=== PATIENT | female | born 1950 | race Caucasian/White ===

== ENCOUNTER → 2018-01-21 15:51 | Outpatient (CLI) | payer MEDICARE, BC, SELFPAY | PROVIDERS: Family Provider Family Medicine; PCP Family Medicine; Visit Provider Family Medicine | DX: R31.9 Hematuria, unspecified (principal) | CPT/HCPCS: 87086 ==

== ENCOUNTER 2018-02-13 12:37 | Day surgery (SDC) | payer MEDICARE, BC, SELFPAY ==
[2018-02-13] VITALS (9 sets, daily range): BP systolic 106–156; BP diastolic 64–126; PULSE 53–83; RESP 12–18; TEMP 36.6–37; O2SAT 94–100; BMI 26.8
--- NOTE | 2018-02-13 | IMM_PTH ---
PATIENT: SERENA PENDLETON LOC: [facility] – [place] U#:[id number] AGE/SX: 67/F ROOM: RE02/13/[address]: Dr. Jose العراقي MD : 1950 BED: DIS: 02/14/2018 SPEC #: [id number] RECD: 02/15/18 12:55 STATUS: PAULO REQ #: [id number] AMANDA: 02/13/18 00:[address]: Jose العراقي DEPT: IMMUNOHISTOCHEMISTRY RECD BY: Jackie Solitario ENTERED: 02/15/18 12:56 SP TYPE: IMMUNO OTHR DR: Dr. Lizett Flores MD Tissues: Urinary bladder, NOS Procedures: CK5-6 (initial) CD31 (add) CK20 (add) CK7 (add) P53 (add) FACTOR VIII (add) P40 (add) PHYSICIAN & INSTITUTION [place] [address] SPECIMEN INFORMATION: Tissue Source: Bladder tumor Clinical Info: Bladder tumor, gross hematuria Specimen Number: [id number] #4 CPT code: 78608, 53074 x6 METHODOLOGY: Deparaffinized sections of prefer/formalin-fixed tissue or PAP/DQ stained slides are incubated with monoclonal/polyclonal antibodies/oligonucleotide probes. Localization is made via biotin free immunoperoxidase method. Appropriate controls are performed and reacted as expected. Results on target cell population are indicated in the following table: RESULTS: ANTIBODY / CLONE RESULT Block 4 CK5-6 (D5 & 1684) positive P40 (BC28) positive CK7 (OV-TL12/30) positive, focal CK20 (KS20.8) negative P53 (DO-7) positive CD31 (BUTCH/70A) positive Factor VIII (R Ag) positive These tests were developed and their performance characteristics determined by [facility]. They may not have been cleared or approved by the U.S. Food and Drug Administration. The FDA has determined that such clearance or approval is not necessary. INTERPRETATION: Bladder tumor: Invasive squamous cell carcinoma. Lymphvascular invasion is present. SJ:eliezer 02/18/18 Case has been reviewed in consultation with Dr. Montano who concurs with the above diagnosis. IDC:AM
[2018-02-13 13:30] LABS: Anion Gap 8 (5-15); BUN 35 mg/dL (7-18); BUN/Creat Ratio 16.5 RATIO (10-20); Calcium,Total 8.9 mg/dL (8.5-10.1); Chloride 107 mmol/L (98-107); Creatinine, Serum 2.12 mg/dL (0.55-1.02); EST Glomerular Filtration Rate 25 mL/min (>60); Est Glom Filt Rate - Afr Amer 30 mL/min (>60); Glucose 87 mg/dL (74-106); Potassium 4.3 mmol/L (3.5-5.1); Sodium Level 141 mmol/L (136-145)
[2018-02-13 13:34] LABS: Hematocrit 34.5 % (37-47); Hemoglobin 11.3 g/dl (12.0-15.0); Mean Corp Hgb Conc 32.8 g/gl (32-36); Mean Corpuscular Hgb 32.3 pg (27.0-32.0); Mean Corpuscular Volume 98.6 fL (81-99); Mean Platelet Vol. 9.6 fl (6.2-12.0); Platelet Count 202 K/mm3 (150-450); RBC Distribution Width CV 12.8 % (11.6-14.6); RBC Distribution Width SD 46.3 fl (35.1-43.9); White Blood Count 7.3 K/mm3 (4.4-11.0)
[2018-02-13 13:39] LABS: Scan Indicated on CBC? Y/N NO
--- NOTE | 2018-02-13 14:50 | BLB_PTH ---
PATIENT: SERENA PENDLETON LOC: [facility] – [place] U#:[id number] AGE/SX: 67/F ROOM: RE02/13/[address]: Dr. Jose العراقي MD : 1950 BED: DIS: 02/14/2018 SPEC #: [id number] RECD: 02/14/18 09:19 STATUS: PAULO CHARLES #: [id number] AMANDA: 02/13/18 14:[address]: Jose العراقي DEPT: SURGICAL PATHOLOGY RECD BY: Kamaljit Church ENTERED: 02/14/18 10:18 SP TYPE: TURB OTHR DR: Dr. Lizett Flores MD Tissues: Urinary bladder, NOS Procedures: Surgery Specimen Level V HEADER OPERATION: Cysto, transurethral resection bladder, Olymp[employer] PRE-OP DIAGNOSIS: Bladder tumor, gross hematuria TISSUE SUBMITTED: Bladder tumor MICROSCOPIC DIAGNOSIS Bladder tumor, TUR: Invasive moderately differentiated squamous carcinoma. See comment. See cancer summary below. BLADDER CANCER (TUR) SUMMARY: Procedure - TURBT Histologic type ? squamous cell carcinoma. Associated epithelial lesions ? none identified Histologic grade ? moderately differentiated. Tumor configuration ? papillary, invasive and endophytic. Adequacy of material for determining muscularis propria invasion - muscularis propria (detrusor muscle) is not identified. Lymph-Vascular invasion ? present. See comment. Microscopic extent of tumor ? tumor invades subepithelial connective tissue (lamina propria). Additional pathologic findings ? acute and chronic inflammation. The above summary is in compliance with [employer] [place] [employer] (CAP) Cancer Protocols Checklist and [place] Joint Committee on Cancer (AJCC), Staging Manual, 8th Ed. SJ:rg 02/15/18 COMMENT Immunohistochemistry ([id number]) supports the diagnosis of squamous cell differentiation and lymph-vascular invasion. The tumor also shows focal area of necrosis. Case has been reviewed in consultation with Dr. Montano who concurs with the above diagnosis. IDC:AM MICROSCOPIC DESCRIPTION Slides are reviewed. GROSS DESCRIPTION Received in fixative is one container labeled with the patient's name and designated bladder tumor. The specimen consists of multiple irregular fragments of lewis-light brown soft tissue mixed with fragments of blood clot that in aggregate measure 5 x 3 x 0.8 cm. The entire specimen is submitted in four cassettes. / TIA:eliezer 02/14/18 TC:0 CPT: 17833
[2018-02-13] MEDS: Cefazolin 2 GM in 0.9% Normal Saline 100 ML IV (16:11)
--- NOTE | 2018-02-13 16:37 | PCM.OPRPT ---
Report of Operation Date of Procedure: 02/13/18 Pre-Operative Diagnosis: Large bladder mass with hydronephrosis and obstruction Post-Operative Diagnosis: Large bladder mass large fixed pelvic mass Surgery/Procedure Performed:: Transurethral resection of of the large bladder mass Description of Surgical Findings:: 87-year-old female who presented to my office with a large bladder mass and hydronephrosis we suspect she has invasive cancer no tissue diagnosis as of yet so today can take the surgery to attempt to do a resection if the tumor is resectable. I told the patient if she has a resectable tumor I was from the time the resected but it is not resectable then I does like to get a diagnosis of the tissue so we can plan for her treatment in the future. 67-year-old female taken back to the operating room after smooth induction of anesthesia she is placed in the dorsolithotomy position the urethra and vaginal area were prepped and draped in usual sterile fashion with Betadine. She was given IV antibiotics. Timeout was performed, she had SCDs on for DVT prophylaxis, after intubation by Dr. Ng she was then placed in dorsal lithotomy position, her vaginal area and urethra prepped and draped in usual fashion I first did a bimanual exam and she had a hard fixed pelvic mass within the anterior vaginal wall. I then dilated the urethra I went in the bladder with a cystoscope and looked inside the bladder and she had an extensive amount of tumor involving the trigone of both the left and right side and extending throughout the bladder to the patient's left side of the bladder. I then used the resectoscope and resected a handful of tissue from the trigone area but was not a complete resection was obviously invasive cancer complete resection would not of benefit the patient could not identify the left and right ureteral orifice are completely covered with tumor so did not even attempt to do stent placement. Left a catheter in place will have the nurses flush of the keep the urine clear and will offer her bilateral nephrostomy tubes tomorrow given the obstruction that I see within the bladder and she may have to consider chemotherapy first and perhaps cystectomy if she has a good response. Type of Anesthesia:: General Drains: martinez 20 fr - Admit VTE Documentation VTE Present on Admission: No VTE Mechan Device Prophylaxis: SCD's
[2018-02-13] MEDS: 0.9% Normal Saline 1,000 ML 150 ML IV (19:27)
[2018-02-13] MEDS: oxyCODONE 5 MG Tablet PO (22:21)
[2018-02-13] MEDS: Docusate Sodium 100 MG Capsule PO (22:21)
--- NOTE | 2018-02-14 01:10 | NURSING ---
Pt's daughter, Hollie, called for update on patient and had several questions for this RN. This RN attempted to answer the daughter's questions but did make aware that Dr. العراقي would be able to discuss and answer the questions in more detail. Emotional support provided.
[2018-02-14] MEDS: 0.9% Normal Saline 1,000 ML 150 ML IV (02:02)
[2018-02-14 02:07] VITALS: BP 125/69; PULSE 62; RESP 18; TEMP 36.9; O2SAT 94
[2018-02-14] MEDS: Acetaminophen 325 MG Tablet PO (05:53)
--- NOTE | 2018-02-14 07:44 | DCINST_ITS ---
Discharge Diet: Light diet - advance as tolerated Discharge Activity: Return to Normal Activity Call your doctor if your incision/area has: Sudden Increased Bleeding Call your doctor if you observe: Fever of 101 or Higher Allergies/Adverse Reactions: Allergies apple Allergy (Verified 02/12/18 08:20) Anaphylaxis Iodinated Contrast- Oral and IV Dye [CONTRASTS] Allergy (Verified 02/12/18 08:19 ) Other HEADACHE Iodine and Iodide Containing Produc Allergy (Verified 02/12/18 08:19) Other HEADACHE Milk Containing Products Allergy (Verified 02/12/18 08:20) Other Medications to take at Discharge Ascorbic Acid [Vitamin C] 1,000 mg PO DAILY 02/12/18 Biotin 10 mg PO DAILY 02/12/18 Folic Acid 2 mg PO DAILY@0800 02/12/18 Melatonin 10 mg PO DAILY 02/12/18 Methotrexate 15 mg PO Q7D 02/12/18 Multivitamin [Daily Multiple Vitamin] 1 each PO DAILY 02/12/18 Naproxen Sodium [Aleve] 220 mg PO PRN PRN 02/12/18 Potassium 99 mg PO DAILY 02/12/18 Prednisone 20 mg PO PRN PRN 02/12/18 Ciprofloxacin [Cipro] 250 mg PO DAILY #10 tab 02/14/18 The following prescriptions were given: Ciprofloxacin [Cipro] 250 mg PO DAILY #10 tab Primary Care Physician: Lizett Flores MD [Primary Care Provider] - Test Results: Test results from this visit will be discussed in further detail at your follow- up appointment, if applicable. Please Follow Up With: Jose العراقي MD When: call my office to get appt with in [place].
[2018-02-14 07:49] VITALS: BP 135/72; PULSE 57; RESP 18; TEMP 36.7; O2SAT 98
[2018-02-14 07:53] VITALS: PULSE 57
[2018-02-14] MEDS: Docusate Sodium 100 MG Capsule PO (08:53)
== END 2018-02-14 10:03 | disposition home or self-care (01) ==
LOC: SDC 12:38 → AC 12:41 → MS2 17:58
PROVIDERS: Family Provider Family Medicine; PCP Family Medicine; Visit Provider Urology
PROC: 0TBB8ZZ Excision of Bladder, Via Natural or Artificial Opening Endoscopic (ICD-10-PCS; CPT 52240; principal; 2018-02-13 14:40)
DX: C67.9 Malignant neoplasm of bladder, unspecified (principal); N13.30 Unspecified hydronephrosis; R31.0 Gross hematuria; K21.9 Gastro-esophageal reflux disease without esophagitis; Z87.440 Personal history of urinary (tract) infections
CPT/HCPCS: 52240; 80048; 85027; 88307; 88341; 88342; 93005; J7030; J7120; J2405

== ENCOUNTER → 2018-05-06 15:50 | Outpatient (CLI) | payer MEDICARE, BC, SELFPAY ==
[2018-05-06 17:55] LABS: BUN 29 mg/dL (7-18); BUN/Creat Ratio 24.6 RATIO (10-20); Calcium,Total 8.9 mg/dL (8.5-10.1); Chloride 110 mmol/L (98-107); Creatinine, Serum 1.18 mg/dL (0.55-1.02); EST Glomerular Filtration Rate 49 mL/min (>60); Est Glom Filt Rate - Afr Amer 59 mL/min (>60); Glucose 78 mg/dL (74-106); Sodium Level 138 mmol/L (136-145)
[2018-05-06 17:56] LABS: Anion Gap 8 (5-15); Thyroid Stim Hormone (TSH) 0.42 uIU/mL (0.358-3.74)
[2018-05-06 17:57] LABS: Vitamin D,25 Hydroxy 26.4 ng/mL (29.95-100.01)
== END ==
PROVIDERS: Family Provider Family Medicine; PCP Family Medicine; Visit Provider Family Medicine
DX: M19.90 Unspecified osteoarthritis, unspecified site (principal); R63.5 Abnormal weight gain
CPT/HCPCS: 36415; 80048; 82306; 84443

== ENCOUNTER → 2018-06-05 07:40 | Outpatient (CLI) | payer MEDICARE, BC, SELFPAY ==
--- NOTE | 2018-06-05 07:44 | BI_ITS ---
MAMMOGRAPHY - BILATERAL SCREENING REASON FOR EXAM: Female, 67 years old. Routine annual screening examination. PERTINENT HISTORY: Non-contributory. The patient has a history of bladder cancer. TECHNIQUE: Digital bilateral breast marck (3D mammographic acquisition) in the CC and MLO projections. 2-D mediolateral oblique (MLO) and craniocaudad (CC) views of both breasts were obtained. CAD: Full Field Digital Mammography with Computer Added Detection was performed. COMPARISON: Comparison is made with prior study dated May 10, 2017 and March 03, 2016. FINDINGS: Breast Composition: The breasts are heterogeneously dense, which may obscure small masses. There are no dominant masses or suspicious calcifications. No other significant abnormalities are identified. There has been no significant change since the prior study. BI/SCREENING MAMM (CAD), BILAT IMPRESSION: Stable bilateral screening mammogram. Yearly follow-up mammogram recommended. (A) ASSESSMENT CATEGORY: BIRADS Category 1: Negative. A letter regarding these results will be sent to the patient by the facility within 30 days. Approximately 10% of breast cancers are not detected by mammography. A normal mammogram should not delay biopsy of a clinically suspicious abnormality. [id number] Electronically Signed: Aiden Kenny MD at 9:22 EST Tel [phone], Service support ,
--- OUTSIDE RECORDS SUMMARY | 2018-07-31 12:01 | XMS RPT_ITS ---
:1950 Author Organization OHIP Support Name Relationship Address Phone [facility] Unavailable [address] + [place] [address] JACQUE MUSA Unavailable [address] + [place] [address] [facility] Unavailable [address] + [place] [address] JACQUE MUSA Unavailable [address] + [place] [address] [facility] Unavailable [address] + [place] [address] JACQUE MUSA Unavailable [address] + [place] [address] [facility] Unavailable [address] + [place] [address] JACQUE MUSA Unavailable [address] + [place] [address] JACQUE MUSA Unavailable Unavailable + JACQUE MUSA Unavailable Unavailable Unavailable NOT GIVEN Unavailable Unavailable Unavailable JACQUE MUSA Unavailable Unavailable + JACQUE MUSA Unavailable Unavailable Unavailable NOT GIVEN Unavailable Unavailable Unavailable [facility] Unavailable [address] + [place] [address] JACQUE MUSA Unavailable [address] + [place] [address] JACQUE MUSA Unavailable Unavailable + JACQUE MUSA Unavailable Unavailable Unavailable NOT GIVEN Unavailable Unavailable Unavailable JACQUE MUSA Unavailable Unavailable + JACQUE MUSA Unavailable Unavailable Unavailable NOT GIVEN Unavailable Unavailable Unavailable [facility] Unavailable [address] + [place] [address] JACQUE MUSA Unavailable [address] + [place] [address] [facility] Unavailable [address] + [place] [address] JACQUE MUSA Unavailable [address] + [place] [address] Care Team Providers Name Role Phone SARAH JULES Referring Unavailable CHUY GARCIA (FEL) Attending Unavailable LANASTEINOLLIE (FEL) Attending Unavailable ORNSTEINVICTORINOHE (FEL) Referring Unavailable BELINDA, YOSHI JUAN JOSE Referring Unavailable ORNSTEINOLLIE (FEL) Attending Unavailable VICTORINO NOLENHE (FEL) Referring Unavailable BELINDA, YOSHI JUAN JOSE Attending Unavailable HARRY MANCILLA (FEL) Attending Unavailable SARAH JULES Referring Unavailable ISRAEL WILSON Referring Unavailable BELINDA, YOSHI JUAN JOSE Referring Unavailable BELINDA, YOSHI JUAN JOSE Referring Unavailable BELINDA, YOSHI JUAN JOSE Referring Unavailable BELINDA, YOSHI JUAN JOSE Admitting Unavailable BELINDA, YOSHI JUAN JOSE Attending Unavailable BELINDA, YOSHI JUAN JOSE Referring Unavailable BELINDA, YOSHI JUAN JOSE Attending Unavailable BELINDA, YOSHI JUAN JOSE Referring Unavailable RADHA, CHUY (FEL) Referring Unavailable BELINDA, YOSHI JUAN JOSE Referring Unavailable BELINDA, YOSHI JUAN JOSE Referring Unavailable RADHA, CHUY (FEL) Referring Unavailable RADHA CHUY (FEL) Attending Unavailable SARAH JULES Referring Unavailable LANASTEINOLLIE (FEL) Referring Unavailable MADYSON PEREZ MD Admitting Unavailable MADYSON PEREZ MD Attending Unavailable MADYSON PEREZ MD Primary Care Unavailable TETELLIFF, LIZETT S Consulting Unavailable PROVIDER, UNKNOWN Consulting Unavailable MADYSON PEREZ MD Admitting Unavailable MADYSON PEREZ MD Attending Unavailable MADYSON PEREZ MD Primary Care Unavailable JOLLIFF, LIZETT S Consulting Unavailable PROVIDER, UNKNOWN Consulting Unavailable FERNANDO RIGGS Admitting Unavailable FERNANDO RIGGS Attending Unavailable FERNANDO RIGGS Primary Care Unavailable JOLLIFF, LIZETT S Consulting Unavailable PROVIDER, UNKNOWN Consulting Unavailable FERNANDO RIGGS Admitting Unavailable FERNANDO RIGGS Attending Unavailable FERNANDO RIGGS Primary Care Unavailable JOLLIFF, LIZETT S Consulting Unavailable PROVIDER, UNKNOWN Consulting Unavailable Jolliff, Lizett Attending Unavailable Sandra, Lizett Primary Care Unavailable Vellanfidelia, Madyson Attending Unavailable Vellanki, Madyson Referring Unavailable Jolliff, Lizett Primary Care Unavailable Jolliff, Lizett Attending Unavailable Jolliff, Lizett Primary Care Unavailable Jolliff, Lizett Referring Unavailable Dulce MariaJose sy Attending Unavailable Dulce Maria, Juan Referring Unavailable Jolliff, Lizett Primary Care Unavailable JoyceMorales cesarril Attending Unavailable Dulce Maria, Juan Referring Unavailable Jolliff, Lizett Attending Unavailable Jolliff, Lizett Primary Care Unavailable Jolliff, Lizett Attending Unavailable Jolliff, Lizett Primary Care Unavailable PROBLEMS PROBLEMS DATE TYPE CONDITION / CODE ATTENDING STATUS SOURCE 06/05/2018 Unknown Z12.31 - Encounter Lizett Flores Active [place] for screening Community mammogram for Hospital malignant neoplasm of Repository breast / Z12.31(ICD-10) 05/21/2018 Active Unknown / OLLIE NOLEN Active [place] UNK(Unknown) (FEL) Clinic Main [place] Repository 03/15/2018 Active Hyperkalemia / NA Active [place] E87.5(ICD-10) Clinic Main [place] Repository 03/15/2018 Active Malignant neoplasm of NA Active [place] overlapping sites of [facility] Main bladder / [place] C67.8(ICD-10) Repository 02/19/2018 Active Encounter for CHUY GARCIA Active [place] screening for other (FEL) Clinic Main disorder / [place] Z13.89(ICD-10) Repository 02/27/2018 Active Other acute YOSHI LARA Active [place] postprocedural pain / [facility] Main G89.18(ICD-10) [place] Repository 02/27/2018 Active Other polyuria / YOSHI LARA Active [place] R35.8(ICD-10) [facility] Main [place] Repository 02/27/2018 Active Acute kidney failure, YOSHI LARA Active [place] unspecified / [facility] Main N17.9(ICD-10) [place] Repository 02/27/2018 Active Acidosis / YOSHI LARA Active [place] E87.2(ICD-10) [facility] Main [place] Repository 02/27/2018 Active 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, [facility] Main unspecified / [place] N13.9(ICD-10) Repository 02/25/2018 Active Urinary tract HARRY MANCILLA Active [place] infection, site not (FEL) Clinic Main specified / [place] N39.0(ICD-10) Repository 02/19/2018 Active Malignant neoplasm of NA Active [place] bladder, unspecified Clinic Main / C67.9(ICD-10) [place] Repository 02/19/2018 Active Abnormal results of NA Active [place] kidney function Clinic Main studies / [place] R94.4(ICD-10) Repository 02/19/2018 Active Encounter for other NA Active [place] preprocedural [facility] Main examination / [place] Z01.818(ICD-10) Repository 02/19/2018 Active Acute posthemorrhagic NA Active [place] anemia / D62(ICD-10) Clinic Main [place] Repository 02/19/2018 Active Other symptoms and NA Active [place] signs involving the Clinic Main genitourinary system [place] / R39.89(ICD-10) Repository 02/19/2018 Active Malignant neoplasm of YOSHI LARA Active [place] lateral wall of [facility] Main bladder / [place] C67.2(ICD-10) Repository 02/19/2018 Active 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 [facility] Main specified sites / [place] C79.89(ICD-10) Repository 03/18/2018 Unknown R00.1 - Bradycardia, Joyce, [place] Active [place] unspecified / Community R00.1(ICD-10) Hospital Repository 01/23/2018 Unknown R31.9 - Hematuria, Jolliff, Lizett Active [place] unspecified / Community R31.9(ICD-10) Hospital Repository 01/23/2018 Unknown 599.70 - Hematuria, Jolliff, Lizett Active [place] unspecified / Community 599.70(ICD-9) Hospital Repository 07/17/2017 Unknown M06.4 - Inflammatory Vellanki, 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 [phone] June 20, 2018 Serena Musa CCF# [id number] [address] [facility] [address] Dear Ms. Musa: We regret to inform you that, due to unforeseen circumstances, Yoshi James will be unable to see you on 08/27/18, your scheduled appointment day. We apologize for any inconvenience that this adjustment may cause you. Please call the phone number above to schedule a new appointment. If you have any laboratory studies, x-rays, or other associated appointments originally scheduled for that day, please let us know so that we can try to reschedule them as well. Thank you. Sincerely, Appointment Office Pending Sale To [facility] [place] CNCO Observed: 06/20/2018 Status: COMPLETED Source: [place] 12:00 AM [facility] REPOSITORY Letter Text [address] [id number] Toll-Free: [phone] ext. [phone] June 20, 2018 Serena Musa [facility]# [id number] [address] [facility] [address] Dear Ms. Musa: We regret to inform you that, due to unforeseen circumstances, Yoshi James will be unable to see you on 08/27/18, your scheduled appointment day. We apologize for any inconvenience that this adjustment may cause you. Please call the phone number above to schedule a new appointment. If you have any laboratory studies, x-rays, or other associated appointments originally scheduled for that day, please let us know so that we can try to reschedule them as well. Thank you. Sincerely, Appointment Office Pending Sale To [facility] [place] SCREENING MAMM (CAD), Observed: 06/05/2018 Status: F Source: [place] 7:44 AM [facility] REPOSITORY [facility] Imaging Services [address] [place] [address] SCREENING MAMM (CAD), BILAT MR#: [id number] Acct: [id number] Name: SERENA MUSA Rep #: [id number] : 1950 F 67 From: Aiden Kenny MD PCP: Lizett Flores MD Status: REG CLI Study: SCREENING MAMM (CAD), BILAT Date of Exam: 06/05/18 Exam# [id number] Ordering Dr: Lizett Flores MD MAMMOGRAPHY - BILATERAL SCREENING REASON FOR EXAM: Female, 67 years old. Routine annual screening examination. PERTINENT HISTORY: Non-contributory. The patient has a history of bladder cancer. TECHNIQUE: Digital bilateral breast marck (3D mammographic acquisition) in the CC and MLO projections. 2-D mediolateral oblique (MLO) and craniocaudad (CC) views of both breasts were obtained. CAD: Full Field Digital Mammography with Computer Added Detection was performed. COMPARISON: Comparison is made with prior study dated May 10, 2017 and March 03, 2016. FINDINGS: Breast Composition: The breasts are heterogeneously dense, which may obscure small masses. There are no dominant masses or suspicious calcifications. No other significant abnormalities are identified. There has been no significant change since the prior study. BI/SCREENING MAMM (CAD), BIL IMPRESSION: Stable bilateral screening mammogram. Yearly follow-up mammogram recommended. (A) ASSESSMENT CATEGORY: BIRADS Category 1: Negative. A letter regarding these results will be sent to the patient by the facility within 30 days. Approximately 10% of breast cancers are not detected by mammography. A normal mammogram should not delay biopsy of a clinically suspicious abnormality. [id number] Electronically Signed: Aiden Kenny MD at 9:22 EST Tel [phone], Service support , CC: Lizett Flores MD Boat Hand: Signed PROGRESS Observed: 05/21/2018 Status: COMPLETED Source: [place] 11:01 AM [facility] REPOSITORY HNO ID: [id number] Author: Kaity Nunez Service: (none) Author Type: (none) Type: Progress Notes Filed: 06/11/2018 4:27 PM Note Text: Established Patient Follow-Up Template Patient Name: Serena Musa PMHx: 67 year old female with a h/o Hx of Bladder Cancer. s/p Robotic radical cystectomy, hysterstomy, salpingo-oopherectomy with PLND and IC on (02/27/2018) ? SURGICAL PATHOLOGY FINAL DIAGNOSIS 1. Ureter, right distal #1 and #2, excision (A) - Segment of ureter, negative for neoplasm. 2. Ureter, left distal, excision (B) - Segment of ureter with reactive urothelial atypia, negative for neoplasm. 3. Urethra, margin, excision (C) - Extensively involved by invasive urothelial carcinoma, high-grade. Surgeon performed a urethrectomy intra op. 4. Urinary bladder, uterus, vagina, and bilateral fallopian tubes and ovaries, cystectomy with hysterectomy, vaginectomy and bilateral salpingo-oophorectomy - Invasive urothelial carcinoma of the urinary bladder with extensive secondary involvement of vagina and uterus. - Extensive angiolymphatic invasion is present. - Urothelial carcinoma extends to the paravaginal soft tissue margin. - Bilateral fallopian tubes and ovaries, negative for neoplasm. -?One of eleven lymph nodes involved by metastatic urothelial carcinoma (07/19). - See synoptic report. INTERVAL HX: Patient states no c/o's today and is feeling good. Pt has seen Dr. Owen today, he recommended chemotherapy if renal function declines. Pt reports sharp lower R abdominal pains, lasting for 10 minutes during night. She reports this pain resolved after 10 min and she fell back asleep. No fevers/chills. She takes stool softeners, reports regular BMs. Pt endorses mild core exercises. Pt reports vaginal discharge, heavy at first since surgery. This clear discharge is still present; however she admits less output. She also endorses one episode of bloody discharge, this has since resolved and is clear. Disease Specificity: Acuity: Chronic Anatomic Site: Bladder, Laterality: N/A Underlying Condition/Causal Agent: Primary Associated Conditions/Manifestations: N/A Patient denies urinary symptoms such as fever/chills. Patient admits urinary symptoms such as nocturia. INCONTINENCE: N/A IMPOTENCE: N/A Patient presents today for f/u evaluation of bladder cancer. LABS: Creatinine Date Value Ref Range Status 05/21/2018 1.36 (H) 0.58 - 0.96 mg/dL Final 03/15/2018 1.34 (H) 0.58 - 0.96 mg/dL Final 03/10/2018 1.82 (H) 0.58 - 0.96 mg/dL Final 03/09/2018 2.00 (H) 0.58 - 0.96 mg/dL Final IMAGING: CT A/P (04/17/2018) IMPRESSION: Interval cystectomy with a right lower quadrant ileal conduit, lymph node dissection and hysterectomy. No metastatic disease in the abdomen and pelvis. CXR (04/17/2018) IMPRESSION: No acute radiographic abnormality is evident. PAST MEDICAL HISTORY: PAST MEDICAL HISTORY Diagnosis Date - Bladder cancer (HCC) PAST SURGICAL HISTORY: No past surgical history on file. FAMILY HISTORY: No family history on file. SOCIAL HISTORY: Social History Marital status: Spouse name: Years of education: Number of children: Social History Main Topics Smoking status: Never Smoker Smokeless tobacco: Never Used REVIEW OF SYSTEMS: CONSTITUTIONAL: No fevers, chills, nightsweats, unintended weight loss HEENT: Denies frequent or severe heaches, nasal congestion/sinus symptoms, problematic allergy problems. EYES: No diplopia or blurry vision. CARDIOVASCULAR: No chest pain, dyspnea, palpitations, orthopnea, PND, ankle edema. PULM: No dyspnea, unexplained cough. GI: No dysphagia/odynophagia, problematic reflux, constipation, diarrhea, changes in stool habits, hematochezia, melena. : No new urinary complaints, including dysuria, gross hematuria or pyuria. NEURO: No new balance problems, peripheral weakness/paresthesias or numbness of concern. MUSC-SKEL: No new joint pain, swelling, or erythema. PSY: No concerns regarding depression, anxiety or panic. INTEGUMENTARY: No new skin changes (rash, new or changing mole, new growth) PHYSICAL EXAM: GENERAL: NAD, pleasant and cooperative with exam, healthy appearing habitus HEENT: Normocephalic, atraumatic, oral mucosa moist without lesions LUNGS: clear to auscultation bilaterally, good respiratory effort CV: Regular rate, rhythm and without appreciable murmur, + b/l chest rise ABD: normal bowel sounds, soft, nontender, non-distended, no flank pain, surgical incisions are well healed, no hernias EXTREMITIES: no appreciable edema, cyanosis, clubbing and no clear joint deformities. PULSES: 2+ radial, 2+ carotid STOMA: pink and viable, good keily bud with pink/yellow urine ASSESSMENT/PLAN: 67 y/o female with hx of bladder cancer s/p RARC/IC on 02/27/2018 for invasive urothelial carcinoma of the urinary bladder with extensive secondary involvement of vagina and uterus. Further discussed pathology report with pt and implications of diagnosis. Discussed imaging results with pt, no recurrence of disease. Surgical incisions and stoma are clean and clear from infection. Pt will f/u with Dr. Nolen to further discuss chemotherapy treatment options given borderline renal function. Advised her to stay well hydrated and to resume daily activity with no limitations. RTC in 3 months with labs and imaging prior. - CT A/P, CMP, CBC - Will consult to nephrology By signing my name below, I, Kaity Nunez, attest that this documentation has been prepared under the direction and in the presence of Aimee Lara MD. Electronically signed: Derik Alcantar, May 21, 2018 11:29 AM Aimee Wright MD. , personally performed the services described in this documentation. All medical record entries made by the scribe were at my direction and in my presence. I have reviewed the chart and discharge instructions (if applicable) and agree that the record reflects my personal performance and is accurate and complete. Aimee Lara MD. May 21, 2018 11:29 AM CNOV Observed: 05/21/2018 Status: COMPLETED Source: [place] 10:50 AM [facility] REPOSITORY Office Visit (UROLMN) SERENA MUSA ([id number]) 1950 F Date Time Provider Department 05/21/18 10:50 AM YOSHI LARA During your visit today, we recorded the following information about you: Kaity Nunez 06/11/2018 4:27 PM Signed Established Patient Follow-Up Template Patient Name: Serena Musa PMHx: 67 year old female with a h/o Hx of Bladder Cancer. s/p Robotic radical cystectomy, hysterstomy, salpingo-oopherectomy with PLND and IC on (02/27/2018) ? SURGICAL PATHOLOGY FINAL DIAGNOSIS 1. Ureter, right distal #1 and #2, excision (A) - Segment of ureter, negative for neoplasm. 2. Ureter, left distal, excision (B) - Segment of ureter with reactive urothelial atypia, negative for neoplasm. 3. Urethra, margin, excision (C) - Extensively involved by invasive urothelial carcinoma, high-grade. Surgeon performed a urethrectomy intra op. 4. Urinary bladder, uterus, vagina, and bilateral fallopian tubes and ovaries, cystectomy with hysterectomy, vaginectomy and bilateral salpingo-oophorectomy - Invasive urothelial carcinoma of the urinary bladder with extensive secondary involvement of vagina and uterus. - Extensive angiolymphatic invasion is present. - Urothelial carcinoma extends to the paravaginal soft tissue margin. - Bilateral fallopian tubes and ovaries, negative for neoplasm. -?One of eleven lymph nodes involved by metastatic urothelial carcinoma (07/19). - See synoptic report. INTERVAL HX: Patient states no c/o's today and is feeling good. Pt has seen Dr. Owen today, he recommended chemotherapy if renal function declines. Pt reports sharp lower R abdominal pains, lasting for 10 minutes during night. She reports this pain resolved after 10 min and she fell back asleep. No fevers/chills. She takes stool softeners, reports regular BMs. Pt endorses mild core exercises. Pt reports vaginal discharge, heavy at first since surgery. This clear discharge is still present; however she admits less output. She also endorses one episode of bloody discharge, this has since resolved and is clear. Disease Specificity: Acuity: Chronic Anatomic Site: Bladder, Laterality: N/A Underlying Condition/Causal Agent: Primary Associated Conditions/Manifestations: N/A Patient denies urinary symptoms such as fever/chills. Patient admits urinary symptoms such as nocturia. INCONTINENCE: N/A IMPOTENCE: N/A Patient presents today for f/u evaluation of bladder cancer. LABS: Creatinine Date Value Ref Range Status 05/21/2018 1.36 (H) 0.58 - 0.96 mg/dL Final 03/15/2018 1.34 (H) 0.58 - 0.96 mg/dL Final 03/10/2018 1.82 (H) 0.58 - 0.96 mg/dL Final 03/09/2018 2.00 (H) 0.58 - 0.96 mg/dL Final IMAGING: CT A/P (04/17/2018) IMPRESSION: Interval cystectomy with a right lower quadrant ileal conduit, lymph node dissection and hysterectomy. No metastatic disease in the abdomen and pelvis. CXR (04/17/2018) IMPRESSION: No acute radiographic abnormality is evident. PAST MEDICAL HISTORY: PAST MEDICAL HISTORY Diagnosis Date - Bladder cancer (HCC) PAST SURGICAL HISTORY: No past surgical history on file. FAMILY HISTORY: No family history on file. SOCIAL HISTORY: Social History Marital status: Spouse name: Years of education: Number of children: Social History Main Topics Smoking status: Never Smoker Smokeless tobacco: Never Used REVIEW OF SYSTEMS: CONSTITUTIONAL: No fevers, chills, nightsweats, unintended weight loss HEENT: Denies frequent or severe heaches, nasal congestion/sinus symptoms, problematic allergy problems. EYES: No diplopia or blurry vision. CARDIOVASCULAR: No chest pain, dyspnea, palpitations, orthopnea, PND, ankle edema. PULM: No dyspnea, unexplained cough. GI: No dysphagia/odynophagia, problematic reflux, constipation, diarrhea, changes in stool habits, hematochezia, melena. : No new urinary complaints, including dysuria, gross hematuria or pyuria. NEURO: No new balance problems, peripheral weakness/paresthesias or numbness of concern. MUSC-SKEL: No new joint pain, swelling, or erythema. PSY: No concerns regarding depression, anxiety or panic. INTEGUMENTARY: No new skin changes (rash, new or changing mole, new growth) PHYSICAL EXAM: GENERAL: NAD, pleasant and cooperative with exam, healthy appearing habitus HEENT: Normocephalic, atraumatic, oral mucosa moist without lesions LUNGS: clear to auscultation bilaterally, good respiratory effort CV: Regular rate, rhythm and without appreciable murmur, + b/l chest rise ABD: normal bowel sounds, soft, nontender, non-distended, no flank pain, surgical incisions are well healed, no hernias EXTREMITIES: no appreciable edema, cyanosis, clubbing and no clear joint deformities. PULSES: 2+ radial, 2+ carotid STOMA: pink and viable, good keily bud with pink/yellow urine ASSESSMENT/PLAN: 67 y/o female with hx of bladder cancer s/p RARC/IC on 02/27/2018 for invasive urothelial carcinoma of the urinary bladder with extensive secondary involvement of vagina and uterus. Further discussed pathology report with pt and implications of diagnosis. Discussed imaging results with pt, no recurrence of disease. Surgical incisions and stoma are clean and clear from infection. Pt will f/u with Dr. Nolen to further discuss chemotherapy treatment options given borderline renal function. Advised her to stay well hydrated and to resume daily activity with no limitations. RTC in 3 months with labs and imaging prior. - CT A/P, CMP, CBC - Will consult to nephrology By signing my name below, Kaity Wright, attest that this documentation has been prepared under the direction and in the presence of Yina Lara MD. Electronically signed: Derik Alcantar, May 21, 2018 11:29 AM Aimee Wright MD. , personally performed the services described in this documentation. All medical record entries made by the sushmaibolegario were at my direction and in my presence. I have reviewed the chart and discharge instructions (if applicable) and agree that the record reflects my personal performance and is accurate and complete. Aimee Lara MD. May 21, 2018 11:29 AM Referring Provider: YOSHI LARA [[id number]] Allergies As of Date: 05/21/2018 Noted Allergy Reaction IODINATED CONTRAST- ORAL AND IV D*02/19/2018 4 - Hives SEASONAL ALLERGIES 05/21/2018 14 - Other: See Comments Comments: Sneezing Date Reviewed: 05/21/2018 Reviewed by: Claudio Esquivel Ma - Fully Assessed Primary Visit Diagnosis:Malignant neoplasm of urinary bladder, unspecified site (HCC) [C67.9] Other Visit Diagnoses:Malignant neoplasm of lateral wall of urinary bladder (HCC) [C67.2] Malignant neoplasm of overlapping sites of bladder (HCC) [C67.8] Screening for genitourinary condition [Z13.89] Nonspecific abnormal results of kidney function study [R94.4] Order(s):UA CHEMSTRIP ONLY [SQUA] Order #: [id number] FUTURE UA CHEMSTRIP ONLY [SQUA] Order #: [id number] CT ABD/PEL W IVCON [[id number]] Order #: [id number] FUTURE [] iv contrast (will be provided with radiology test)CT ABD/PEL -Inject, intravenously, once for 1 dose.No IV access, insert saline lock prior to the beginning of sedation, infusion, injection of imaging exam. Discontinue saline lock post exam. If Pt. has a central line or IVAD, may access for administration according to line specific nursing protocol. Once exam is complete flush line and de-access according to line specific nursing protocol in the CT contrast administration guidelines link.Disp: 1 EachRfl: 0 CONSULT TO NEPHROLOGY [9018] Order #: [id number]: 1 COMP METABOLIC PANEL [SQCMP] Order #: [id number] FUTURE CBC [SQCBC] Order #: [id number] FUTURE [] predniSONE (DELTASONE) 50 mg tabTake 1 tablet by mouth every 6 hours for 3 doses. For prevention of contrast allergy given 13 hrs, 7 hrs and 1 hr prior to exam.Disp: 3 tabletRfl: 0 [] 0.9 % sodium chloride (NACL 0.9%) solutionInject 500 mL intravenously one time only for 1 dose. Over 2 hours.Disp: 500 mLRfl: 0 diphenhydrAMINE (BENADRYL) 25 mg capsuleTake [address] scan for allergic reactionDisp: 1 capsuleRfl: 0 CT CHEST W IVCON [[id number]] Order #: [id number] FUTURE [] iv contrast (will be provided with radiology test)CT Chest W -Inject, intravenously, once for 1 dose.No IV access, insert saline lock prior to the beginning of sedation, infusion, injection of imaging exam. Discontinue saline lock post exam. If Pt. has a central line or IVAD, may access for administration according to line specific nursing protocol. Once exam is complete flush line and de-access according to line specific nursing protocol in the CT contrast administration guidelines link.Disp: 1 EachRfl: 0 Prescriptions as of 05/21/2018 Sig: BANOPHEN 25 MG CAPSULE Take 2 capsules (50mg total) * CHOLECALCIFEROL (VITAMIN D3) * Take 1,000 Units by mouth onc* CYANOCOBALAMIN (VIT B-12) 500* Take 1 tablet by mouth once d* DIPHENHYDRAMINE 50 MG CAPSULE Take 1 capsule by mouth as di* DOCUSATE SODIUM 100 MG CAPSULE Take 1 capsule by mouth twice* TYLENOL ARTHRITIS ORAL Take by mouth every 8 hours a* MELATONIN 10 MG CAPSULE Take by mouth daily at bedtim* MULTIVITAMIN 50 PLUS ORAL Take by mouth once daily. BIOTIN 1,000 MCG CHEWABLE TAB* Take by mouth. ASCORBIC ACID (VITAMIN C) 100* Take 100 mg by mouth once erica* FEXOFENADINE 60 MG-PSEUDOEPHE* as necessary IV CONTRAST (RADIOLOGY PROCED* CT ABD/PEL -Inject, intraveno* PREDNISONE 50 MG TABLET Take 1 tablet by mouth every * SODIUM CHLORIDE 0.9 % INTRAVE* Inject 500 mL intravenously o* DIPHENHYDRAMINE 25 MG CAPSULE Take [address] sc* IV CONTRAST (RADIOLOGY PROCED* CT Chest W -Inject, intraveno* CIPROFLOXACIN 500 MG TABLET Take 1 tablet by mouth once d* Patient not taking: Reported on 05/21/2018 SODIUM BICARBONATE 650 MG TAB* Take 1 tablet by mouth three * Patient not taking: Reported on 05/21/2018 OPTIVAR 0.05 % EYE DROPS one(1) drop to each eye twice* Patient not taking: No sig reported Medication notes this encounter BIOTIN 1,000 MCG CHEWABLE TABLET >> Claudio Esquivel Ma 05/21/2018 11:15 AM >> CLAUDIO ESQUIVEL MA May 21, 2018 11:15 AM Currently taking ASCORBIC ACID (VITAMIN C) 100 MG TABLET >> Claudio Esquivel Ma 05/21/2018 11:15 AM >> CLAUDIO ESQUIVEL MA May 21, 2018 11:15 AM Currently taking Problem List As Of Date 05/21/2018 Noted Resolved Malignant neoplasm of urinary bladder (HCC) [C6*INVALID FOR* More... Bladder cancer (HCC) [C67.9] INVALID FOR* More... Hydronephrosis [N13.30] INVALID FOR* Prescriptions ordered this encounter Disp Refills Start End IV CONTRAST (RADIOLOGY PROCEDURE) 1 Ea* 0 05/21/2018 05/22/2018 Class: In Office Sig: CT ABD/PEL -Inject, intravenously, once for 1 dose.No IV access, insert saline lock prior to the beginning of sedation, infusion, injection of imaging exam. Discontinue saline lock post exam. If Pt. has a central line or IVAD, may access for administration according to line specific nursing protocol. Once exam is complete flush line and de-access according to line specific nursing protocol in the CT contrast administration guidelines link. PREDNISONE 50 MG TABLET 3 ta* 0 05/21/2018 05/22/2018 Route: ORAL Sig: Take 1 tablet by mouth every 6 hours for 3 doses. For prevention of contrast allergy given 13 hrs, 7 hrs and 1 hr prior to exam. SODIUM CHLORIDE 0.9 % INTRAVENOUS SO* 500 * 0 05/21/2018 05/21/2018 Class: In Office Route: INTRAVENOUS Sig: Inject 500 mL intravenously one time only for 1 dose. Over 2 hours. DIPHENHYDRAMINE 25 MG CAPSULE 1 ca* 0 05/21/2018 Sig: Take [address] scan for allergic reaction IV CONTRAST (RADIOLOGY PROCEDURE) 1 Ea* 0 05/21/2018 05/22/2018 Class: In Office Sig: CT Chest W -Inject, intravenously, once for 1 dose.No IV access, insert saline lock prior to the beginning of sedation, infusion, injection of imaging exam. Discontinue saline lock post exam. If Pt. has a central line or IVAD, may access for administration according to line specific nursing protocol. Once exam is complete flush line and de-access according to line specific nursing protocol in the CT contrast administration guidelines link. Disposition: Return in about 3 months (around 08/21/2018). Follow-up and Disposition History Recorded Encounter Status:Closed by YOSHI LARA MD on 06/11/18 CBC Collected: 05/21/2018 Status: F Source: [place] 10:43 AM [facility] REPOSITORY TYPE CODE TESTS RESULT OUT OF REFERENCE UNITS RANGE LAB WBC 3.70-11.00 k/uL WBC 5.87 LAB RBC 3.90-5.20 m/uL Low RBC 3.43 LAB HGB 11.5-15.5 g/dL Low Hemoglobin 10.8 LAB HCT 36.0-46.0 % Low Hematocrit 33.5 LAB MCV 80.0-100.0 fL MCV 97.7 LAB MCH 26.0-34.0 pG MCH 31.5 LAB MCHC 30.5-36.0 g/dL MCHC 32.2 LAB RDWCV 11.5-15.0 % RDW-CV 13.3 LAB PLTCT 150-400 k/uL Platelet Count 265 LAB MPV 9.0-12.7 fL Low MPV 8.6 LAB ABSNUC <0.01 k/uL Absolute nRBC <0.01 Performed By: #### CBC, CMP #### [facility] [address] [place], [place] [address] COMP METABOLIC PANEL Collected: 05/21/2018 Status: F Source: [place] 10:43 AM [facility] REPOSITORY TYPE CODE TESTS RESULT OUT OF REFERENCE UNITS RANGE LAB TP 6.3-8.0 g/dL Protein, Total 7.3 LAB ALB 3.9-4.9 g/dL Albumin 4.3 LAB CA 8.5-10.2 mg/dL Calcium, Total 9.0 LAB TBIL 0.2-1.3 mg/dL Bilirubin, Total 0.2 LAB ALKP 34-123 U/L Alkaline Phosphatase 65 LAB AST 13-35 U/L AST 15 LAB GLU 74-99 mg/dL Glucose 87 Result Comment: The [place] [employer] (ADA) provides guidance for cutoff values for fasting glucose and random glucose. The ADA defines fasting as no caloric intake for at least 8 hours. Fas ting plasma glucose results between 100 to 125 mg/dL indicate increased risk for diabetes (prediabetes). Fasting plasma glucose results greater than or equal to 126 mg/dL meet the criteria for diagnosis of diabetes. In the absence of unequivocal hyperglycemia, results should be confirmed by repeat testing. In a patient with classic symptoms of hyperglycemia or hyperglycemic crisis, random plasma glucose results greater than or equal to 200 mg/dL meet the criteria for diagnosis of diabetes. Reference: Standards of Medical Care in Diabetes 2016, [place] [employer]. Diabetes Care. 2016.39(Suppl 1). LAB BUN 7-21 mg/dL BUN High 29 LAB CRET 0.58-0.96 mg/dL Creatinine High 1.36 LAB NA 136-144 mmol/L Sodium 140 LAB K 3.7-5.1 mmol/L Potassium 4.8 LAB CL 97-105 mmol/L Chloride High 109 LAB CO2 22-30 mmol/L Low CO2 21 LAB AGAP 9-18 mmol/L Anion Gap 10 LAB ALT 7-38 U/L ALT 11 LAB GFRAA eGFR- Amer. 47 LAB GFRNAA . eGFR-All Other Races 39 Result Comment: eGFR (Estimated GFR) Units of measure: mL/min/1.73 meters squared eGFR is derived from the reexpressed MDRD Study equation using the following parameters: serum creatinine, age, gender and race. The creatinine assay has been calibrated to be traceable to IDMS. An eGFR <60 mL/min/1.73m2 for >3 months is consistent with chronic kidney disease. Refer to KDOQI guidelines for clinical interpretation. In patients with unstable renal function, e.g. those with acute kidney injury, the eGFR may not accurately reflect actual GFR. 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 02/01/18: Ct scan showed Marked thickening of the superior and left lateral bladder wall measuring up to 2.5 cm with severe left-sided hydronephrosis. Ovoid hypodense right pelvic wall focus consistent with adenopathy. 02/13/18: TURBT showed focal area of necrosis and supports diagnosis of squamous cell differentiation and lymph-vascular invasion. 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 07/19 LNs were positive (pT4aN1). CURRENT TREATMENT: Surveillance INTERVAL HISTORY: Had her surgery as detailed above. Looks/feels good. Denies fevers, chills, night sweats, weight loss, headache, chest pain, shortness of breath, abdominal pain, constipation, diarrhea, dysuria. ROS: 10-pt ROS reviewed and negative except as mentioned above. PMHx / PSHx / FHx / SHx: Reviewed. Any major changes are noted above. PHYSICAL EXAMINATION: BP 120/67 Pulse 61 Temp 36.8 ?C (98.2 ?F) Resp 20 Wt 68 kg (149 lb 14.4 oz) BMI 27.42 kg/m? GEN: no acute distress, well-appearing HEENT: atraumatic, normocephalic, clear oropharynx, extraocular movements are intact. NECK: Supple, no JVD. LYMPH: No cervical or axillary adenopathy SKIN: skin color, texture, turgor normal, no suspicious rashes or lesions. LUNGS: Clear CINTHIA. No wheezes. CV: Normal rate. Regular rhythm. Normal s1/s2. ABD: Soft, non-tender, non-distended. EXT: No deformities or edema. Peripheral pulses normal. NEURO: Grossly intact. No focal deficits. HEME: No signs of easy bruising PSYCH: Normal mood and affect ECOG/Karnofsky: 0/90% DATA: Labs Labs, pathology, imaging reviewed. Sainz elements highlighted above. ASSESSMENT/PLAN: 67 year old F s/p radical cystectomy on 02/28/18 with path showing nvasive urothelial carcinoma of the urinary bladder with extensive secondary involvement of vagina and uterus. 07/19 LNs were positive (pT4aN1). Long discussion with patient and about the role of cisplatin-based adjuvant chemotherapy. Will check CMP today. If renal function appropriate, will arrange for chemo with Dr. Cordon at [place]. If her GFR remains poor, will proceed with surveillance. More than 50% of this encounter, 40 minutes total, was spent on [id number] counseling and/or coordination of care. Ollie Nolen MD MA Associate Staff [facility] May 21, 2018 CNOVSP Observed: 05/21/2018 Status: COMPLETED Source: [place] 9:40 AM [facility] REPOSITORY Visit (SP) Office (HEMCA4) SERENA MUSA ([id number]) 1950 F Date Time Provider Department 05/21/18 9:40 AM OLLIE NOLENCA4 During your visit today, we recorded the following information about you: Temperature Pulse Respiration Blood pressure 98.2 degrees 61/minute 20/minute 120/67 Weight 68 kg Rosario Tolentino LPN, KEO 05/21/2018 9:56 AM Signed Additional intake questions: Has the patient had nausea, vomiting, diarrhea, constipation, fatigue for > 1 week? None of the above Does the patient have a decreased appetite? No Does patient want to see a Auto Inspection Specialist? No (yes to any of above refer patient to schedulers for dietitian appointment) ) Does patient have any new or increased numbness or tingling of extremities? No Is patient interested in fertility information? NA Does patient need any prescription refills? 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 02/01/18: Ct scan showed Marked thickening of the superior and left lateral bladder wall measuring up to 2.5 cm with severe left-sided hydronephrosis. Ovoid hypodense right pelvic wall focus consistent with adenopathy. 02/13/18: TURBT showed focal area of necrosis and supports diagnosis of squamous cell differentiation and lymph-vascular invasion. 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 1/11 LNs were positive (pT4aN1). CURRENT TREATMENT: Surveillance INTERVAL HISTORY: Had her surgery as detailed above. Looks/feels good. Denies fevers, chills, night sweats, weight loss, headache, chest pain, shortness of breath, abdominal pain, constipation, diarrhea, dysuria. ROS: 10-pt ROS reviewed and negative except as mentioned above. PMHx / PSHx / FHx / SHx: Reviewed. Any major changes are noted above. PHYSICAL EXAMINATION: BP 120/67 Pulse 61 Temp 36.8 ?C (98.2 ?F) Resp 20 Wt 68 kg (149 lb 14.4 oz) BMI 27.42 kg/m? GEN: no acute distress, well-appearing HEENT: atraumatic, normocephalic, clear oropharynx, extraocular movements are intact. NECK: Supple, no JVD. LYMPH: No cervical or axillary adenopathy SKIN: skin color, texture, turgor normal, no suspicious rashes or lesions. LUNGS: Clear CINTHIA. No wheezes. CV: Normal rate. Regular rhythm. Normal s1/s2. ABD: Soft, non-tender, non-distended. EXT: No deformities or edema. Peripheral pulses normal. NEURO: Grossly intact. No focal deficits. HEME: No signs of easy bruising PSYCH: Normal mood and affect ECOG/Karnofsky: 0/90% DATA: Labs Labs, pathology, imaging reviewed. Sainz elements highlighted above. ASSESSMENT/PLAN: 67 year old F s/p radical cystectomy on 02/28/18 with path showing nvasive urothelial carcinoma of the urinary bladder with extensive secondary involvement of vagina and uterus. 07/19 LNs were positive (pT4aN1). Long discussion with patient and about the role of cisplatin- based adjuvant chemotherapy. Will check CMP today. If renal function appropriate, will arrange for chemo with Dr. Cordon at [place]. If her GFR remains poor, will proceed with surveillance. More than 50% of this encounter, 40 minutes total, was spent on [id number] counseling and/or coordination of care. Ollie Nolen MD MA Associate Staff [facility] May 21, 2018 Referring Provider: OLLIE NOLEN [[id number]] Allergies As of Date: 05/21/2018 Noted Allergy Reaction IODINATED CONTRAST- ORAL AND IV D*02/19/2018 4 - Hives Date Reviewed: 05/21/2018 Reviewed by: Ollie Nolen - Fully Assessed Reason for Visit: Established Patient [175] Primary Visit Diagnosis:Malignant neoplasm of urinary bladder, unspecified site (HCC) [C67.9] Order(s):CBC [SQCBC] Order #: [id number] FUTURE COMP METABOLIC PANEL [SQCMP] Order #: [id number] FUTURE Follow-up and Disposition History Recorded Prescriptions as of 05/21/2018 Sig: DIPHENHYDRAMINE 50 MG CAPSULE Take 1 capsule by mouth as di* DOCUSATE SODIUM 100 MG CAPSULE Take 1 capsule by mouth twice* TYLENOL ARTHRITIS ORAL Take by mouth every 8 hours a* MELATONIN 10 MG CAPSULE Take by mouth daily at bedtim* MULTIVITAMIN 50 PLUS ORAL Take by mouth once daily. BIOTIN 1,000 MCG CHEWABLE TAB* Take by mouth. ASCORBIC ACID (VITAMIN C) 100* Take 100 mg by mouth once erica* FEXOFENADINE 60 MG-PSEUDOEPHE* as necessary CIPROFLOXACIN 500 MG TABLET Take 1 tablet by mouth once d* Patient not taking: Reported on 05/21/2018 SODIUM BICARBONATE 650 MG TAB* Take 1 tablet by mouth three * Patient not taking: Reported on 05/21/2018 OPTIVAR 0.05 % EYE DROPS one(1) drop to each eye twice* Patient not taking: No sig reported Problem List As Of Date 05/21/2018 Noted Resolved Malignant neoplasm of urinary bladder (HCC) [C6*INVALID FOR* More... Bladder cancer (HCC) [C67.9] INVALID FOR* More... Hydronephrosis [N13.30] INVALID FOR* Visit Notes: >> KEO Collazo Lpn May 21, 2018 9:52 AM Status: Signed Additional intake questions: Has the patient had nausea, vomiting, diarrhea, constipation, fatigue for > 1 week? None of the above Does the patient have a decreased appetite? No Does patient want to see a Auto Inspection Specialist? No (yes to any of above refer patient to schedulers for dietitian appointment) ) Does patient have any new or increased numbness or tingling of extremities? No Is patient interested in fertility information? NA Does patient need any prescription refills? No Electronically Signed By: Rosario Tolentino LPN Encounter Status:Closed by OLLIE NOLEN MD on 05/21/18 BASIC METABOLIC Collected: 05/06/2018 Status: F Source: [place] PROFILE (BMP) 3:51 PM [facility] REPOSITORY TYPE CODE TESTS RESULT OUT OF RANGE REFERENCE UNITS LAB L501.0100 74-106 mg/dL Normal GLU 78 Result Comment: Please note revised GLUCOSE reference range effective 2017. LAB L501.1000 7-18 mg/dL High BUN 29 LAB L501.1100 0.55-1.02 mg/dL High CREAT,SERUM 1.18 Result Comment: The validity of the calculated GFR AND GFRAA in patients over 70 years has not been determined. Clinical correlation is essential. LAB L501.1110 >60 mL/min Low EST GFR 49 Result Comment: Non- GFR Calc LAB L501.1115 >60 mL/min Low EST GFR - AA 59 Result Comment: GFR Calc LAB L501.1300 10-20 RATIO High BUN/CRE 24.6 LAB L501.2200 8.5-10.1 mg/dL CA Normal 8.9 LAB L501.5300 136-145 mmol/L NA Normal 138 LAB L501.5600 3.5-5.1 mmol/L K Normal 4.0 LAB L501.5900 98-107 mmol/L High CL 110 LAB L501.6100 21.0-32.0 mmol/L Low CO2 20.0 LAB L501.6200 5-15 Normal GAP 8 Performed By: #### L500.2500, L501.9520 #### [facility] [address] [place], [place], [id number] THYROID STIM HORMONE Collected: 05/06/2018 Status: F Source: [place] (TSH) 3:51 PM [facility] REPOSITORY TYPE CODE TESTS RESULT OUT OF RANGE REFERENCE UNITS LAB L501.9520 0.358-3.74 uIU/mL Normal TSH 0.42 Performed By: #### L500.2500, L501.9520 #### [facility] [address] [place], [address] VITAMIN D,25 HYDROXY Collected: 05/06/2018 Status: F Source: [place] 3:51 PM [facility] REPOSITORY TYPE CODE TESTS RESULT OUT OF REFERENCE UNITS RANGE LAB L506.1000 29.95-100.01 ng/mL Low Vitamin D 26.4 25-OH Result Comment: Vitamin D 25(OH) Status Range Deficiency <20 ng/mL (50nmol/L) Insuffciency 20 - 30 ng/mL (50 - 75 nmol/L) Sufficiency 30 - 100 ng/mL (75 - 250 nmol/L) Toxicity >100 ng/mL (>250 nmol/L) Performed By: #### L506.1000 #### [facility] [place], [address] PROGRESS Observed: 04/17/2018 Status: COMPLETED Source: [place] 12:30 PM [facility] REPOSITORY O ID: [id number] Author: Becca Forte Service: (none) Author Type: (none) Type: Progress Notes Filed: 04/17/2018 12:30 PM Note Text: Radiology Service Progress Note PATIENT NAME: Serena Musa DATE OF SERVICE: April 17, 2018 TIME: 12:30 PM PATIENT IDENTITY VERIFICATION COMPLETED USING TWO (2) METHODS: Patient confirmed name verbally and Date of . PATIENT GENDER DATA: Female. status: : No status: NO. PATIENT RELEVANT IMPLANT DATA REVIEWED: Not Applicable CONTRAST INDUCED NEPHROPATHY RISK FACTORS: Patient age > 60 years CREATININE: Creatinine Date Value Ref Range Status 03/15/2018 1.34 (H) 0.58 - 0.96 mg/dL Final 03/10/2018 1.82 (H) 0.58 - 0.96 mg/dL Final 03/09/2018 2.00 (H) 0.58 - 0.96 mg/dL Final eGFR-All Other Races Date Value Ref Range Status 03/15/2018 40 . Final Comment: eGFR (Estimated GFR) Units of measure: mL/min/1.73 meters squared eGFR is derived from the reexpressed MDRD Study equation using the following parameters: serum creatinine, age, gender and race. The creatinine assay has been calibrated to be traceable to IDMS. An eGFR <60 mL/min/1.73m2 for >3 months is consistent with chronic kidney disease. Refer to KDOQI guidelines for clinical interpretation. In patients with unstable renal function, e.g. those with acute kidney injury, the eGFR may not accurately reflect actual GFR. eGFR- Date Value Ref Range Status 03/15/2018 48 Final P.O.C.T. RESULTS: POC done: Yes, See Lab Tab April 17, 2018 RADIOLOGIST NOTIFIED?: No ALLERGIES: Reviewed and unchanged CONTRAST ALLERGY: NO. PERIPHERAL IV ACCESS: Ambulatory: IV type: Existing peripheral IV utilized, Site assessment: Clean,Dry and Intact, Site disposition Discontinued RADIOLOGY DEPARTMENT: CT; Exam(s) Completed: Abdomen/Pelvis SIGNED BY: Becca Zamora Ct April 17, 2018 12:[address] ABD/PEL W IVCON Observed: 04/17/2018 Status: F Source: [place] 12:29 PM [facility] REPOSITORY * * *Final Report* * * DATE OF EXAM: Apr 17 2018 12:29PM [facility] 0530 - CT ABD/PEL W IVCON / PROCEDURE REASON: Malignant neoplasm of overlapping sites of bladder (HCC) * * * * Physician Interpretation * * * * EXAMINATION: CT ABDOMEN AND PELVIS WITH IV CONTRAST CLINICAL HISTORY: Bladder cancer TECHNIQUE: CT of the abdomen and pelvis was performed using standard technique, scanning from just above the dome of the diaphragm to the symphysis pubis. MQ: CTAP_3 Contrast: IV: 123 ml of Omnipaque 300 Oral: 50 ml of 50ML Omnipaque [address] Radiation dose: Integrated Dose-length product (DLP) for this visit = 356 mGy*cm. CT Dose Reduction Employed: Automated exposure control(AEC) and iterative recon COMPARISON: 02/28/2018 RESULT: Liver: No mass. Biliary: No bile duct dilation. Gallbladder is unremarkable. Spleen: No mass. No splenomegaly. Pancreas: No mass or duct dilation. Adrenals: No mass. Kidneys: Interval cystectomy with a right lower quadrant ileal conduit. 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 Mild pelviectasis/ureterectasis bilaterally, expected in a freely refluxing system. No mass, calculus or hydronephrosis. GI tract: No dilation or wall thickening. Normal appendix. Lymph nodes: Interval lymph node dissection. Previously shown enlarged pelvic lymph nodes are no longer present. No enlarged abdominal or pelvic nodes. Mesentery/Peritoneum: No ascites or mass. Retroperitoneum: No mass. Vasculature: The celiac axis and SMA are patent. The portal vein and branches, splenic vein, SMV, and hepatic veins are patent. Arterial atherosclerotic disease without aneurysm. Pelvis: Interval cystectomy with right lower quadrant ileal conduit. Interval hysterectomy. Bones/Soft Tissues: Mild endplate degenerative changes. Lower thorax: 3 mm nodule along the anterior aspect of the right lower lobe (3:5) is unchanged from 02/25/2018 CT. IMPRESSION: Interval cystectomy with a right lower quadrant ileal conduit, lymph node dissection and hysterectomy. No metastatic disease in the abdomen and pelvis. Boat Hand: PSCB Transcribe Date/Time: Apr 17 2018 12:54P Dictated by : HALEY HINES MD This examination was interpreted and the report reviewed and electronically signed by: HALEY HINES MD on Apr 17 2018 1:07PM EST [id number] Observed: 04/17/2018 Status: COMPLETED Source: [place] 10:31 AM [facility] REPOSITORY HNO ID: [id number] Author: Betzy (Rt) Tatiana Storey Service: (none) Author Type: Chocolatier Type: Progress Notes Filed: 04/17/2018 10:31 AM Note Text: Radiology Service Progress Note PATIENT NAME: Serena Musa DATE OF SERVICE: April 17, 2018 TIME: 10:31 AM PATIENT IDENTITY VERIFICATION COMPLETED USING TWO (2) METHODS: Patient confirmed name verbally and Date of . PATIENT GENDER DATA: Female. status: : No status: NO. PATIENT RELEVANT IMPLANT DATA REVIEWED: Not Applicable RADIOLOGY DEPARTMENT: General X-ray: Exam(s) Completed: Chest X-Ray PERIPHERAL IV DATA: Not applicable SIGNED BY: RT Raeann April 17, 2018 10:31 AM XR CHEST 2V FRONTAL/LAT Observed: 04/17/2018 Status: F Source: [place] 10:26 AM [facility] REPOSITORY * * *Final Report* * * DATE OF EXAM: Apr 17 2018 10:26AM WRX [id number] - XR CHEST 2V FRONTAL/LAT / PROCEDURE REASON: Malignant neoplasm of overlapping sites of bladder (HCC) * * * * Physician Interpretation * * * * EXAMINATION: CHEST RADIOGRAPH (2 VIEW FRONTAL and LATERAL) CLINICAL HISTORY: Malignant neoplasm of overlapping sites of bladder (HCC) MQ: XC2_5 Comparison: Correlation was made with chest CT of 02/25/2018 RESULT: Lines, tubes, and devices: None. Lungs and pleura: No consolidation, pleural effusion or pneumothorax is identified. Cardiomediastinal silhouette: Within normal limits. Other: No acute osseous abnormality. Degenerative changes are evident in the thoracic spine. IMPRESSION: No acute radiographic abnormality is evident. Boat Hand: PSCB Transcribe Date/Time: Apr 17 2018 10:49A Dictated by : JOSÉ LUIS DOW MD This examination was interpreted and the report reviewed and electronically signed by: JOSÉ LUIS DOW MD on Apr 17 2018 10:50AM EST [id number] PROGRESS Observed: 04/12/2018 Status: COMPLETED Source: [place] 8:38 AM [facility] REPOSITORY HNO ID: [id number] Author: Licha Wilder (Sw) Service: (none) Author Type: Senior Licensing Manager Type: Progress Notes Filed: 04/12/2018 8:39 AM Note Text: SOCIAL WORK FOLLOW UP NOTE: [facility] Date of service: April 12, 2018 Serena Musa is being seen for a follow up social work visit. Today's visit includes: patient not present TOPICS ADDRESSED: Patient showed up on First Time Treatment Report list. MARK reviewed patient's chart and found that patient is being seen for benign hematology/non-oncology services (hydration). No actions needed at this time. PLAN: Continue follow up as needed F/U APPOINTMENT: SEBAS Pan Observed: 04/12/2018 Status: COMPLETED Source: [place] 12:00 AM [facility] REPOSITORY Social Work (FUNMILAYO) SERENA MUSA ([id number]) 1950 F Date Time Provider Department 04/12/18 LICHA WILDER (SW) During your visit today, we recorded the following information about you: SEBAS Garcia 04/12/2018 8:39 AM Signed SOCIAL WORK FOLLOW UP NOTE: [facility] Date of service: April 12, 2018 Serena Musa is being seen for a follow up social work visit. Today's visit includes: patient not present TOPICS ADDRESSED: Patient showed up on First Time Treatment Report list. SW reviewed patient's chart and found that patient is being seen for benign hematology/non-oncology services (hydration). No actions needed at this time. PLAN: Continue follow up as needed F/U APPOINTMENT: PRN SEBAS Garcia Allergies As of Date: 04/12/2018 Noted Allergy Reaction IODINATED CONTRAST- ORAL AND IV D*02/19/2018 4 - Hives Date Reviewed: 04/09/2018 Reviewed by: Becca Zamora Ct - Fully Assessed Reason for Visit: Social Work Services [507] Cmt: first time treatment report Prescriptions as of 04/12/2018 Sig: SODIUM CHLORIDE 0.9 % INTRAVE* Inject 500 mL intravenously o* PREDNISONE 50 MG TABLET Take 1 tablet by mouth every * DIPHENHYDRAMINE 50 MG CAPSULE Take 1 capsule by mouth as di* CIPROFLOXACIN 500 MG TABLET Take 1 tablet by mouth once d* SODIUM BICARBONATE 650 MG TAB* Take 1 tablet by mouth three * DOCUSATE SODIUM 100 MG CAPSULE Take 1 capsule by mouth twice* TYLENOL ARTHRITIS ORAL Take by mouth every 8 hours a* MELATONIN 10 MG CAPSULE Take by mouth daily at bedtim* MULTIVITAMIN 50 PLUS ORAL Take by mouth once daily. BIOTIN 1,000 MCG CHEWABLE TAB* Take by mouth. ASCORBIC ACID (VITAMIN C) 100* Take 100 mg by mouth once erica* FEXOFENADINE 60 MG-PSEUDOEPHE* as necessary OPTIVAR 0.05 % EYE DROPS one(1) drop to each eye twice* Patient not taking: No sig reported Problem List As Of Date 04/12/2018 Noted Resolved Malignant neoplasm of urinary bladder (HCC) [C6*INVALID FOR* More... Bladder cancer (HCC) [C67.9] INVALID FOR* More... Hydronephrosis [N13.30] INVALID FOR* Encounter Status:Closed by LICHA WILDER on 04/12/18 CNCO Observed: 04/08/2018 Status: COMPLETED Source: [place] 12:00 AM [facility] RE[facility] Letter Text April 08, 2018 Attn: Karla [facility] [employer] Joesph Perez RE: Serena Musa [facility] NO: [id number] To Whom It May Concern: Serena Musa underwent an operative procedure on 02/28/2018 at the [facility]. She will be able to return to work as of 04/25/18 without any restrictions. If you should have any questions with regards to Ms. Musa, please do not hesitate to contact my office at [phone]. Sincerely, Aimee Lara M.D., Ph.D. Letter Text Dear Serena Musa: How to activate your [facility] [employer] Account 1. Visit the [employer] Signup page at [email or web address] 2. Identify yourself using your one-time use activation code: [email or web address] 3. Follow the on-screen prompts to choose your own secure username and password The following information will be necessary to access your account for the first time: Information needed for sign-up: Your custom activation code used one-time only for the initial account set-up. Your date of The last 4 digits of your social security number What to do next: Fill in the requested information on the Identify Yourself Form at [email or web address] , click Next. Create your login and password, choose a [employer] ID and password that will be easy for you to use, but impossible for anyone else to guess. Pick a security question that will assist you in the event you forget your password the next time you log-on. If you have difficulty activating your account, please call our [employer] helpline at [phone] or toll free at . We hope you enjoy using [employer]! Kindest Regards, [facility] [employer] Team PROGRESS Observed: 03/22/2018 Status: COMPLETED Source: [place] 12:30 PM [facility] REPOSITORY HNO ID: [id number] Author: Chuy Garcia (Fel) Service: (none) Author Type: Fellow Type: Progress Notes Filed: 03/22/2018 12:35 PM Note Text: [facility] FOLLOW UP CHIEF COMPLAINT: for stent removal HPI: 67yo f s/p RARC/ IC here for stent removal. No issues since the last visit. She still has some pain on defecation but it is improving. PAST MEDICAL HISTORY: PAST MEDICAL HISTORY Diagnosis Date - Bladder cancer (HCC) PAST SURGICAL HISTORY: No past surgical history on file. MEDICATIONS: Current Outpatient Prescriptions: diphenhydrAMINE (BENADRYL) 50 mg capsule Take 1 capsule by mouth as directed for 1 dose. one (1) hour prior to exam. Disp: 1 capsule Rfl: 0 ciprofloxacin HCl (CIPRO) 500 mg tablet Take 1 tablet by mouth once daily. Take until stents removed and instructed to stop the medication by Dr. Lara Disp: 30 tablet Rfl: 0 sodium bicarbonate 650 mg tablet Take 1 tablet by mouth three times daily. Disp: 90 tablet Rfl: 3 docusate sodium (COLACE) 100 mg capsule Take 1 capsule by mouth twice daily. Disp: 28 capsule Rfl: 0 enoxaparin (LOVENOX) 30 mg/0.3 mL injection Inject 0.3 mL subcutaneously once daily for 27 days. Disp: 8.1 mL Rfl: 0 acetaminophen (TYLENOL ARTHRITIS ORAL) Take by mouth every 8 hours as needed. Disp: Rfl: melatonin 10 mg cap Take by mouth daily at bedtime. Disp: Rfl: multivit with minerals/lutein (MULTIVITAMIN 50 PLUS ORAL) Take by mouth once daily. Disp: Rfl: biotin 1,000 mcg chew Take by mouth. Disp: Rfl: Ascorbic Acid (VITAMIN C) 100 mg tablet Take 100 mg by mouth once daily. Disp: Rfl: FEXOFENADINE-PSEUDOEPHEDRINE SR 60 MG-120 MG 12 HR TAB as necessary Disp: Rfl: 0 OPTIVAR 0.05 % EYE DROPS one(1) drop to each eye twice a day (Patient not taking: No sig reported) Disp: 6cc Rfl: 0 No current facility-administered medications for this visit. MEDICATION ALLERGIES: ALLERGIES Allergen Reactions - Iodinated Contrast-* Hives FAMILY HISTORY: No family history of malignancies No family history on file. SOCIAL HISTORY: Social History Marital status: Spouse name: Years of education: Number of children: Social History Main Topics Smoking status: Never Smoker Smokeless tobacco: Never Used REVIEW OF SYSTEMS: GENERAL:No weight loss, night sweats, fevers. GENITOURINARY: As per HPI, No hematuria PHYSICAL EXAMINATION CONSTITUTIONAL: There were no vitals taken for this visit. NAD, healthy appearing RESP: Non labored breathing. CV: RRR, no LE edema GI: Soft, nontender, nondistended, no masses, no hernias. Incisions closed NEURO: Alert and oriented x 3 MSK: Extremities normal. No deformities. GENITOURINARY: IC pink viable and making urine. LABS Creatinine Date Value Ref Range Status 03/15/2018 1.34 (H) 0.58 - 0.96 mg/dL Final 03/10/2018 1.82 (H) 0.58 - 0.96 mg/dL Final 03/09/2018 2.00 (H) 0.58 - 0.96 mg/dL Final 03/08/2018 1.73 (H) 0.58 - 0.96 mg/dL Final WBC (k/uL) Date Value 03/15/2018 9.74 Hemoglobin (g/dL) Date Value 03/15/2018 9.6 (L) Hematocrit (%) Date Value 03/15/2018 29.6 (L) MCV (fL) Date Value 03/15/2018 98.3 Platelet Count (k/uL) Date Value 03/15/2018 520 (H) URINALYSIS: pH, Arterial Date Value Ref Range Status 02/28/2018 7.26 (L) 7.35 - 7.45 Final Specific [place], Ur Date Value Ref Range Status 03/15/2018 1.013 1.005 - 1.030 Final Glucose, Urine Date Value Ref Range Status 03/15/2018 Negative Negative mg/dL Final Bilirubin, Urine Date Value Ref Range Status 03/15/2018 Negative Negative Final Ketones, Urine Date Value Ref Range Status 03/15/2018 Negative Negative Final Hemoglobin/Blood,Ur Date Value Ref Range Status 03/15/2018 2+ (A) Negative Final Protein, Urine Date Value Ref Range Status 03/15/2018 100 (A) Negative mg/dL Final Nitrites Date Value Ref Range Status 03/15/2018 Negative Negative Final WBC, Urine Date Value Ref Range Status 03/15/2018 >25 (A) 0 - 5 /HPF Final ASSESSMENT AND PLAN: 67 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 - 3 stents removed today without issue - patient changed her stoma without issue - RTC with dr lara in [address] scan - can finish course of abx - continue sodium bicarb Chuy Garcia MD CNOV Observed: 03/22/2018 Status: COMPLETED Source: [place] 11:00 AM [facility] REPOSITORY Office Visit (UROSMN) SERENA MUSA ([id number]) 1950 F Date Time Provider Department 03/22/18 11:00 AM CHUY GARCIA (ROE) UROSMN During your visit today, we recorded the following information about you: Cheyenne Goncalves Ma 03/22/2018 11:[address] Garcia scheduling error. Sent to Q8 Chuy Garcia MD 03/22/2018 12:35 PM Signed [facility] FOLLOW UP CHIEF COMPLAINT: for stent removal HPI: 67yo f s/p RARC/ IC here for stent removal. No issues since the last visit. She still has some pain on defecation but it is improving. PAST MEDICAL HISTORY: PAST MEDICAL HISTORY Diagnosis Date - Bladder cancer (HCC) PAST SURGICAL HISTORY: No past surgical history on file. MEDICATIONS: Current Outpatient Prescriptions: diphenhydrAMINE (BENADRYL) 50 mg capsule Take 1 capsule by mouth as directed for 1 dose. one (1) hour prior to exam. Disp: 1 capsule Rfl: 0 ciprofloxacin HCl (CIPRO) 500 mg tablet Take 1 tablet by mouth once daily. Take until stents removed and instructed to stop the medication by Dr. Lara Disp: 30 tablet Rfl: 0 sodium bicarbonate 650 mg tablet Take 1 tablet by mouth three times daily. Disp: 90 tablet Rfl: 3 docusate sodium (COLACE) 100 mg capsule Take 1 capsule by mouth twice daily. Disp: 28 capsule Rfl: 0 enoxaparin (LOVENOX) 30 mg/0.3 mL injection Inject 0.3 mL subcutaneously once daily for 27 days. Disp: 8.1 mL Rfl: 0 acetaminophen (TYLENOL ARTHRITIS ORAL) Take by mouth every 8 hours as needed. Disp: Rfl: melatonin 10 mg cap Take by mouth daily at bedtime. Disp: Rfl: multivit with minerals/lutein (MULTIVITAMIN 50 PLUS ORAL) Take by mouth once daily. Disp: Rfl: biotin 1,000 mcg chew Take by mouth. Disp: Rfl: Ascorbic Acid (VITAMIN C) 100 mg tablet Take 100 mg by mouth once daily. Disp: Rfl: FEXOFENADINE-PSEUDOEPHEDRINE SR 60 MG-120 MG 12 HR TAB as necessary Disp: Rfl: 0 OPTIVAR 0.05 % EYE DROPS one(1) drop to each eye twice a day (Patient not taking: No sig reported) Disp: 6cc Rfl: 0 No current facility-administered medications for this visit. MEDICATION ALLERGIES: ALLERGIES Allergen Reactions - Iodinated Contrast-* Hives FAMILY HISTORY: No family history of malignancies No family history on file. SOCIAL HISTORY: Social History Marital status: Spouse name: Years of education: Number of children: Social History Main Topics Smoking status: Never Smoker Smokeless tobacco: Never Used REVIEW OF SYSTEMS: GENERAL:No weight loss, night sweats, fevers. GENITOURINARY: As per HPI, No hematuria PHYSICAL EXAMINATION CONSTITUTIONAL: There were no vitals taken for this visit. NAD, healthy appearing RESP: Non labored breathing. CV: RRR, no LE edema GI: Soft, nontender, nondistended, no masses, no hernias. Incisions closed NEURO: Alert and oriented x 3 MSK: Extremities normal. No deformities. GENITOURINARY: IC pink viable and making urine. LABS Creatinine Date Value Ref Range Status 03/15/2018 1.34 (H) 0.58 - 0.96 mg/dL Final 03/10/2018 1.82 (H) 0.58 - 0.96 mg/dL Final 03/09/2018 2.00 (H) 0.58 - 0.96 mg/dL Final 03/08/2018 1.73 (H) 0.58 - 0.96 mg/dL Final WBC (k/uL) Date Value 03/15/2018 9.74 Hemoglobin (g/dL) Date Value 03/15/2018 9.6 (L) Hematocrit (%) Date Value 03/15/2018 29.6 (L) MCV (fL) Date Value 03/15/2018 98.3 Platelet Count (k/uL) Date Value 03/15/2018 520 (H) URINALYSIS: pH, Arterial Date Value Ref Range Status 02/28/2018 7.26 (L) 7.35 - 7.45 Final Specific [place], Ur Date Value Ref Range Status 03/15/2018 1.013 1.005 - 1.030 Final Glucose, Urine Date Value Ref Range Status 03/15/2018 Negative Negative mg/dL Final Bilirubin, Urine Date Value Ref Range Status 03/15/2018 Negative Negative Final Ketones, Urine Date Value Ref Range Status 03/15/2018 Negative Negative Final Hemoglobin/Blood,Ur Date Value Ref Range Status 03/15/2018 2+ (A) Negative Final Protein, Urine Date Value Ref Range Status 03/15/2018 100 (A) Negative mg/dL Final Nitrites Date Value Ref Range Status 03/15/2018 Negative Negative Final WBC, Urine Date Value Ref Range Status 03/15/2018 >25 (A) 0 - 5 /HPF Final ASSESSMENT AND PLAN: 67 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 - 3 stents removed today without issue - patient changed her stoma without issue - RTC with dr lara in [address] scan - can finish course of abx - continue sodium bicarb Chuy Garcia MD Referring Provider: SELF [[id number]] Allergies As of Date: 03/22/2018 Noted Allergy Reaction IODINATED CONTRAST- ORAL AND IV D*02/19/2018 4 - Hives Date Reviewed: 03/15/2018 Reviewed by: Claudio Esquivel Ma - Fully Assessed Reason for Visit: Stent Extraction [372] Primary Visit Diagnosis:Malignant neoplasm of urinary bladder, unspecified site (HCC) [C67.9] Prescriptions as of 03/22/2018 Sig: DIPHENHYDRAMINE 50 MG CAPSULE Take 1 capsule by mouth as di* CIPROFLOXACIN 500 MG TABLET Take 1 tablet by mouth once d* SODIUM BICARBONATE 650 MG TAB* Take 1 tablet by mouth three * DOCUSATE SODIUM 100 MG CAPSULE Take 1 capsule by mouth twice* ENOXAPARIN 30 MG/0.3 ML SUBCU* Inject 0.3 mL subcutaneously * TYLENOL ARTHRITIS ORAL Take by mouth every 8 hours a* MELATONIN 10 MG CAPSULE Take by mouth daily at bedtim* MULTIVITAMIN 50 PLUS ORAL Take by mouth once daily. BIOTIN 1,000 MCG CHEWABLE TAB* Take by mouth. ASCORBIC ACID (VITAMIN C) 100* Take 100 mg by mouth once erica* FEXOFENADINE 60 MG-PSEUDOEPHE* as necessary OPTIVAR 0.05 % EYE DROPS one(1) drop to each eye twice* Patient not taking: No sig reported Problem List As Of Date 03/22/2018 Noted Resolved Malignant neoplasm of urinary bladder (HCC) [C6*INVALID FOR* More... Bladder cancer (HCC) [C67.9] INVALID FOR* More... Hydronephrosis [N13.30] INVALID FOR* Visit Notes: >> Cheyenne Goncalves Ma Fri Mar 22, 2018 11:37 AM Status: Signed Per Dr. Garcia scheduling error. Sent to Q8 Level of Service: POST-OP VISIT (NO CHARGE) NON-OB [89974] Follow-up and Disposition History Recorded Encounter Status:Closed by CHUY GARCIA on 03/22/18 PROGRESS Observed: 03/15/2018 Status: COMPLETED Source: [place] 12:00 PM [facility] REPOSITORY O ID: [id number] Author: Hollie OwenRn) ELISSA Aguilar Service: (none) Author Type: Registered Nurse Type: Progress Notes Filed: 03/15/2018 12:02 PM Note Text: PATIENT NAME: Serena Musa Room Number: 20 Reason for therapy: Hydration Ordering Physician: Dr. Lara Supervising/Billing Physician: Dr. Lara IV MAINTENANCE: Maintenance Solution: Normal Saline 0.9% 500 cc over 1 hour Needle Type and Size: 24 g angiocath Peripheral IV Site: Right Antecubital Central Venous Access: No Type: PIV Flushed with: normal saline 10 cc Vital Signs Pre and Q30 min. during infusion: Time 1044 BP 116/74 Pulse 66 O2Sat 100 Time 1050 BP 112/76 Pulse 65 O2Sat 99 Infusion Rate 500 cc/hr Started Time 1120 BP 126/68 Pulse 69 O2Sat 99 Infusion Rate 500 cc/hr Time Post 1150 Pulse 73 Resp 16 BP 121/70 Complete IV PATENCY: Patient denies discomfort at site: Yes Site without swelling: Yes IV Discontinued (time): 1150 Electronically Signed By: Hollie Aguilar RN March 15, 2018 12:00 PM URINALYSIS Collected: 03/15/2018 Status: F Source: [place] 11:24 AM [facility] REPOSITORY TYPE CODE TESTS RESULT OUT OF RANGE REFERENCE UNITS LAB UCOL Yellow Color Yellow LAB [facility] Clear Clarity Abnormal Turbid Alert LAB UGLUC Negative mg/dL Glucose, Urine Negative LAB UBIL Negative Bilirubin, Urine Negative LAB UKET Negative Ketones, Urine Negative LAB USPG 1.005-1.030 Specific [place], Ur 1.013 LAB UHGB Negative Abnormal Hemoglobin/Blood, 2+ Alert Ur LAB UPH 4.5-8.0 pH 7.0 LAB UPROT Negative mg/dL Protein, Abnormal Urine 100 Alert LAB UUROB Normal Urobilinogen Normal LAB UNITR Negative Nitrites Negative LAB ULKEST Negative Leukest Abnormal 3+ Alert LAB UCOM Comments SEE COMMENT Result Comment: Microscopic Examination Performed LAB UWBC 0-5 /HPF Abnormal WBC Alert >25 LAB URBC 0-3 /HPF Abnormal RBC Alert >25 LAB UEPI /HPF Epithelial Cells SEE COMMENT Result Comment: Few Squamous Epithelial Cells LAB UMCOM Urine SEE Abdi Comment COMMENT Result Comment: N/A Performed By: #### UA #### [facility] [employer] [address] [place] [id number] CNNURSE Observed: 03/15/2018 Status: COMPLETED Source: [place] 10:30 AM [facility] REPOSITORY Nurse Visit (GAPRA3) SERENA MUSA ([id number]) 1950 F Date Time Provider Department 03/15/18 10:30 AM NURSE GI PROCEDURE GAPRA3 During your visit today, we recorded the following information about you: Hollie Aguilar RN, RN 03/15/2018 12:02 PM Signed PATIENT NAME: Serena Musa Room Number: 20 Reason for therapy: Hydration Ordering Physician: Dr. Lara Supervising/Billing Physician: Dr. Lara IV MAINTENANCE: Maintenance Solution: Normal Saline 0.9% 500 cc over 1 hour Needle Type and Size: 24 g angiocath Peripheral IV Site: Right Antecubital Central Venous Access: No Type: PIV Flushed with: normal saline 10 cc Vital Signs Pre and Q30 min. during infusion: Time 1044 BP 116/74 Pulse 66 O2Sat 100 Time 1050 BP 112/76 Pulse 65 O2Sat 99 Infusion Rate 500 cc/hr Started Time 1120 BP 126/68 Pulse 69 O2Sat 99 Infusion Rate 500 cc/hr Time Post 1150 Pulse 73 Resp 16 BP 121/70 Complete IV PATENCY: Patient denies discomfort at site: Yes Site without swelling: Yes IV Discontinued (time): 1150 Electronically Signed By: Hollie Aguilar RN March 15, 2018 12:00 PM Referring Provider: YOSHI LARA [[id number]] Allergies As of Date: 03/15/2018 Noted Allergy Reaction IODINATED CONTRAST- ORAL AND IV D*02/19/2018 4 - Hives Date Reviewed: 03/15/2018 Reviewed by: Claudio Esquivel Ma - Fully Assessed Reason for Visit: Nurse Visit-Transfusion/Infusion [849] Primary Visit Diagnosis:Dehydration [E86.0] Prescriptions as of 03/15/2018 Sig: SODIUM CHLORIDE 0.9 % INTRAVE* Inject 500 mL intravenously o* PREDNISONE 50 MG TABLET Take 1 tablet by mouth every * DIPHENHYDRAMINE 50 MG CAPSULE Take 1 capsule by mouth as di* IV CONTRAST (RADIOLOGY PROCED* CT ABD/PEL -Inject, intraveno* ENTERIC CONTRAST (RADIOLOGY P* For CT ABD/PEL W IVCON Routin* CIPROFLOXACIN 500 MG TABLET Take 1 tablet by mouth once d* SODIUM BICARBONATE 650 MG TAB* Take 1 tablet by mouth three * DOCUSATE SODIUM 100 MG CAPSULE Take 1 capsule by mouth twice* ENOXAPARIN 30 MG/0.3 ML SUBCU* Inject 0.3 mL subcutaneously * TYLENOL ARTHRITIS ORAL Take by mouth every 8 hours a* MELATONIN 10 MG CAPSULE Take by mouth daily at bedtim* MULTIVITAMIN 50 PLUS ORAL Take by mouth once daily. BIOTIN 1,000 MCG CHEWABLE TAB* Take by mouth. ASCORBIC ACID (VITAMIN C) 100* Take 100 mg by mouth once erica* FEXOFENADINE 60 MG-PSEUDOEPHE* as necessary OPTIVAR 0.05 % EYE DROPS one(1) drop to each eye twice* Patient not taking: No sig reported Problem List As Of Date 03/15/2018 Noted Resolved Malignant neoplasm of urinary bladder (HCC) [C6*INVALID FOR* More... Bladder cancer (HCC) [C67.9] INVALID FOR* More... Hydronephrosis [N13.30] INVALID FOR* Encounter Status:Closed by HOLLIE HAMEED on 03/15/18 CBC AND DIFFERENTIAL Collected: 03/15/2018 Status: F Source: [place] 10:17 AM [facility] REPOSITORY TYPE CODE TESTS RESULT OUT OF REFERENCE UNITS RANGE LAB WBC 3.70-11.00 k/uL WBC 9.74 LAB RBC 3.90-5.20 m/uL Low RBC 3.01 LAB HGB 11.5-15.5 g/dL Low Hemoglobin 9.6 LAB HCT 36.0-46.0 % Low Hematocrit 29.6 LAB MCV 80.0-100.0 fL MCV 98.3 LAB MCH 26.0-34.0 pG MCH 31.9 LAB MCHC 30.5-36.0 g/dL MCHC 32.4 LAB RDWCV 11.5-15.0 % RDW-CV 13.8 LAB PLTCT 150-400 k/uL Platelet High Count 520 LAB MPV 9.0-12.7 fL Low MPV 8.6 LAB ANEUT % Neut% 71.1 LAB AANEUT 1.45-7.50 k/uL Abs Neut 6.93 LAB ALYMP % Lymph% 15.0 LAB AALYMP 1.00-4.00 k/uL Abs Lymph 1.46 LAB AMONO % Davison% 7.6 LAB AAMONO <0.87 k/uL Abs Davison 0.74 LAB AEOS % Eosin% 5.9 LAB AAEOS <0.46 k/uL Abs High Eosin 0.57 LAB ABASO % Baso% 0.4 LAB AABASO <0.11 k/uL Abs Baso 0.04 LAB AUNRBC 0 /100 WBC NRBCs 0.0 LAB ABNRBC <0.01 k/uL Absolute nRBC <0.01 LAB DTYP DTYPE Auto Diff Performed By: #### CBCDIF, CMP #### [facility] [address] [place], [place] [address] COMP METABOLIC PANEL Collected: 03/15/2018 Status: F Source: [place] 10:17 AM [facility] REPOSITORY TYPE CODE TESTS RESULT OUT OF REFERENCE UNITS RANGE LAB TP 6.3-8.0 g/dL Protein, Total 7.3 LAB ALB 3.9-4.9 g/dL Low Albumin 3.6 LAB CA 8.5-10.2 mg/dL Calcium, Total 9.8 LAB TBIL 0.2-1.3 mg/dL Bilirubin, Total 0.2 LAB ALKP 32-117 U/L Alkaline Phosphatase 69 LAB AST 13-35 U/L AST 34 LAB GLU 74-99 mg/dL Glucose High 100 Result Comment: The [place] [employer] (ADA) provides guidance for cutoff values for fasting glucose and random glucose. The ADA defines fasting as no caloric intake for at least 8 hours. Fas ting plasma glucose results between 100 to 125 mg/dL indicate increased risk for diabetes (prediabetes). Fasting plasma glucose results greater than or equal to 126 mg/dL meet the criteria for diagnosis of diabetes. In the absence of unequivocal hyperglycemia, results should be confirmed by repeat testing. In a patient with classic symptoms of hyperglycemia or hyperglycemic crisis, random plasma glucose results greater than or equal to 200 mg/dL meet the criteria for diagnosis of diabetes. Reference: Standards of Medical Care in Diabetes 2016, [place] [employer]. Diabetes Care. 2016.39(Suppl 1). LAB BUN 7-21 mg/dL BUN High 40 LAB CRET 0.58-0.96 mg/dL Creatinine High 1.34 LAB NA 136-144 mmol/L Low Sodium 135 LAB K 3.7-5.1 mmol/L Potassium 3.9 LAB CL 97-105 mmol/L Chloride 100 LAB CO2 22-30 mmol/L Low CO2 16 LAB AGAP 9-18 mmol/L Anion Gap High 19 LAB ALT 7-38 U/L ALT High 39 LAB GFRAA eGFR- Amer. 48 LAB GFRNAA . eGFR-All Other Races 40 Result Comment: eGFR (Estimated GFR) Units of measure: mL/min/1.73 meters squared eGFR is derived from the reexpressed MDRD Study equation using the following parameters: serum creatinine, age, gender and race. The creatinine assay has been calibrated to be traceable to IDMS. An eGFR <60 mL/min/1.73m2 for >3 months is consistent with chronic kidney disease. Refer to KDOQI guidelines for clinical interpretation. In patients with unstable renal function, e.g. those with acute kidney injury, the eGFR may not accurately reflect actual GFR. Performed By: #### CBCDIF, CMP #### [facility] [address] [place] [address] PROGRESS Observed: 03/15/2018 Status: COMPLETED Source: [place] 8:49 AM [facility] REPOSITORY O ID: [id number] Author: Chuy Garcia (Fel) Service: (none) Author Type: Fellow Type: Progress Notes Filed: 03/15/2018 2:38 PM Note Text: HPI: 67 year old female presents for post op visit after RARC/IC. Had an post op course requiring transfusion and hypokalemia needing repletion She was discharged was discharged in stable condition 6 days ago. Currently pain is controlled. Ambulating well. No n/v. Having bowel function with pain. No f/c. No cp/sob. Conduit is pink and viable producing urine with debris. 3 stents seen sticking out of the stoma. Path: FINAL DIAGNOSIS 1. Ureter, right distal #1 and #2, excision (A) - Segment of ureter, negative for neoplasm. 2. Ureter, left distal, excision (B) - Segment of ureter with reactive urothelial atypia, negative for neoplasm. 3. Urethra, margin, excision (C) - Extensively involved by invasive urothelial carcinoma, high-grade. Surgeon performed a urethrectomy intra op. 4. Urinary bladder, uterus, vagina, and bilateral fallopian tubes and ovaries, cystectomy with hysterectomy, vaginectomy and bilateral salpingo-oophorectomy - Invasive urothelial carcinoma of the urinary bladder with extensive secondary involvement of vagina and uterus. - Extensive angiolymphatic invasion is present. - Urothelial carcinoma extends to the paravaginal soft tissue margin. - Bilateral fallopian tubes and ovaries, negative for neoplasm. -?One of eleven lymph nodes involved by metastatic urothelial carcinoma (07/19). - See synoptic report. 03/15/18 0757 BP: 102/72 Pulse: 83 Temp: 36.9 ?C (98.5 ?F) TempSrc: Left Tympanic Weight: 62.6 kg (138 lb) Height: 157.5 cm (5' 2) General appearance: Well appearing, alert, in no acute distress Skin: Skin color, texture, turgor normal, no suspicious rashes or lesions Lungs: Breathing comfortably Heart: Regular rate Abdomen:Soft, non-distended, non-tender, incisions c/d/i 5cc MARK serous cloudy, conduit: pink with yellow urine Extremities: No LE edema URINALYSIS: Glucose (mg/dL) Date Value 03/10/2018 105 Potassium (mmol/L) Date Value 03/10/2018 4.8 Sodium (mmol/L) Date Value 03/10/2018 137 Chloride (mmol/L) Date Value 03/10/2018 101 CO2 (mmol/L) Date Value 03/10/2018 20 Creatinine (mg/dL) Date Value 03/10/2018 1.82 BUN (mg/dL) Date Value 03/10/2018 40 Anion Gap (mmol/L) Date Value 03/10/2018 16 Calcium (mg/dL) Date Value 03/10/2018 9.7 WBC (k/uL) Date Value 03/10/2018 8.68 Hemoglobin (g/dL) Date Value 03/10/2018 9.8 (L) Hematocrit (%) Date Value 03/10/2018 29.2 (L) MCV (fL) Date Value 03/10/2018 95.7 Platelet Count (k/uL) Date Value 03/10/2018 505 (H) pH, Arterial Date Value Ref Range Status 02/28/2018 7.26 (L) 7.35 - 7.45 Final Specific [place], Ur Date Value Ref Range Status 02/27/2018 1.009 1.005 - 1.030 Final Glucose, Urine Date Value Ref Range Status 02/27/2018 Negative Negative mg/dL Final Bilirubin, Urine Date Value Ref Range Status 02/27/2018 Negative Negative Final Ketones, Urine Date Value Ref Range Status 02/27/2018 Negative Negative Final Hemoglobin/Blood,Ur Date Value Ref Range Status 02/27/2018 1+ (A) Negative Final Protein, Urine Date Value Ref Range Status 02/27/2018 Negative Negative mg/dL Final Nitrites Date Value Ref Range Status 02/27/2018 Negative Negative Final WBC, Urine Date Value Ref Range Status 02/27/2018 6-10 (A) 0 - 5 /HPF Final A/P: 67 year old female s/p RARC/IC POD 16 doing well. - CBC BMP today - IVF infusion today - MARK drain removed without issue today - continue sodium bicarb, and lovenox - RTC in [address] scan and CXR Chuy Garcia MD CNOV Observed: 03/15/2018 Status: COMPLETED Source: [place] 7:30 AM [facility] REPOSITORY Office Visit (UROLMN) SERENA MUSA ([id number]) 1950 F Date Time Provider Department 03/15/18 7:30 AM CHUY GARCIA (FEL) During your visit today, we recorded the following information about you: Temperature Pulse Blood pressure Weight 98.5 degrees 83/minute 102/72 62.6 kg Height 1.575 m Chuy Garcia MD 03/15/2018 2:38 PM Signed HPI: 67 year old female presents for post op visit after RARC/IC. Had an post op course requiring transfusion and hypokalemia needing repletion She was discharged was discharged in stable condition 6 days ago. Currently pain is controlled. Ambulating well. No n/v. Having bowel function with pain. No f/c. No cp/sob. Conduit is pink and viable producing urine with debris. 3 stents seen sticking out of the stoma. Path: FINAL DIAGNOSIS 1. Ureter, right distal #1 and #2, excision (A) - Segment of ureter, negative for neoplasm. 2. Ureter, left distal, excision (B) - Segment of ureter with reactive urothelial atypia, negative for neoplasm. 3. Urethra, margin, excision (C) - Extensively involved by invasive urothelial carcinoma, high-grade. Surgeon performed a urethrectomy intra op. 4. Urinary bladder, uterus, vagina, and bilateral fallopian tubes and ovaries, cystectomy with hysterectomy, vaginectomy and bilateral salpingo-oophorectomy - Invasive urothelial carcinoma of the urinary bladder with extensive secondary involvement of vagina and uterus. - Extensive angiolymphatic invasion is present. - Urothelial carcinoma extends to the paravaginal soft tissue margin. - Bilateral fallopian tubes and ovaries, negative for neoplasm. -?One of eleven lymph nodes involved by metastatic urothelial carcinoma (07/19). - See synoptic report. 03/15/18 0757 BP: 102/72 Pulse: 83 Temp: 36.9 ?C (98.5 ?F) TempSrc: Left Tympanic Weight: 62.6 kg (138 lb) Height: 157.5 cm (5' 2) General appearance: Well appearing, alert, in no acute distress Skin: Skin color, texture, turgor normal, no suspicious rashes or lesions Lungs: Breathing comfortably Heart: Regular rate Abdomen:Soft, non-distended, non-tender, incisions c/d/i 5cc MARK serous cloudy, conduit: pink with yellow urine Extremities: No LE edema URINALYSIS: Glucose (mg/dL) Date Value 03/10/2018 105 Potassium (mmol/L) Date Value 03/10/2018 4.8 Sodium (mmol/L) Date Value 03/10/2018 137 Chloride (mmol/L) Date Value 03/10/2018 101 CO2 (mmol/L) Date Value 03/10/2018 20 Creatinine (mg/dL) Date Value 03/10/2018 1.82 BUN (mg/dL) Date Value 03/10/2018 40 Anion Gap (mmol/L) Date Value 03/10/2018 16 Calcium (mg/dL) Date Value 03/10/2018 9.7 WBC (k/uL) Date Value 03/10/2018 8.68 Hemoglobin (g/dL) Date Value 03/10/2018 9.8 (L) Hematocrit (%) Date Value 03/10/2018 29.2 (L) MCV (fL) Date Value 03/10/2018 95.7 Platelet Count (k/uL) Date Value 03/10/2018 505 (H) pH, Arterial Date Value Ref Range Status 02/28/2018 7.26 (L) 7.35 - 7.45 Final Specific [place], Ur Date Value Ref Range Status 02/27/2018 1.009 1.005 - 1.030 Final Glucose, Urine Date Value Ref Range Status 02/27/2018 Negative Negative mg/dL Final Bilirubin, Urine Date Value Ref Range Status 02/27/2018 Negative Negative Final Ketones, Urine Date Value Ref Range Status 02/27/2018 Negative Negative Final Hemoglobin/Blood,Ur Date Value Ref Range Status 02/27/2018 1+ (A) Negative Final Protein, Urine Date Value Ref Range Status 02/27/2018 Negative Negative mg/dL Final Nitrites Date Value Ref Range Status 02/27/2018 Negative Negative Final WBC, Urine Date Value Ref Range Status 02/27/2018 6-10 (A) 0 - 5 /HPF Final A/P: 67 year old female s/p RARC/IC POD 16 doing well. - CBC BMP today - IVF infusion today - MARK drain removed without issue today - continue sodium bicarb, and lovenox - RTC in [address] scan and CXR Chuy Garcia MD Referring Provider: SARAH JULES [[id number]] Allergies As of Date: 03/15/2018 Noted Allergy Reaction IODINATED CONTRAST- ORAL AND IV D*02/19/2018 4 - Hives Date Reviewed: 03/15/2018 Reviewed by: Claudio Esquivel Ma - Fully Assessed Reason for Visit: Post Op [174] Primary Visit Diagnosis:Malignant neoplasm of overlapping sites of bladder (HCC) [C67.8] Other Visit Diagnoses:Screening for genitourinary condition [Z13.89] Nonspecific abnormal results of kidney function study [R94.4] Order(s):UA CHEMSTRIP ONLY [SQUA] Order #: [id number] FUTURE UA CHEMSTRIP ONLY [SQUA] Order #: [id number]. #:[id number] 0.9 % sodium chloride (NACL 0.9%) solutionInject 500 mL intravenously one time only for 1 dose. Over 2 hours.Disp: 500 mLRfl: 0 predniSONE (DELTASONE) 50 mg tabTake 1 tablet by mouth every 6 hours for 3 doses. For prevention of contrast allergy given 13 hrs, 7 hrs and 1 hr prior to exam.Disp: 3 tabletRfl: 0 diphenhydrAMINE (BENADRYL) 50 mg capsuleTake 1 capsule by mouth as directed for 1 dose. one (1) hour prior to exam.Disp: 1 capsuleRfl: 0 CT ABD/PEL W IVCON [[id number]] Order #: [id number] FUTURE iv contrast (will be provided with radiology test)CT ABD/PEL -Inject, intravenously, once for 1 dose.No IV access, insert saline lock prior to the beginning of sedation, infusion, injection of imaging exam. Discontinue saline lock post exam. If Pt. has a central line or IVAD, may access for administration according to line specific nursing protocol. Once exam is complete flush line and de- access according to line specific nursing protocol in the CT contrast administration guidelines link.Disp: 1 EachRfl: 0 enteric contrast (will be provided with radiology test)For CT ABD/PEL W IVCON Routine order Administer, As Directed One Time Only, via Oral, Rectal, both Oral and Rectal, Enteric Tube, Stoma or Indwelling Catheter, Enteric Contrast as designated per enteric contrast guidelinesDisp: 1 EachRfl: 0 XR CHEST 2V FRONTAL/LAT [[id number]] Order #: [id number] FUTURE CBC + DIFF [SQCBCDIF] Order #: [id number] FUTURE BASIC METABOLIC PNL [SQBMP] Order #: [id number] FUTURE Prescriptions as of 03/15/2018 Sig: CIPROFLOXACIN 500 MG TABLET Take 1 tablet by mouth once d* SODIUM BICARBONATE 650 MG TAB* Take 1 tablet by mouth three * DOCUSATE SODIUM 100 MG CAPSULE Take 1 capsule by mouth twice* ENOXAPARIN 30 MG/0.3 ML SUBCU* Inject 0.3 mL subcutaneously * TYLENOL ARTHRITIS ORAL Take by mouth every 8 hours a* MELATONIN 10 MG CAPSULE Take by mouth daily at bedtim* MULTIVITAMIN 50 PLUS ORAL Take by mouth once daily. BIOTIN 1,000 MCG CHEWABLE TAB* Take by mouth. ASCORBIC ACID (VITAMIN C) 100* Take 100 mg by mouth once erica* SODIUM CHLORIDE 0.9 % INTRAVE* Inject 500 mL intravenously o* PREDNISONE 50 MG TABLET Take 1 tablet by mouth every * DIPHENHYDRAMINE 50 MG CAPSULE Take 1 capsule by mouth as di* IV CONTRAST (RADIOLOGY PROCED* CT ABD/PEL -Inject, intraveno* ENTERIC CONTRAST (RADIOLOGY P* For CT ABD/PEL W IVCON Routin* FEXOFENADINE 60 MG-PSEUDOEPHE* as necessary OPTIVAR 0.05 % EYE DROPS one(1) drop to each eye twice* Patient not taking: No sig reported Medication notes this encounter BIOTIN 1,000 MCG CHEWABLE TABLET >> Claudio Esquivel Ma 03/15/2018 7:53 AM >> CLAUDIO ESQUIVEL MA Mar 15, 2018 7:53 AM ON HOLD ASCORBIC ACID (VITAMIN C) 100 MG TABLET >> Jewel Green Ma 03/15/2018 7:53 AM >> GREEN MA, JEWEL SunMar 15, 2018 7:53 AM ON HOLD Problem List As Of Date 03/15/2018 Noted Resolved Malignant neoplasm of urinary bladder (HCC) [C6*INVALID FOR* More... Bladder cancer (HCC) [C67.9] INVALID FOR* More... Hydronephrosis [N13.30] INVALID FOR* Prescriptions ordered this encounter Disp Refills Start End SODIUM CHLORIDE 0.9 % INTRAVENOUS SO* 500 * 0 03/15/2018 03/15/2018 Class: In Office Route: INTRAVENOUS Sig: Inject 500 mL intravenously one time only for 1 dose. Over 2 hours. PREDNISONE 50 MG TABLET 3 ta* 0 03/15/2018 03/16/2018 Route: ORAL Sig: Take 1 tablet by mouth every 6 hours for 3 doses. For prevention of contrast allergy given 13 hrs, 7 hrs and 1 hr prior to exam. DIPHENHYDRAMINE 50 MG CAPSULE 1 ca* 0 03/15/2018 Route: ORAL Sig: Take 1 capsule by mouth as directed for 1 dose. one (1) hour prior to exam. IV CONTRAST (RADIOLOGY PROCEDURE) 1 Ea* 0 03/15/2018 03/16/2018 Class: In Office Sig: CT ABD/PEL -Inject, intravenously, once for 1 dose.No IV access, insert saline lock prior to the beginning of sedation, infusion, injection of imaging exam. Discontinue saline lock post exam. If Pt. has a central line or IVAD, may access for administration according to line specific nursing protocol. Once exam is complete flush line and de-access according to line specific nursing protocol in the CT contrast administration guidelines link. ENTERIC CONTRAST (RADIOLOGY PROCEDUR* 1 Ea* 0 03/15/2018 03/16/2018 Class: In Office Sig: For CT ABD/PEL W IVCON Routine order Administer, As Directed One Time Only, via Oral, Rectal, both Oral and Rectal, Enteric Tube, Stoma or Indwelling Catheter, Enteric Contrast as designated per enteric contrast guidelines SODIUM CHLORIDE 0.9 % IV BOLUS 1000 * 03/15/2018 03/15/2018 Route: INTRAVENOUS Medications Discontinued During This Encounter NaCl 0.9% 1,000 mL iv bolus 03/15/2018 03/15/2018 Route: INTRAVENOUS Sig: Disc: Reason for discontinue is not on file. Disposition: Return in about 1 week (around 03/22/2018). Follow-up and Disposition History Recorded Encounter Status:Closed by CHUY GARCIA on 03/15/18 CNCO Observed: 03/15/2018 Status: COMPLETED Source: [place] 12:00 AM [facility] REPOSITORY Letter Text Dear Serena Musa: How to activate your [facility] [employer] Account 1. Visit the [employer] Signup page at [email or web address] 2. Identify yourself using your one-time use activation code: [email or web address] 3. Follow the on-screen prompts to choose your own secure username and password The following information will be necessary to access your account for the first time: Information needed for sign-up: Your custom activation code used one-time only for the initial account set-up. Your date of The last 4 digits of your social security number What to do next: Fill in the requested information on the Identify Yourself Form at [email or web address] , click Next. Create your login and password, choose a [employer] ID and password that will be easy for you to use, but impossible for anyone else to guess. Pick a security question that will assist you in the event you forget your password the next time you log-on. If you have difficulty activating your account, please call our [employer] helpline at [phone] or toll free at . We hope you enjoy using [employer]! Kindest Regards, [facility] [employer] Team OPERATIVE NO Observed: 03/10/2018 Status: COMPLETED Source: [place] 4:36 PM [facility] REPOSITORY HNO ID: [id number] Author: Yoshi Lara Service: Colorectal Author Type: Physician Type: Operative Report Filed: 03/17/2018 5:09 PM Note Text: OPERATIVE/PROCEDURE REPORT LOG ID: [id number] SURGERY/PROCEDURE DATE: 02/27/2018 - 02/28/2018 INCISION/PROCEDURE START TIME: 9:29 AM INCISION CLOSE/PROCEDURE END TIME: 5:33 PM SURGEON(S)/PROCEDURALIST(S) AND SAWMILL TALLY CLERK(S): Surgeon(s) and Role: Panel 1: * Yoshi Lara - Primary * Joesph (Res) Harry - Resident - Assisting * Tonya (Res) MD Pako - Resident - Assisting * Sarah Jules - Assisting SURGERY/PROCEDURE(S): Robotic radical cystectomy, hysterstomy, salpingo-oopherectomy Pelvic lymph node dissection including presacral lymph nodes on the right Intracorporeal ileal conduit Exam under anesthesia ANESTHESIA: General Operative Indication: Serena Musa is a 67 year old female with a history of newly diagnosed bladder cancer . After discussion of management options, including risks, benefits, and alternatives, Serena Musa opted and consented to proceed with the above procedure. ? Operative Findings: Palpable but mobile bladder mass with vaginal involvement concerning for T4 disease. Duplicated right ureters, suspicious bilateral obturator lymph nodes concerning for malignancy, watertight ureteroileal anastomoses. Mcgrath end ileal conduit ?? Procedure Details: Serena Musa was brought to OR 5 at [facility]. It was determined that the case should not proceed without a new CT A/P. The patient was then transferred from the OR to Radiology where a CT scan was obtained, and then returned to the operative room. After reviewing the images a surgical huddle was performed with all operating room personnel. The patient was then placed on the operating room table, perioperative antibiotics administered, and general anesthesia induced. Patient was placed in lithotomy position with all pressure points padded and was prepped and draped in the usual sterile manner. RADICAL CYSTECTOMY AND ANTERIOR EXENTERATION. An exam under anesthesia (EUA) was performed and she was found to have a mobile large bladder mass extending into the vagina and with a firm mass palpated proximal to the urethra. A Menendez catheter was placed in the standard sterile fashion with urine seen returning through the tube. A supra-umbilical, paramedian incision was made and a Veress needle was inserted into the peritoneal cavity through the incision. Pneumoperitoneum was established. Through this incision, a 12-mm trocar was then inserted and the laparoscope was introduced. The abdominal cavity was inspected after trocar placement and revealed no evidence of any injury or bleeding. Three 8-mm ports and one 12-mm port were then placed in the abdomen in a W configuration for robotic cystectomy under direct vision. The patient was then placed in Trendelenburg position and the robot was docked. Small and large bowel adhesions to the lateral pelvic wall were divided sharply and with minimal electrocautery. The ureters were identified as they traveled over the common iliac vessels. The ureters were dissected distally into the pelvis and all visible vessels were controlled with the cautery before division. 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 The gonadal veins were clipped on either side and the ovaries were brought medially and were clipped to the anterior surface of the bladder.?At the ureterovesical junction, Hem-o-lock clips were placed proximally and distally and the ureters were divided. The left and right ureters were distended and demonstrated profuse urine output when divided. Distal margins of bilateral ureters were sent for frozen section. Both of which were reported to be negative. A malleable was then placed in the vagina an ad?incision was made in the peritoneum posterior to the cervix and uterus. The plane of dissection was continued inferiorly to includ the vaginal wall. The bladder and uterus were large with mass effect, making dissection and mobilization difficult. The harmonic scalpel was used to assist with this dissection. The incision in the peritoneum was created bilaterally, lateral to the umbilical ligaments and continued down to the external iliac artery. The space of Retzius was then entered and the endopelvic fascia visualized. The bladder was mobilized from the pelvic wall until the endopelvic fascia was clearly identified and incised bilaterally. Harmonic scalpel and weck clips were used to divide bilateral uterine arteries and the superficial and deep bladder pedicles. The urethra was thick and the tissues were tough. It was closely adhered to the anterior abdominal wall. The urethra was carefully dissected with electrocautery and a urethral margin was obtained for pathology. The specimen was found to be too large to extract via the opening in the vagina, so it was placed in the abdomen, out of the way. The urethra was closed with Monocryl. The vagina was then closed with a running 2-0 V-lock in a clamshell fashion. This vaginal closure was required due to the involvement of the bladder mass and required vaginal resection. Hemostasis was further controlled with cautery and confirmed on visual inspection of the pelvis. Bilateral pelvic lymph node dissection was performed to the level of the common iliac arteries bilaterally, inferiorly to the node of cloquet, laterally to the genitofemoral nerve, posteriorly to the obturator fossa, and medially to the bladder pedicle. On the right side, the lymph node dissection included the presacral nodes. Weck clips were placed distally to prevent lymphatic leaks. Bilaterally, the lymph nodes overlying the external iliac artery and vein were dense, fibrous and extremely adherent. Dissection was carefully performed to avoid vascular injury. Hemostasis was achieved, using electrocautery where needed, and confirmed on visual inspection. ? INTRACORPOREAL ILEAL CONDUIT: A mesenteric window was developed under the sigmoid colon, and the left ureter was passed through the window to the right side. ?A 15-cm piece of distal ileum, approximately 15 cm proximal to ileal-cecal junction, was chosen as the bowel site for the conduit. ?The distal and proximal ends were marked with 3-0 silk and 3-0 dyed Polysorb stay sutures, respectively. The bowel was divided sequentially on either side by using the EndoGIA stapling device with 60-mm bowel loads. The mesentery was subsequently divided using the harmonic scalpel to gain additional conduit mobility. ?The small bowel segments were aligned and secured together using 3-0 Polysorb stay sutures. After two small enterotomies proximal to the staple lines were intentionally created, the EndoGIA stapler was inserted into the bowel segments, and a [id number] bowel anastomosis was performed. ?A final 60-mm bowel load was used to close the top of the bowel anastomosis proximal to the original staple lines, which were excised and discarded. ?The mesenteric window was closed with 3-0 Polysorb suture in an interrupted fashion. ?Upon completion, there was noted to be good vascularity and patency of the anastomosis. In the proximal end of the conduit, the bowel was incised sharply?for the ureteral anastomoses. Attention was then turned to the ureters and the ureteral-ileal anastomosis.?The ureters were tailored and spatulated. ?The uretero-ileal anastomoses were performed using two, 4-0 Polysorb sutures in a running fashion. ?A Bartolo anastomosis was performed on the left and a Ramirez anastomosis performed on the right due to the duplicated right ureters. Prior to completing the anastomoses, three JJ ureteral stents (7-Fr?x 30 cm JJ) were placed bilaterally in all three ureters, and the distal ends of the stents were internalized within the conduit. The specimen and the dissected lymph nodes were then placed in a single large Endocatch bag and the string to the bag clamped extracorporally with a hemostat. ?? A?MARK drain was inserted into the pelvis through the avls-gedmrrt-iflo robotic port. The left-lateral port was removed and the drain secured to the skin with a 3-0 Ethilon, nylon suture. Using a stay stitch placed in the distal end of the conduit, the conduit was grasped with a locking [place]?laparoscopic grasper through the right robotic port and locked into position. ?The robot was then undocked. ?The midline incision was extended to accommodate extraction of the specimen and the bagged specimen was removed with the Endocatch bag intact. A stoma incision was made at the pre-marked site, and dissection was carried down to the fascia. ?The fascia was incised in a cruciate fashion: the rectus muscle was split, and the abdomen was entered.?The distal end of the conduit was relocated to the stoma site. The stoma was matured?in the usual flandreau fashion with 3-0 polysorb suture. ?A stoma Menendez catheter was inserted into the conduit and secured to the skin with a #0 silk suture. ? CLOSURE. The fascia of the midline incision was closed with two #0 Maxon stitches in a running fashion from the superior and inferior aspects and tied together in the middle of the incision. The skin of the midline incision and all port sites was closed with 4-0 Polysorb suture and Exofin skin ahesive. ? Given the nature of this case, the expertise of two staff surgeons (Dr. Jules and Dr. Lara) was required. There was a large pelvic mass with very limited mobility, and an intracorporeal urinary diversion was performed, increasing the complexity of this operation. Dr. Jules performed the robotic anterior exenteration and Dr. Lara performed the pelvic lymphadenectomy and intracorporeal urinary diversion. They were assisted by Drs. Mcdonald and Pako. The placement of the robotic ports was performed by Drs. Min and Harry under Dr. Jules's direct supervision. Wound closure and maturation of the stoma were?performed by Drs. Min and Harry?with Dr. Jules?immediately available. ? The patient was then emerged from anesthesia and extubated without issue. She was then and transferred to PACU in stable condition. All surgical counts were correct at case completion. PRE-OP/PRE-PROCEDURE DIAGNOSIS: bladder cancer POST-OP/POST-PROCEDURE DIAGNOSIS: same ESTIMATED BLOOD LOSS: 400 mls Specimens: Specimen ID Type Site Comments Sent To path #1 Tissue ? right distal ureter #1 AND #2 Pathology Frozen path #2 Tissue ? left distal ureter Pathology Frozen path #3 Tissue ? urethral margin Pathology Routine path #4 Tissue bladder, uterus, ovaries, vagina Pathology Routine ? IMPLANTABLE DEVICES: None DRAINS: MARK and Stoma menendez COMPLICATIONS: None IV Fluids: 4700ml crystalloid, 750ml albumin Operative report dictated by Joesph Mcdonald MD on behalf of Dr. Lara. ? Procedure(s) (LRB): ROBOTIC LAPAROSCOPIC CYSTECTOMY BLADDER, CONDUIT ILEAL AND LYMPHADENECTOMY (N/A) ? Anatomic Site: Ureter, Laterality: Bilateral Bladder, Laterality: N/A Urethra, Laterality: Not applicable Vagina, Laterality: N/A Approach: Robotic Device: Stent Qualifier: None SIGNATURE: Joesph Mcdonald MD PATIENT NAME: Serena Musa DATE: March 16, 2018 TIME: 11:48 PM PAGER/CONTACT #: [phone] PLAN OF CARE Observed: 03/10/2018 Status: COMPLETED Source: [place] 4:29 PM [facility] REPOSITORY O ID: [id number] Author: Ute Chong (Nut Grader) Service: (none) Author Type: Chocolatier Type: Plan of Care Filed: 03/10/2018 4:31 PM Note Text: PHARMACY BEDSIDE DELIVERY SERVICE Patient Name: Serena Musa The marked outpatient medications were Filled at: [facility] and delivered to the patient's bedside to patient Medication List START taking these medications docusate sodium 100 mg capsule X Delivered Commonly known as: COLACE Take 1 capsule by mouth twice daily. enoxaparin 30 mg/0.3 mL injection X Delivered Commonly known as: LOVENOX Inject 0.3 mL subcutaneously once daily for 27 days. sodium bicarbonate 650 mg tablet X Delivered Take 1 tablet by mouth three times daily. CHANGE how you take these medications ciprofloxacin HCl 500 mg tablet X Delivered Commonly known as: CIPRO Take 1 tablet by mouth once daily. Take until stents removed and instructed to stop the medication by Dr. Lara What changed: ? medication strength ? See the new instructions. fexofenadine-pseudoephedrine 60-120 mg per tablet Commonly known as: MINO D What changed: Another medication with the same name was removed. Continue taking this medication, and follow the directions you see here. CONTINUE taking these medications biotin 1,000 mcg Chew melatonin 10 mg Cap MULTIVITAMIN 50 PLUS ORAL OPTIVAR 0.05 % ophthalmic solution Generic drug: Azelastine HCl one(1) drop to each eye twice a day TYLENOL ARTHRITIS ORAL VITAMIN C 100 mg tablet Generic drug: Ascorbic Acid You might also be taking other medications not listed above. If you have questions about any of your other medications, talk to the person who prescribed them or your Primary Care Provider. STOP taking these medications NaCl 0.9% solution Potassium 99 mg Tab predniSONE 20 mg tablet Commonly known as: DELTASONE ASK your doctor about these medications oxyCODONE IR 5 mg immediate release tablet X Delivered Commonly known as: ROXICODONE Take 1 tablet by mouth every 8 hours as needed for Pain for up to 3 days. Ask about: Should I take this medication? Ute Chong (Echodio) PAGER: [phone] March 10, 2018 4:29 PM PLAN OF CARE Observed: 03/10/2018 Status: COMPLETED Source: [place] 4:28 PM [facility] REPOSITORY HNO ID: [id number] Author: Ute Chong (Echodio) Service: (none) Author Type: Chocolatier Type: Plan of Care Filed: 03/10/2018 4:29 PM Note Text: Pharmacy Discharge Medication Service: This patient has elected to receive their discharge prescriptions through the [facility] Bedside Prescription Delivery program. The prescriptions are currently being processed. A follow-up note will be entered once the prescriptions have been filled and delivered to the patient. Please contact me with any questions or updates to the patient's discharge medications. Ute Chong (Echodio) DCT Contact Info: [id number] CNDS Observed: 03/10/2018 Status: COMPLETED Source: [place] 1:29 PM [facility] REPOSITORY HNO ID: [id number] Author: Jose Olvera MD Service: Urology Author Type: Resident Type: Discharge Summaries Filed: 03/10/2018 1:49 PM Note Text: DISCHARGE SUMMARY PATIENT NAME: Serena Musa ADMISSION DATE: 02/27/2018 DISCHARGE DATE: 03/10/2018 ATTENDING PHYSICIAN: Yoshi Lara Code Status: Not on file Highest Readmission Risk Score: 18 The 30 day readmissions risk score is derived from an internally validated risk model which evaluates patient level characteristics, utilization history, medication orders and lab results up until the day of discharge. Patients with a score of 40 or above are considered highest risk for readmission. Specific patient level drivers will be listed at the bottom of the summary. REASON FOR HOSPITALIZATION: Bladder Cancer DIAGNOSIS: Bladder Cancer Ruled Out OPERATIONS DURING HOSPITALIZATION: Robotic cystectomy, bilateral pelvic lymph node dissection, ileal conduit creation PROCEDURES DURING HOSPITALIZATION: No procedures performed HOSPITAL COURSE: 67F with a history of locally advanced bladder cancer causing bilateral hydronephrosis admitted for the above surgery. Surgery was performed without complication and she was taken to PACU and transferred to the [facility]. POD1: diet advanced to clear liquids POD2: advanced to GI soft diet. High urine output consistent with post-obstructive diuresis - IVF hydration continued. POD3: IVF decreased - remained with high volume urine output POD4: episode of emesis - KUB without evidence of ileus. POD5: continued diuresis - nephrology consulted for assistance with fluid management. Continued IVF at replacement rate of 1/2 total urine output POD6: continued IVF hydration POD7 - given 1 unit PRBC for anemia with hemoglobin of 7.1 POD8: fluids discontinued per nephrology recommendations. Hyperkalemic - treated medically with insulin, low-potassium diet. POD9: hyperkalemic to 5.7 - given 30mg kayexelate. Urine output acceptable (<3L). POD10: Hyperkalemia resolved. Urine output remained less than 3L. Stable for discharge. Discharged home with course of lovenox for VTE prophylaxis (30mg daily due to decreased renal function), ciprofloxacin for stent prophylaxis. Counseled extensively on need to remain on strict low potassium diet until cleared by nephrology as an outpatient. Follow up being arranged for Sunday03/15/2018 for urology visit, stoma visit, IVF hydration with labs prior to clinic appointment to monitor renal function and previous hyperkalemia. Final pathology: Urothelial carcinoma with squamous differentiation, [id number] Transitions of Care Critical Issues: LAB MONITORING NEEDED: as above - labs to be drawn Sunday03/15/18 LABS AND PROCEDURES PENDING AT DISCHARGE: No pending results. CONSULTING TEAMS DURING HOSPITALIZATION: Nephrology: for post-obstructive diuresis and hyperkalemia PATIENT CONDITION AT DISCHARGE: Stable DISCHARGE DISPOSITION: Home with Home Health Care INFORMATION PROVIDED TO PATIENT: (To pull info documented from the DC Instruct Orderset Complete O/S First): Printed discharge instructions DIET: GI soft, low potassium diet ACTIVITY: Lifting is restricted to: no lifting heavier than 15lbs for the next 6 weeks WOUND/SURGICAL SITE CARE: Leave open to air ALLERGIES Allergen Reactions - Iodinated Contrast-* Hives DISCHARGE MEDICATION: Current Discharge Medication List START taking these medications sodium bicarbonate 650 mg Take 650 mg by mouth three times daily. Qty: 90 tablet Refills: 3 docusate sodium (COLACE) 100 mg Take 100 mg by mouth twice daily. Qty: 28 capsule Refills: 0 enoxaparin (LOVENOX) 30 mg Inject 30 mg subcutaneously once daily. Qty: 8.1 mL Refills: 0 oxyCODONE IR (ROXICODONE) 5 mg Take 5 mg by mouth every 8 hours as needed for Pain. Earliest Fill Date: 03/05/18 Qty: 10 tablet Refills: 0 Associated Diagnoses:Postoperative pain CONTINUE these medications which have CHANGED ciprofloxacin HCl (CIPRO) 500 mg Take 500 mg by mouth once daily. Take until stents removed and instructed to stop the medication by Dr. Lara Qty: 30 tablet Refills: 0 CONTINUE these medications which have NOT CHANGED acetaminophen (TYLENOL ARTHRITIS ORAL) Take by mouth every 8 hours as needed. melatonin 10 mg cap Take by mouth daily at bedtime. multivit with minerals/lutein (MULTIVITAMIN 50 PLUS ORAL) Take by mouth once daily. biotin 1,000 mcg chew Take by mouth. Ascorbic Acid 100 mg Take 100 mg by mouth once daily. FEXOFENADINE-PSEUDOEPHEDRINE SR 60 MG-120 MG 12 HR TAB as necessary Refills: 0 OPTIVAR 0.05 % EYE DROPS one(1) drop to each eye twice a day Qty: 6cc Refills: 0 STOP taking these medications Potassium 99 mg tab Comments: Reason for Stoppin.9 % sodium chloride (NACL 0.9%) solution Comments: Reason for Stopping: PREDNISONE 20 MG TAB Comments: Reason for Stopping: FUTURE APPOINTMENTS: Future Appointments Date Time Provider Department Center 03/12/2018 7:30 AM [facility] ([facility]) Radha [facility]OLMN UROL Q BLDG 03/15/2018 10:30 AM Nurse Gi Procedure GAPRA3 JESSICA AANDM Bl The patient's risk for 30-day readmission is determined using the following contributing factors: Pt variables contributing to increased readmission risk: 40 Most Recent BUN Result 19 Active Medication Orders 9.5 First Resulted Calcium During Admission 1 Insurance - Medicare 1 Discharge Disposition - Home 1 Active Anticoagulant SIGNATURE: Jose Olvera MD PAGER/CONTACT #: [phone] DATE: March 10, 2018 TIME: 1:29 PM PLAN OF CARE Observed: 03/10/2018 Status: COMPLETED Source: [place] 11:37 AM [facility] REPOSITORY HNO ID: [id number] Author: Romi Frederick (Nut Grader) Service: (none) Author Type: (none) Type: Plan of Care Filed: 03/10/2018 11:43 AM Note Text: PAINT PREPARER BEDSIDE DELIVERY SURVEY 1. Patient to use [facility] Bedside Delivery - YES 2. If fax, patient would like us to fax prescriptions to Pharmacy of choice a. Pharmacy: b. Location: c. Phone: 3. Insurance card on file - YES 4. Credit card for payment - NO CASE MANAGEM Observed: 03/10/2018 Status: COMPLETED Source: [place] 10:25 AM [facility] REPOSITORY HNO ID: [id number] Author: Claudette Flynn Service: Care Management Author Type: (none) Type: Care Mgt Progress Note Filed: 03/10/2018 10:26 AM Note Text: CARE MANAGEMENT PROGRESS NOTE SERVICE DATE: 03/10/2018 SERVICE TIME: 10:25 AM LOS: 11 days IM letter given to patient on 03/10/18. SIGNATURE: Johny Beaulieurical Assistant PATIENT NAME: Serena Musa DATE: March 10, 2018 TIME: 10:26 AM PAGER/CONTACT #: [phone] CASE MANAGEM Observed: 03/10/2018 Status: COMPLETED Source: [place] 9:12 AM [facility] REPOSITORY HNO ID: [id number] Author: Noelle Treviño Service: Case Management Author Type: Senior Licensing Manager Type: Care Mgt Progress Note Filed: 03/10/2018 10:13 AM Note Text: CARE MANAGEMENT DISCHARGE NOTE SERVICE DATE: 03/10/2018 SERVICE TIME: 9:12 AM LOS: 11 days Admission Date: 02/27/2018 DISCHARGE ARRANGEMENT (list agency and phone number) [facility] PT Provider: Marlen KRAUSE CAREGIVER ASSESSMENT: Caregiver is ready, willing and able to meet the patient's needs as recommended by the inter-professional team? Yes Patient's transition needs and plan for meeting these needs: N/A Does the patient have an acute stroke diagnosis, or has the patient had a stroke during this admission? No HANDOFF COMMUNICATION: CM sent d/c instructions TRANSPORTATION ARRANGEMENTS: Car with family ADDITIONAL CONTACT RESOURCES: N/A Per team, pt medically ready for d/c. Pt to d/c home and will receive home care. CM sent d/c instructions via [facility]. Per [facility], SOC will be within 24-48 hrs From CM standpoint pt is ready for d/c. CM will continue to be available for d/c planning as needed. SIGNATURE: Noelle Treviño LPC PATIENT NAME: Serena Musa DATE: March 10, 2018 TIME: 9:12 AM PAGER/CONTACT #: [phone] PROGRESS Observed: 03/10/2018 Status: COMPLETED Source: [place] 8:02 AM [facility] REPOSITORY HNO ID: [id number] Author: Jose Olvera MD Service: Urology Author Type: Resident Type: Progress Notes Filed: 03/10/2018 8:04 AM Note Text: [facility] UROLOGY PROGRESS NOTE Name: Serena Musa Bed: G090 001/G090-01 Date: March 10, 2018 ASSESSMENT AND PLAN Serena Musa is a 67 year old female with bladder cancer now POD# 4 s/p Robotic radical cystectomy, pelvic lymph node dissection including presacral lymph nodes on the right, and intracorporeal ileal conduit (02/28/18) Overall doing well POD10 cystectomy/ileal conduit. On GI soft - toleraitng well. Post obstructive diuresis improving. UOP < 3L. Hyperkalemia resolved - K 4.8 this morning. Stressed importance of adhering to low potassium diet until cleared for regular diet by nephrology as an outpatient. Likely stable for discharge today. Neuro -Pain controlled with PO analgesia - minimize narcotics CV/Resp -stable hemodynamics and pulmonary status GI -Diet - GI soft - low K diet -keep MARK drain FEN/Endo GI soft HLIV ID Perioperative antibiotics - unasyn completed - cipro stent prophylaxis Activity - OOB to chair and Ambulate with assistance DVT prophylaxis - SCDs, Heparin SQ TID Discharge teaching - will need home going pouch management teaching, MARK teaching Disposition - pending clinical course Subjective -having BMs -Pain: well controlled -CP/SOB: Denies -N/V: occasional nausea -Bowel function: + flatus, BM -Ambulating multiple times per day Denies any dizziness or lightheadedness with ambulation Objective Vital Signs BP 97/70 Pulse 72 Temp 36.4 ?C (97.5 ?F) (Oral) Resp 18 Ht 157.5 cm (5' 2) Wt 62.7 kg (138 lb 3.2 oz) SpO2 97% BMI 25.28 kg/m? Input and Output Intake/Output Summary (Last 24 hours) at 03/10/18 0803 Last data filed at 03/10/18 0500 Gross per 24 hour Intake 240 ml Output 2720 ml Net -2480 ml Physical Exam General: comfortable in NAD HEENT: Normocephalic, atraumatic CV:: warm, well-perfused, RR Resp: breathing unlabored GI: Soft, nontender, nondistended. No rebound or guarding. Incisions c/d/i : stoma pink, healthy, stoma menendez removed, urine clear yellow, MARK ss Extremities: no edema Neuro: Alert and oriented Psych: Normal affect Recent Labs 03/10/18 0345 03/09/18 2151 03/09/18 0026 03/08/18 0025 03/08/18 0024 WBC 8.68 -- 10.73 -- 10.08 -- HB 9.8* -- 9.1* -- 9.3* -- HCT 29.2* -- 28.7* -- 28.7* -- PLT 505* -- 453* -- 417* -- NA 137 -- 134* -- -- 136 K 4.8 4.3 5.7* < > -- 5.8* CHLOR 101 -- 101 -- -- 103 CO2 20* -- 20* -- -- 18* BUN 40* -- 37* -- -- 26* CREAT 1.82* -- 2.00* -- -- 1.73* GLUC 105* -- 116* -- -- 105* < > = values in this interval not displayed. Jose Olvera MD Urology PGY2 [id number] urology grounds restoration specialist CBC Collected: 03/10/2018 Status: F Source: [place] 3:45 AM [facility] REPOSITORY TYPE CODE TESTS RESULT OUT OF REFERENCE UNITS RANGE LAB WBC 3.70-11.00 k/uL WBC 8.68 LAB RBC 3.90-5.20 m/uL Low RBC 3.05 LAB HGB 11.5-15.5 g/dL Low Hemoglobin 9.8 LAB HCT 36.0-46.0 % Low Hematocrit 29.2 LAB MCV 80.0-100.0 fL MCV 95.7 LAB MCH 26.0-34.0 pG MCH 32.1 LAB MCHC 30.5-36.0 g/dL MCHC 33.6 LAB RDWCV 11.5-15.0 % RDW-CV 13.5 LAB PLTCT 150-400 k/uL Platelet High Count 505 LAB MPV 9.0-12.7 fL Low MPV 8.7 LAB ABSNUC <0.01 k/uL Absolute nRBC <0.01 Performed By: #### CBC, PHOS #### [facility] [address] [address] PHOSPHORUS Collected: 03/10/2018 Status: F Source: [place] 3:45 [facility] REPOSITORY TYPE CODE TESTS RESULT OUT OF REFERENCE UNITS RANGE LAB PHOS 2.7-4.8 mg/dL High Phosphorus 5.9 Result Comment: Result rechecked. Performed By: #### CBC, PHOS #### [facility] [address] [address] COMP METABOLIC PANEL Collected: 03/10/2018 Status: F Source: [place] 3:45 AM [facility] REPOSITORY TYPE CODE TESTS RESULT OUT OF REFERENCE UNITS RANGE LAB TP 6.3-8.0 g/dL Protein, Total 6.9 LAB ALB 3.9-4.9 g/dL Low Albumin 3.2 LAB CA 8.5-10.2 mg/dL Calcium, Total 9.7 LAB TBIL 0.2-1.3 mg/dL Bilirubin, Total 0.2 LAB ALKP 32-117 U/L Alkaline Phosphatase 67 LAB AST 13-35 U/L AST 23 LAB GLU 74-99 mg/dL Glucose High 105 Result Comment: The [place] [employer] (ADA) provides guidance for cutoff values for fasting glucose and random glucose. The ADA defines fasting as no caloric intake for at least 8 hours. Fas ting plasma glucose results between 100 to 125 mg/dL indicate increased risk for diabetes (prediabetes). Fasting plasma glucose results greater than or equal to 126 mg/dL meet the criteria for diagnosis of diabetes. In the absence of unequivocal hyperglycemia, results should be confirmed by repeat testing. In a patient with classic symptoms of hyperglycemia or hyperglycemic crisis, random plasma glucose results greater than or equal to 200 mg/dL meet the criteria for diagnosis of diabetes. Reference: Standards of Medical Care in Diabetes 2016, [place] [employer]. Diabetes Care. 2016.39(Suppl 1). LAB BUN 7-21 mg/dL BUN High 40 LAB CRET 0.58-0.96 mg/dL Creatinine High 1.82 LAB NA 136-144 mmol/L Sodium 137 LAB K 3.7-5.1 mmol/L Potassium 4.8 LAB CL 97-105 mmol/L Chloride 101 LAB CO2 22-30 mmol/L Low CO2 20 LAB AGAP 9-18 mmol/L Anion Gap 16 LAB ALT 7-38 U/L ALT High 41 LAB GFRAA eGFR- Amer. 34 LAB GFRNAA . eGFR-All Other Races 28 Result Comment: eGFR (Estimated GFR) Units of measure: mL/min/1.73 meters squared eGFR is derived from the reexpressed MDRD Study equation using the following parameters: serum creatinine, age, gender and race. The creatinine assay has been calibrated to be traceable to IDMS. An eGFR <60 mL/min/1.73m2 for >3 months is consistent with chronic kidney disease. Refer to KDOQI guidelines for clinical interpretation. In patients with unstable renal function, e.g. those with acute kidney injury, the eGFR may not accurately reflect actual GFR. Performed By: #### CMP #### [facility] [address] [place], [place] [address] POTASSIUM Collected: 03/09/2018 Status: F Source: [place] 9:51 PM [facility] RE[facility] TYPE CODE TESTS RESULT OUT OF REFERENCE UNITS RANGE LAB K 3.7-5.1 mmol/L Potassium 4.3 Performed By: #### K1 #### [facility] [address] [place], [place] [address] CONSULT PROG Observed: 03/09/2018 Status: COMPLETED Source: [place] 12:41 PM [facility] [place] REPOSITORY HNO ID: [id number] Author: Gaston Kamara Service: Nephrology Author Type: Physician Type: Consult Progress Note Filed: 03/09/2018 12:47 PM Note Text: CONSULT PROGRESS NOTE NEPHROLOGY SERVICE SERVICE DATE: 03/09/2018 SERVICE TIME: 12:41 PM Subjective INTERVAL HISTORY: Patient doing well today. UOP has decreased. Hyperkalemia due to dietary indiscretion and MISTI. Elevation in serum creatinine MEDICATIONS: Current hospital medications: [START ON 03/10/2018] ciprofloxacin HCl 500 mg tab(s) (CIPRO) 500 mg ORAL q 24 HR sodium bicarbonate 650 mg tab(s) 650 mg ORAL TID 0.9% NaCl 2-10 mL 2-10 mL INTRAVENOUS q 12 H polyethylene glycol 3350 17 g packet (MIRALAX, GLYCOLAX) 17 g ORAL DAILY diphenhydrAMINE 25 mg (BENADRYL) 25 mg ORAL HS PRN miconazole 2 % 1 application topical powder (LOTRIMIN AF, DESENEX) 1 application TOPICAL BID bisacodyl 10 mg suppository (DULCOLAX) 10 mg RECTAL DAILY PRN acetaminophen 650 mg tab(s) (TYLENOL) 650 mg ORAL q 4 H PRN oxyCODONE IR 5 mg tab(s) (ROXICODONE) 5 mg ORAL q 4 H PRN diphenhydrAMINE 25-50 mg injection (BENADRYL) 25-50 mg INTRAVENOUS q 6 H PRN fentaNYL 50 mcg/mL 25-50 mcg injection (SUBLIMAZE) 25-50 mcg INTRAVENOUS q 1 H PRN ondansetron (PF) 4 mg injection (ZOFRAN) 4 mg INTRAVENOUS q 6 H PRN pantoprazole 40 mg injection (PROTONIX) 40 mg INTRAVENOUS DAILY (6 AM) phenol 1 [place] (CHLORASEPTIC) 1 [place] MUCOUS MEMBRANE (TOPICAL MOUTH AND THROAT) PRN heparin 5,000 Units injection 5,000 Units SUBCUTANEOUS q 8 H melatonin 9 mg tab(s) 9 mg ORAL AT BEDTIME aluminum-magnesium hydroxide-simethicone 200-200-20 mg/5 mL 30 mL (MAALOX,MYLANTA,MAG-AL PLUS) 30 mL ORAL q 6 H PRN docusate sodium 100 mg cap(s) (COLACE) 100 mg ORAL BID simethicone, chewable 80 mg tab(s) (MYLICON) 80 mg ORAL q 8 H PRN Objective PHYSICAL EXAM: BP 120/78 Pulse 77 Temp 36.8 ?C (98.2 ?F) (Oral) Resp 18 Ht 157.5 cm (5' 2) Wt 62.7 kg (138 lb 3.2 oz) SpO2 98% BMI 25.28 kg/m? Intake/Output Summary (Last 24 hours) at 03/09/18 1241 Last data filed at 03/09/18 1004 Gross per 24 hour Intake 560 ml Output 3260 ml Net -2700 ml Physical Exam Constitutional (VITALS reviewed as documentated by nurse). NAD Eyes: anicteric sclera, no lid lag ENTM:Ears atraumatic, MMM Respiratory: CTA without W/R/R, no increase in inspiratory effort. CV: RRR, no murmers, no edema GI: Soft, non-distended, + ileal conduit Skin: normal temperature, no rash Neuro/Psych: appropriate affect, AAO x 3 Musculoskeletal:no clubbing, normal muscle strength DATA: Recent Labs 03/09/18 0026 03/08/18 1835 03/08/18 1415 03/08/18 0905 03/08/18 0025 03/08/18 0024 03/07/18 0051 03/07/18 0050 03/06/18 0436 03/05/18 0243 03/04/18 0233 03/03/18 0148 NA 134* -- -- -- -- 136 -- 138 140 139 138 141 K 5.7* 5.2* 5.7* 5.1 -- 5.8* -- 5.2* 4.5 4.9 4.5 4.5 CHLOR 101 -- -- -- -- 103 -- 107* 110* 106* 107* 107* CO2 20* -- -- -- -- 18* -- 18* 17* 20* 19* 16* BUN 37* -- -- -- -- 26* -- 31* 31* 29* 30* 32* CREAT 2.00* -- -- -- -- 1.73* -- 1.77* 1.84* 1.90* 1.91* 2.04* GLUC 116* -- -- -- -- 105* -- 115* 102* 107* 119* 135* ANION 13 -- -- -- -- 15 -- 13 13 13 12 18 CA 8.8 -- -- -- -- 9.0 -- 8.8 8.8 8.5 8.1* 8.2* P 3.7 -- -- -- 4.1 -- 3.7 -- 3.7 2.9 2.5* 3.0 MG -- -- -- -- -- -- -- -- -- 1.7 1.7 1.7 Recent Labs 03/09/18 0026 03/08/18 0025 03/07/18 0051 WBC 10.73 10.08 9.30 HB 9.1* 9.3* 7.1* HCT 28.7* 28.7* 22.1* PLT 453* 417* 360 No results for input(s): INR, APTT in the last 168 hours. Assessment/Plan Ms. Musa is a 67 year old female with PMHx of rheumatoid arthritis and bladder cancer w/ bilateral ureteral?outlet obstruction s/p cystectomy w/ ileal conduit now with post-obstructive/post-ATN?diuresis. 1. MISTI from obstruction (Baseline SC 1.05 in 07/2017). Admitted with SC 4.66 2. Post-obstructive diuresis (polyuria): improved. 3. Hyperkalemia: due to diet and MISTI 4.Metabolic acidosis-on sodium bicarb PLAN 1. If SC increase again, recheck for obstruction? 2. Continue low K+ diet 3.I agree to hold her d/c today Gaston Kamara DO PROGRESS Observed: 03/09/2018 Status: COMPLETED Source: [place] 9:46 AM [facility] [place] REPOSITORY HNO ID: [id number] Author: Jose (Res) MD May Service: Urology Author Type: Resident Type: Progress Notes Filed: 03/09/2018 9:55 AM Note Text: [facility] UROLOGY PROGRESS NOTE Name: Serena Musa Bed: G090 001/G090-01 Date: March 09, 2018 ASSESSMENT AND PLAN Serena Musa is a 67 year old female with bladder cancer now POD# 4 s/p Robotic radical cystectomy, pelvic lymph node dissection including presacral lymph nodes on the right, and intracorporeal ileal conduit (02/28/18) Overall doing well POD9 cystectomy/ileal conduit. On GI soft - toleraitng well. Post obstructive diuresis improving. UOP < 3L today but mild hyperkalemia. K 5.7 again this morning. Bactrim discontinued and stent prophylaxis switched to ciprofloxacin 500mg daily. Low potassium diet reiterated - had inadvertently consumed apple sauce and prune juice. Will give 30g kayexelate today for potassium clearance. Will remain as inpatient today. Appreciate nephrology input. Anemia improved and stable. Continue OOB and ambulation. Goal dc once electrolytes stabilized. Discussed with staff Dr. Lara Neuro -Pain controlled with PO analgesia - minimize narcotics CV/Resp -stable hemodynamics and pulmonary status GI -Diet - GI soft - low K diet -keep MARK drain FEN/Endo GI soft 30g kayexelate today HLIV ID Perioperative antibiotics - unasyn completed - cipro stent prophylaxis Activity - OOB to chair and Ambulate with assistance DVT prophylaxis - SCDs, Heparin SQ TID Discharge teaching - will need home going pouch management teaching, MARK teaching Disposition - pending clinical course Subjective -having BMs -Pain: fairly well controlled -CP/SOB: Denies -N/V: occasional nausea -Bowel function: + flatus, BM -Ambulating multiple times per day Denies any dizziness or lightheadedness with ambulation Objective Vital Signs BP 102/63 Pulse 79 Temp 37.2 ?C (99 ?F) (Oral) Resp 19 Ht 157.5 cm (5' 2) Wt 62.7 kg (138 lb 3.2 oz) SpO2 98% BMI 25.28 kg/m? Input and Output Intake/Output Summary (Last 24 hours) at 03/09/18 0947 Last data filed at 03/09/18 0605 Gross per 24 hour Intake 800 ml Output 3110 ml Net -2310 ml Physical Exam General: comfortable in NAD HEENT: Normocephalic, atraumatic CV:: warm, well-perfused, RR Resp: breathing unlabored GI: Soft, nontender, nondistended. No rebound or guarding. Incisions c/d/i : stoma pink, healthy, stoma menendez removed, urine clear yellow, MARK ss Extremities: no edema Neuro: Alert and oriented Psych: Normal affect Recent Labs 03/09/18 0026 03/08/18 1835 03/08/18 1415 03/08/18 0025 03/08/18 0024 03/07/18 0051 03/07/18 0050 WBC 10.73 -- -- -- 10.08 -- 9.30 -- HB 9.1* -- -- -- 9.3* -- 7.1* -- HCT 28.7* -- -- -- 28.7* -- 22.1* -- PLT 453* -- -- -- 417* -- 360 -- NA 134* -- -- -- -- 136 -- 138 K 5.7* 5.2* 5.7* < > -- 5.8* -- 5.2* CHLOR 101 -- -- -- -- 103 -- 107* CO2 20* -- -- -- -- 18* -- 18* BUN 37* -- -- -- -- 26* -- 31* CREAT 2.00* -- -- -- -- 1.73* -- 1.77* GLUC 116* -- -- -- -- 105* -- 115* < > = values in this interval not displayed. Jose Olvera MD Urology PGY2 [id number] urology grounds restoration specialist CBC Collected: 03/09/2018 Status: F Source: [place] 12:26 AM [facility] REPOSITORY TYPE CODE TESTS RESULT OUT OF REFERENCE UNITS RANGE LAB WBC 3.70-11.00 k/uL WBC 10.73 LAB RBC 3.90-5.20 m/uL Low RBC 2.93 LAB HGB 11.5-15.5 g/dL Low Hemoglobin 9.1 LAB HCT 36.0-46.0 % Low Hematocrit 28.7 LAB MCV 80.0-100.0 fL MCV 98.0 LAB MCH 26.0-34.0 pG MCH 31.1 LAB MCHC 30.5-36.0 g/dL MCHC 31.7 LAB RDWCV 11.5-15.0 % RDW-CV 13.5 LAB PLTCT 150-400 k/uL Platelet High Count 453 LAB MPV 9.0-12.7 fL MPV 9.0 LAB ABSNUC <0.01 k/uL Absolute nRBC <0.01 Performed By: #### CBC, PHOS #### [facility] [address] [place], [place] [address] PHOSPHORUS Collected: 03/09/2018 Status: F Source: [place] 12:26 AM [facility] REPOSITORY TYPE CODE TESTS RESULT OUT OF REFERENCE UNITS RANGE LAB PHOS 2.7-4.8 mg/dL Phosphorus 3.7 Performed By: #### CBC, PHOS #### [facility] [address] [place], [place] [address] COMP METABOLIC PANEL Collected: 03/09/2018 Status: F Source: [place] 12:26 AM [facility] REPOSITORY TYPE CODE TESTS RESULT OUT OF REFERENCE UNITS RANGE LAB TP 6.3-8.0 g/dL Protein, Total 6.6 LAB ALB 3.9-4.9 g/dL Low Albumin 3.3 LAB CA 8.5-10.2 mg/dL Calcium, Total 8.8 LAB TBIL 0.2-1.3 mg/dL Low Bilirubin, Total <0.2 LAB ALKP 32-117 U/L Alkaline Phosphatase 64 LAB AST 13-35 U/L AST 32 LAB GLU 74-99 mg/dL Glucose High 116 Result Comment: The [place] [employer] (ADA) provides guidance for cutoff values for fasting glucose and random glucose. The ADA defines fasting as no caloric intake for at least 8 hours. Fas ting plasma glucose results between 100 to 125 mg/dL indicate increased risk for diabetes (prediabetes). Fasting plasma glucose results greater than or equal to 126 mg/dL meet the criteria for diagnosis of diabetes. In the absence of unequivocal hyperglycemia, results should be confirmed by repeat testing. In a patient with classic symptoms of hyperglycemia or hyperglycemic crisis, random plasma glucose results greater than or equal to 200 mg/dL meet the criteria for diagnosis of diabetes. Reference: Standards of Medical Care in Diabetes 2016, [place] [employer]. Diabetes Care. 2016.39(Suppl 1). LAB BUN 7-21 mg/dL BUN High 37 LAB CRET 0.58-0.96 mg/dL Creatinine High 2.00 LAB NA 136-144 mmol/L Low Sodium 134 LAB K 3.7-5.1 mmol/L Potassium High 5.7 LAB CL 97-105 mmol/L Chloride 101 LAB CO2 22-30 mmol/L Low CO2 20 LAB AGAP 9-18 mmol/L Anion Gap 13 LAB ALT 7-38 U/L ALT High 48 LAB GFRAA eGFR- Amer. 30 LAB GFRNAA . eGFR-All Other Races 25 Result Comment: eGFR (Estimated GFR) Units of measure: mL/min/1.73 meters squared eGFR is derived from the reexpressed MDRD Study equation using the following parameters: serum creatinine, age, gender and race. The creatinine assay has been calibrated to be traceable to IDMS. An eGFR <60 mL/min/1.73m2 for >3 months is consistent with chronic kidney disease. Refer to KDOQI guidelines for clinical interpretation. In patients with unstable renal function, e.g. those with acute kidney injury, the eGFR may not accurately reflect actual GFR. Performed By: #### CMP #### [facility] [address] [place], [place] [address] POTASSIUM Collected: 03/08/2018 Status: F Source: [place] 6:35 PM [facility] REPOSITORY TYPE CODE TESTS RESULT OUT OF REFERENCE UNITS RANGE LAB K 3.7-5.1 mmol/L High Potassium 5.2 Performed By: #### K1 #### [facility] [address] [place] [address] PT ED Observed: 03/08/2018 Status: COMPLETED Source: [place] 4:52 PM [facility] REPOSITORY HNO ID: [id number] Author: Rosemary Nicolas Service: Nutrition Therapy Author Type: Registered Dietitian Type: Patient Education Filed: 03/08/2018 4:56 PM Note Text: NUTRITION THERAPY PATIENT EDUCATION SERVICE DATE: 03/08/2018 SERVICE TIME: 4:53 PM TOPIC: Survival Skills: Diet Diagnosis: ADULT: hyperkalemia READINESS TO LEARN Cognitive Ability: Alert and oriented Motivation to Learn: Eager Family Support: Unable to assess - Family not present Instruction Provided to: Patient and Spouse Patient Learns Best by: Individual Instruction Written Instruction - Hand-outs Factors Affecting Learning: None Physical Limitations Affecting Learning: None LEARNING RESPONSE Patient / Family Response: Verbalizes understanding of Electrolyte Controlled 2-4 gm Potassium Diet: Rationale behind diet restriction; foods typically high in potassium; tips for reducing Potassium in cooking Method of Instruction: Individual instruction Written instruction - handouts Instructional Aids Used: NA Supplemental Material Provided to Patient: Nutrition Therapy instruction material: Controlling Your Potassium Level Follow-Up Plan: Complete - No need for follow-up Referral (Recommendation): Primary Care Provider MNT Billing: Initial Assess/15 min 2 units SIGNATURE: Rosemary Nicolas, MS, RD, LD PATIENT NAME: Serena Musa DATE: March 08, 2018 TIME: 4:53 PM PAGER: [phone] NUTRITION Observed: 03/08/2018 Status: COMPLETED Source: [place] 4:45 PM [facility] REPOSIT[facility] HNO ID: [id number] Author: Rosemary Moon) Fidencio Service: Nutrition Therapy Author Type: Registered Dietitian Type: Nutrition Filed: 03/08/2018 4:52 PM Note Text: NUTRITION THERAPY SCREENING NOTE SERVICE DATE: 03/08/2018 SERVICE TIME: 4:46 PM NUTRITION CARE PLAN Patient's weight is stable and nutritional intake is adequate. Patient is not at risk for malnutrition at this time. Intervention: Meals and Snacks - Change diet to GI soft 2 gm K+ diet - Allergies address. Pt reports mild throat swelling w/ some fruits but not all the time. States no issues w/ cooked fruits/veg. Reports mild lactose intolerance but able to have some dairy Medical Food Supplements - D/c Ensure HP (pt reports unable to tolerate supplements) Initial/Brief Nutrition Education - Low K+ diet education. See pt education for details Discharge Nutrition Recommendations: Diet: GI soft 2 gm K+ diet Education: Controlling your potassium levels diet education Per HPI: Serena Musa is a 67 year old female with bladder cancer now POD# 4 s/p Robotic radical cystectomy, pelvic lymph node dissection including presacral lymph nodes on the right, and intracorporeal ileal conduit (02/28/18) Current Diet Order DIET GASTRO INTESTINAL Order Specific Question: Gastro Intestinal Answer: GI SOFT-FIBER CONTROLLED Order Specific Question: Electrolytes Answer: 2 GM POTASSIUM Supplement 1 (19 years and up): ENSURE HIGH PROTEIN VANILLA Supplement 1 Frequency: THREE TIMES/DAY BETWEEN MEALS There are no questions and answers to display. There are no questions and answers to display. Nutritional Intake Prior to Admission: >75% estimated energy needs over the past >1 month(s) Pt reports good appetite prior to admission. Anthropometrics: Height: 157.5 cm (5' 2) Admission Weight: 67.8 kg (149 lb 6.4 oz) Current Weight: 62.7 kg (138 lb 3.2 oz) Body mass index is 25.28 kg/m?. IBW: 110# +/- 10-% UBW: 148# (67 kg) Weight has unable to assess weight change due to fluid shifts Last Wt 03/08/18 : 62.7 kg (138 lb 3.2 oz) 02/25/18 : 67.3 kg (148 lb 6.4 oz) 02/19/18 : 66.4 kg (146 lb 6.4 oz) 02/19/18 : 66.7 kg (147 lb) 10/31/05 : 87.1 kg (192 lb) 08/22/05 : 88 kg (194 lb) Recent Labs 03/08/18 1415 03/08/18 0025 03/08/18 0024 GLUC -- -- -- 105* BUN -- -- -- 26* CREAT -- -- -- 1.73* NA -- -- -- 136 K 5.7* < > -- 5.8* CHLOR -- -- -- 103 CO2 -- -- -- 18* ALB -- -- -- 3.2* P -- -- 4.1 -- HB -- -- 9.3* -- HCT -- -- 28.7* -- WBC -- -- 10.08 -- < > = values in this interval not displayed. MNT Billing Type: Initial Assess/15 min 1 unit SIGNATURE: Rosemary Nicolas MS, RD, LD PATIENT NAME: Serena Musa DATE: March 08, 2018 TIME: 4:46 PM PAGER: [phone] NURSING PROG Observed: 03/08/2018 Status: COMPLETED Source: [place] 4:10 PM [facility] REPOSITORY HNO ID: [id number] Author: Kaelyn Rosenberg (Rn) ELISSA Pop Service: (none) Author Type: Registered Nurse Type: Nursing Progress Note Filed: 03/08/2018 7:03 PM Note Text: Nursing Progress Note Patient Name: Serena Musa Patient Location: [place] [address]/G090-01 Daily Note: D50/25g and insulin given this morning, repeat BS 114, and potassium level 5.1. Dr. Olvera notified by text page with results earlier today. Repeat potassium level drawn, results 5.7 as of 153. Patient asx and w/o complaints. Dr. Olvera and Dr. Summers/nephrology paged and notified. Low potassium diet, paged Donnie Ortiz/nutrition for diet education, plans to see patient at bedside today. Will continue to monitor. 1900- D50/25g and insulin given per orders around 1747. Repeat BS 1829 76, rechecked for 68. Apple juice given. Recheck of BS at 1854 60. Elijah crackers and apple juice given. Dr. Flores grounds restoration specialist notified verbally at 1900. Will recheck BS and repeat in one hour if improved. Will continue to monitor. This note was completed by: Kaelyn Pop RN, BSN POTASSIUM Collected: 03/08/2018 Status: F Source: [place] 2:15 PM [facility] REPOSITORY TYPE CODE TESTS RESULT OUT OF REFERENCE UNITS RANGE LAB K 3.7-5.1 mmol/L High Potassium 5.7 Performed By: #### K1 #### [facility] [address] [place], [place] [address] CONSULT PROG Observed: 03/08/2018 Status: COMPLETED Source: [place] 12:47 PM [facility] REPOSITORY HNO ID: [id number] Author: Hiram Mancilla Service: Nephrology Author Type: Physician Type: Consult Progress Note Filed: 03/08/2018 2:33 PM Note Text: CONSULT PROGRESS NOTE NEPHROLOGY SERVICE SERVICE DATE: 03/08/2018 SERVICE TIME: 12:47 PM Subjective INTERVAL HISTORY: Patient doing well today despite continued UOP >4L in the setting of no mIVF. Patient said that she has been drinking vitamin water and Gatorade, which are definitely contributing to her high potassium as was prune juice for constipation. Patient denies SOB or dizziness when walking this AM. MEDICATIONS: Current hospital medications: 0.9% NaCl 2-10 mL 2-10 mL INTRAVENOUS q 12 H sodium bicarbonate 650 mg tab(s) 650 mg ORAL BID polyethylene glycol 3350 17 g packet (MIRALAX, GLYCOLAX) 17 g ORAL DAILY diphenhydrAMINE 25 mg (BENADRYL) 25 mg ORAL HS PRN miconazole 2 % 1 application topical powder (LOTRIMIN AF, DESENEX) 1 application TOPICAL BID bisacodyl 10 mg suppository (DULCOLAX) 10 mg RECTAL DAILY PRN acetaminophen 650 mg tab(s) (TYLENOL) 650 mg ORAL q 4 H PRN oxyCODONE IR 5 mg tab(s) (ROXICODONE) 5 mg ORAL q 4 H PRN diphenhydrAMINE 25-50 mg injection (BENADRYL) 25-50 mg INTRAVENOUS q 6 H PRN fentaNYL 50 mcg/mL 25-50 mcg injection (SUBLIMAZE) 25-50 mcg INTRAVENOUS q 1 H PRN ondansetron (PF) 4 mg injection (ZOFRAN) 4 mg INTRAVENOUS q 6 H PRN pantoprazole 40 mg injection (PROTONIX) 40 mg INTRAVENOUS DAILY (6 AM) phenol 1 [place] (CHLORASEPTIC) 1 [place] MUCOUS MEMBRANE (TOPICAL MOUTH AND THROAT) PRN heparin 5,000 Units injection 5,000 Units SUBCUTANEOUS q 8 H sulfamethoxazole-trimethoprim 800-160 mg 1 tablet (BACTRIM DS,SEPTRA DS) 1 tablet ORAL DAILY melatonin 9 mg tab(s) 9 mg ORAL AT BEDTIME aluminum-magnesium hydroxide-simethicone 200-200-20 mg/5 mL 30 mL (MAALOX,MYLANTA,MAG-AL PLUS) 30 mL ORAL q 6 H PRN docusate sodium 100 mg cap(s) (COLACE) 100 mg ORAL BID simethicone, chewable 80 mg tab(s) (MYLICON) 80 mg ORAL q 8 H PRN Objective PHYSICAL EXAM: BP 100/57 Pulse 91 Temp 36.7 ?C (98.1 ?F) (Oral) Resp 22 Ht 157.5 cm (5' 2) Wt 62.7 kg (138 lb 3.2 oz) SpO2 97% BMI 25.28 kg/m? Intake/Output Summary (Last 24 hours) at 03/08/18 1247 Last data filed at 03/08/18 1006 Gross per 24 hour Intake 600 ml Output 4840 ml Net -4240 ml Constitutional: No acute distress, Responsive, Normal habitus and Well-nourished Neck: Trachea midline Cardiovascular: No peripheral edema Respiratory: Normal respiratory effort. Abdomen: Appearance: normal Psychiatric: Alert and oriented x self, place, time, and setting Normal mood/affect DATA: Diagnostic tests reviewed for today's visit: Most recent labs and imaging results. Recent Labs 03/08/18 0905 03/08/18 0025 03/08/18 0024 03/07/18 0051 03/07/18 0050 03/06/18 0436 03/05/18 0243 03/04/18 0233 03/03/18 0148 NA -- -- 136 -- 138 140 139 138 141 K 5.1 -- 5.8* -- 5.2* 4.5 4.9 4.5 4.5 CHLOR -- -- 103 -- 107* 110* 106* 107* 107* CO2 -- -- 18* -- 18* 17* 20* 19* 16* BUN -- -- 26* -- 31* 31* 29* 30* 32* CREAT -- -- 1.73* -- 1.77* 1.84* 1.90* 1.91* 2.04* GLUC -- -- 105* -- 115* 102* 107* 119* 135* ANION -- -- 15 -- 13 13 13 12 18 CA -- -- 9.0 -- 8.8 8.8 8.5 8.1* 8.2* P -- 4.1 -- 3.7 -- 3.7 2.9 2.5* 3.0 MG -- -- -- -- -- -- 1.7 1.7 1.7 Recent Labs 03/08/18 0025 03/07/18 0051 03/06/18 0436 WBC 10.08 9.30 8.10 HB 9.3* 7.1* 7.5* HCT 28.7* 22.1* 23.1* PLT 417* 360 370 No results for input(s): INR, APTT in the last 168 hours. Recent Labs 02/27/18 1743 02/25/18 1218 02/19/18 1545 COLOR Yellow Yellow Yellow CLARITY Clear Clear Cloudy* UGLUC Negative Negative Negative UBILI Negative Negative Negative UKET Negative Negative Negative SPGR 1.009 1.008 1.010 UHB 1+* 2+* 2+* UPH 6.0 5.0 5.0 UPROT Negative Trace* 30* NITRITES Negative Negative Negative LEUKEST 1+* 2+* 2+* UWBC 6-10* 11-25* 11-25* URBC 0-3 11-25* 6-10* No results for input(s): PH, PCO2, PO2, LACT in the last 168 hours. Assessment/Plan Ms. Musa is a 67 year old female with PMHx of rheumatoid arthritis and bladder cancer w/ bilateral ureteral?outlet obstruction s/p cystectomy w/ ileal conduit now with post-obstructive/post-ATN?diuresis. 1. Post-obstructive diuresis: patient continues w/ UOP >4L; patient denies symptoms of hypovolemia even when standing and walking; continue only PO fluids until symptomatic as long as creatinine remains stable 2. MISTI: creatinine continues to decrease today; follow up outpatient nephrology 3. Hyperkalemia: likely due to potassium rich diet while on low potassium diet in hospital; increase sodium bicarbonate to TID 650 mg PO; consider switching from Bactrim which prevents potassium excretion; repeat potassium this afternoon; hesitant to recommend kayexalate due to inconsistent bowel function PLAN 1. Only PO fluids; no more Vitamin Water and no more Gatorade 2. Continue low K+ diet 3. Sodium bicarbonate 650 mg TID PO 4. Consider switching Bactrim to alternative antibiotic 5. Repeat potassium this afternoon SIGNATURE: Nick Summers MD PATIENT NAME: Serena Musa DATE: March 08, 2018 TIME: 12:47 PM PAGER: [phone] NEPHROLOGY STAFF PHYSICIAN NOTE OF PERSONAL INVOLVEMENT IN CARE ? I have seen the patient face to face and reviewed the history and physical examination obtained and documented by the resident/ fellow/ physician nail sticker. I personally participated in the sainz components. I have discussed the case and management of the patient's care. Agree with above findings, assessment, and plan of care formulated with my direct input. Amendments, if present, are entered in bold in the note, and/or detailed below. Medical decision Making: Clinically stable - continued polyuria, off IV fluids but asymptomatic, reports that she walked around without lightheadedness, dizziness; sodium stable (not hypernatremic), renal function improving slowly (BUN down, Cr slowly trending down). No need to resume IV fluids, can continue oral intake as long as she is asymptomatic and not hypotensive. Noted hyperkalemia - in discussing with her, high dietary K intake yesterday (she was drinking vitamin water and gatorade, and also taking in prune juice for constipation), she is additionally on bactrim Plan - continue monitoring off IV fluids, encouraged oral intake (not fluids with high K content) - low K diet, will give her a list of high K foods, advised to avoid vitamin water/ coconut water/ prune juice/ V8 juice, etc for now - can bactrim be stopped? Would consider alternative antibiotic since bactrim can contribute to hyperkalemia - can increase sodium bicarbonate to PO TID - avoiding kayexalate for now; repeat later today, if K higher then may need to consider kayexalate if ok with primary team Dr Kamara covers service over weekend Hiram Mancilla MD CASE MANAGEM Observed: 03/08/2018 Status: COMPLETED Source: [place] 11:51 AM [facility] REPOSITORY [facility] ID: [id number] Author: Ingrid Webster (Sw) Service: Care Management Author Type: Senior Licensing Manager Type: Care Mgt Progress Note Filed: 03/08/2018 11:52 AM Note Text: CARE MANAGEMENT PROGRESS NOTE SERVICE DATE: 03/08/2018 SERVICE TIME: 11:51 AM LOS: 9 days Please contact wknd/holiday top case assembler at pager [phone] for wknd/holiday dc needs. Plan is for pt to dc home with [facility] services through [facility] / [facility] - HomeCare, Hospice and Palliative Care. Wknd/holiday case manger to notify [facility] of dc and send dc instructions once available. SIGNATURE: ROGELIO Lopez, M.Ed, ACM PATIENT NAME: Serena Musa DATE: March 08, 2018 TIME: 11:51 AM PAGER/CONTACT #: [phone] CASE MANAGEM Observed: 03/08/2018 Status: COMPLETED Source: [place] 11:26 AM [facility] REPOSITORY HNO ID: [id number] Author: Noreen Macias (Asst) Service: Care Management Author Type: Resource Center C Web Developer Type: Care Mgt Progress Note Filed: 03/08/2018 11:26 AM Note Text: CARE MANAGEMENT PROGRESS NOTE SERVICE DATE: 03/08/2018 SERVICE TIME: 11:00 LOS: 9 days IM letter given to patient on 03/08/18. SIGNATURE: Asst Jackson PATIENT NAME: Serena Musa DATE: March 08, 2018 TIME: 11:26 AM PAGER/CONTACT #: [phone] POTASSIUM Collected: 03/08/2018 Status: F Source: [place] 9:05 AM [facility] REPOSITORY TYPE CODE TESTS RESULT OUT OF REFERENCE UNITS RANGE LAB K 3.7-5.1 mmol/L Potassium 5.1 Performed By: #### K1 #### [facility] [address] [place] [address] PROGRESS Observed: 03/08/2018 Status: COMPLETED Source: [place] 7:02 AM [facility] REPOSITORY HNO ID: [id number] Author: Jose Olvera MD Service: Urology Author Type: Resident Type: Progress Notes Filed: 03/08/2018 7:04 AM Note Text: [facility] UROLOGY PROGRESS NOTE Name: Serena Musa Bed: G090 001/G090-01 Date: March 08, 2018 ASSESSMENT AND PLAN Serena Musa is a 67 year old female with bladder cancer now POD# 4 s/p Robotic radical cystectomy, pelvic lymph node dissection including presacral lymph nodes on the right, and intracorporeal ileal conduit (02/28/18) Overall doing well POD8 cystectomy/ileal conduit. On GI soft - toleraitng well. Still with high volume urinary losses. Fluids hep-locked yesterday but still ~4L UOP. Now hyperkalemic this morning - will treat with insulin and D50 - on low K diet. Anemia improved with 1 unit PRBC. Continue OOB and ambulation. DC pending clinical course. Neuro -Pain controlled with PO analgesia - minimize narcotics CV/Resp -stable hemodynamics and pulmonary status GI -Diet - GI soft -keep MARK drain FEN/Endo GI soft HLIV ID Perioperative antibiotics - unasyn completed - bactrim stent prophylaxis Activity - OOB to chair and Ambulate with assistance DVT prophylaxis - SCDs, Heparin SQ TID Discharge teaching - will need home going pouch management teaching, MARK teaching Disposition - pending clinical course Subjective -having BMs -Pain: fairly well controlled -CP/SOB: Denies -N/V: occasional nausea -Bowel function: + flatus, BM -Ambulating multiple times per day Denies any dizziness or lightheadedness with ambulation Objective Vital Signs BP 111/69 Pulse 84 Temp 36.9 ?C (98.4 ?F) (Oral) Resp 18 Ht 157.5 cm (5' 2) Wt 62.7 kg (138 lb 3.2 oz) SpO2 96% BMI 25.28 kg/m? Input and Output Intake/Output Summary (Last 24 hours) at 03/08/18 0702 Last data filed at 03/08/18 0633 Gross per 24 hour Intake 1311 ml Output 5230 ml Net -3919 ml Physical Exam General: comfortable in NAD HEENT: Normocephalic, atraumatic CV:: warm, well-perfused, RR Resp: breathing unlabored GI: Soft, mildly tender, nondistended. No rebound or guarding. Incisions c/d/i : stoma pink, healthy, stoma menendez removed, urine clear yellow, MARK ss Extremities: no edema Neuro: Alert and oriented Psych: Normal affect Recent Labs 03/08/18 0025 03/08/18 0024 03/07/18 0051 03/07/18 0050 03/06/18 0436 WBC 10.08 -- 9.30 -- 8.10 HB 9.3* -- 7.1* -- 7.5* HCT 28.7* -- 22.1* -- 23.1* PLT 417* -- 360 -- 370 NA -- 136 -- 138 140 K -- 5.8* -- 5.2* 4.5 CHLOR -- 103 -- 107* 110* CO2 -- 18* -- 18* 17* BUN -- 26* -- 31* 31* CREAT -- 1.73* -- 1.77* 1.84* GLUC -- 105* -- 115* 102* Jose Olvera MD Urology PGY2 [id number] urology grounds restoration specialist CBC Collected: 03/08/2018 Status: F Source: [place] 12:25 AM [facility] REPOSITORY TYPE CODE TESTS RESULT OUT OF REFERENCE UNITS RANGE LAB WBC 3.70-11.00 k/uL WBC 10.08 LAB RBC 3.90-5.20 m/uL Low RBC 2.96 LAB HGB 11.5-15.5 g/dL Low Hemoglobin 9.3 LAB HCT 36.0-46.0 % Low Hematocrit 28.7 LAB MCV 80.0-100.0 fL MCV 97.0 LAB MCH 26.0-34.0 pG MCH 31.4 LAB MCHC 30.5-36.0 g/dL MCHC 32.4 LAB RDWCV 11.5-15.0 % RDW-CV 13.5 LAB PLTCT 150-400 k/uL Platelet High Count 417 LAB MPV 9.0-12.7 fL Low MPV 8.8 LAB ABSNUC <0.01 k/uL Absolute nRBC <0.01 Performed By: #### CBC, PHOS #### [facility] [address] [place], [place] [address] PHOSPHORUS Collected: 03/08/2018 Status: F Source: [place] 12:25 AM [facility] REPOSITORY TYPE CODE TESTS RESULT OUT OF REFERENCE UNITS RANGE LAB PHOS 2.7-4.8 mg/dL Phosphorus 4.1 Performed By: #### CBC, PHOS #### [facility] [address] [place], [place] [address] COMP METABOLIC PANEL Collected: 03/08/2018 Status: F Source: [place] 12:24 AM [facility] REPOSITORY TYPE CODE TESTS RESULT OUT OF REFERENCE UNITS RANGE LAB TP 6.3-8.0 g/dL Protein, Total 6.6 LAB ALB 3.9-4.9 g/dL Low Albumin 3.2 LAB CA 8.5-10.2 mg/dL Calcium, Total 9.0 LAB TBIL 0.2-1.3 mg/dL Low Bilirubin, Total <0.2 LAB ALKP 32-117 U/L Alkaline Phosphatase 60 LAB AST 13-35 U/L AST High 52 LAB GLU 74-99 mg/dL Glucose High 105 Result Comment: The [place] [employer] (ADA) provides guidance for cutoff values for fasting glucose and random glucose. The ADA defines fasting as no caloric intake for at least 8 hours. Fas ting plasma glucose results between 100 to 125 mg/dL indicate increased risk for diabetes (prediabetes). Fasting plasma glucose results greater than or equal to 126 mg/dL meet the criteria for diagnosis of diabetes. In the absence of unequivocal hyperglycemia, results should be confirmed by repeat testing. In a patient with classic symptoms of hyperglycemia or hyperglycemic crisis, random plasma glucose results greater than or equal to 200 mg/dL meet the criteria for diagnosis of diabetes. Reference: Standards of Medical Care in Diabetes 2016, [place] [employer]. Diabetes Care. 2016.39(Suppl 1). LAB BUN 7-21 mg/dL BUN High 26 LAB CRET 0.58-0.96 mg/dL Creatinine High 1.73 LAB NA 136-144 mmol/L Sodium 136 LAB K 3.7-5.1 mmol/L Potassium High 5.8 LAB CL 97-105 mmol/L Chloride 103 LAB CO2 22-30 mmol/L Low CO2 18 LAB AGAP 9-18 mmol/L Anion Gap 15 LAB ALT 7-38 U/L ALT High 61 LAB GFRAA eGFR- Amer. 36 LAB GFRNAA . eGFR-All Other Races 30 Result Comment: eGFR (Estimated GFR) Units of measure: mL/min/1.73 meters squared eGFR is derived from the reexpressed MDRD Study equation using the following parameters: serum creatinine, age, gender and race. The creatinine assay has been calibrated to be traceable to IDMS. An eGFR <60 mL/min/1.73m2 for >3 months is consistent with chronic kidney disease. Refer to KDOQI guidelines for clinical interpretation. In patients with unstable renal function, e.g. those with acute kidney injury, the eGFR may not accurately reflect actual GFR. Performed By: #### CMP #### [facility] [address] [place] [address] THERAPY NT Observed: 03/07/2018 Status: COMPLETED Source: [place] 3:31 PM [facility] [place] REPOSITORY HNO ID: [id number] Author: Naz Marshall (Pt-A) Service: Physical Therapy Author Type: Cotton Ginner Type: Therapy (PT/OT/Speech/Resp) Filed: 03/07/2018 3:39 PM Note Text: Attestation signed by Tana Paul at 03/07/2018 3:50 PM I reviewed and agree with the documentation corresponding to this therapy visit. SIGNATURE: Tana Paul, PT DATE: March 07, 2018 TIME: 3:49 PM Physical Therapy Treatment SERVICE DATE: 03/07/2018 SERVICE TIME: 1441 to 1525 ROOM: [place] [address] Recommended Discharge Disposition: Home PT Anticipated Discharge Needs: Physical Assist at Home Physical Assist at Home for: Cleaning;Laundry;Meals;Stairs;Safety;Self Care;Shopping;Transportation Recommended Discharge Equipment: No equipment needs anticipated PT Recommendations to Nursing: Ambulate with device or without AD;To bathroom;In halls;Transfer to/from chair;OOB for Meals;With assist of 1 person Device: Wheeled Walker PT 6 Clicks Score: 24 Precautions/Activity Restrictions: Lines/Tubes/Drains;Fall Risk;Abdominal ASSESSMENT : Pt safe and appropriate for d/c home with assistance from her family. Pt needed less A today. Pt was able to ambulate without AD. Pt reports increased pain with sit-stand transfers and plans to use a walker at home for short distances until adjusted to upright position. Pt was also instructed in how to use a walker correctly Patient Disposition at Start of Session: Supine in Bed Patient Disposition at End of Session: OOB in Chair Tolerated Full Session Physical Therapy Problem List: Pain;Safety Deficits;Decreased Strength;Functional Mobility Impairment;Balance Impaired Patient /Caregiver Goals: Go Home Goals for Plan of Care: Able to perform HEP with: Independent Rolling with: Independent Transfer supine to/from sit with: Independent Transfer sit to/from stand with: Modified Independent Ambulate with: Modified Independent Distance: 150 Device: Other: See Comment (LRAD) Ambulate up and down steps with: Stand By Assistance Number of steps: 1 Progress Toward Goals: Progressing as expected Rehab Potential: Good PLAN: Treatment Frequency (times per week): 1 Current admission Treatment Interventions: Education;Energy Conservation Training;Self Care / Home Management;Strengthening;Functional Mobility Training;Neuromuscular Re-education;Balance Training Plan of Care developed with: Patient TREATMENT INTERVENTIONS: Therapy Diagnosis: Reduced mobility-other Interventions Provided: Therapeutic Exercise (27946);Gait Training (94427);Therapeutic Activity (11346) Therapeutic Exercise (43355) Treatment Minutes: 20 1 unit Skilled Intervention(s): Instruction in therapeutic exercise . Verbal and tactile cuing provided . seated there ex: LAQ, heel-toe raises, marching, 1x10 AROM std there ex: marching, heel-toe raises, hip flexion, knee flexion, hip abd, mini-squats, 1x10 AROM, VC for performance, BUE support needed. Facilitation of muscle control, optimal recruitment and alignment provided. Education on benefits, frequency, importance Handouts provided std dynamic balance: toe-taps to 4 platform, 1x10, pt needed min A due to postural sway, VC for performance. Therapeutic Activity (67033) Treatment Minutes: 8 1 unit Skilled Intervention(s): Instructed patient in log roll technique Instructed patient in supine to sit pushing with upper extremities to sit up Instruction in sit to stand technique with proper hand placement and body positioning at edge of bed/chair Instruction in stand to sit technique with lower extremities touching chair/bed and reaching back for surface. VC for performance of bed mobility, hands and feet placement. Pt needed to use HOB elevated and bed rails to facilitate bed mobility. Performed sit-stand x4 trails from chair and bed. VC for ant weight shifting and hand placement. Gait Training (34693) Treatment Minutes: 16 1 unit Skilled Intervention(s): Instruction in sequencing, gait pattern, Instruction in correction of gait deviations and Instruction in use of equipment, cues for sequence and pattern. Pt was safe and steady to ambulate with the walker. VC for walker placement and maneuverability, body placement inside the walker, sequencing and safety. Instruction for pursed lip breathing, pacing, rest breaks as needed and energy conservation strategies. Verbal cues for upright posture with forward gaze for improved environmental awareness. Education on frequent short bouts of activity (ie. Walking 5x/day) POC and d/c planning; home safety and fall prevention. Rreviewed walker safety techniques as pt plans to use a walker at home. Pt was observed using a walker for 20 feet of the above distance. Pt was able to ambulate with supervision without the use of an AD, no LOB observed Total Timed Code Treatment Minutes: 44 Total Treatment Time (minutes): 44 FUNCTIONAL G CODE: PT 6 Clicks Score: 24 (03/07/18 1441) Mobility: Walking and Moving Around Current Status (G8978): CK (03/01/18 1431) Mobility: Walking and Moving Around Goal Status (G8979): CJ (03/01/18 1431) Based on clinical assessment and the score on the 6 Clicks Functional Assessment Tool, the G code and corresponding severity modifiers are documented above. SUBJECTIVE: Current Hospital Course: Chart reviewed and no significant medical updates relevant to therapy were noted Reason for Physical Therapy Consult : post acute placement Relevant Past Medical History: see eval Patient Report: My incision hurts just like when I had my Home Environment Patient Lives With: Significant Other Assistance Available: 24 Hour Entry To Home: Stairs;Without Rail Number Of Stairs Into Home: 2 Number Of Stairs To Bed/Bath: 0 Tub/Shower Type: walk in shower Laundry: 1st floor Equipment Owned: Cane;Wheeled Walker;Bleacher Pulp;Crutch(es) Prior Functional Level: Within Functional Limits (IND mobility/ADLs. +drive. +work.) OBJECTIVE: CURRENT FUNCTIONAL STATUS: Current Functional Mobility Assist Level Additional Information Rolling Supervision Supine to Sit Supervision Sit to Supine Supervision Scooting Supervision Sit to Stand Supervision Stand to Sit Supervision Bed to Chair Toilet/Commode Gait Supervision Gait Device: None;Wheeled Walker Gait Distance (feet): 300 feet Stairs Stand By Assistance Stairs Device: Rail Number of Stairs: 4 Curb Step Car Transfer General Gait Deviations: Lateral sway increased;Karlie decreased;Step length decreased;Flexed trunk posture Please see discipline specific clinical documentation flowsheet for complete details for this therapy evaluation/treatment. SIGNATURE: Naz Marshall PT-A PATIENT NAME: Serena Musa DATE: March 07, 2018 TIME: 3:32 PM NUTRITION Observed: 03/07/2018 Status: COMPLETED Source: [place] 2:37 PM [facility] REPOSITORY HNO ID: [id number] Author: Amaya Faulkner (Tatiana) Nicole Service: Nutrition Therapy Author Type: Senior Javascript Engineer Type: Nutrition Filed: 03/07/2018 2:40 PM Note Text: NUTRITION THERAPY FOLLOW-UP NOTE SERVICE DATE: 03/07/2018 SERVICE TIME: 1:30 pm Anthropometrics: Height: 157.5 cm (5' 2) Current Weight: Weight: 64 kg (141 lb 3.2 oz) Body mass index is 25.83 kg/m?. Loss of lean body mass/visual muscle wasting: no Admitting Diagnosis: Malignant neoplasm of urinary bladder, unspecified site (HCC) [C67.9] Bladder cancer (HCC) [C67.9] Present Diet Order: Gastrointestinal GISoft Is the patient having any pain that is interfering with oral/enteral intake? No Allergies: ALLERGIES Allergen Reactions - Lactose Other: See Comments constipated - Iodinated Contrast-* Hives - Fruit And Vegetable* Anaphylaxis Pt reports allergy to RAW fruits and Vegetables Reason for Visit: Nutrition screen: LOS > 6 days Food allergies: The patient confirmed allergy to raw fruits and vegetables and lactose bothers her. Foods containing this product were removed from menu selections in [facility]. Concerns: The patient is currently consuming between 50-100% of her meals, according to nursing GLENROY reports in [facility]. The patient reports; she is eating well and denies any issues with; swallowing, nausea, or emesis at this time.we discussed the supplement and changed it to Ensure, she thinks she can tolerate this much better. Nutrition Therapy will continue to monitor. Nursing Admission Assessment Malnutrition Score Tool: 1 Plan of Care: Recommendation Will screen again within 7 days Allergy adjusted in [facility] Supplement: Ensure High Protein Chocolate Discharge Plan: Home on GI soft diet MNT Billing Type: Routine Care/15 min 1 unit SIGNATURE: Amaya K Drop, DTR PATIENT NAME: Serena Musa DATE: March 07, 2018 TIME: 2:38 PM PAGER: [phone] CASE MANAGEM Observed: 03/07/2018 Status: COMPLETED Source: [place] 1:54 PM [facility] REPOSITORY HNO ID: [id number] Author: Ingrid Webster (Sw) Service: Care Management Author Type: Senior Licensing Manager Type: Care Mgt Progress Note Filed: 03/07/2018 1:55 PM Note Text: CARE MANAGEMENT PROGRESS NOTE SERVICE DATE: 03/07/2018 SERVICE TIME: 1:54 PM LOS: 8 days Chart reviewed. Anticipate dc tomorrow. [facility] agency notified. CM will follow and finalize plans once dc instructions are reviewed. SIGNATURE: ROGELIO Lopez M.Ed, AC PATIENT NAME: Serena Musa DATE: March 07, 2018 TIME: 1:54 PM PAGER/CONTACT #: [phone] CONSULT PROG Observed: 03/07/2018 Status: COMPLETED Source: [place] 11:27 AM [facility] REPOSITORY HNO ID: [id number] Author: Hiram Mancilla Service: Nephrology Author Type: Physician Type: Consult Progress Note Filed: 03/07/2018 12:53 PM Note Text: CONSULT PROGRESS NOTE NEPHROLOGY SERVICE SERVICE DATE: 03/07/2018 SERVICE TIME: 11:27 AM Subjective INTERVAL HISTORY: 03/07/18: Patient made approximately 4.2 L of urine yesterday. Doing well w/ reduced mIVF. HepLocked this AM and maintaining fluid balance w/ only PO. 1 unit of blood hanging for Hgb 7.1. Patient states she is doing well walking around unit. Some dizziness w/ initial standing that resolves in 1-2 minutes and does not recur while walking. 03/06/18: Patient chart reviewed this AM. Diuresis continues, however was abated during day time when patient was off IV fluids yesterday and was >2L over night when on 100 ml/hr mIVF. Creatinine continues to downtrend. Objective BP 120/64 Pulse 63 Temp 36.9 ?C (98.4 ?F) (Oral) Resp 22 Ht 157.5 cm (5' 2) Wt 64 kg (141 lb 3.2 oz) SpO2 99% BMI 25.83 kg/m? Intake/Output Summary (Last 24 hours) at 03/07/18 1248 Last data filed at 03/07/18 1033 Gross per 24 hour Intake 1451 ml Output 4380 ml Net -2929 ml Constitutional: No acute distress, Responsive, Normal habitus and Well-nourished Eyes: Conjunctiva clear and PERRL Ear, Nose, and Throat: Hearing normal, Lips normal and Dentition normal Neck: Trachea midline Cardiovascular: Regular rate and ryhthm, normal S1 and S2, no murmurs, rubs, or gallops Edema present: trace edema in lower extremities bilaterally Respiratory: Normal respiratory effort. Lungs clear bilaterally. Abdomen: Soft, non-tender, non-distended. Normal bowel sounds. No hepatosplenomegaly. Musculoskeletal: No clubbing or cyanosis of digits., Normocephalic. and No muscle weakness, joint tenderness, or joint effusions. Neurologic: Normal sensation and No asterixis Psychiatric: Alert and oriented x self, place, time, and setting Normal mood/affect DATA: Diagnostic tests reviewed for today's visit: Most recent labs and imaging results. Glucose (mg/dL) Date Value 03/07/2018 115 Potassium (mmol/L) Date Value 03/07/2018 5.2 Sodium (mmol/L) Date Value 03/07/2018 138 Chloride (mmol/L) Date Value 03/07/2018 107 CO2 (mmol/L) Date Value 03/07/2018 18 Creatinine (mg/dL) Date Value 03/07/2018 1.77 BUN (mg/dL) Date Value 03/07/2018 31 Anion Gap (mmol/L) Date Value 03/07/2018 13 Calcium (mg/dL) Date Value 03/07/2018 8.8 Protein, Total (g/dL) Date Value 03/07/2018 5.9 Albumin (g/dL) Date Value 03/07/2018 2.9 Bilirubin, Total (mg/dL) Date Value 03/07/2018 <0.2 Alkaline Phosphatase (U/L) Date Value 03/07/2018 54 AST (U/L) Date Value 03/07/2018 53 ALT (U/L) Date Value 03/07/2018 53 Assessment/Plan Ms. Musa is a 67 year old female with PMHx of rheumatoid arthritis and bladder cancer w/ bilateral ureteral outlet obstruction s/p cystectomy w/ ileal conduit now with post-obstructive/post-ATN diuresis. 1. Post-obstructive diuresis: continues to putout >3L/day; patient asymptomatic w/ reduced/stopped mIVF; continue PO and check orthostatic BP/HR this afternoon 2. MISTI: creatinine continues to decrease although modestly at this time; urine studies suggest a solute diuresis rather than free water diuresis; will schedule follow up appointment w/ nephrology outpatient 3. Electrolytes: hyperchloremic and hyperkalemic in setting of metabolic acidosis; likely related to ileal conduit; hyperkalemia mild; will give 650 mg BID PO sodium bicarbonate (will start today and keep at discharge, nephrology will adjust/monitor outpatient); start low potassium diet PLAN 1. Keep mIVF OFF 2. Encourage PO fluid intake 3. Low potassium diet 4. 650 mg BID PO sodium bicarbonate 5. Follow-up appointment w/ nephrology outpatient (we will set this up) 6. Avoid nephrotoxins (NSAID, iodine based contrast, ACEi/ARB) SIGNATURE: Nick Summers MD PATIENT NAME: Serena Musa DATE: March 07, 2018 TIME: 11:27 AM PAGER: [phone] NEPHROLOGY STAFF PHYSICIAN NOTE OF PERSONAL INVOLVEMENT IN CARE ? I have seen the patient face to face and reviewed the history and physical examination obtained and documented by the resident/ fellow/ physician nail sticker. I personally participated in the sainz components. I have discussed the case and management of the patient's care. Agree with above findings, assessment, and plan of care formulated with my direct input. Amendments, if present, are entered in bold in the note, and/or detailed below. Medical decision Making: Following for MISTI/ polyuria in patient with obstructive nephropathy due to bladder mass cause bilateral hydroureteronephrosis, s/p radical cystectomy and ileal conduit (02/28/18) Peak Cr 4.6, steadily improved since surgery - now down to 1.7 (baseline unclear) Polyuria - solute diuresis in post ATN/ post obstructive setting Was on IVF given large net negative balance, agree with holding for now and monitoring, encouraged oral intake of fluids. She states she feels tired, but reports ambulating around hallway today without issues. Monitor orthostatic vitals Anemia - getting PRBC per primary team Acidosis - in setting of ileal conduit, start sodium bicarbonate as above Hyperkalemia - mild, on bactrim for prophylaxis. Change diet to low K diet for now, reassess later today Avoid NSAIDs, FRANKIE blockade Signed: Hiram Mancilla MD [facility] Observed: 03/07/2018 Status: COMPLETED Source: [place] 10:57 AM [facility] REPOSITORY O ID: [id number] Author: Elisa (Rn) ELISSA Gifford Service: Wound/Ostomy Author Type: Registered Nurse Type: Allied Health Filed: 03/07/2018 11:04 AM Note Text: ET/WOCN Nursing Consult Topic: ET/WOCN Consultation Note ET Outcome: patient requesting another lesson today before discharge tomorrow. Patient involved in all aspects of change today. Switched to one piece for simplicity. Given 2 week supply, prescription, step by step guide and ordering options. Ready for discharge from [facility] standpoint ET's Next Scheduled Visit: 03/12 scheduled pouch change Stoma Type: End ileal conduit Diameter:1 1/4 rounded Location: RLQ Protrusion: Protrudes slightly Mucosal condition and color: Red and moist Mucocutaneous junction Separation: full Peristomal Skin: Erythema Location of Skin Impairment: thin rim around stoma Peristomal contour: Combination rounded, creases at 3 and 9 o'clock Supportive Tissue: Soft Character of output: yellow urine with mucous Emptying frequency per day: per nursing Current pouching system: Coloplast [place] Flex convex light, Coloplast 2.0 mm barrier ring, urostomy pouch to gravity Current wearing time: 1 day Recommendations: Skin Care: stomahesive powder to separation and irritated skin. Pouching System: Coloplast [place] Convex light one piece urostomy pouch, Coloplast 2.0 mm barrier ring Wear Time: 3-4 days Midline Abdominal Incision: Other: midline with dermabond Comment: Time Increment: 1 hour 30 minutes Elisa Gifford RN, CWOCN The [facility] nursing pager [phone] (M-F 7a-4p, Sat, Sun, Holiday 7a-3p) [facility] Observed: 03/07/2018 Status: COMPLETED Source: [place] 10:32 AM [facility] [place] REPOSITORY HNO ID: [id number] Author: Elisa OwenRn) ELISSA Gifford Service: Wound/Ostomy Author Type: Registered Nurse Type: Allied Health Filed: 03/07/2018 10:42 AM Note Text: [place] [address] OSTOMY SUPPLY ORDER FORM Patient: Serena Musa Patient Address: [address] [place] [address] Gender: female Date of : 1950 Type of Stoma: End Ileal Conduit Diagnosis: Bladder Cancer C76.9 Item and Description Qty 30 Day Use Adhesive Removers: ConvaTec Sensi-Care No Sting #233054 Coloplast [place] One-Piece Urostomy Pouches: #45313 Convex Light Drainage Bags/Systems : Bedside Drainage Bag Bard # [id number] Moldable Ring: Coloplast Brava 2.0mm Moldable # [id number] Powder: Convatec Stomahesive # [id number] 30/Box 10/Box 1 Bag 10/Box 1 Bottle 1 Box 1 Box 2 bags 1 Box 1 Bottle Refills: 12 Attending Physician: Dr. Lara For immediate authorization, please contact the physician?s office. [facility] Nurse: JIMENEZ Francisco Note: SIGNATURE: Elisa Gifford RN PATIENT NAME: Serena Musa DATE: March 07, 2018 TIME: 10:32 AM CONTACT #: [phone] [facility] Observed: 03/07/2018 Status: COMPLETED Source: [place] 10:31 AM [facility] [place] REPOSITORY HNO ID: [id number] Author: Elisa Enciso) ELISSA Gifford Service: Wound/Ostomy Author Type: Registered Nurse Type: Allied Health Filed: 03/07/2018 10:32 AM Note Text: [place] [address] How to Change Your Disposable, One-Piece, Cut-to-Fit Pouch With Attached Skin Barrier 1. Gather the following supplies: ? Washcloths or paper towels, e.g. [place], Bounty, Gordon, or Brawny ? Non-oily soap, e.g. Ivory and Dial ? Scissors with at least one blunt tip ? Plastic bag or newspaper for waste ? New pouch: Coloplast [place] Convex Light Urostomy Pouch ? Accessory products: Adhesive Remover, Stoma Powder and Barrier Ring 2. Prepare the new pouch: ? Close the end of the pouch. ? Trace the pattern (sized to fit within 1/8 of stoma) onto the cover paper of the skin barrier. ? Cut out the skin barrier. Be careful not to cut through the front of the pouch. ? Remove the cover papers from the skin barrier and the adhesive surface of the pouch. ? Apply the barrier ring to the back of the pouch. ? Set the pouch aside, sticky side up. 3. Remove the worn pouch: ? Holding the pouch upright, open the end of the pouch. ? Empty the waste from the pouch into the toilet. ? Remove the worn pouch by: ? Applying light pressure on the skin with one hand ? Gently pulling the pouch from the skin with the other hand ? Use adhesive remover as needed ? Wrap the worn pouch in newspaper or place in a plastic bag and discard. 4. Cleanse the skin around the stoma: ? Wash the area around the stoma with non-oily soap and warm water. ? Shave area as needed. ? Rinse the area thoroughly with warm water. ? Pat the skin dry with a washcloth or paper towel. ? Use skin barrier powder to sore skin as needed. [place] off excess powder. 5. Apply the new pouch: ? Center the pouch opening over the stoma and press into place. ? Smooth the sticky surface of the pouch onto the skin. ? Hold the pouch firmly in place for a few moments. 6. Change pouch every 3-4 days. If your pouch leaks or the skin around your stoma gets sore, call your ET/WOC Nurse at or , ext. [phone]. PROGRESS Observed: 03/07/2018 Status: COMPLETED Source: [place] 7:45 AM [facility] REPOSITORY HNO ID: [id number] Author: Jose (Flo) MD May Service: Urology Author Type: Resident Type: Progress Notes Filed: 03/07/2018 7:52 AM Note Text: [facility] UROLOGY PROGRESS NOTE Name: Serena Musa Bed: G090 001/G090-01 Date: March 07, 2018 ASSESSMENT AND PLAN Serena Musa is a 67 year old female with bladder cancer now POD# 4 s/p Robotic radical cystectomy, pelvic lymph node dissection including presacral lymph nodes on the right, and intracorporeal ileal conduit (02/28/18) Overall doing well POD7 cystectomy/ileal conduit. On GI soft - toleraitng well. Still with high volume urinary losses. Appreciate nephrology consult. Will HLIVF per their recommendations this morning and monitor UOP. Give 1 unit PRBC this AM for hemoglobin 7.1. Continue OOB and ambulation. Goal dc tomorrow. Neuro -Pain controlled with PO analgesia - minimize narcotics CV/Resp -stable hemodynamics and pulmonary status GI -Diet - GI soft -keep MARK drain FEN/Endo GI soft HLIV ID Perioperative antibiotics - unasyn completed - bactrim stent prophylaxis Activity - OOB to chair and Ambulate with assistance DVT prophylaxis - SCDs, Heparin SQ TID Discharge teaching - will need home going pouch management teaching, MARK teaching Disposition - pending clinical course Subjective -having BMs -Pain: fairly well controlled -CP/SOB: Denies -N/V: occasional nausea -Bowel function: + flatus, BM -Ambulating multiple times per day Denies any dizziness or lightheadedness with ambulation Objective Vital Signs BP 96/76 Pulse 85 Temp 37.4 ?C (99.3 ?F) (Oral) Resp 16 Ht 157.5 cm (5' 2) Wt 64 kg (141 lb 3.2 oz) SpO2 99% BMI 25.83 kg/m? Input and Output Intake/Output Summary (Last 24 hours) at 03/07/18 0750 Last data filed at 03/07/18 0628 Gross per 24 hour Intake 900 ml Output 4440 ml Net -3540 ml Physical Exam General: comfortable in NAD HEENT: Normocephalic, atraumatic CV:: warm, well-perfused, RR Resp: breathing unlabored GI: Soft, mildly tender, nondistended. No rebound or guarding. Incisions c/d/i : stoma pink, healthy, stoma menendez removed, urine clear yellow, MARK ss Extremities: no edema Neuro: Alert and oriented Psych: Normal affect Recent Labs 03/07/18 0051 03/07/18 0050 03/06/18 0436 03/05/18 0244 03/05/18 0243 WBC 9.30 -- 8.10 8.23 -- HB 7.1* -- 7.5* 7.4* -- HCT 22.1* -- 23.1* 23.1* -- PLT 360 -- 370 323 -- NA -- 138 140 -- 139 K -- 5.2* 4.5 -- 4.9 CHLOR -- 107* 110* -- 106* CO2 -- 18* 17* -- 20* BUN -- 31* 31* -- 29* CREAT -- 1.77* 1.84* -- 1.90* GLUC -- 115* 102* -- 107* Jose Olvera MD Urology PGY2 [id number] urology grounds restoration specialist CBC Collected: 03/07/2018 Status: F Source: [place] 12:51 AM [facility] REPOSITORY TYPE CODE TESTS RESULT OUT OF REFERENCE UNITS RANGE LAB WBC 3.70-11.00 k/uL WBC 9.30 LAB RBC 3.90-5.20 m/uL Low RBC 2.25 LAB HGB 11.5-15.5 g/dL Low Hemoglobin 7.1 LAB HCT 36.0-46.0 % Low Hematocrit 22.1 LAB MCV 80.0-100.0 fL MCV 98.2 LAB MCH 26.0-34.0 pG MCH 31.6 LAB MCHC 30.5-36.0 g/dL MCHC 32.1 LAB RDWCV 11.5-15.0 % RDW-CV 12.9 LAB PLTCT 150-400 k/uL Platelet Count 360 LAB MPV 9.0-12.7 fL MPV 9.1 LAB ABSNUC <0.01 k/uL Absolute nRBC <0.01 Performed By: #### CBC, PHOS #### [facility] [address] [place], [place] [address] PHOSPHORUS Collected: 03/07/2018 Status: F Source: [place] 12:51 AM [facility] REPOSITORY TYPE CODE TESTS RESULT OUT OF REFERENCE UNITS RANGE LAB PHOS 2.7-4.8 mg/dL Phosphorus 3.7 Performed By: #### CBC, PHOS #### [facility] [address] [place], [place] [address] COMP METABOLIC PANEL Collected: 03/07/2018 Status: F Source: [place] 12:50 AM [facility] REPOSITORY TYPE CODE TESTS RESULT OUT OF REFERENCE UNITS RANGE LAB TP 6.3-8.0 g/dL Low Protein, Total 5.9 LAB ALB 3.9-4.9 g/dL Low Albumin 2.9 LAB CA 8.5-10.2 mg/dL Calcium, Total 8.8 LAB TBIL 0.2-1.3 mg/dL Low Bilirubin, Total <0.2 LAB ALKP 32-117 U/L Alkaline Phosphatase 54 LAB AST 13-35 U/L AST High 53 LAB GLU 74-99 mg/dL Glucose High 115 Result Comment: The [place] [employer] (ADA) provides guidance for cutoff values for fasting glucose and random glucose. The ADA defines fasting as no caloric intake for at least 8 hours. Fas ting plasma glucose results between 100 to 125 mg/dL indicate increased risk for diabetes (prediabetes). Fasting plasma glucose results greater than or equal to 126 mg/dL meet the criteria for diagnosis of diabetes. In the absence of unequivocal hyperglycemia, results should be confirmed by repeat testing. In a patient with classic symptoms of hyperglycemia or hyperglycemic crisis, random plasma glucose results greater than or equal to 200 mg/dL meet the criteria for diagnosis of diabetes. Reference: Standards of Medical Care in Diabetes 2016, [place] [employer]. Diabetes Care. 2016.39(Suppl 1). LAB BUN 7-21 mg/dL BUN High 31 LAB CRET 0.58-0.96 mg/dL Creatinine High 1.77 LAB NA 136-144 mmol/L Sodium 138 LAB K 3.7-5.1 mmol/L Potassium High 5.2 LAB CL 97-105 mmol/L Chloride High 107 LAB CO2 22-30 mmol/L Low CO2 18 LAB AGAP 9-18 mmol/L Anion Gap 13 LAB ALT 7-38 U/L ALT High 53 LAB GFRAA eGFR- Amer. 35 LAB GFRNAA . eGFR-All Other Races 29 Result Comment: eGFR (Estimated GFR) Units of measure: mL/min/1.73 meters squared eGFR is derived from the reexpressed MDRD Study equation using the following parameters: serum creatinine, age, gender and race. The creatinine assay has been calibrated to be traceable to IDMS. An eGFR <60 mL/min/1.73m2 for >3 months is consistent with chronic kidney disease. Refer to KDOQI guidelines for clinical interpretation. In patients with unstable renal function, e.g. those with acute kidney injury, the eGFR may not accurately reflect actual GFR. Performed By: #### CMP #### [facility] [address] [place] [id number] ALLIED HEALTH Observed: 03/06/2018 Status: COMPLETED Source: [place] 6:27 PM [facility] REPOSITORY HNO ID: [id number] Author: Nery (Rn) Abraham, RN Service: Wound/Ostomy Author Type: Registered Nurse Type: Allied Health Filed: 03/06/2018 6:31 PM Note Text: ET/WOCN Nursing Consult Topic: ET/WOCN Consultation Note ET Outcome: Visit at end of day, pt up in chair eating dinner. She was scheduled for change tomorrow with lesson # 2 review. Per previous note - very anxious. States she is doing better, no crying today. She has discharge supplies and paperwork. at bedside, all questions answered, suggested she write down any other questions for tomorrow. ET's Next Scheduled Visit: 03/07/18 for lesson # 2 repeat prior to anticipated discharge Time Increment: 30 minutes JOSE GUADALUPE Almazan, RN, CWOCN, RVT, WOC nursing WOC Nursing - Please place consult via [employer]. Thank you. (M-F: [phone]; Weekends AND Holidays: [phone]). THERAPY NT Observed: 03/06/2018 Status: COMPLETED Source: [place] 8:44 AM [facility] REPOSITORY HNO ID: [id number] Author: Tana Delgado (Pt) Beverly Service: Physical Therapy Author Type: Physical Therapist Type: Therapy (PT/OT/Speech/Resp) Filed: 03/06/2018 11:36 AM Note Text: Physical Therapy Treatment SERVICE DATE: 03/06/2018 SERVICE TIME: 808 to 833 ROOM: [place] [address] Recommended Discharge Disposition: Home PT Anticipated Discharge Needs: Physical Assist at Home Physical Assist at Home for: Cleaning;Laundry;Meals;Stairs;Safety;Self Care;Shopping;Transportation Recommended Discharge Equipment: No equipment needs anticipated PT Recommendations to Nursing: Ambulate with device;To bathroom;In halls;Transfer to/from chair;OOB for Meals;With assist of 1 person Device: Wheeled Walker PT 6 Clicks Score: 24 Precautions/Activity Restrictions: Lines/Tubes/Drains;Fall Risk;Abdominal ASSESSMENT : Gas pain and weakness reported during PT. Pt reported a little lightheadedness and dizziness at end of PT session sitting in chair and feeling hot. Vital signs monitored. RN and PCNA notified. Pt able to perform functional mobility with SBA x 1 this date. Pt can benefit from post acute skilled PT to increase independence and safety during functional mobility and increase strength. Patient Disposition at Start of Session: OOB in Chair;Call Whitmore in Reach Patient Disposition at End of Session: OOB in Chair;Call [facility]more in Reach Tolerated Full Session Physical Therapy Problem List: Pain;Safety Deficits;Decreased Strength;Functional Mobility Impairment;Balance Impaired Patient /Caregiver Goals: Go Home Goals for Plan of Care: Able to perform HEP with: Independent Rolling with: Independent Transfer supine to/from sit with: Independent Transfer sit to/from stand with: Modified Independent Ambulate with: Modified Independent Distance: 150 Device: Other: See Comment (LRAD) Ambulate up and down steps with: Stand By Assistance Number of steps: 1 Progress Toward Goals: Progressing as expected Rehab Potential: Good PLAN: Treatment Frequency (times per week): 3 Current admission Treatment Interventions: Education;Energy Conservation Training;Self Care / Home Management;Strengthening;Functional Mobility Training;Neuromuscular Re-education;Balance Training Plan of Care developed with: Patient TREATMENT INTERVENTIONS: Therapy Diagnosis: Reduced mobility-other Interventions Provided: Gait Training (41813) Gait Training (05684) Treatment Minutes: 25 2 units Skilled Intervention(s): sit<>stand from chair: Increased time required for sit->stand per pt request 2/2 pain. Instruction in sit to stand technique with proper hand placement and body positioning at edge of bed/chair, Instruction in stand to sit technique with LE's touching chair/bed and reaching back for surface and Instruction in correction of gait deviations. Pt used 1-2 UE support on IV pole and at times rail in arriaga with 1 UE support on IV Pole. Verbal cues for activity pacing. Encouraged pt to use 1 UE support on IV pole. Pt reported being unable to not use AD this date 2/2 weakness. Pt able to negotiate 4 stairs using 1 HR and SBA x 1 demonstrating reciprocal pattern. Directional cueing provided for safe line management. Pt education provided on benefits of seated B LE AROM exercises including LAQ, AP and marches. PT demonstrated exercises to pt. Instructed pt to perform AROM exercises within a painfree ROM. Patient education provided on PT POC, progress made in acute PT, use of call light to increase safety in room and post acute PT d/c recommendation. Pt also educated on use of rail car repair carman to maintain abdominal precautions. Total Timed Code Treatment Minutes: 25 Total Treatment Time (minutes): 25 FUNCTIONAL G CODE: PT 6 Clicks Score: 24 (03/06/18 0809) Mobility: Walking and Moving Around Current Status (G8978): CK (03/01/18 1431) Mobility: Walking and Moving Around Goal Status (G8979): CJ (03/01/18 1431) Based on clinical assessment and the score on the 6 Clicks Functional Assessment Tool, the G code and corresponding severity modifiers are documented above. SUBJECTIVE: Current Hospital Course: Chart reviewed and no significant medical updates relevant to therapy were noted Reason for Physical Therapy Consult : post acute placement Relevant Past Medical History: see eval Patient Report: I've been awake since 4 baby doll. Pt sitting in chair at start of PT, agreeable to PT. Home Environment Patient Lives With: Significant Other Assistance Available: 24 Hour Entry To Home: Stairs;Without Rail Number Of Stairs Into Home: 2 Number Of Stairs To Bed/Bath: 0 Tub/Shower Type: walk in shower Laundry: 1st floor Equipment Owned: Cane;Wheeled Walker;Bleacher Pulp;Crutch(es) Prior Functional Level: Within Functional Limits (IND mobility/ADLs. +drive. +work.) OBJECTIVE: CURRENT FUNCTIONAL STATUS: Current Functional Mobility Assist Level Additional Information Rolling Supervision Supine to Sit Supervision Sit to Supine Scooting Contact Guard Assistance Sit to Stand Stand By Assistance Stand to Sit Stand By Assistance Bed to Chair Toilet/Commode Gait Stand By Assistance Gait Device: IV Pole Gait Distance (feet): 400' Stairs Stand By Assistance Stairs Device: Rail Number of Stairs: 4 Curb Step Car Transfer General Gait Deviations: Lateral sway increased;Karlie decreased;Step length decreased;Flexed trunk posture Balance: Static Sitting;Dynamic Sitting;Static Standing;Dynamic Standing Static Sitting Balance: Supervision Dynamic Sitting Balance: Supervision Static Standing Balance: Stand By Assistance Dynamic Standing Balance: Stand By Assistance Patient sitting in chair at end of PT session, needs within reach, no signs of acute distress noted, RN notified, present. Please see discipline specific clinical documentation flowsheet for complete details for this therapy evaluation/treatment. SIGNATURE: Tana Paul PT PATIENT NAME: Serena Musa DATE: March 06, 2018 TIME: 8:44 AM PROGRESS Observed: 03/06/2018 Status: COMPLETED Source: [place] 6:27 AM [facility] REPOSITORY HNO ID: [id number] Author: Jose Olvera MD Service: Urology Author Type: Resident Type: Progress Notes Filed: 03/06/2018 6:30 AM Note Text: [facility] UROLOGY PROGRESS NOTE Name: Serena Musa Bed: G090 001/G090-01 Date: March 06, 2018 ASSESSMENT AND PLAN Sernea Musa is a 67 year old female with bladder cancer now POD# 4 s/p Robotic radical cystectomy, pelvic lymph node dissection including presacral lymph nodes on the right, and intracorporeal ileal conduit (02/28/18) Overall doing well POD6 cystectomy/ileal conduit. On GI soft - toleraitng well. Remained with high urine losses yesterday (>4L UOP). Still significant post-obstructive diuresis. Nephrology consulted and appreciate recommendations. Replace losses with approximately 1/2 output with normal saline. Plan to remain as inpatient until UOP < 3L to prevent immediate dehydration. Continue OOB and ambulation. Neuro -Pain controlled with PO analgesia - minimize narcotics CV/Resp -stable hemodynamics and pulmonary status GI -Diet - GI soft -keep MARK drain FEN/Endo GI soft IVF at 100cc/hr ID Perioperative antibiotics - unasyn completed - bactrim stent prophylaxis Activity - OOB to chair and Ambulate with assistance DVT prophylaxis - SCDs, Heparin SQ TID Discharge teaching - will need home going pouch management teaching, MARK teaching Disposition - pending clinical course Subjective -having BMs -Pain: fairly well controlled -CP/SOB: Denies -N/V: occasional nausea -Bowel function: + flatus, BM -Ambulating multiple times per day Denies any dizziness or lightheadedness with ambulation Objective Vital Signs BP 114/53 Pulse 78 Temp 36.9 ?C (98.4 ?F) (Oral) Resp 18 Ht 157.5 cm (5' 2) Wt 64.6 kg (142 lb 6.4 oz) SpO2 97% BMI 26.05 kg/m? Input and Output Intake/Output Summary (Last 24 hours) at 03/06/18 06 Last data filed at 03/06/18 0557 Gross per 24 hour Intake 2290 ml Output 5255 ml Net -2965 ml Physical Exam General: comfortable in NAD HEENT: Normocephalic, atraumatic CV:: warm, well-perfused, RR Resp: breathing unlabored GI: Soft, mildly tender, nondistended. No rebound or guarding. Incisions c/d/i : stoma pink, healthy, stoma menendez removed, urine clear yellow, MARK ss Extremities: no edema Neuro: Alert and oriented Psych: Normal affect Recent Labs 03/05/18 0244 03/05/18 0243 03/04/18 0233 WBC 8.23 -- 7.85 HB 7.4* -- 7.3* HCT 23.1* -- 22.5* PLT 323 -- 281 NA -- 139 138 K -- 4.9 4.5 CHLOR -- 106* 107* CO2 -- 20* 19* BUN -- 29* 30* CREAT -- 1.90* 1.91* GLUC -- 107* 119* Jose Olvera MD Urology PGY2 [id number] urology grounds restoration specialist PHOSPHORUS Collected: 03/06/2018 Status: F Source: [place] 4:36 AM [facility] REPOSITORY TYPE CODE TESTS RESULT OUT OF REFERENCE UNITS RANGE LAB PHOS 2.7-4.8 mg/dL Phosphorus 3.7 Performed By: #### PHOS, CBC #### [facility] [address], [place] [id number] CBC Collected: 03/06/2018 Status: F Source: [place] 4:36 AM [facility] REPOSITORY TYPE CODE TESTS RESULT OUT OF REFERENCE UNITS RANGE LAB WBC 3.70-11.00 k/uL WBC 8.10 LAB RBC 3.90-5.20 m/uL Low RBC 2.31 LAB HGB 11.5-15.5 g/dL Low Hemoglobin 7.5 LAB HCT 36.0-46.0 % Low Hematocrit 23.1 LAB MCV 80.0-100.0 fL MCV 100.0 LAB MCH 26.0-34.0 pG MCH 32.5 LAB MCHC 30.5-36.0 g/dL MCHC 32.5 LAB RDWCV 11.5-15.0 % RDW-CV 12.8 LAB PLTCT 150-400 k/uL Platelet Count 370 LAB MPV 9.0-12.7 fL MPV 9.4 LAB ABSNUC <0.01 k/uL Absolute nRBC <0.01 Performed By: #### PHOS, CBC #### [facility] [address] [place], [place] [address] COMP METABOLIC PANEL Collected: 03/06/2018 Status: F Source: [place] 4:36 AM [facility] REPOSITORY TYPE CODE TESTS RESULT OUT OF REFERENCE UNITS RANGE LAB TP 6.3-8.0 g/dL Low Protein, Total 6.0 LAB ALB 3.9-4.9 g/dL Low Albumin 2.9 LAB CA 8.5-10.2 mg/dL Calcium, Total 8.8 LAB TBIL 0.2-1.3 mg/dL Low Bilirubin, Total <0.2 LAB ALKP 32-117 U/L Alkaline Phosphatase 50 LAB AST 13-35 U/L AST High 49 LAB GLU 74-99 mg/dL Glucose High 102 Result Comment: The [place] [employer] (ADA) provides guidance for cutoff values for fasting glucose and random glucose. The ADA defines fasting as no caloric intake for at least 8 hours. Fas ting plasma glucose results between 100 to 125 mg/dL indicate increased risk for diabetes (prediabetes). Fasting plasma glucose results greater than or equal to 126 mg/dL meet the criteria for diagnosis of diabetes. In the absence of unequivocal hyperglycemia, results should be confirmed by repeat testing. In a patient with classic symptoms of hyperglycemia or hyperglycemic crisis, random plasma glucose results greater than or equal to 200 mg/dL meet the criteria for diagnosis of diabetes. Reference: Standards of Medical Care in Diabetes 2016, [place] [employer]. Diabetes Care. 2016.39(Suppl 1). LAB BUN 7-21 mg/dL BUN High 31 LAB CRET 0.58-0.96 mg/dL Creatinine High 1.84 LAB NA 136-144 mmol/L Sodium 140 LAB K 3.7-5.1 mmol/L Potassium 4.5 LAB CL 97-105 mmol/L Chloride High 110 LAB CO2 22-30 mmol/L Low CO2 17 LAB AGAP 9-18 mmol/L Anion Gap 13 LAB ALT 7-38 U/L ALT High 47 LAB GFRAA eGFR- Amer. 33 LAB GFRNAA . eGFR-All Other Races 28 Result Comment: eGFR (Estimated GFR) Units of measure: mL/min/1.73 meters squared eGFR is derived from the reexpressed MDRD Study equation using the following parameters: serum creatinine, age, gender and race. The creatinine assay has been calibrated to be traceable to IDMS. An eGFR <60 mL/min/1.73m2 for >3 months is consistent with chronic kidney disease. Refer to KDOQI guidelines for clinical interpretation. In patients with unstable renal function, e.g. those with acute kidney injury, the eGFR may not accurately reflect actual GFR. Performed By: #### CMP #### [facility] [address] [place] [id number] OSMOLALITY, URINE Collected: 03/05/2018 Status: F Source: [place] 6:13 PM [facility] REPOSITORY TYPE CODE TESTS RESULT OUT OF RANGE REFERENCE UNITS LAB UOSM 50-1200 mOsm/kg 262 Osmolality, Urine Performed By: #### UOSM, UKR, UNAR #### [facility] [address] [place], [place] [address] POTASSIUM,URINE,RAND Collected: Status: F Source: [place] 03/05/2018 6:13 PM [facility] REPOSITORY TYPE CODE TESTS RESULT OUT OF RANGE REFERENCE UNITS LAB UKR 10-160 mmol/L Low 8.2 Potassium,Ur ine,[place] Performed By: #### UOSM, UKR, UNAR #### [facility] [address] [place], [place] [address] SODIUM,URINE,RANDOM Collected: Status: F Source: [place] 03/05/2018 6:13 PM [facility] REPOSITORY TYPE CODE TESTS RESULT OUT OF RANGE REFERENCE UNITS LAB UNAR 14-216 mmol/L 92 Sodium,Urine ,Random Performed By: #### UOSM, UKR, UNAR #### [facility] [address] [place] [address] THERAPY NT Observed: 03/05/2018 Status: COMPLETED Source: [place] 11:48 AM [facility] REPOSITORY HNO ID: [id number] Author: Tana Delgado (Pt) [place] Service: Physical Therapy Author Type: Physical Therapist Type: Therapy (PT/OT/Speech/Resp) Filed: 03/05/2018 11:57 AM Note Text: Physical Therapy Treatment SERVICE DATE: 03/05/2018 SERVICE TIME: 1113 to 1141 ROOM: [place] [address] Recommended Discharge Disposition: Home PT Anticipated Discharge Needs: Physical Assist at Home Physical Assist at Home for: Cleaning;Laundry;Meals;Stairs;Safety;Self Care;Shopping;Transportation Recommended Discharge Equipment: No equipment needs anticipated PT Recommendations to Nursing: Ambulate with device;To bathroom;In halls;Transfer to/from chair;OOB for Meals;With assist of 1 person Device: Wheeled Walker PT 6 Clicks Score: 23 Precautions/Activity Restrictions: Lines/Tubes/Drains;Fall Risk;Abdominal ASSESSMENT : Weakness reported with stair negotiation and while ambulating. Pt required less assistance for functional mobility this date and was able to negotiate 3 stairs and ambulate without AD towards end of ambulation trial. Pt can benefit from post acute skilled PT to increase independence and safety during functional mobility, increase strength and increase balance. Patient Disposition at Start of Session: Supine in Bed;Call [place] in Reach Patient Disposition at End of Session: OOB in Chair;Call Whitmore in Reach Tolerated Full Session Physical Therapy Problem List: Pain;Safety Deficits;Decreased Strength;Functional Mobility Impairment;Balance Impaired Patient /Caregiver Goals: Go Home Goals for Plan of Care: Able to perform HEP with: Independent Rolling with: Independent Transfer supine to/from sit with: Independent Transfer sit to/from stand with: Modified Independent Ambulate with: Modified Independent Distance: 150 Device: Other: See Comment (LRAD) Ambulate up and down steps with: Stand By Assistance Number of steps: 1 Progress Toward Goals: Progressing as expected Rehab Potential: Good PLAN: Treatment Frequency (times per week): 3 Current admission Treatment Interventions: Education;Energy Conservation Training;Self Care / Home Management;Strengthening;Functional Mobility Training;Neuromuscular Re-education;Balance Training Plan of Care developed with: Patient TREATMENT INTERVENTIONS: Therapy Diagnosis: Reduced mobility-other Interventions Provided: Gait Training (64243);Therapeutic Activity (76792) Therapeutic Activity (03089) Treatment Minutes: 12 1 unit Skilled Intervention(s): Instructed patient in log roll technique Instructed patient in supine to sit pushing with upper extremities to sit up Sit->stand from EOB and stand->sit in recliner: Instruction in stand to sit technique with lower extremities touching chair/bed and reaching back for surface Instruction in sit to and from stand technique with proper hand placement and body positioning at edge of bed/chair Pt and daughter re-educated on abdominal precautions. Patient/daughter educated on PT POC, benefits of sitting in chair, benefits of ambulating with RN/PCNA while in house, use of call light to increase safety in room and post acute PT D/C recommendation. Gait Training (49377) Treatment Minutes: 16 1 unit Skilled Intervention(s): Instruction in correction of gait deviations. Verbal cues for activity pacing, upright posture, maintaining straight path (path deviations to L and R noted) and focusing on task at hand. Pt initially used B UE support on IV pole for 20', then progressed to 1 UE support on IV pole. Towards end of ambulation trial, TRAVELING BUYER provided by daughter to attempt to improve posture for ~20'. Last ~55', no AD used and SBA x 1 provided for safety. No LOB noted. Pt and daughter educated on safe stair sequencing prior to attempt. Pt able to negotiate 3 stairs using 1 HR and CGA x 1, demonstrating step to pattern. Directional cueing provided for safe line management. Pt education provided on importance of safe foot placement (increasing GILDA) to increase safety. Total Timed Code Treatment Minutes: 28 Total Treatment Time (minutes): 28 FUNCTIONAL G CODE: PT 6 Clicks Score: 23 (03/05/18 1113) Mobility: Walking and Moving Around Current Status (G8978): CK (03/01/18 1431) Mobility: Walking and Moving Around Goal Status (G8979): CJ (03/01/18 1431) Based on clinical assessment and the score on the 6 Clicks Functional Assessment Tool, the G code and corresponding severity modifiers are documented above. SUBJECTIVE: Current Hospital Course: Chart reviewed and no significant medical updates relevant to therapy were noted Reason for Physical Therapy Consult : post acute placement Relevant Past Medical History: see eval Patient Report: Hi girlfriend! Well I'm better than yesterday. Pt supine at start of PT, agreeable to PT. Home Environment Patient Lives With: Significant Other Assistance Available: 24 Hour Entry To Home: Stairs;Without Rail Number Of Stairs Into Home: 2 Number Of Stairs To Bed/Bath: 0 Tub/Shower Type: walk in shower Laundry: 1st floor Equipment Owned: Cane;Crutch(es);Wheeled Walker Prior Functional Level: Within Functional Limits (IND mobility/ADLs. +drive. +work.) OBJECTIVE: CURRENT FUNCTIONAL STATUS: Current Functional Mobility Assist Level Additional Information Rolling Supervision Supine to Sit Supervision Sit to Supine Scooting Contact Guard Assistance Sit to Stand Stand By Assistance Stand to Sit Stand By Assistance Bed to Chair Toilet/Commode Gait Stand By Assistance Gait Device: None;IV Pole Gait Distance (feet): 500' Stairs Contact Guard Assistance Stairs Device: Rail Number of Stairs: 3 Curb Step Car Transfer General Gait Deviations: Lateral sway increased;Karlie decreased;Flexed trunk posture;Other: See comment (path deviations L and R) Balance: Static Sitting;Dynamic Sitting;Static Standing;Dynamic Standing Static Sitting Balance: Supervision Dynamic Sitting Balance: Supervision Static Standing Balance: Stand By Assistance Dynamic Standing Balance: Contact Guard Assistance Patient sitting in recliner at end of PT session, needs within reach, no signs of acute distress noted, RN notified, rounding, daughter present. Please see discipline specific clinical documentation flowsheet for complete details for this therapy evaluation/treatment. SIGNATURE: Tana Paul PT PATIENT NAME: Serena Musa DATE: March 05, 2018 TIME: 11:48 AM CASE MANAGEM Observed: 03/05/2018 Status: COMPLETED Source: [place] 10:49 AM [facility] REPOSITORY HNO ID: [id number] Author: Cristinaryan CarrasquilloRuss Service: Care Management Author Type: Signal Intelligence/Electronic Warfare Type: Care Mgt Progress Note Filed: 03/05/2018 10:49 AM Note Text: CARE MANAGEMENT PROGRESS NOTE SERVICE DATE: 03/05/2018 SERVICE TIME:1041 LOS: 6 days IM letter given to patient on 03/05/2018. SIGNATURE: Cristina Russ, PATIENT NAME: Serena Musa DATE: March 05, 2018 TIME: 10:49 AM PAGER/CONTACT #: [phone] CONSULT Observed: 03/05/2018 Status: COMPLETED Source: [place] 10:46 AM [facility] REPOSITORY HNO ID: [id number] Author: Hiram Mancilla Service: Nephrology Author Type: Physician Type: Consults Filed: 03/05/2018 3:17 PM Note Text: CONSULT: NEPHROLOGY SERVICE SERVICE DATE: 03/05/2018 SERVICE TIME: 10:47 AM REASON FOR CONSULT: I am asked to see this patient in consultation for my opinion regarding post-obstructive diuresis. My recommendations will be communicated by way of shared medical record. REQUESTING PHYSICIAN: Jose Olvera PRIMARY CARE PHYSICIAN: Silas Rushing DO Subjective CHIEF COMPLAINT: Post-obstructive diuresis HPI: Ms. Musa is a 67 year old female with PMHx of rheumatoid arthritis and bladder cancer w/ bilateral ureteral outlet obstruction s/p cystectomy w/ ileal conduit now with post-obstructive diuresis over 5L today. Patient states that she began having blood in her urine earlier this year and was treated for UTI. The blood continued despite antibiotic treatment, and was scheduled for a TURBT. Patient presented to OSH w/ history of gross hematuria for TURBT 01/23/18. Found to have an extensive mass on the bladder floor resulting in bilateral ureteral outlet obstruction. Patient reports that she had normal urine output despite observed obstruction. Underwent cystectomy w/ ileal conduit 02/28/2018. Has met criteria for post-obstructive diuresis post-operatively. UOP: -POD#1: 6.1L -POD#2: 4.1L -POD#3: 4.1L -POD#4: 5.1L First creatinine in Epic was on 02/19/2018 and came back 2.81. It is unknown what her creatinine was prior to this, however patient states that she has never been told that she has kidney disease and has never been asked to see a lens coating technician. Her creatinine peaked on 02/27/2018 at 4.66 (day before surgery), and has continued to downtrend reaching 1.90 today (03/05/18). Patient describes an episode of acute weakness and dizziness yesterday (03/04/18). After receiving a 1L NS bolus patient felt better immediately and has been stable since. PAST MEDICAL HISTORY Diagnosis Date - Bladder cancer (HCC) No past surgical history on file. No family history on file. Social History Substance Use Topics - Smoking status: Never Smoker - Smokeless tobacco: Never Used - Alcohol use Not on file MEDICATIONS: Prior to Admission Medications Prescriptions Prior to Admission: acetaminophen (TYLENOL ARTHRITIS ORAL) Take by mouth every 8 hours as needed. Disp: Rfl: Taking melatonin 10 mg cap Take by mouth daily at bedtime. Disp: Rfl: multivit with minerals/lutein (MULTIVITAMIN 50 PLUS ORAL) Take by mouth once daily. Disp: Rfl: biotin 1,000 mcg chew Take by mouth. Disp: Rfl: Ascorbic Acid (VITAMIN C) 100 mg tablet Take 100 mg by mouth once daily. Disp: Rfl: FEXOFENADINE-PSEUDOEPHEDRINE SR 60 MG-120 MG 12 HR TAB as necessary Disp: Rfl: 0 Not Taking OPTIVAR 0.05 % EYE DROPS one(1) drop to each eye twice a day (Patient not taking: No sig reported) Disp: 6cc Rfl: 0 Not Taking Current hospital medications: miconazole 2 % 1 application topical powder (LOTRIMIN AF, DESENEX) 1 application TOPICAL BID bisacodyl 10 mg suppository (DULCOLAX) 10 mg RECTAL DAILY PRN acetaminophen 650 mg tab(s) (TYLENOL) 650 mg ORAL q 4 H PRN oxyCODONE IR 5 mg tab(s) (ROXICODONE) 5 mg ORAL q 4 H PRN diphenhydrAMINE 25-50 mg injection (BENADRYL) 25-50 mg INTRAVENOUS q 6 H PRN NaCl 0.9% iv infusion 50 mL/hr INTRAVENOUS CONTINUOUS fentaNYL 50 mcg/mL 25-50 mcg injection (SUBLIMAZE) 25-50 mcg INTRAVENOUS q 1 H PRN ondansetron (PF) 4 mg injection (ZOFRAN) 4 mg INTRAVENOUS q 6 H PRN pantoprazole 40 mg injection (PROTONIX) 40 mg INTRAVENOUS DAILY (6 AM) phenol 1 [place] (CHLORASEPTIC) 1 [place] MUCOUS MEMBRANE (TOPICAL MOUTH AND THROAT) PRN heparin 5,000 Units injection 5,000 Units SUBCUTANEOUS q 8 H sulfamethoxazole-trimethoprim 800-160 mg 1 tablet (BACTRIM DS,SEPTRA DS) 1 tablet ORAL DAILY melatonin 9 mg tab(s) 9 mg ORAL AT BEDTIME aluminum-magnesium hydroxide-simethicone 200-200-20 mg/5 mL 30 mL (MAALOX,MYLANTA,MAG-AL PLUS) 30 mL ORAL q 6 H PRN docusate sodium 100 mg cap(s) (COLACE) 100 mg ORAL BID simethicone, chewable 80 mg tab(s) (MYLICON) 80 mg ORAL q 8 H PRN ALLERGIES Allergen Reactions - Lactose Other: See Comments constipated - Iodinated Contrast-* Hives - Fruit And Vegetable* Anaphylaxis Pt reports allergy to RAW fruits and Vegetables REVIEW OF SYSTEMS: Constitutional: No complaints Eyes: No complaints Ear, Nose, and Throat: No complaints Cardiovascular: No complaints Respiratory: No complaints Gastrointestinal: No complaints Genitourinary: No complaints Musculoskeletal: No complaints Skin: No complaints Neurological: No complaints Psychiatric: No complaints Endocrine: No complaints Hematologic:No complaints Objective PHYSICAL EXAM: BP 153/86 Pulse 71 Temp 36.7 ?C (98.1 ?F) (Oral) Resp 18 Ht 157.5 cm (5' 2) Wt 65.3 kg (144 lb) SpO2 97% BMI 26.34 kg/m? Intake/Output Summary (Last 24 hours) at 03/05/18 1047 Last data filed at 03/05/18 1020 Gross per 24 hour Intake 2360 ml Output 5740 ml Net -3380 ml Constitutional: No acute distress, Responsive, Normal habitus and Well-nourished Eyes: Conjunctiva clear and PERRL Ear, Nose, and Throat: Hearing normal, Lips normal and Dentition normal Neck: Trachea midline Cardiovascular: Regular rate and ryhthm, normal S1 and S2, no murmurs, rubs, or gallops Edema present: trace edema in lower extremities bilaterally Respiratory: Normal respiratory effort. Lungs clear bilaterally. Abdomen: Soft, non-tender, non-distended. Normal bowel sounds. No hepatosplenomegaly. Musculoskeletal: No clubbing or cyanosis of digits., Normocephalic. and No muscle weakness, joint tenderness, or joint effusions. Neurologic: Normal sensation and No asterixis Psychiatric: Alert and oriented x self, place, time, and setting Normal mood/affect DATA: Diagnostic tests reviewed for today's visit: Most recent labs and imaging results. Recent Labs 03/05/18 0243 03/04/18 0233 03/03/18 0148 03/02/18 0326 03/01/18 0058 03/01/18 0057 NA 139 138 141 141 -- 146* K 4.9 4.5 4.5 5.2* -- 5.1 CHLOR 106* 107* 107* 108* -- 112* CO2 20* 19* 16* 21* -- 21* BUN 29* 30* 32* 33* -- 49* CREAT 1.90* 1.91* 2.04* 2.30* -- 3.36* GLUC 107* 119* 135* 112* -- 139* ANION 13 12 18 12 -- 13 CA 8.5 8.1* 8.2* 8.3* -- 8.4* P 2.9 2.5* 3.0 3.5 -- 5.7* MG 1.7 1.7 1.7 -- 1.7 -- Recent Labs 03/05/18 0244 03/04/18 0233 03/03/18 0148 WBC 8.23 7.85 9.22 HB 7.4* 7.3* 7.6* HCT 23.1* 22.5* 23.2* PLT 323 281 250 Recent Labs 02/27/18 1650 INR 1.0 APTT 24.3 Recent Labs 02/27/18 1743 02/25/18 1218 02/19/18 1545 COLOR Yellow Yellow Yellow CLARITY Clear Clear Cloudy* UGLUC Negative Negative Negative UBILI Negative Negative Negative UKET Negative Negative Negative SPGR 1.009 1.008 1.010 UHB 1+* 2+* 2+* UPH 6.0 5.0 5.0 UPROT Negative Trace* 30* NITRITES Negative Negative Negative LEUKEST 1+* 2+* 2+* UWBC 6-10* 11-25* 11-25* URBC 0-3 11-25* 6-10* Recent Labs 02/28/18 1601 02/28/18 1418 02/28/18 1239 PH 7.26* 7.22* 7.23* PCO2 37 44 42 PO2 147* 107* 124* LACT 0.5 0.5 0.5 Recent Labs 03/05/18 0244 HB 7.4* Recent Labs 03/05/18 0243 CA 8.5 P 2.9 ALB 3.0* Assessment/Plan Ms. Musa is a 67 year old female with PMHx of rheumatoid arthritis and bladder cancer w/ bilateral ureteral outlet obstruction s/p cystectomy w/ ileal conduit now with post-obstructive/post-ATN diuresis. 1. Post-obstructive diuresis: continues to have high urine output; unlikely to be able to maintain volume balance w/ PO intake only; will need to give back 1/2 of urine volume with NS 2. Obstructive MISTI: creatinine decreasing since surgery; continue to monitor; will order urine studies to differentiate between solute diuresis and free water diuresis 3. Volume balance: currently euvolemic; continue to monitor in setting of post-obstructive/post-ATN diuresis PLAN: 1. Continue to monitor UOP and replace loses (1/2 urine volume w/ normal saline); 2. Would Keep inpatient until stable and patient can maintain fluid balance w/ PO intake 3. Avoid nephrotoxins (NSAID, iodine based contrast, ACEi/ARB) 4. Urine osmolality, urine Na, urine K SIGNATURE: Nick Summers MD PATIENT NAME: Serena Musa DATE: March 05, 2018 TIME: 10:47 AM PAGER: [phone] NEPHROLOGY STAFF PHYSICIAN NOTE OF PERSONAL INVOLVEMENT IN CARE ? I have seen the patient face to face and reviewed the history and physical examination obtained and documented by the resident/ fellow/ physician nail sticker. I personally participated in the sainz components. I have discussed the case and management of the patient's care. Agree with above findings, assessment, and plan of care formulated with my direct input. Amendments, if present, are entered in bold in the note, and/or detailed below. Medical decision Making: Consulted for MISTI/ polyuria in patient with obstructive nephropathy due to bladder mass cause bilateral hydroureteronephrosis, now s/p radical cystectomy and ileal conduit (02/28/18) Peak Cr 4.6, steadily improved since surgery - now down to 1.9 It is unclear what baseline renal function is At this time, is polyuric with 5-6 L UOP/day She denies past history of polyuria/ use of lithium etc, on specific questioning, does note that she generally tends to drink a lot of fluids and used to urinate every 3 hours or so, getting up 1-2 times/ night. Labs reviewed - no persistent hypernatremia, no hypercalcemia, no hyperglycemia, has non-gap acidosis (likely related to ileal conduit) Clinically, likely related to post-obstructive diuresis/ polyuric phase of ATN. Check urine electrolytes (urine sodium and potassium) and urine osm to assess for solute vs. Water diuresis Encourage oral hydration Since she has up to 5 liter UOP, would be best to keep on maintenance fluids to match half the daily urine output Check orthostatic BP/HR Continue to avoid NSAIDs/ FRANKIE blockade Signed: Hiram Mancilla MD [facility] Observed: 03/05/2018 Status: COMPLETED Source: [place] 9:50 AM [facility] REPOSITORY HNO ID: [id number] Author: Gilma (Rn) ELISSA Drake Service: Healing Service Author Type: Registered Nurse Type: Allied Health Filed: 03/05/2018 1:38 PM Note Text: HEALING SERVICES THERAPY NOTE SERVICE DATE: 03/05/2018 SERVICE TIME: 949 INTERVENTIONAL FOCUS: Other: Massage Visit With: Patient Urgency of Visit: Routine Type of Visit: Initial Visit ASSESSMENT: Diagnosis: Encounter Diagnosis ICD-10-CM 1. Postoperative pain G89.18 oxyCODONE IR (ROXICODONE) 5 mg immediate release tablet 2. Malignant neoplasm of urinary bladder (HCC) C67.9 Added automatically from request for surgery [id number] 3. Bladder cancer (HCC) C67.9 Added automatically from request for surgery [id number] 4. Malignant neoplasm of urinary bladder, unspecified site (HCC) C67.9 Did the patient have surgery? Yes Patient Pattern Awareness: Patient: Things mentioned: Practical: Discharge Plans. Family/Community: Significant Other, Children / Grandchildren and General Community. Emotional: Anxiety, Stress, Worry and Other: pain nausea. Family: Things mentioned: Practical: Not Applicable. Family/Community: Not Applicable. Emotional: Not Applicable. What have you done that has worked to make you feel better? Creative Expression Massage Music Social Activity Talking with someone Sleep and Restfulness Home Sleep Pattern: [facility] Sleep Pattern: Difficult Patient's Subjective Experience: The patient is sitting at the bedside. She just finished walking and is happy to see Healing Services Family Support: Family not present. INTERVENTION Verbal consent for touch interventions: Yes; Patient. [place] Goal(s) of Visit: To establish rapport To introduce Healing Services To create a space for the patient to receive To provide support To increase comfort and relaxation Patient Education: Education about services provided and self care. Written education materials provided. All questions answered. SELF REPORTED PATIENT EXPERIENCE SCALE Rating Before After Mood 08/18 07/18 Comfortable 10/16 07/18 Hope 07/18 07/18 Relaxed 10/16 07/18 Pain 09/15 08/18 Location abdomen same Pain N/A N/A Location N/A N/A PRACTITIONER VISUAL ASSESSMENT Facial Body Movement Vocal 0 = Smiling 0 = No movement/ appropriate movement 0 = Positive 1 = Neutral 1 = Restless 1 = Neutral/no vocal 2 = Frown/grimace 2 = Pulling at clothes, etc 2 = Crying, moaning, complaining 3 = Clenched teeth/tension 3 = Thrashing, flailing 3 = Screaming, yelling Before: 1 After: 0 Before: 0 After: 0 Before: 1 After: 0 Patient Selected Intervention(s): Aromatherapy for Personal Use: Inhaler: Edmond Lavender Other: peppermint Manual Therapy: Reflexive Brushing: Neck, Shoulders and Back Mind/Body Tools Acupressure, Breathing Techniques, Centering, Guided Imagery, Imagery and Music Supportive Care: Emotional Support Therapeutic Presence: Emotional Relaxtion Breathing Exercises Intervention Notes: Healing Services introduced to pt; written Healing Service material given to pt along with explanations of various Healing Service modalities available to pts and families. Provided supportive community for pt who is alone. Created an environment of peace and calm using slow, soothing speech and a quiet, gentle, accepting presence to promote pt's healing. She shared the reasons for her admission and talked about her stay and her surgery. She shared about her family and home. Empathetic, active listening and therapeutic presence provided, allowing the patient to express her feelings. Suggested aromatherapy could help provide some relief. Pt chose edmond, lavender and peppermint [place] aromatherapy inhalers for anxiety, pain, nausea, sleep and relaxation. No allergies to nuts, trees, paz, fruits or spices noted. Provided instruction on use of aromatherapy inhaler along with a 3-minute intentional relaxation breathing exercise, explaining it usually takes just 3 minutes of slow, deep breathing with intention to stop the stress response and instead promote a relaxation response. Pt chose to consciously focus on the word peace while inhaling and gave it the color of white light. Suggested that acupressure might help with pt's anxiety, pain and nausea. Explained what acupressure was and showed pt acupressure points for anxiety, pain and nausea and how to correctly apply pressure; she returned the demonstration correctly and thanked this nurse for the instruction. Pt chose MT. Light rhythmic, stroking to neck, back and shoulders with lavender aromatherapy lotion; no pressure applied accompanied by lavender aromatherapy lotion. MUTUAL PLAN Does the patient feel the mutual goal(s) was met? Yes, the goal(s) was met. Re-visit from Healing Services Team: Yes. If requested. Healing Services Practitioners Referrals: N/A Healing Services Team Trans-Disciplinary Rounds Called: No SIGNATURE: Gilma Drake RN PATIENT NAME: Serena Musa DATE: March 05, 2018 TIME: 10:32 AM PAGER/CONTACT #: [phone] PROGRESS Observed: 03/05/2018 Status: COMPLETED Source: [place] 7:51 AM [facility] [place] REPOSITORY [facility] ID: [id number] Author: Jose Olvera MD Service: Urology Author Type: Resident Type: Progress Notes Filed: 03/05/2018 7:53 AM Note Text: [facility] UROLOGY PROGRESS NOTE Name: Serena Musa Bed: G090 001/G090-01 Date: March 05, 2018 ASSESSMENT AND PLAN Serena Musa is a 67 year old female with bladder cancer now POD# 4 s/p Robotic radical cystectomy, pelvic lymph node dissection including presacral lymph nodes on the right, and intracorporeal ileal conduit (02/28/18) Overall doing well POD5 cystectomy/ileal conduit. On GI soft - toleraitng well. Remained with high urine losses yesterday (5L UOP). Still significant post-obstructive diuresis. Encouraged aggressive PO hydration. Continue OOB and ambulation. Possible dc today vs tomorrow. Neuro -Pain controlled with PO analgesia - minimize narcotics CV/Resp -stable hemodynamics and pulmonary status GI -Diet - GI soft -continue minimal IVF -dc stoma menendez and MARK drain FEN/Endo GI soft IVF at 50cc/hr ID Perioperative antibiotics - unasyn completed - bactrim stent prophylaxis Activity - OOB to chair and Ambulate with assistance DVT prophylaxis - SCDs, Heparin SQ TID Discharge teaching - will need home going pouch management teaching, MARK teaching Disposition - pending clinical course Subjective -having BMs -Pain: fairly well controlled -CP/SOB: Denies -N/V: occasional nausea -Bowel function: + flatus, BM -Ambulating multiple times per day Denies any dizziness or lightheadedness with ambulation Objective Vital Signs BP 153/86 Pulse 71 Temp 36.7 ?C (98.1 ?F) (Oral) Resp 18 Ht 157.5 cm (5' 2) Wt 65.3 kg (144 lb) SpO2 97% BMI 26.34 kg/m? Input and Output Intake/Output Summary (Last 24 hours) at 03/05/18 0751 Last data filed at 03/05/18 0543 Gross per 24 hour Intake 2360 ml Output 5720 ml Net -3360 ml Physical Exam General: comfortable in NAD HEENT: Normocephalic, atraumatic CV:: warm, well-perfused, RRR Resp: lungs CTAB GI: Soft, mildly tender, nondistended. No rebound or guarding. Incisions c/d/i : stoma beefy red, stoma menendez removed, urine clear yellow, MARK ss Extremities: no edema Neuro: Alert and oriented Psych: Normal affect Recent Labs 03/05/18 0244 03/05/18 0243 03/04/18 0233 03/03/18 0148 WBC 8.23 -- 7.85 9.22 HB 7.4* -- 7.3* 7.6* HCT 23.1* -- 22.5* 23.2* PLT 323 -- 281 250 NA -- 139 138 141 K -- 4.9 4.5 4.5 CHLOR -- 106* 107* 107* CO2 -- 20* 19* 16* BUN -- 29* 30* 32* CREAT -- 1.90* 1.91* 2.04* GLUC -- 107* 119* 135* Jose Olvera MD Urology PGY2 [id number] urology grounds restoration specialist CBC Collected: 03/05/2018 Status: F Source: [place] 2:44 AM [facility] REPOSITORY TYPE CODE TESTS RESULT OUT OF REFERENCE UNITS RANGE LAB WBC 3.70-11.00 k/uL WBC 8.23 LAB RBC 3.90-5.20 m/uL Low RBC 2.35 LAB HGB 11.5-15.5 g/dL Low Hemoglobin 7.4 LAB HCT 36.0-46.0 % Low Hematocrit 23.1 LAB MCV 80.0-100.0 fL MCV 98.3 LAB MCH 26.0-34.0 pG MCH 31.5 LAB MCHC 30.5-36.0 g/dL MCHC 32.0 LAB RDWCV 11.5-15.0 % RDW-CV 12.6 LAB PLTCT 150-400 k/uL Platelet Count 323 LAB MPV 9.0-12.7 fL MPV 9.4 LAB ABSNUC <0.01 k/uL Absolute nRBC <0.01 Performed By: #### CBC #### [facility] [address] [place] [address] COMP METABOLIC PANEL Collected: 03/05/2018 Status: F Source: [place] 2:43 AM [facility] REPOSITORY TYPE CODE TESTS RESULT OUT OF REFERENCE UNITS RANGE LAB TP 6.3-8.0 g/dL Low Protein, Total 6.0 LAB ALB 3.9-4.9 g/dL Low Albumin 3.0 LAB CA 8.5-10.2 mg/dL Calcium, Total 8.5 LAB TBIL 0.2-1.3 mg/dL Bilirubin, Total 0.2 LAB ALKP 32-117 U/L Alkaline Phosphatase 46 LAB AST 13-35 U/L AST High 52 LAB GLU 74-99 mg/dL Glucose High 107 Result Comment: The [place] [employer] (ADA) provides guidance for cutoff values for fasting glucose and random glucose. The ADA defines fasting as no caloric intake for at least 8 hours. Fas ting plasma glucose results between 100 to 125 mg/dL indicate increased risk for diabetes (prediabetes). Fasting plasma glucose results greater than or equal to 126 mg/dL meet the criteria for diagnosis of diabetes. In the absence of unequivocal hyperglycemia, results should be confirmed by repeat testing. In a patient with classic symptoms of hyperglycemia or hyperglycemic crisis, random plasma glucose results greater than or equal to 200 mg/dL meet the criteria for diagnosis of diabetes. Reference: Standards of Medical Care in Diabetes 2016, [place] [employer]. Diabetes Care. 2016.39(Suppl 1). LAB BUN 7-21 mg/dL BUN High 29 LAB CRET 0.58-0.96 mg/dL Creatinine High 1.90 LAB NA 136-144 mmol/L Sodium 139 LAB K 3.7-5.1 mmol/L Potassium 4.9 LAB CL 97-105 mmol/L Chloride High 106 LAB CO2 22-30 mmol/L Low CO2 20 LAB AGAP 9-18 mmol/L Anion Gap 13 LAB ALT 7-38 U/L ALT High 47 LAB GFRAA eGFR- Amer. 32 LAB GFRNAA . eGFR-All Other Races 27 Result Comment: eGFR (Estimated GFR) Units of measure: mL/min/1.73 meters squared eGFR is derived from the reexpressed MDRD Study equation using the following parameters: serum creatinine, age, gender and race. The creatinine assay has been calibrated to be traceable to IDMS. An eGFR <60 mL/min/1.73m2 for >3 months is consistent with chronic kidney disease. Refer to KDOQI guidelines for clinical interpretation. In patients with unstable renal function, e.g. those with acute kidney injury, the eGFR may not accurately reflect actual GFR. Performed By: #### CMP, MG1, PHOS #### [facility] [address] [place] [address] MAGNESIUM Collected: 03/05/2018 Status: F Source: [place] 2:43 AM [facility] REPOSITORY TYPE CODE TESTS RESULT OUT OF REFERENCE UNITS RANGE LAB MG 1.7-2.3 mg/dL Magnesium 1.7 Performed By: #### CMP, MG1, PHOS #### [facility] [address] [place], [place] [address] PHOSPHORUS Collected: 03/05/2018 Status: F Source: [place] 2:43 AM [facility] REPOSITORY TYPE CODE TESTS RESULT OUT OF REFERENCE UNITS RANGE LAB PHOS 2.7-4.8 mg/dL Phosphorus 2.9 Performed By: #### CMP, MG1, PHOS #### [facility] [address] [place], [place] [address] TYPE AND SCREEN Collected: 03/05/2018 Status: F Source: [place] 2:42 AM [facility] REPOSITORY TYPE CODE TESTS RESULT OUT OF REFERENCE UNITS RANGE LAB %ABR O ABO/RH(D) POSITIVE LAB % Antibody NEG Screen Performed By: #### TSCR #### [facility] [address] [place], [place] [address] PT ED Observed: 03/04/2018 Status: COMPLETED Source: [place] 4:31 PM [facility] REPOSITORY HNO ID: [id number] Author: Gloria OwenRn) ELISSA Warren Service: Wound/Ostomy Author Type: Registered Nurse Type: Patient Education Filed: 03/04/2018 4:31 PM Note Text: ET/WOC NURSING ET OUTCOME: Hands on Lesson #2 and lesson #1 review TOPIC: OSTOMY INSTRUCTION READINESS TO LEARN COGNITIVE ABILITY: Alert and Oriented MOTIVATION TO LEARN: Eager and Interested FAMILY SUPPORT: High - Very involved in patient care INSTRUCTION PROVIDED TO: Patient and family member PATIENT LEARNS BEST BY: Demonstration FACTORS AFFECTING LEARNING: None PHYSICAL LIMITATIONS AFFECTING LEARNING: None LEARNING RESPONSE DIAGNOSIS: Bladder Cancer PROCEDURE / SURGERY: End ileal conduit EDUCATION TOPIC/ TEACHING POINTS: Ostomy Care Postoperative self ostomy care instruction, Discharge equipment ordering and support options, ADL'S, Work and Clothing Adjustment METHOD OF INSTRUCTION: Demonstration-Hands on Learning PATIENT / FAMILY RESPONSE: Verbalizing understanding of: Correct procedure for emptying ostomy pouch and Correct procedure for changing ostomy pouch FOLLOW-UP PLAN: Recommend - Recommend continued instruction and follow up as directed SUPPLEMENTAL MATERIAL: Pouch change Instruction Sheet REFERRAL (RECOMMENDATION): Home Health Agency TIME INCREMENT: 1 hour and 30 minutes Electronically Signed By JOSE GUADALUPE Mccullough, RN ET/WO Nursing [facility] Observed: 03/04/2018 Status: COMPLETED Source: [place] 4:31 PM [facility] REPOSITORY HNO ID: [id number] Author: Gloria OwenRn) ELISSA Warren Service: Wound/Ostomy Author Type: Registered Nurse Type: Allied Health Filed: 03/04/2018 4:44 PM Note Text: ET/WOCN Nursing Consult Topic: ET/WOCN Consultation Note ET Outcome: @1130: WO Nursing presented for Hands on Lesson #2 and to DC stoma menendez per doctors orders. Upon assessment, patient sitting up in the chair and requesting to go to the bathroom and for WO Nurse to return this afternoon when her returns. Patient did have some pressing questions which were answered and some trouble shooting occurred. Will return this afternoon for continued Hands on lesson. @1500: WO Nurse returned to complete Hands on Lesson #2 with patient and . Patient quite anxious and tearful. Patient needed to be re-directed throughout lesson and often tearful or laughing. Hands on Lesson complete with [facility] Nurse having to re-direct patient to be hands on. Pouch change completed. Per Doctor's order, stoma menendez also removed per [facility] protocol with patient well tolerating procedure. Pouching system placed back to gravity drainage. This [facility] nurse stayed after lesson complete to answer any remaining questions. Patient given [id number] Instructions, Supply Form, 2 weeks worth of pouching change supplies, gravity drainage bags and diet education. ET's Next Scheduled Visit: March 07: Review Hands on Lesson #2 Stoma Type: End ileal conduit Diameter:1 1/4 x1 3/8 Location: RLQ Protrusion: Budded Mucosal condition and color: Red and moist Mucocutaneous junction Intact Peristomal Skin: Clear and intact Location of Skin Impairment: n/a Peristomal contour: Concave with depression at 3 and 9'oclock Supportive Tissue: Semisoft Character of output:clear, yellow drainage with scant mucus Emptying frequency per day: per nursing Current pouching system: REMOVED Coloplast Sensura [place] Flex Red Large Convex flange, 2.0mm Brava moldable ring, and urostomy pouch placed to gravity drainage. Current wearing time: 3 days Recommendations: Skin Care: Apply Stomahesive powder as needed to any irritated,or denuded skin with each pouch change. Gently dust off the excess. Pouching System: APPLIED ABOVE. Wear Time: 3-4 days Midline Abdominal Incision: Other: dermabond Comment: n/a Time Increment: 1 hour 30 minutes Gloria SHI, RN, [facility] Nursing ALLIED HEALTH Observed: 03/04/2018 Status: COMPLETED Source: [place] 4:25 PM [facility] REPOSITORY HNO ID: [id number] Author: Gloria OwenRn) ELISSA Warren Service: Wound/Ostomy Author Type: Registered Nurse Type: Allied Health Filed: 03/04/2018 4:41 PM Note Text: [place] [address] OSTOMY SUPPLY ORDER FORM Patient: Serena Musa Patient Address: [address] [place], [place] [id number] Gender: female Date of : 1950 Type of Stoma: End Ileal Conduit Diagnosis: Bladder Cancer C76.9 Item and Description Qty 30 Day Use Adhesive Removers: ConvaTec Sensi-Care No Sting #[id number] Coloplast SHANEKA Flex Pouches: #[id number] RED, SHANEKA URO Pouch with Multi-Chamber Pouch Coloplast SHANE[place] Flex Wafers: #[id number] RED, SHANEKA Flex Convex Light Wafer, CTF 11/13-1 03/24 (10-40mm) Covidien/[place] Urine Drainage Bag #[id number] Moldable Ring: Coloplast Brava 2.0mm Moldable # [id number] Powder: Convatec Stomahesive # [id number] 30/Box 10/Box 5/Box 1 Bag 10/Box 1 Bottle 1 Box 2 Boxes 4 Boxes 2 Bags 2 Boxes 1 Bottle Refills: 11 Attending Physician: Dr. Lara For immediate authorization, please contact the physician?s office. [facility] Nurse: Gloria SHI, RN, [facility] Nursing Note: n/a SIGNATURE: Gloria Warren RN PATIENT NAME: Serena Musa DATE: March 04, 2018 TIME: 4:26 PM CONTACT #: [phone] THERAPY NT Observed: 03/04/2018 Status: COMPLETED Source: [place] 2:40 PM [facility] REPOSITORY HNO ID: [id number] Author: Tana OwenPt) [place] Service: Physical Therapy Author Type: Physical Therapist Type: Therapy (PT/OT/Speech/Resp) Filed: 03/04/2018 2:41 PM Note Text: PHYSICAL THERAPY MISSED VISIT SERVICE DATE: 03/04/2018 SERVICE TIME: 1435 to 1437 ROOM: [place] [address] Attempted Treatment. Patient not seen due to Other: See Comment. Pt awaiting stoma care 2/2 leaking ostomy per pt and RN. PT deferred at this time. Will follow up as able for PT. SIGNATURE: Tana Paul PT PATIENT NAME: Serena Musa DATE: March 04, 2018 TIME: 2:40 PM THERAPY NT Observed: 03/04/2018 Status: COMPLETED Source: [place] 9:35 AM [facility] REPOSITORY HNO ID: [id number] Author: Tana OwenPt) [place] Service: Physical Therapy Author Type: Physical Therapist Type: Therapy (PT/OT/Speech/Resp) Filed: 03/04/2018 9:36 AM Note Text: PHYSICAL THERAPY MISSED VISIT SERVICE DATE: 03/04/2018 SERVICE TIME: 0932 to 0934 ROOM: [place] [address] Attempted Treatment. Patient not seen due to Another service at bedside. RN bedside passing medications and pt politely declined mobilizing at this time. Requesting PT to return today. Will follow up as able for PT as discussed with pt and . SIGNATURE: Tana Paul PT PATIENT NAME: Serena Musa DATE: March 04, 2018 TIME: 9:35 AM THERAPY NT Observed: 03/04/2018 Status: COMPLETED Source: [place] 8:40 AM [facility] REPOSITORY HNO ID: [id number] Author: Tana OwenPt) [place] Service: Physical Therapy Author Type: Physical Therapist Type: Therapy (PT/OT/Speech/Resp) Filed: 03/04/2018 8:41 AM Note Text: PHYSICAL THERAPY MISSED VISIT SERVICE DATE: 03/04/2018 SERVICE TIME: 0838 to 0839 ROOM: [place] [address] Attempted Treatment. Patient not seen due to Other: See Comment. Pt using bathroom. Will follow up as able for PT. SIGNATURE: Tana Paul PT PATIENT NAME: Serena Musa DATE: March 04, 2018 TIME: 8:40 AM PROGRESS Observed: 03/04/2018 Status: COMPLETED Source: [place] 8:09 AM [facility] REPOSITORY HNO ID: [id number] Author: Jose (Onur Olvera MD Service: Urology Author Type: Resident Type: Progress Notes Filed: 03/04/2018 8:14 AM Note Text: [facility] UROLOGY PROGRESS NOTE Name: Serena Musa Bed: G090 001/G090-01 Date: March 04, 2018 ASSESSMENT AND PLAN Serena Musa is a 67 year old female with bladder cancer now POD# 4 s/p Robotic radical cystectomy, pelvic lymph node dissection including presacral lymph nodes on the right, and intracorporeal ileal conduit (02/28/18) Overall doing well POD4 cystectomy/ileal conduit. On GI soft. One small emesis yesterday - KUB without ileus. Remained with high urine losses yesterday (4.1L UOP). Still significant post-obstructive diuresis. Encouraged aggressive PO hydration. Will replace fluid losses as needed. Continue OOB and ambulation. Plan for dc today vs tomorrow. Neuro -Pain controlled with PO analgesia - minimize narcotics CV/Resp -stable hemodynamics and pulmonary status GI -Diet - GI soft -continue minimal IVF -dc stoma menendez and MARK drain FEN/Endo GI soft IVF at 50cc/hr ID Perioperative antibiotics - unasyn completed - bactrim stent prophylaxis Activity - OOB to chair and Ambulate with assistance DVT prophylaxis - SCDs, Heparin SQ TID Discharge teaching - will need home going pouch management teaching, MARK teaching Disposition - pending clinical course Subjective -had real bowel movement -Pain: fairly well controlled -CP/SOB: Denies -N/V: occasional nausea -Bowel function: + flatus, BM -Ambulating multiple times per day Denies any dizziness or lightheadedness with ambulation Objective Vital Signs BP 130/79 Pulse 73 Temp 36.5 ?C (97.7 ?F) (Oral) Resp 16 Ht 157.5 cm (5' 2) Wt 65.9 kg (145 lb 4.8 oz) SpO2 98% BMI 26.58 kg/m? Input and Output Intake/Output Summary (Last 24 hours) at 03/04/18 0810 Last data filed at 03/04/18 0558 Gross per 24 hour Intake 1763 ml Output 4990 ml Net -3227 ml Physical Exam General: comfortable in NAD HEENT: Normocephalic, atraumatic CV:: warm, well-perfused, RRR Resp: lungs CTAB GI: Soft, mildly tender, nondistended. No rebound or guarding. Incisions c/d/i : stoma beefy red, stoma menendez in place, urine clear yellow, MARK ss Extremities: no edema Neuro: Alert and oriented Psych: Normal affect Recent Labs 03/04/18 0233 03/03/18 0148 03/02/18 0326 WBC 7.85 9.22 9.35 HB 7.3* 7.6* 7.5* HCT 22.5* 23.2* 23.0* PLT 281 250 243 NA 138 141 141 K 4.5 4.5 5.2* CHLOR 107* 107* 108* CO2 19* 16* 21* BUN 30* 32* 33* CREAT 1.91* 2.04* 2.30* GLUC 119* 135* 112* Jose Olvera MD Urology PGY2 [id number] urology grounds restoration specialist CBC Collected: 03/04/2018 Status: F Source: [place] 2:33 AM [facility] REPOSITORY TYPE CODE TESTS RESULT OUT OF REFERENCE UNITS RANGE LAB WBC 3.70-11.00 k/uL WBC 7.85 LAB RBC 3.90-5.20 m/uL Low RBC 2.32 LAB HGB 11.5-15.5 g/dL Low Hemoglobin 7.3 LAB HCT 36.0-46.0 % Low Hematocrit 22.5 LAB MCV 80.0-100.0 fL MCV 97.0 LAB MCH 26.0-34.0 pG MCH 31.5 LAB MCHC 30.5-36.0 g/dL MCHC 32.4 LAB RDWCV 11.5-15.0 % RDW-CV 12.5 LAB PLTCT 150-400 k/uL Platelet Count 281 LAB MPV 9.0-12.7 fL MPV 9.3 LAB ABSNUC <0.01 k/uL Absolute nRBC <0.01 Performed By: #### CBC, PHOS #### [facility] [address] [place], [place] [address] PHOSPHORUS Collected: 03/04/2018 Status: F Source: [place] 2:33 AM [facility] REPOSITORY TYPE CODE TESTS RESULT OUT OF REFERENCE UNITS RANGE LAB PHOS 2.7-4.8 mg/dL Low Phosphorus 2.5 Performed By: #### CBC, PHOS #### [facility] [address] [place], [place] [address] COMP METABOLIC PANEL Collected: 03/04/2018 Status: F Source: [place] 2:33 AM [facility] REPOSITORY TYPE CODE TESTS RESULT OUT OF REFERENCE UNITS RANGE LAB TP 6.3-8.0 g/dL Low Protein, Total 6.1 LAB ALB 3.9-4.9 g/dL Low Albumin 3.0 LAB CA 8.5-10.2 mg/dL Low Calcium, Total 8.1 LAB TBIL 0.2-1.3 mg/dL Bilirubin, Total 0.2 LAB ALKP 32-117 U/L Alkaline Phosphatase 45 LAB AST 13-35 U/L AST High 52 LAB GLU 74-99 mg/dL Glucose High 119 Result Comment: The [place] Diabetes [employer] (ADA) provides guidance for cutoff values for fasting glucose and random glucose. The ADA defines fasting as no caloric intake for at least 8 hours. Fas ting plasma glucose results between 100 to 125 mg/dL indicate increased risk for diabetes (prediabetes). Fasting plasma glucose results greater than or equal to 126 mg/dL meet the criteria for diagnosis of diabetes. In the absence of unequivocal hyperglycemia, results should be confirmed by repeat testing. In a patient with classic symptoms of hyperglycemia or hyperglycemic crisis, random plasma glucose results greater than or equal to 200 mg/dL meet the criteria for diagnosis of diabetes. Reference: Standards of Medical Care in Diabetes 2016, [place] [employer] Association. Diabetes Care. 2016.39(Suppl 1). LAB BUN 7-21 mg/dL BUN High 30 LAB CRET 0.58-0.96 mg/dL Creatinine High 1.91 LAB NA 136-144 mmol/L Sodium 138 LAB K 3.7-5.1 mmol/L Potassium 4.5 LAB CL 97-105 mmol/L Chloride High 107 LAB CO2 22-30 mmol/L Low CO2 19 LAB AGAP 9-18 mmol/L Anion Gap 12 LAB ALT 7-38 U/L ALT 36 LAB GFRAA eGFR- Amer. 32 LAB GFRNAA . eGFR-All Other Races 26 Result Comment: eGFR (Estimated GFR) Units of measure: mL/min/1.73 meters squared eGFR is derived from the reexpressed MDRD Study equation using the following parameters: serum creatinine, age, gender and race. The creatinine assay has been calibrated to be traceable to IDMA. An eGFR <60 mL/min/1.73m2 for >3 months is consistent with chronic kidney disease. Refer to KDOQI guidelines for clinical interpretation. In patients with unstable renal function, e.g. those with acute kidney injury, the eGFR may not accurately reflect actual GFR. Performed By: #### CMP, MG1 #### [facility] [address] [place], [place] [id number] MAGNESIUM Collected: 03/04/2018 Status: F Source: [place] 2:33 AM [facility] REPOSITORY TYPE CODE TESTS RESULT OUT OF REFERENCE UNITS RANGE LAB MG 1.7-2.3 mg/dL Magnesium 1.7 Performed By: #### CMP, MG1 #### [facility] [address] [place], [place] [address] PROGRESS Observed: 03/03/2018 Status: COMPLETED Source: [place] 5:36 PM [facility] REPOSITORY HNO ID: [id number] Author: Zenon (Rt) Tatiana Bhatti Service: Radiology Author Type: Chocolatier Type: Progress Notes Filed: 03/03/2018 5:36 PM Note Text: Radiology Service Progress Note PATIENT NAME: Serena Musa DATE OF SERVICE: March 03, 2018 TIME: 5:36 PM PATIENT IDENTITY VERIFICATION COMPLETED USING TWO (2) METHODS: Patient confirmed name verbally and Date of . PATIENT GENDER DATA: Female. status: : No status: NO. PATIENT RELEVANT IMPLANT DATA REVIEWED: Not Applicable RADIOLOGY DEPARTMENT: General X-ray: Exam(s) Completed: Abdomen X-Ray Abdomen PERIPHERAL IV DATA: Not applicable SIGNED BY: RT Jayy March 03, 2018 5:36 PM XR ABDOMEN 1V SUPINE Observed: 03/03/2018 Status: F Source: [place] 5:34 PM [facility] REPOSITORY * * *Final Report* * * DATE OF EXAM: Mar 03 2018 5:34PM RUFINO 5289 - XR ABDOMEN 1V SUPINE / PROCEDURE REASON: Abd pain, unspecified * * * * Physician Interpretation * * * * ABDOMEN, 1 VIEW labeled 03/03/2018 1719 hours CLINICAL INFORMATION: Abd pain, unspecified . TECHNIQUE: Supine frontal view, 2 image(s) COMPARISON: 02/27/2018 RESULT: See impression. IMPRESSION: Mild gaseous distention of right colon, perhaps from mild ileus. No substantial small bowel dilatation. Postoperative changes from reported cystectomy and urinary conduit creation. There are several pigtail ureteral stents present, including 2 on right and 1 on left, which may be internalized within the conduit. Pelvic MARK drainage catheter present. Right lower quadrant ostomy present. Degenerative changes in skeleton. Subcutaneous gas along right flank, presumably postoperative. Visualized lung bases grossly clear. Boat Hand: PSCB Transcribe Date/Time: Mar 03 2018 8:23P Dictated by : CARYN YOU MD This examination was interpreted and the report reviewed and electronically signed by: CARYN YOU MD on Mar 03 2018 8:26PM EST [id number] NURSING PROG Observed: 03/03/2018 Status: COMPLETED Source: [place] 4:30 PM [facility] REPOSITORY HNO ID: [id number] Author: Donita (Rn) ELISSA Gates Service: (none) Author Type: Registered Nurse Type: Nursing Progress Note Filed: 03/03/2018 6:44 PM Note Text: Nursing Progress Note Topic of Note: Emesis Serena Marsh [id number] Pt had emesis around 1600. Pt relates feeling crampy and constipated. Nausea relieved after emesis. Dr. Olvera notified, ordered a dulcolax suppository and abdominal xray. This note was completed by: Donita Gates RN PROGRESS Observed: 03/03/2018 Status: COMPLETED Source: [place] 7:38 AM [facility] REPOSITORY HNO ID: [id number] Author: Navin (Res) MD Ita Service: Urology Author Type: Resident Type: Progress Notes Filed: 03/03/2018 10:35 AM Note Text: [facility] UROLOGY PROGRESS NOTE Name: Serena Musa Bed: G090 001/G090-01 Date: March 03, 2018 ASSESSMENT AND PLAN Serena Musa is a 67 year old female with bladder cancer now POD# 3 s/p Robotic radical cystectomy, pelvic lymph node dissection including presacral lymph nodes on the right, and intracorporeal ileal conduit (02/28/18) Clinically doing well POD3 cystectomy/ileal conduit. Advanced to GI soft yesterday - tolerating diet. Passing flatus. Still having moderate pain. Will decrease fluids today and monitor volume status in setting of post obstructive diuresis. Continue OOB and ambulation. Plan for goal dc tomorrow. Neuro -Pain controlled with PO analgesia - minimize narcotics CV/Resp -stable hemodynamics and pulmonary status GI -Diet - GI soft -decrease IVF - monitor volume status -continue stoma menendez and MARK drain FEN/Endo -IVF - decrease today ID Perioperative antibiotics - unasyn completed - bactrim stent prophylaxis Activity - OOB to chair and Ambulate with assistance DVT prophylaxis - SCDs, Heparin SQ TID Discharge teaching - will need home going pouch management teaching, MARK teaching Disposition - pending clinical course Subjective -mild gas pain overnight but still passing flatus -Pain: fairly well controlled -CP/SOB: Denies -N/V:Denies -Bowel function: + flatus -Ambulating multiple times per day Objective Vital Signs BP 135/82 Pulse 77 Temp 36.9 ?C (98.4 ?F) (Oral) Resp 18 Ht 157.5 cm (5' 2) Wt 70.4 kg (155 lb 3.3 oz) SpO2 95% BMI 28.39 kg/m? Input and Output Intake/Output Summary (Last 24 hours) at 03/03/18 0738 Last data filed at 03/03/18 0655 Gross per 24 hour Intake 4335 ml Output 4405 ml Net -70 ml Physical Exam General: comfortable in NAD HEENT: Normocephalic, atraumatic CV:: warm, well-perfused, RRR Resp: lungs CTAB GI: Soft, mildly tender, nondistended. No rebound or guarding. Incisions c/d/i : stoma beefy red, stoma menendez in place, urine clear yellow, MARK ss Extremities: no edema Neuro: Alert and oriented Psych: Normal affect Recent Labs 03/03/18 0148 03/02/18 0326 03/01/18 0057 02/28/18 1934 WBC 9.22 9.35 10.44 14.00* HB 7.6* 7.5* 8.1* 8.4* HCT 23.2* 23.0* 24.9* 25.6* PLT 250 243 229 255 NA -- 141 146* 144 K -- 5.2* 5.1 5.3* CHLOR -- 108* 112* 109* CO2 -- 21* 21* 17* BUN -- 33* 49* 52* CREAT -- 2.30* 3.36* 3.59* GLUC -- 112* 139* 167* Jose Olvera MD Urology PGY2 [id number] urology grounds restoration specialist CHIEF RESIDENT ADDENDUM Agree with the note above no acute events overnight, sleeping comfortably, feels better, no nausea/vomiting. Pain well controlled on current pain regimen. Denies fevers, rigors, chest pain, dyspnea. Tolerating GI soft diet without nausea or emesis +flatus, +BM. Depressed about body image and conduit BP 135/82 Pulse 77 Temp 36.9 ?C (98.4 ?F) (Oral) Resp 18 Ht 157.5 cm (5' 2) Wt 70.4 kg (155 lb 3.3 oz) SpO2 95% BMI 28.39 kg/m? Abd soft, mild distension, non tender Incision c/d/I IC pink and viable, stoma menendez in place, urine clear MARK ss SCr pending Hgb 7.6 ? Plan per Dr. Olvera above GI soft SCDs, SQH DC Entereg Hgb 7.6 - hold on transfusion for now Diet supplements Ambulate, reinforce IS Counselling given about conduit and expected postop course Home tomorrow Navin Jean Baptiste M.D. Urology PGY-6 Pager: [phone] March 03, 2018 10:34 AM PLEASE FIRST PAGE THE PRIMARY SERVICE RESIDENT LISTED ABOVE CBC Collected: 03/03/2018 Status: F Source: [place] 1:48 AM [facility] REPOS[facility] TYPE CODE TESTS RESULT OUT OF REFERENCE UNITS RANGE LAB WBC 3.70-11.00 k/uL WBC 9.22 LAB RBC 3.90-5.20 m/uL Low RBC 2.37 LAB HGB 11.5-15.5 g/dL Low Hemoglobin 7.6 LAB HCT 36.0-46.0 % Low Hematocrit 23.2 LAB MCV 80.0-100.0 fL MCV 97.9 LAB MCH 26.0-34.0 pG MCH 32.1 LAB MCHC 30.5-36.0 g/dL MCHC 32.8 LAB RDWCV 11.5-15.0 % RDW-CV 12.5 LAB PLTCT 150-400 k/uL Platelet Count 250 LAB MPV 9.0-12.7 fL MPV 9.6 LAB ABSNUC <0.01 k/uL Absolute nRBC <0.01 Performed By: #### CBC, PHOS #### [facility] [address] [place], [place] [address] PHOSPHORUS Collected: 03/03/2018 Status: F Source: [place] 1:48 AM [facility] REPOSITORY TYPE CODE TESTS RESULT OUT OF REFERENCE UNITS RANGE LAB PHOS 2.7-4.8 mg/dL Phosphorus 3.0 Performed By: #### CBC, PHOS #### [facility] [address] [place], [place] [id number] COMP METABOLIC PANEL Collected: 03/03/2018 Status: F Source: [place] 1:48 AM [facility] REPOSITORY TYPE CODE TESTS RESULT OUT OF REFERENCE UNITS RANGE LAB TP 6.3-8.0 g/dL Low Protein, Total 6.0 LAB ALB 3.9-4.9 g/dL Low Albumin 2.9 LAB CA 8.5-10.2 mg/dL Low Calcium, Total 8.2 LAB TBIL 0.2-1.3 mg/dL Bilirubin, Total 0.2 LAB ALKP 32-117 U/L Alkaline Phosphatase 41 LAB AST 13-35 U/L AST 23 LAB GLU 74-99 mg/dL Glucose High 135 Result Comment: The [place] Diabetes [employer] (ADA) provides guidance for cutoff values for fasting glucose and random glucose. The ADA defines fasting as no caloric intake for at least 8 hours. Fas ting plasma glucose results between 100 to 125 mg/dL indicate increased risk for diabetes (prediabetes). Fasting plasma glucose results greater than or equal to 126 mg/dL meet the criteria for diagnosis of diabetes. In the absence of unequivocal hyperglycemia, results should be confirmed by repeat testing. In a patient with classic symptoms of hyperglycemia or hyperglycemic crisis, random plasma glucose results greater than or equal to 200 mg/dL meet the criteria for diagnosis of diabetes. Reference: Standards of Medical Care in Diabetes 2016, [place] [employer]. Diabetes Care. 2016.39(Suppl 1). LAB BUN 7-21 mg/dL BUN High 32 LAB CRET 0.58-0.96 mg/dL Creatinine High 2.04 LAB NA 136-144 mmol/L Sodium 141 LAB K 3.7-5.1 mmol/L Potassium 4.5 LAB CL 97-105 mmol/L Chloride High 107 LAB CO2 22-30 mmol/L Low CO2 16 LAB AGAP 9-18 mmol/L Anion Gap 18 LAB ALT 7-38 U/L ALT 13 LAB GFRAA eGFR- Amer. 30 LAB GFRNAA . eGFR-All Other Races 24 Result Comment: eGFR (Estimated GFR) Units of measure: mL/min/1.73 meters squared eGFR is derived from the reexpressed MDRD Study equation using the following parameters: serum creatinine, age, gender and race. The creatinine assay has been calibrated to be traceable to IDMS. An eGFR <60 mL/min/1.73m2 for >3 months is consistent with chronic kidney disease. Refer to KDOQI guidelines for clinical interpretation. In patients with unstable renal function, e.g. those with acute kidney injury, the eGFR may not accurately reflect actual GFR. Performed By: #### CMP, MG1 #### [facility] [address] [place] [address] MAGNESIUM Collected: 03/03/2018 Status: F Source: [place] 1:48 AM [facility] REPOSITORY TYPE CODE TESTS RESULT OUT OF REFERENCE UNITS RANGE LAB MG 1.7-2.3 mg/dL Magnesium 1.7 Performed By: #### CMP, MG1 #### [facility] [address] [place] [address] NURSING PROG Observed: 03/03/2018 Status: COMPLETED Source: [place] 1:05 AM [facility] REPOSITORY HNO ID: [id number] Author: Leila (Rn) ELISSA Tierney Service: Nursing Author Type: Registered Nurse Type: Nursing Progress Note Filed: 03/03/2018 1:06 AM Note Text: Nursing Progress Note Patient Name: Serena Musa Patient Location: [place] [id number] Note: Notified by CMU that patient HR was sustaining 130s-140s. Patient was asymptomatic in the bathroom. On returning to bed patient HR returned to 97. notified. ? This note was completed by: Leila Tierney RN OPERATIVE NO Observed: 03/02/2018 Status: COMPLETED Source: [place] 3:21 PM [facility] REPOSITORY HNO ID: [id number] Author: Santa Medrano RN Service: Wound/Ostomy Author Type: Registered Nurse Type: Nursing Progress Note Filed: 03/02/2018 3:25 PM Note Text: [place] [address] How to Change Your Disposable, Two-Piece Pouch With Cut-to-Fit Barrier Flange (Post-Operative Technique) 1. Gather the following supplies: ? Washcloths or paper towels e.g. Bounty, Gordon, or Brawny ? Non-oily soap e.g. Ivory and Dial ? Scissors with at least one blunt tip ? Plastic bag or newspaper for waste ? New pouch: Coloplast Sensura [place] Uro pouch ? Skin barrier flange: Coloplast Sensura [place] convex flange ? Accessory products: Adhesive Remover, Stoma Paste, Stoma Powder and Barrier Ring 2. Prepare the new pouch: ? Trace the pattern (sized to fit within 1/8 of stoma) on the cover paper of the skin barrier flange. ? Cut out the skin barrier flange. ? Center the pouch opening over the skin barrier flange and snap firmly together. ? Close the end of the pouch. ? Remove the skin barrier cover papers from the adhesive surface of the flange. ? Apply small bead of Stomahesive Paste or Brava ring to inner edge ? Set the prepared pouch assembly aside, sticky side up. 3. Remove the worn pouch: ? Holding the pouch upright, open the end of the pouch. ? Empty the waste from the pouch into the toilet. ? Remove the worn pouch by: ? Applying light pressure on the skin with one hand. ? Gently pulling the pouch from the skin with the other hand. ? Use adhesive remover as needed ? Wrap the worn pouch in newspaper or place in a plastic bag and discard. 4. Cleanse the skin around the stoma: ? Wash the area around the stoma with non-oily soap and warm water ? Shave area as needed. ? Rinse the area thoroughly with warm water. ? Pat the skin dry with a washcloth or paper towel. ? Use skin barrier powder to sore skin as needed. [place] off excess powder. 5. Apply the prepared pouch: ? Center the pouch opening over the stoma and press into place. ? Smooth the sticky surface of the skin barrier flange onto the skin. ? Hold the pouch firmly in place for a few moments. 6. Change pouch flange every 3-4 days. If your pouch leaks or the skin around your stoma gets sore, call your /[facility] Nurse at or , ext. [phone]. NURSING PROG Observed: 03/02/2018 Status: COMPLETED Source: [place] 3:21 PM [facility] REPOSITORY O ID: [id number] Author: Santa Medrano RN Service: Wound/Ostomy Author Type: Registered Nurse Type: Nursing Progress Note Filed: 03/02/2018 3:25 PM Note Text: [place] [address] How to Change Your Disposable, Two-Piece Pouch With Cut-to-Fit Barrier Flange (Post-Operative Technique) 1. Gather the following supplies: ? Washcloths or paper towels e.g. Bounty, Gordon, or Brawny ? Non-oily soap e.g. Ivory and Dial ? Scissors with at least one blunt tip ? Plastic bag or newspaper for waste ? New pouch: Coloplast Sensura [place] Uro pouch ? Skin barrier flange: Coloplast Sensura [place] convex flange ? Accessory products: Adhesive Remover, Stoma Paste, Stoma Powder and Barrier Ring 2. Prepare the new pouch: ? Trace the pattern (sized to fit within 1/8 of stoma) on the cover paper of the skin barrier flange. ? Cut out the skin barrier flange. ? Center the pouch opening over the skin barrier flange and snap firmly together. ? Close the end of the pouch. ? Remove the skin barrier cover papers from the adhesive surface of the flange. ? Apply small bead of Stomahesive Paste or Brava ring to inner edge ? Set the prepared pouch assembly aside, sticky side up. 3. Remove the worn pouch: ? Holding the pouch upright, open the end of the pouch. ? Empty the waste from the pouch into the toilet. ? Remove the worn pouch by: ? Applying light pressure on the skin with one hand. ? Gently pulling the pouch from the skin with the other hand. ? Use adhesive remover as needed ? Wrap the worn pouch in newspaper or place in a plastic bag and discard. 4. Cleanse the skin around the stoma: ? Wash the area around the stoma with non-oily soap and warm water ? Shave area as needed. ? Rinse the area thoroughly with warm water. ? Pat the skin dry with a washcloth or paper towel. ? Use skin barrier powder to sore skin as needed. [place] off excess powder. 5. Apply the prepared pouch: ? Center the pouch opening over the stoma and press into place. ? Smooth the sticky surface of the skin barrier flange onto the skin. ? Hold the pouch firmly in place for a few moments. 6. Change pouch flange every 3-4 days. If your pouch leaks or the skin around your stoma gets sore, call your ET/WOC Nurse at or , ext. [phone]. PT ED Observed: 03/02/2018 Status: COMPLETED Source: [place] 3:07 PM [facility] REPOSITORY O ID: [id number] Author: Santa Medrano RN Service: Wound/Ostomy Author Type: Registered Nurse Type: Patient Education Filed: 03/02/2018 3:21 PM Note Text: ET/WOC NURSING ET OUTCOME: Lesson # 1 for stoma care and pouch change with this patient TOPIC: OSTOMY INSTRUCTION READINESS TO LEARN COGNITIVE ABILITY: Alert and Oriented MOTIVATION TO LEARN: Eager FAMILY SUPPORT: None - Unavailable/Interested INSTRUCTION PROVIDED TO: Patient PATIENT LEARNS BEST BY: Multiple Methods FACTORS AFFECTING LEARNING: None PHYSICAL LIMITATIONS AFFECTING LEARNING: None LEARNING RESPONSE 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 PROCEDURE / SURGERY: End ileal conduit EDUCATION TOPIC/ TEACHING POINTS: Ostomy Care Postoperative self ostomy care instruction METHOD OF INSTRUCTION: Individual instruction Verbal instruction PATIENT / FAMILY RESPONSE: Verbalizing understanding of: Correct procedure for emptying ostomy pouch and Correct procedure for changing ostomy pouch FOLLOW-UP PLAN: Reinforce - Repeat previous content SUPPLEMENTAL MATERIAL: Pouch change Instruction Sheet REFERRAL (RECOMMENDATION): None TIME INCREMENT: 1 hour 30 minutes Electronically Signed By Santa Medrano RN ET/WOC Nursing [facility] Observed: 03/02/2018 Status: COMPLETED Source: [place] 2:36 PM [facility] [place] REPOSITORY HNO ID: [id number] Author: Santa Medrano RN Service: Wound/Ostomy Author Type: Registered Nurse Type: Allied Health Filed: 03/02/2018 3:07 PM Note Text: ET/WOC NURSING TOPIC: POST-OPERATIVE ASSESSMENT AND CARE: Urostomy PATIENT NAME: Serena Musa DATE: March 02, 2018 TIME: 2:37 PM ET Care Outcome: Lesson # 1 for stoma care and pouch change with this patient ET's Next Scheduled Visit: 03/04 lesson #2 with pouch change Stoma type: End Ileal Conduit Diameter: 1 3/8 side to side with menendez suture at 9:00 Location: RLQ Protrusion: Budded Mucosal condition and color: Red and moist and edematous Garth: No Ureteral Stents Present: per operative note there are stents internalized but there is a braided suture over stoma ? Connected to stents Stoma Menendez present: Yes: Sutured? Yes Character of urine: Yellow with mucous Mucocutaneous Junction: Intact Peristomal Skin: Clear and intact Location of Skin Impairment: NA Treatment of Skin Impairment: NA Supportive Tissue: Soft slight dip with small folds at 3:00 Pouching System: Coloplast Sensura Shaneka convex flange red large with brava ring and Uro pouch to drainage bag Incision: Degree of approximation: 100% Approximating devices: Surgical Glue Drainage: none Method of Management: PETROS Drain: Type: MARK,Location: LLQ,Drainage color: sero-sang,Drain insertion site: clear and dry Method of Management: Dry sterile dressing Education: Yes: See Patient Education Note Comments: patient interested in support group and ostomy accessories Supplies Given: Yes: post op kit and Coloplast Sensura Shaneka convex flange and Uro pouch x 2 Time Increment: 1 hour 30 minutes Santa Medrano RN CWOCN PROGRESS Observed: 03/02/2018 Status: COMPLETED Source: [place] 8:26 AM [facility] HNO ID: [id number] Author: Navin Jean Baptiste MD Service: Urology Author Type: Resident Type: Progress Notes Filed: 03/02/2018 10:01 AM Note Text: [facility] UROLOGY PROGRESS NOTE Name: Serena Musa Bed: G090 001/G090-01 Date: March 02, 2018 ASSESSMENT AND PLAN Serena Musa is a 67 year old female with bladder cancer now POD# 2 s/p Robotic radical cystectomy, pelvic lymph node dissection including presacral lymph nodes on the right, and intracorporeal ileal conduit (02/28/18) Clinically doing well POD2 cystectomy/ileal conduit. Tolerating liquids and passing flatus. Ambulating well. Will advance to GI soft diet today. Continue IVF hydration - element of post-obstructive diuresis with high urine output. Electrolytes stable - will continue to monitor closely. Neuro -Pain controlled with PO analgesia - minimize narcotics CV/Resp -stable hemodynamics and pulmonary status GI -Diet - advance to GI soft -creatinine downtrending - continue IVF today (post-obstructive diuresis) -continue stoma menendez and MARK drain FEN/Endo -mIVF - continue today ID Perioperative antibiotics - Unasyn 3g q12, bactrim stent prophylaxis beginning today Activity - OOB to chair and Ambulate with assistance DVT prophylaxis - SCDs, Heparin SQ TID Discharge teaching - will need home going pouch management teaching, MARK teaching Disposition - pending clinical course Subjective -Doing well overnight, no issues other than mild pruritic rash on abdomen (resolved) -Pain:well controlled -CP/SOB: Denies -N/V:Denies -Bowel function: + flatus -Ambulating multiple times per day Objective Vital Signs BP 148/76 Pulse 71 Temp 36.8 ?C (98.2 ?F) (Oral) Resp 16 Ht 157.5 cm (5' 2) Wt 72.5 kg (159 lb 13.3 oz) SpO2 94% BMI 29.23 kg/m? Input and Output Intake/Output Summary (Last 24 hours) at 03/02/18 08 Last data filed at 03/02/18 06 Gross per 24 hour Intake 1935 ml Output 6580 ml Net -4645 ml Physical Exam General: comfortable in NAD HEENT: Normocephalic, atraumatic CV:: warm, well-perfused Resp: breathing comfortably on RA GI: Soft, mildly tender, nondistended. No rebound or guarding. Incisions c/d/i : stoma beefy red, stoma menendez in place, urine clear yellow, MARK ss Extremities: no edema Neuro: Alert and oriented Psych: Normal affect Recent Labs 03/02/18 0326 03/01/18 0057 02/28/18 1934 WBC 9.35 10.44 14.00* HB 7.5* 8.1* 8.4* HCT 23.0* 24.9* 25.6* PLT 243 229 255 NA 141 146* 144 K 5.2* 5.1 5.3* CHLOR 108* 112* 109* CO2 21* 21* 17* BUN 33* 49* 52* CREAT 2.30* 3.36* 3.59* GLUC 112* 139* 167* Imaging preop imaging reviewed Jose Olvera MD Urology PGY2 [id number] urology grounds restoration specialist . CHIEF RESIDENT ADDENDUM Agree with the note above no acute events overnight, sleeping comfortably, feels better. Pain well controlled on current pain regimen. Denies fevers, rigors, chest pain, dyspnea. Tolerating clear liquid diet without nausea or emesis +flatus, -BM. BP 148/76 Pulse 71 Temp 36.8 ?C (98.2 ?F) (Oral) Resp 16 Ht 157.5 cm (5' 2) Wt 72.5 kg (159 lb 13.3 oz) SpO2 94% BMI 29.23 kg/m? Abd soft, mild distension, non tender Incision c/d/I IC pink and viable, stoma menendez in place, urine clear MARK ss SCr 2.3 [address]gb [address] Olvera above GI soft today SCDs, SQH Entereg ?hives, not seen on exam - will see if Bactrim? Zofran? Watch K 5.2 - may need K cocktail Hgb 7.5 - hold on transfusion for now Diet supplements Ambulate, reinforce IS Navin Jean Baptiste M.D. Urology PGY-6 Pager: [phone] March 02, 2018 9:58 AM PLEASE FIRST PAGE THE PRIMARY SERVICE RESIDENT LISTED ABOVE NURSING PROG Observed: 03/02/2018 Status: COMPLETED Source: [place] 7:46 AM [facility] REPOSITORY HNO ID: [id number] Author: Velvet (Rn) ELISSA Dean Service: (none) Author Type: Registered Nurse Type: Nursing Progress Note Filed: 03/02/2018 7:48 AM Note Text: Nursing Progress Note Patient Name: Serena Musa Patient Location: [place] [address] Daily Note: 1900 Assumed care of patient, c/o mild pain and itching, states she takes benadryl at home regularly for chronic itching. Res notified. Pt up walking room with assist, steady. This note was completed by: Velvet Dean, ELISSA CBC AND DIFFERENTIAL Collected: 03/02/2018 Status: F Source: [place] 3:26 AM [facility] REPOSITORY TYPE CODE TESTS RESULT OUT OF REFERENCE UNITS RANGE LAB WBC 3.70-11.00 k/uL WBC 9.35 LAB RBC 3.90-5.20 m/uL Low RBC 2.36 LAB HGB 11.5-15.5 g/dL Low Hemoglobin 7.5 LAB HCT 36.0-46.0 % Low Hematocrit 23.0 LAB MCV 80.0-100.0 fL MCV 97.5 LAB MCH 26.0-34.0 pG MCH 31.8 LAB MCHC 30.5-36.0 g/dL MCHC 32.6 LAB RDWCV 11.5-15.0 % RDW-CV 12.6 LAB PLTCT 150-400 k/uL Platelet Count 243 LAB MPV 9.0-12.7 fL MPV 9.6 LAB ANEUT % Neut% 77.8 LAB AANEUT 1.45-7.50 k/uL Abs Neut 7.27 LAB ALYMP % Lymph% 13.2 LAB AALYMP 1.00-4.00 k/uL Abs Lymph 1.23 LAB AMONO % Davison% 8.1 LAB AAMONO <0.87 k/uL Abs Davison 0.76 LAB AEOS % Eosin% 0.6 LAB AAEOS <0.46 k/uL Abs Eosin 0.06 LAB ABASO % Baso% 0.3 LAB AABASO <0.11 k/uL Abs Baso 0.03 LAB AUNRBC 0 /100 WBC NRBCs 0.0 LAB ABNRBC <0.01 k/uL Absolute nRBC <0.01 LAB DTYP DTYPE Auto Diff Performed By: #### CBCDIF, CMP, PHOS #### [facility] [address] [place], [place] [address] COMP METABOLIC PANEL Collected: 03/02/2018 Status: F Source: [place] 3:26 AM [facility] REPOSITORY TYPE CODE TESTS RESULT OUT OF REFERENCE UNITS RANGE LAB TP 6.3-8.0 g/dL Low Protein, Total 6.0 LAB ALB 3.9-4.9 g/dL Low Albumin 3.2 LAB CA 8.5-10.2 mg/dL Low Calcium, Total 8.3 LAB TBIL 0.2-1.3 mg/dL Bilirubin, Total 0.3 LAB ALKP 32-117 U/L Alkaline Phosphatase 38 LAB AST 13-35 U/L AST 22 LAB GLU 74-99 mg/dL Glucose High 112 Result Comment: The [place] [employer] (ADA) provides guidance for cutoff values for fasting glucose and random glucose. The ADA defines fasting as no caloric intake for at least 8 hours. Fas ting plasma glucose results between 100 to 125 mg/dL indicate increased risk for diabetes (prediabetes). Fasting plasma glucose results greater than or equal to 126 mg/dL meet the criteria for diagnosis of diabetes. In the absence of unequivocal hyperglycemia, results should be confirmed by repeat testing. In a patient with classic symptoms of hyperglycemia or hyperglycemic crisis, random plasma glucose results greater than or equal to 200 mg/dL meet the criteria for diagnosis of diabetes. Reference: Standards of Medical Care in Diabetes 2016, [place] [employer]. Diabetes Care. 2016.39(Suppl 1). LAB BUN 7-21 mg/dL BUN High 33 LAB CRET 0.58-0.96 mg/dL Creatinine High 2.30 LAB NA 136-144 mmol/L Sodium 141 LAB K 3.7-5.1 mmol/L Potassium High 5.2 LAB CL 97-105 mmol/L Chloride High 108 LAB CO2 22-30 mmol/L Low CO2 21 LAB AGAP 9-18 mmol/L Anion Gap 12 LAB ALT 7-38 U/L ALT 14 LAB GFRAA eGFR- Amer. 26 LAB GFRNAA . eGFR-All Other Races 21 Result Comment: eGFR (Estimated GFR) Units of measure: mL/min/1.73 meters squared eGFR is derived from the reexpressed MDRD Study equation using the following parameters: serum creatinine, age, gender and race. The creatinine assay has been calibrated to be traceable to IDMS. An eGFR <60 mL/min/1.73m2 for >3 months is consistent with chronic kidney disease. Refer to KDOQI guidelines for clinical interpretation. In patients with unstable renal function, e.g. those with acute kidney injury, the eGFR may not accurately reflect actual GFR. Performed By: #### CBCDIF, CMP, PHOS #### [facility] [address] [place] [address] PHOSPHORUS Collected: 03/02/2018 Status: F Source: [place] 3:26 AM [facility] REPOSITORY TYPE CODE TESTS RESULT OUT OF REFERENCE UNITS RANGE LAB PHOS 2.7-4.8 mg/dL Phosphorus 3.5 Result Comment: Result rechecked. Performed By: #### CBCDIF, CMP, PHOS #### [facility] [address] [place] [id number] TYPE AND SCREEN Collected: 03/02/2018 Status: F Source: [place] 3:26 AM [facility] REPOSITORY TYPE CODE TESTS RESULT OUT OF REFERENCE UNITS RANGE LAB %ABR O ABO/RH(D) POSITIVE LAB % Antibody NEG Screen Performed By: #### TSCR #### [facility] [address] [place] [id number] [facility] Observed: 03/01/2018 Status: COMPLETED Source: [place] 5:16 PM [facility] REPOSITORY HNO ID: [id number] Author: Brandon (Rn) ELISSA Hugo Service: Wound/Ostomy Author Type: Registered Nurse Type: Allied Health Filed: 03/01/2018 5:18 PM Note Text: ET/WOCN Nursing Consult Topic: ET/WOCN Consultation Note ET Outcome: Patient is POD#1 for EIC. Upon assessment the stoma is red, moist, and functioning. The pouch seal is intact. There is a stoma menendez in place. Patient states she would prefer to begin education tomorrow. As she is not for DC until next, will continue with this plan. ET's Next Scheduled Visit: 04/02 Time Increment: 15 minutes JOSE GUADALUPE Bazan, RN, CWOCN THERAPY NT Observed: 03/01/2018 Status: COMPLETED Source: [place] 3:19 PM [facility] [place] REPOSITORY HNO ID: [id number] Author: Tana Delgado (Pt) Beverly Service: Physical Therapy Author Type: Physical Therapist Type: Therapy (PT/OT/Speech/Resp) Filed: 03/01/2018 3:24 PM Note Text: Physical Therapy Evaluation SERVICE DATE: 03/01/2018 SERVICE TIME: 1431 to 1509 ROOM: [place] [address] Recommended Discharge Disposition: Home PT Anticipated Discharge Needs: Physical Assist at Home Physical Assist at Home for: Transfers;Ambulation;Cleaning;Laundry;Meals;Stairs;Self Care;Transportation;Shopping Recommended Discharge Equipment: No equipment needs anticipated PT Recommendations to Nursing: Ambulate with device;To bathroom;In halls;Transfer to/from chair;OOB for Meals;With assist of 1 person Device: Wheeled Walker PT 6 Clicks Score: 17 Precautions/Activity Restrictions: Lines/Tubes/Drains;Fall Risk;Abdominal ASSESSMENT : Pt denied lightheadedness, dizziness, SOB and reported 5-6/10 abdominal pain with mobility this date. Pt pleasant and willing to participate in PT. Pt able to perform functional mobility with SBA-min A x 1 this date. Anticipate that patient will be safe to return home from a PT perspective with home PT and prn assist for iADLs, ADLs and safe mobility. Pt requires skilled therapy to address current functional limitations and impairments and maximize activity tolerance to be within safe limits. Pt can benefit from post acute skilled PT to increase independence and safety during functional mobility. Patient Disposition at Start of Session: Supine in Bed;Call [place] in Reach Patient Disposition at End of Session: OOB in Chair;Call [place] in Reach Tolerated Full Session Physical Therapy Problem List: Pain;Safety Deficits;Decreased Strength;Functional Mobility Impairment;Balance Impaired Patient /Caregiver Goals: Go Home Goals for Plan of Care: Able to perform HEP with: Independent Rolling with: Independent Transfer supine to/from sit with: Independent Transfer sit to/from stand with: Modified Independent Ambulate with: Modified Independent Distance: 150 Device: Other: See Comment (LRAD) Ambulate up and down steps with: Stand By Assistance Number of steps: 1 Rehab Potential: Good PLAN: Treatment Frequency (times per week): 3 Current admission Treatment Interventions: Education;Energy Conservation Training;Self Care / Home Management;Strengthening;Functional Mobility Training;Neuromuscular Re-education;Balance Training Plan of Care developed with: Patient TREATMENT INTERVENTIONS: Therapy Diagnosis: Reduced mobility-other Interventions Provided: Evaluation;Therapeutic Activity (81758);Gait Training (42429) $ Evaluation-Low (28210) Billed Units: 1 unit Therapeutic Activity (02777) Treatment Minutes: 12 1 unit Skilled Intervention(s): Instructed patient in log roll technique Instructed patient in supine to sit pushing with upper extremities to sit up Sit->stand from EOB: min A x 1, stand->sit in chair: SBA x 1 Instruction in stand to sit technique with lower extremities touching chair/bed and reaching back for surface Instruction in sit to and from stand technique with proper hand placement and body positioning at edge of bed/chair Pt and educated on abdominal precautions and benefits of log roll technique (demonstration provided) prior to mobilizing. Abdominal precautions handout administered at end of PT. Patient/ educated on role, benefits, goal of PT, PT POC, benefits of sitting in chair, benefits of ambulating with RN/PCNA while in house, use of call light to increase safety in room, benefits of post acute PT, post acute PT options and post acute PT D/C recommendation. Pt and also educated on PT recommendation of family assist with safe mobility after d/c. Gait Training (68078) Treatment Minutes: 11 1 unit Skilled Intervention(s): Instruction in correction of gait deviations and Instruction in use of equipment, cues for sequence and pattern. Pt required SBA-CGA x 1 to ambulate with B UE support on IV pole and pt holding pillow as brace when ambulating this date. Min A x 1 when pt standing and coughing holding pillow (pt declined sitting down to cough). Total Timed Code Treatment Minutes: 23 Total Treatment Time (minutes): 38 FUNCTIONAL G CODE: PT 6 Clicks Score: 17 (03/01/18 1431) Mobility: Walking and Moving Around Current Status (G8978): CK (03/01/18 1431) Mobility: Walking and Moving Around Goal Status (G8979): CJ (03/01/18 1431) Based on clinical assessment and the score on the 6 Clicks Functional Assessment Tool, the G code and corresponding severity modifiers are documented above. SUBJECTIVE: Current Hospital Course: Chart reviewed; Serena Musa is a 67 year old female with bladder cancer now POD# 1 s/p Robotic radical cystectomy, pelvic lymph node dissection including presacral lymph nodes on the right, and intracorporeal ileal conduit (02/28/18 PAST MEDICAL HISTORY Diagnosis Date - Bladder cancer (HCC) No past surgical history on file. Reason for Physical Therapy Consult : post acute placement Relevant Past Medical History: see eval Patient Report: It's easier this time than it was this morning. Pt supine at start of PT, agreeable to PT. present. Home Environment Patient Lives With: Significant Other Assistance Available: 24 Hour Entry To Home: Stairs;Without Rail Number Of Stairs Into Home: 2 Number Of Stairs To Bed/Bath: 0 Tub/Shower Type: walk in shower Laundry: 1st floor Equipment Owned: Crutch(es);Wheeled Walker Prior Functional Level: Within Functional Limits (IND mobility/ADLs. +drive. +work.) OBJECTIVE: CURRENT FUNCTIONAL STATUS: Current Functional Mobility Assist Level Additional Information Rolling Minimal Assistance Supine to Sit Minimal Assistance Sit to Supine Scooting Contact Guard Assistance Sit to Stand Minimal Assistance Stand to Sit Stand By Assistance Bed to Chair Toilet/Commode Gait Contact Guard Assistance (-SBA x 1) Gait Device: IV Pole Gait Distance (feet): 180' Stairs Curb Step Car Transfer General Gait Deviations: Karlie decreased;Step length decreased;Flexed trunk posture;Non-functional gait speed Balance: Static Sitting;Dynamic Sitting;Static Standing;Dynamic Standing Static Sitting Balance: Supervision Dynamic Sitting Balance: Supervision Static Standing Balance: Contact Guard Assistance Dynamic Standing Balance: Contact Guard Assistance Patient sitting in chair at end of PT session, needs within reach, no signs of acute distress noted, RN notified, present. Please see discipline specific clinical documentation flowsheet for complete details for this therapy evaluation/treatment. SIGNATURE: Tana Paul PT PATIENT NAME: Serena Musa DATE: March 01, 2018 TIME: 3:19 PM THERAPY NT Observed: 03/01/2018 Status: COMPLETED Source: [place] 1:13 PM [facility] REPOSITORY HNO ID: [id number] Author: Tana OwenPtMargarita Paul Service: Physical Therapy Author Type: Physical Therapist Type: Therapy (PT/OT/Speech/Resp) Filed: 03/01/2018 1:13 PM Note Text: PHYSICAL THERAPY MISSED VISIT SERVICE DATE: 03/01/2018 SERVICE TIME: 1310 to 1312 ROOM: [place] [address] Attempted Evaluation. Patient not seen due to Other: See Comment. Pt requesting PT to come back this afternoon to mobilize. Will follow up as able for PT evaluation. SIGNATURE: Tana Paul PT PATIENT NAME: Serena Musa DATE: March 01, 2018 TIME: 1:13 PM CASE MANAGEM Observed: 03/01/2018 Status: COMPLETED Source: [place] 12:59 PM [facility] REPOSITORY HNO ID: [id number] Author: Ingrid Webster (Sw) Service: Care Management Author Type: Senior Licensing Manager Type: Care Mgt Progress Note Filed: 03/01/2018 1:02 PM Note Text: CARE MANAGEMENT PROGRESS NOTE SERVICE DATE: 03/01/2018 SERVICE TIME: 1:00 PM LOS: 2 days FREEDOM OF CHOICE GIVEN: Yes Serena Musa Financial Disclosure Provided The patient and/or family has been given the Provider List: Yes Provider List: Home Care Preference: Pt will look over the list and let CM know her preference Chart reviewed and met with pt at bedside. Discussed need for [place] at [place]. Pt is agreeable. List provided. Pt agreed to provide CM with choices after she discusses it further with spouse (bedside) and friends that work in the health care field. CM following. SIGNATURE: ROGELIO Lopez, MEsdrasEd, AC PATIENT NAME: Serena Musa DATE: March 01, 2018 TIME: 12:59 PM PAGER/CONTACT #: [phone] PROGRESS Observed: 03/01/2018 Status: COMPLETED Source: [place] 6:14 AM [facility] REPOSITORY HNO ID: [id number] Author: Tonya Min MD Service: Urology Author Type: Resident Type: Progress Notes Filed: 03/01/2018 10:34 AM Note Text: [facility] UROLOGY PROGRESS NOTE Name: Serena Musa Bed: G090 001/G090-01 Date: March 01, 2018 ASSESSMENT AND PLAN Serena Musa is a 67 year old female with bladder cancer now POD# 1 s/p Robotic radical cystectomy, pelvic lymph node dissection including presacral lymph nodes on the right, and intracorporeal ileal conduit (02/28/18) Neuro -Pain controlled with IV narcotics CV/Resp -Hgb 8.1 from 8.4 postop - from 10.1 preop. Stable, likely dilutional. VSS. GI -Diet - Clear liquid diet -Scr 3.36 from 4.3 preop. -UOP 1.5 L, monitoring for postobstructive diuresis, electrolytes WNL. -Stoma menendez in place FEN/Endo -mIVF ID Perioperative antibiotics - Unasyn 3g q12, bactrim prophy starts tomorow Activity - OOB to chair and Ambulate with assistance - PT to see todsay DVT prophylaxis - SCDs, Heparin SQ TID Discharge teaching - will need home going pouch management teaching, AMRK teaching Disposition - pending clinical course The patient's progress, lab findings, vitals, and clinical decision making as documented above were discussed with the patient's attending staff surgeon, Yoshi Lara Subjective -Doing well overnight, no issues -Pain:well controlled -CP/SOB: Denies -N/V:Denies -Bowel function: no flatus or BM -Ambulating: not OOB yet Objective Vital Signs BP 125/63 Pulse 63 Temp 37.3 ?C (99.1 ?F) (Oral) Resp 18 Ht 157.5 cm (5' 2) Wt 72.4 kg (159 lb 9.8 oz) SpO2 96% BMI 29.19 kg/m? Input and Output Intake/Output Summary (Last 24 hours) at 03/01/18 0614 Last data filed at 03/01/18 0555 Gross per 24 hour Intake 6674 ml Output 2630 ml Net 4044 ml Drains: 330cc MARK drain serosang Urine: 1900 UOP Physical Exam General: comfortable in NAD HEENT: Normocephalic, atraumatic CV:: warm, well-perfused Resp: breathing comfortably on RA GI: Soft, mildly tender, nondistended. No rebound or guarding. : Urine clear pink, stoma pink and healthy Extremities: no edema Neuro: Alert and oriented Psych: Normal affect Recent Labs 03/01/18 0057 02/28/18 1934 02/28/18 0540 02/27/18 1650 WBC 10.44 14.00* -- -- 9.45 HB 8.1* 8.4* -- -- 10.1* HCT 24.9* 25.6* -- -- 30.8* PLT 229 255 -- -- 270 NA 146* 144 142 -- 140 K 5.1 5.3* 5.1 < > 5.5* CHLOR 112* 109* 108* -- 104 CO2 21* 17* 18* -- 17* BUN 49* 52* 62* -- 61* CREAT 3.36* 3.59* 4.28* -- 4.66* GLUC 139* 167* 102* -- 96 < > = values in this interval not displayed. Imaging preop imaging reviewed Jose Olvera MD Urology PGY2 [id number] urology grounds restoration specialist Chief resident addendum. Please page service resident listed above first with questions or concerns. Progressing well. Has ambulated. Pain controlled. Polyuric. Stable VS and minimal electrolyte derangements. Abd soft appropriately tender. Stoma is beefy red with stoma menendez. MARK SS. Urine clear pink yellow. Agree with plan and discussed with resident lived above. Tonya Min MD . MAGNESIUM Collected: 03/01/2018 Status: F Source: [place] 12:58 AM [facility] REPOSITORY TYPE CODE TESTS RESULT OUT OF REFERENCE UNITS RANGE LAB MG 1.7-2.3 mg/dL Magnesium 1.7 Performed By: #### MG1 #### [facility] [address] [place], [place] [address] CBC AND DIFFERENTIAL Collected: 03/01/2018 Status: F Source: [place] 12:57 AM [facility] REPOSITORY TYPE CODE TESTS RESULT OUT OF REFERENCE UNITS RANGE LAB WBC 3.70-11.00 k/uL WBC 10.44 LAB RBC 3.90-5.20 m/uL Low RBC 2.55 LAB HGB 11.5-15.5 g/dL Low Hemoglobin 8.1 LAB HCT 36.0-46.0 % Low Hematocrit 24.9 LAB MCV 80.0-100.0 fL MCV 97.6 LAB MCH 26.0-34.0 pG MCH 31.8 LAB MCHC 30.5-36.0 g/dL MCHC 32.5 LAB RDWCV 11.5-15.0 % RDW-CV 12.4 LAB PLTCT 150-400 k/uL Platelet Count 229 LAB MPV 9.0-12.7 fL MPV 9.5 LAB ANEUT % Neut% 87.1 LAB AANEUT 1.45-7.50 k/uL Abs Neut High 9.09 LAB ALYMP % Lymph% 6.1 LAB AALYMP 1.00-4.00 k/uL Low Abs Lymph 0.64 LAB AMONO % Davison% 6.8 LAB AAMONO <0.87 k/uL Abs Davison 0.71 LAB AEOS % Eosin% 0.0 LAB AAEOS <0.46 k/uL Abs Eosin <0.03 LAB ABASO % Baso% 0.0 LAB AABASO <0.11 k/uL Abs Baso <0.03 LAB AUNRBC 0 /100 WBC NRBCs 0.0 LAB ABNRBC <0.01 k/uL Absolute nRBC <0.01 LAB DTYP DTYPE Auto Diff Performed By: #### CBCDIF, CMP, PHOS #### [facility] [address] [place] [id number] COMP METABOLIC PANEL Collected: 03/01/2018 Status: F Source: [place] 12:57 AM [facility] REPOSITORY TYPE CODE TESTS RESULT OUT OF REFERENCE UNITS RANGE LAB TP 6.3-8.0 g/dL Low Protein, Total 6.1 LAB ALB 3.9-4.9 g/dL Low Albumin 3.4 LAB CA 8.5-10.2 mg/dL Low Calcium, Total 8.4 LAB TBIL 0.2-1.3 mg/dL Bilirubin, Total 0.2 LAB ALKP 32-117 U/L Alkaline Phosphatase 38 LAB AST 13-35 U/L AST 19 LAB GLU 74-99 mg/dL Glucose High 139 Result Comment: The [place] Diabetes [employer] (ADA) provides guidance for cutoff values for fasting glucose and random glucose. The ADA defines fasting as no caloric intake for at least 8 hours. Fas ting plasma glucose results between 100 to 125 mg/dL indicate increased risk for diabetes (prediabetes). Fasting plasma glucose results greater than or equal to 126 mg/dL meet the criteria for diagnosis of diabetes. In the absence of unequivocal hyperglycemia, results should be confirmed by repeat testing. In a patient with classic symptoms of hyperglycemia or hyperglycemic crisis, random plasma glucose results greater than or equal to 200 mg/dL meet the criteria for diagnosis of diabetes. Reference: Standards of Medical Care in Diabetes 2016, [place] [employer]. Diabetes Care. 2016.39(Suppl 1). LAB BUN 7-21 mg/dL BUN High 49 LAB CRET 0.58-0.96 mg/dL Creatinine High 3.36 LAB NA 136-144 mmol/L Sodium High 146 LAB K 3.7-5.1 mmol/L Potassium 5.1 LAB CL 97-105 mmol/L Chloride High 112 LAB CO2 22-30 mmol/L Low CO2 21 LAB AGAP 9-18 mmol/L Anion Gap 13 LAB ALT 7-38 U/L ALT 13 LAB GFRAA eGFR- Amer. 17 LAB GFRNAA . eGFR-All Other Races 14 Result Comment: eGFR (Estimated GFR) Units of measure: mL/min/1.73 meters squared eGFR is derived from the reexpressed MDRD Study equation using the following parameters: serum creatinine, age, gender and race. The creatinine assay has been calibrated to be traceable to IDMS. An eGFR <60 mL/min/1.73m2 for >3 months is consistent with chronic kidney disease. Refer to KDOQI guidelines for clinical interpretation. In patients with unstable renal function, e.g. those with acute kidney injury, the eGFR may not accurately reflect actual GFR. Performed By: #### CBCDIF, CMP, PHOS #### [facility] [address] [place] [id number] PHOSPHORUS Collected: 03/01/2018 Status: F Source: [place] 12:57 AM [facility] REPOSITORY TYPE CODE TESTS RESULT OUT OF REFERENCE UNITS RANGE LAB PHOS 2.7-4.8 mg/dL High Phosphorus 5.7 Performed By: #### CBCDIF, CMP, PHOS #### [facility] [address] [place], [place] [address] PROGRESS Observed: 02/28/2018 Status: COMPLETED Source: [place] 10:06 PM [facility] REPOSITORY HNO ID: [id number] Author: Mary Lou Melendrez Service: Urology Author Type: Resident Type: Progress Notes Filed: 02/28/2018 10:13 PM Note Text: UROLOGY SERVICE POST OPERATIVE CHECK NOTE Name: Serena Musa Date: February 28, 2018 S: 67 year old female Day of Surgery S/P Procedure(s): ROBOTIC LAPAROSCOPIC CYSTECTOMY BLADDER, CONDUIT ILEAL AND LYMPHADENECTOMY Pain controlled. No nausea, vomiting, CP, SOB. Stoma appliance has been leaking for last several hours while she was on PACU hold and after she intimally got to PACU so UOP unable to be recorded. Stoma appliance placed. O: BP 136/61 Pulse 78 Temp 36.9 ?C (98.4 ?F) (Axillary) Resp 16 Ht 157.5 cm (5' 2) Wt 67.8 kg (149 lb 7.6 oz) SpO2 92% BMI 27.34 kg/m? CBC, Coags, BMP, Mg, Phos Recent Labs 02/28/18 1934 02/28/18 1601 02/28/18 1418 02/28/18 1239 02/28/18 0540 02/27/18 2101 02/27/18 1650 WBC 14.00* -- -- -- -- -- -- 9.45 HB 8.4* -- -- -- -- -- -- 10.1* HCT 25.6* -- -- -- -- -- -- 30.8* PLT 255 -- -- -- -- -- -- 270 INR -- -- -- -- -- -- -- 1.0 APTT -- -- -- -- -- -- -- 24.3 NA 144 -- -- -- -- 142 -- 140 K 5.3* -- -- -- -- 5.1 4.8 5.5* CHLOR 109* -- -- -- -- 108* -- 104 CO2 17* -- -- -- -- 18* -- 17* BUN 52* -- -- -- -- 62* -- 61* CREAT 3.59* -- -- -- -- 4.28* -- 4.66* GLUC 167* -- -- -- -- 102* -- 96 IC -- 1.18 1.21 1.16 < > -- -- -- CA 8.3* -- -- -- -- 8.6 -- 9.5 < > = values in this interval not displayed. Gen: NAD, resting comfortably Pulm: non labored breathing on 2L CV: RR, HDS Abdomen: S, appropriately tender, mildly distended, incisions c/d/i. MARK s/s. : Stoma pink and patent w/ stoma menendez, draining light pink urine. Stoma appliance replaced. Ext: warm and dry, SCDs on A/P: 67 year old female POD0 s/p robotic radical cystectomy, pelvic lymph node dissection including presacral lymph nodes on the right, intracorporeal ileal conduit. Exam under anesthesia - Neuro: Pain control with - CV: HDS, acute blood loss anemia - Hgb 8.4 - Pulm: Incentive Spirometry - Renal: IVF @ 150mL/hr. q2h urine output. Will monitor closely for post-obstructive diuresis. - : Maintain stoma menendez, MARK drain. Has indwelling stents. - GI: Diet - Clear liquid diet. Entereg. Bowel regimen. - Activity - OOB to chair and Ambulate with assistance - DVT prophylaxis - Heparin SQ - Antibiotics - Perioperative antibiotics - unasyn - Secondary Dx and Complications - None - Discharge teaching - will need home going pouch management teaching - Discharge planning - pending clinical course. Mary Lou Melendrez MD PAGER: [phone] February 28, 2018 10:06 PM NURSING PROG Observed: 02/28/2018 Status: COMPLETED Source: [place] 10:00 PM [facility] REPOSITORY O ID: [id number] Author: Erick Rosenberg (Rn) ELISSA Hernandez Service: Nursing Author Type: Registered Nurse Type: Nursing Progress Note Filed: 02/28/2018 10:19 PM Note Text: Admission/Transfer Note PATIENT NAME: Serena Musa Patient admitted from PACU via bed in stable condition. Actions taken: Patient oriented to room, call light function, prescribed activities, Patient rights and Quiet at night. This note was completed by: Erick Hernandez RN NURSING PROG Observed: 02/28/2018 Status: COMPLETED Source: [place] 8:20 PM [facility] REPOSITORY HNO ID: [id number] Author: Mary (Rn) ELISSA Ames Service: (none) Author Type: Registered Nurse Type: Nursing Progress Note Filed: 02/28/2018 8:21 PM Note Text: Nursing Progress Note Patient Name: Serena Musa Patient Location: H020 002/H020 Daily Note:Paged PACU resident about H/H of 8.4/25.6. Pt asymptomatic. Awaiting any orders. Continue to monitor This note was completed by: Mary Ames RN CBC AND DIFFERENTIAL Collected: 02/28/2018 Status: F Source: [place] 7:34 PM [facility] REPOSITORY TYPE CODE TESTS RESULT OUT OF REFERENCE UNITS RANGE LAB WBC 3.70-11.00 k/uL WBC High 14.00 LAB RBC 3.90-5.20 m/uL Low RBC 2.69 LAB HGB 11.5-15.5 g/dL Low Hemoglobin 8.4 LAB HCT 36.0-46.0 % Low Hematocrit 25.6 LAB MCV 80.0-100.0 fL MCV 95.2 LAB MCH 26.0-34.0 pG MCH 31.2 LAB MCHC 30.5-36.0 g/dL MCHC 32.8 LAB RDWCV 11.5-15.0 % RDW-CV 12.6 LAB PLTCT 150-400 k/uL Platelet Count 255 LAB MPV 9.0-12.7 fL MPV 9.1 LAB ANEUT % Neut% 90.0 LAB AANEUT 1.45-7.50 k/uL Abs Neut High 12.60 LAB ALYMP % Lymph% 3.4 LAB AALYMP 1.00-4.00 k/uL Low Abs Lymph 0.47 LAB AMONO % Davison% 6.5 LAB AAMONO <0.87 k/uL Abs Davison High 0.91 LAB AEOS % Eosin% 0.0 LAB AAEOS <0.46 k/uL Abs Eosin <0.03 LAB ABASO % Baso% 0.1 LAB AABASO <0.11 k/uL Abs Baso <0.03 LAB AUNRBC 0 /100 WBC NRBCs 0.0 LAB ABNRBC <0.01 k/uL Absolute nRBC <0.01 LAB DTYP DTYPE Auto Diff Performed By: #### CBCDIF, CMP #### [facility] [address] [place] [id number] COMP METABOLIC PANEL Collected: 02/28/2018 Status: F Source: [place] 7:34 PM [facility] REPOSITORY TYPE CODE TESTS RESULT OUT OF REFERENCE UNITS RANGE LAB TP 6.3-8.0 g/dL Protein, Total 6.5 LAB ALB 3.9-4.9 g/dL Low Albumin 3.7 LAB CA 8.5-10.2 mg/dL Low Calcium, Total 8.3 LAB TBIL 0.2-1.3 mg/dL Bilirubin, Total 0.2 LAB ALKP 32-117 U/L Alkaline Phosphatase 40 LAB AST 13-35 U/L AST 13 LAB GLU 74-99 mg/dL Glucose High 167 Result Comment: The [place] Diabetes [employer] (ADA) provides guidance for cutoff values for fasting glucose and random glucose. The ADA defines fasting as no caloric intake for at least 8 hours. Fas ting plasma glucose results between 100 to 125 mg/dL indicate increased risk for diabetes (prediabetes). Fasting plasma glucose results greater than or equal to 126 mg/dL meet the criteria for diagnosis of diabetes. In the absence of unequivocal hyperglycemia, results should be confirmed by repeat testing. In a patient with classic symptoms of hyperglycemia or hyperglycemic crisis, random plasma glucose results greater than or equal to 200 mg/dL meet the criteria for diagnosis of diabetes. Reference: Standards of Medical Care in Diabetes 2016, [place] [employer]. Diabetes Care. 2016.39(Suppl 1). LAB BUN 7-21 mg/dL BUN High 52 LAB CRET 0.58-0.96 mg/dL Creatinine High 3.59 LAB NA 136-144 mmol/L Sodium 144 LAB K 3.7-5.1 mmol/L Potassium High 5.3 LAB CL 97-105 mmol/L Chloride High 109 LAB CO2 22-30 mmol/L Low CO2 17 LAB AGAP 9-18 mmol/L Anion Gap 18 LAB ALT 7-38 U/L ALT 13 LAB GFRAA eGFR- Amer. 15 LAB GFRNAA . eGFR-All Other Races 13 Result Comment: eGFR (Estimated GFR) Units of measure: mL/min/1.73 meters squared eGFR is derived from the reexpressed MDRD Study equation using the following parameters: serum creatinine, age, gender and race. The creatinine assay has been calibrated to be traceable to IDMS. An eGFR <60 mL/min/1.73m2 for >3 months is consistent with chronic kidney disease. Refer to KDOQI guidelines for clinical interpretation. In patients with unstable renal function, e.g. those with acute kidney injury, the eGFR may not accurately reflect actual GFR. Performed By: #### CBCDIF, CMP #### [facility] [address] [place] [id number] OPERATIVE NO Observed: 02/28/2018 Status: COMPLETED Source: [place] 6:30 PM [facility] REPOSITORY HNO ID: [id number] Author: Sarah Jules Service: Urology Author Type: Physician Type: Operative Report Filed: 03/01/2018 11:13 AM Note Text: OPERATIVE/PROCEDURE REPORT Name: Serena Musa LOG ID: [id number] Surgery/Procedure Date: 02/27/2018 - 02/28/2018 Incision/Procedure Start Time: 9:29 AM Incision Close/Procedure End Time: 5:33 PM Surgeon(s)/Proceduralist(s) and C Web Developer(s): Surgeon(s) and Role: Panel 1: * Sarah Jules - Primary * Joesph Mcdonald - Resident - Assisting * Tonya Min MD - Resident - Assisting Panel 2: * Yoshi Lara - Primary Procedure(s): Robotic radical cystectomy Pelvic lymph node dissection including presacral lymph nodes on the right Intracorporeal ileal conduit Exam under anesthesia Anesthesia: General Operative Indication: Serena Musa is a 67 year old female with a history of newly diagnosed bladder cancer . After discussion of management options, including risks, benefits, and alternatives, Serena Musa opted and consented to proceed with the above procedure. Operative Findings: Palpable but mobile bladder mass with vaginal involvement concerning for T4 disease. Duplicated right ureters, suspicious bilateral obturator lymph nodes concerning for malignancy, watertight ureteroileal anastomoses. Mcgrath end ileal conduit Procedure Details: Serena Musa was brought to OR 5 at [facility]. It was determined that the case should not proceed without a new CT A/P. The patient was then transferred from the OR to Radiology where a CT scan was obtained, and then returned to the operative room. After reviewing the images a surgical huddle was performed with all operating room personnel. The patient was then placed on the operating room table, perioperative antibiotics administered, and general anesthesia induced. Patient was placed in lithotomy position with all pressure points padded and was prepped and draped in the usual sterile manner. A surgical timeout was performed. RADICAL CYSTECTOMY and anterior exenteration. An exam under anesthesia was performed and demonstrated mobile large bladder mass extending into the vagina and with a firm mass proximal to the urethra. A Menendez catheter was placed. Through a supra-umbilical incision paramedian incision, a Veress needle was inserted into the peritoneal cavity and a pneumoperitoneum was established. Through this incision, a 12-mm trocar was placed and the laparoscope was introduced. Inspection of the abdominal cavity after trocar placement revealed no evidence of any injury or bleeding. Three 8-mm ports and a 12-mm port were then placed in the abdomen in the W configuration for robotic cystectomy under direct vision. The patient was then placed in Trendelenburg position and the robot was docked. Small and large bowel adhesions to the lateral pelvic wall were divided sharply and with minimal electrocautery. The ureters were identified as they coursed over the common iliac vessels. They were dissected into the pelvis and any visible vessels were controlled with the cautery before division. The right side demonstrated duplicated ureters. All ureters were hydronephrotic and demonstrated profuse urine output when cut. The gonadal veins were clipped on either side and the ovaries were brought medially and were clipped to the anterior surface of the bladder.?At the ureterovesical junction, Hem-o-lock clips were placed proximally and distally and the ureters were divided. Distal margins were sent for frozen section. Next, a malleable was placed in the vagina and?incision was made in the peritoneum just posterior to the cervix and uterus. The plane was continued inferiorly and included the vaginal wall. The bladder and uterus were large with mass effect making dissection and mobilization difficult. The harmonic scalpel was used to assist with this dissection.?A peritoneal incision was created on bilaterally, lateral to the umbilical ligaments and continued down to the external iliac artery and the space of Retzius was entered and the endopelvic fascia visualized. The bladder was mobilized from the pelvic wall until the endopelvic fascia was clearly identified and incised bilaterally. Harmonic scalpel and weck clips were used to divide bilateral uterine arteries and the superficial and deep bladder pedicles. The urethra was dense and thick and was closely adherent to the anterior abdominal wall. It was carefully dissected with electrocautery and a urethral margin was obtained for pathology. The specimen was too large to extract from her vagina and was placed out of the way in the abdomen. The urethra was closed with Monocryl. The vagina was then closed with a running 2-0 V-lock in a clamshell fashion. This vaginal closure was required due to the involvement of the bladder mass and required vaginal resection. Hemostasis was further controlled with cautery and confirmed. Bilateral pelvic lymph node dissection was performed to the level of the common iliac arteries bilaterally, inferiorly to the node of cloquet, laterally to the genitofemoral nerve, posteriorly to the obturator fossa, and medially to the bladder pedicle. On the right side, the lymph node dissection included the presacral nodes. Weck clips were placed distally. Bilaterally, the lymph nodes overlying the external iliac artery and vein were dense, fibrous and extremely adherent. Dissection was carefully performed to avoid vascular injury. Hemostasis was excellent. INTRACORPOREAL ILEAL CONDUIT: A mesenteric window was developed under the sigmoid colon, and the left ureter was passed through the window to the right side. ?A 15-cm piece of distal ileum, approximately 15 cm proximal to ileal-cecal junction, was selected for the conduit. ?The distal and proximal ends were marked with 3-0 silk and 3-0 dyed Polysorb stay sutures, respectively. ?The bowel was divided sequentially on either side by using the EndoGIA stapling device with 60-mm bowel loads. ?The mesentery was further divided using Harmonic scalpel to gain additional conduit mobility. ?The small bowel segments were aligned and secured together using 3-0 Polysorb stay sutures. After creating two small enterotomies proximal to the staple lines, the EndoGIA stapler was inserted into the bowel segments, and a iwmi-ji-ffre bowel anastomosis was performed using 2, 60-mm bowel loads. ?A final 60-mm bowel load was used to close the top of the bowel anastomosis proximal to the original staple lines, which were excised and discarded. ?The mesenteric window was closed with 3-0 Polysorb suture in an interrupted fashion. ?Upon completion, there was noted to be good vascularity and patency of the anastomosis. In the proximal end of the conduit, the bowel was incised sharply?for the ureteral anastomoses. ?The ureters were tailored and spatulated. ?The ureteroenteric anastomoses were then performed using 2, 4- 0 Polysorb sutures in a running fashion. ?A Bartolo anastomosis was performed on the left and a Ramirez anastomosis performed on the right with the two ureters. Prior to completing the anastomoses, double?J ureteral stents (7-Fr?x 30 cm JJ) were placed bilaterally in all three ureters, and the distal ends of the stents were internalized within the conduit. The specimen and lymph nodes were placed in a large Endocatch bag. ?? A?MARK drain was inserted into the pelvis through the left-most robotic port and secured to the skin with a 3-0 Ethilon stitch. Using a stay stitch placed in the distal end of the conduit, the conduit was grasped with a locking [place]?laparoscopic grasper through the right robotic port and locked into position. ?The robot was then undocked. ?The midline incision was extended to accommodate extraction and the bagged specimen was removed. ?A stoma incision was made at the pre-marked site, and dissection was carried down to the fascia. ?The fascia was incised in a cruciate fashion; the rectus muscle was split; and the abdomen was entered. ?The distal end of the conduit was relocated to the stoma site. The stoma was matured?in the usual flandreau fashion with ?3-0 polysorb suture. ?A stoma Menendez was inserted into the conduit and secured to the skin with a #0 silk. ? CLOSURE. The fascia of the midline incision was closed with two #0 Maxon suture in a running from the superior and inferior aspects and tied in the middle of the incision. The skin of the midline incision and all port sites was closed with 4-0 Polysorb suture and Exofin skin ahesive. ? Given the nature of this case, the expertise of two staff surgeons (Dr. Jules and Dr. Lara) was required. There was a large pelvic mass with very limited mobility, and an intracorporeal urinary diversion was performed, which increased the complexity of this surgery. Dr. Jules performed the robotic anterior exenteration and Dr. Lara performed the pelvic lymphadenectomy and intracorporeal urinary diversion. They were assisted by Drs. Min and Harry. Port placement was performed by Drs. Min and Harry under Dr. Jules's direct supervision. Wound closure and stoma maturation were performed by Drs. Min and Harry with Dr. Jules immediately available. The patient was then emerged from anesthesia and transferred to PACU in stable condition. All surgical counts were correct at case completion. Pre-Op/Pre-Procedure Diagnosis: bladder cancer Post-Op/Post-Procedure Diagnosis: Same Estimated Blood Loss: 400 mls IV Fluids: 4700ml crystalloid, 750ml albumin Specimens: Specimen ID Type Site Comments Sent To path #1 Tissue right distal ureter #1 AND #2 Pathology Frozen path #2 Tissue left distal ureter Pathology Frozen path #3 Tissue urethral margin Pathology Routine path #4 Tissue bladder, uterus, ovaries, vagina Pathology Routine Implantable Devices: None Drains: MARK and stoma menendez Complications: None Incidental Lacerations/Perforations: None Operative report dictated by Tonya Min MD on behalf of Dr. Jules. Procedure(s) (LRB): ROBOTIC LAPAROSCOPIC CYSTECTOMY BLADDER, CONDUIT ILEAL AND LYMPHADENECTOMY (N/A) Anatomic Site: Ureter, Laterality: Bilateral Bladder, Laterality: N/A Urethra, Laterality: Not applicable Vagina, Laterality: N/A Approach: Robotic Device: Stent Qualifier: None SIGNATURE: Tonya Min MD PATIENT NAME: Serena Musa DATE: February 28, 2018 TIME: 6:31 PM PAGER/CONTACT #: [phone] ANES POST Observed: 02/28/2018 Status: COMPLETED Source: [place] 6:18 PM [facility] REPOSITORY HNO ID: [id number] Author: Yoseph Jarquin Service: (none) Author Type: Anesthesiologist Type: Anesthesia PostOp Filed: 02/28/2018 6:18 PM Note Text: POST ANESTHESIA EVALUATION NOTE SERVICE DATE: 02/28/2018 SERVICE TIME: 18:18 : 1950 Vitals: 02/27/18191602/27/18233002/28/1832102/28/18622 Temp: 37.1 ?C (98.8 ?F) 36.6 ?C (97.9 ?F) 37.1 ?C (98.8 ?F) 36.7 ?C (98.1 ?F) 02/27/18191602/27/18233002/28/1832102/28/18622 BP: 156/80 152/83 149/76 146/63 02/27/18191602/27/18233002/28/1832102/28/18622 Pulse: 60 60 100 (!) 55 02/27/18191602/27/18233002/28/1832102/28/18622 Resp: 18 18 16 16 02/27/18191602/27/18233002/28/1832102/28/18622 SpO2: 97% 98% 96% 99% Validated Vital Signs: Yes POST ANES STATUS: No apparent anesthetic complications. The patient is appropriately hydrated with stable respiratory and cardiovascular status. Patient has safe and adequate airway control. The patient has appropriate pain relief and no significant post operative nausea or vomiting. The patient has achieved baseline mental status. Further assessment by Anesthesia Service: None Other Remarks: SIGNATURE: Yoseph Jaruqin MD PATIENT NAME: Serena Musa DATE: February 28, 2018 TIME: 6:18 PM PAGER/CONTACT #: [phone] BRIEF OP NOT Observed: 02/28/2018 Status: COMPLETED Source: [place] 5:36 PM [facility] REPOSITORY O ID: [id number] Author: Tonya Min MD Service: Urology Author Type: Resident Type: Brief Op Note Filed: 02/28/2018 5:41 PM Note Text: UROLOGY SERVICE BRIEF OPERATIVE NOTE LOG ID: [id number] Surgery/Procedure Date: 02/27/2018 - 02/28/2018 Incision/Procedure Start Time: 9:29 AM Incision Close/Procedure End Time: 5:33 PM Patient Age: [age] year old Surgeon(s)/Proceduralist(s) and C Web Developer(s): Surgeon(s) and Role: Panel 1: * Sarah Jules - Primary * Joesph Mcdonald - Resident - Assisting * Tonya Min MD - Resident - Assisting Panel 2: * Yoshi Lara - Primary Anesthesia: General Procedure: Robotic radical cystectomy, pelvic lymph node dissection including presacral lymph nodes on the right, intracorporeal ileal conduit. Exam under anesthesia Estimated Blood Loss: 400 mls Intake: 4700ml crystalloid, 750ml albumin Urine Output: 150ml + unrecorded Accidental Punctures or Lacerations: Not applicable Complications: None Drains: AMRK and Stoma menendez Specimens/Cultures: Specimen ID Type Site Comments Sent To path #1 Tissue right distal ureter #1 AND #2 Pathology Frozen path #2 Tissue left distal ureter Pathology Frozen path #3 Tissue urethral margin Pathology Routine path #4 Tissue bladder, uterus, ovaries, vagina Pathology Routine Findings: Palpable but mobile bladder mass with vaginal involvement concerning for T4 disease. Duplicated right ureters, suspicious bilateral obturator lymph nodes concerning for malignancy, watertight ureteroileal anastomoses. Pre-Op/Pre-Procedure Diagnosis: bladder cancer Post-Op/Post-Procedure Diagnosis: same SIGNATURE: Tonya Min MD PATIENT NAME: Serena Musa DATE: February 28, 2018 TIME: 5:36 PM PAGER/CONTACT #: [phone] [place] [phone] after hours GASA + ALL Collected: 02/28/2018 Status: F Source: [place] FOR 4:01 PM [facility] RADIANCE USE ONLY REPOSITORY TYPE CODE TESTS RESULT OUT OF REFERENCE UNITS RANGE LAB PH 7.35-7.45 pH Low 7.26 LAB PCO2 34-46 mm Hg pCO2 37 LAB PO2 85-95 mm Hg pO2 High 147 LAB BE mmol/L Base Excess NEG 10 LAB HCO3 22-26 mmol/L Bicarbonate Low 16 LAB CO2CT 22.0-28.0 mmol/L CO2 Content Low 17 LAB O2HB 95-98 % Oxyhemoglobin, Art. 97 LAB COHB 0-5.0 % Carboxyhemoglobin,A 1.2 rt LAB MHGB 0.4-1.5 % Methemoglobin 0.8 LAB TEMP C Temperature, Body 37.0 LAB PHTC 7.35-7.45 pH, Temp Low Corrected 7.26 LAB PCO2T 34-46 mm Hg pCO2, Temp Correct 37 LAB PO2T mm Hg pO2, Temp Corrected 147 LAB NAB 132-148 mmol/L Sodium,Whole Bld 142 LAB KWB 3.5-5.0 mmol/L Potassium, Whole High Bld 5.4 LAB HGBB 11.5-15.5 g/dL Low Hemoglobin,Total,AC 7.8 L LAB HCTB 36.0-46.0 % Hematocrit, ACL Low 24 LAB IC 1.08-1.30 mmol/L Calcium, Ion, WB 1.18 LAB GLB 60-105 mg/dL Glucose,Whole Bld High 169 LAB LACT 0.5-2.2 mmol/L Lactate 0.5 Performed By: #### ALLBG #### [facility] [address] [place], [place] [address] GASA + ALL Collected: 02/28/2018 Status: F Source: [place] FOR 2:18 PM [facility] RADIANCE USE ONLY REPOSITORY TYPE CODE TESTS RESULT OUT OF REFERENCE UNITS RANGE LAB PH 7.35-7.45 pH Low 7.22 LAB PCO2 34-46 mm Hg pCO2 44 LAB PO2 85-95 mm Hg pO2 High 107 LAB BE mmol/L Base Excess NEG 9 LAB HCO3 22-26 mmol/L Bicarbonate Low 17 LAB CO2CT 22.0-28.0 mmol/L CO2 Content Low 19 LAB O2HB 95-98 % Oxyhemoglobin, Art. 95 LAB COHB 0-5.0 % Carboxyhemoglobin, 0.9 Art LAB MHGB 0.4-1.5 % Methemoglobin 0.9 LAB TEMP C Temperature, Body 37.0 LAB PHTC 7.35-7.45 pH, Temp Low Corrected 7.22 LAB PCO2T 34-46 mm Hg pCO2, Temp Correct 44 LAB PO2T mm Hg pO2, Temp Corrected 107 LAB NAB 132-148 mmol/L Sodium,Whole Bld 142 LAB KWB 3.5-5.0 mmol/L Potassium, High Whole Bld 5.5 LAB HGBB 11.5-15.5 g/dL Low Hemoglobin,Total,A 8.6 CL LAB HCTB 36.0-46.0 % Hematocrit, Low ACL 27 LAB IC 1.08-1.30 mmol/L Calcium, Ion, WB 1.21 LAB GLB 60-105 mg/dL Glucose,Whole High Bld 163 LAB LACT 0.5-2.2 mmol/L Lactate 0.5 LAB ACBDTE Notify Date, Art [id number] LAB ACBTME Notify Time, Art Performed By: #### ALLBG #### [facility] [address] [place] [address] NUTRITION Observed: 02/28/2018 Status: COMPLETED Source: [place] 2:11 PM [facility] [place] REPOSITORY HNO ID: [id number] Author: Elizabeth Mack) Aniya Service: Nutrition Therapy Author Type: Senior Javascript Engineer Type: Nutrition Filed: 02/28/2018 2:13 PM Note Text: NUTRITION THERAPY FOLLOW-UP NOTE SERVICE DATE: 02/28/2018 SERVICE TIME: 10:00am Anthropometrics: Height: 157.5 cm (5' 2) Current Weight: Weight: 67.8 kg (149 lb 7.6 oz) Body mass index is 27.34 kg/m?. Loss of lean body mass/visual muscle wasting:unable to assess Admitting Diagnosis: Malignant neoplasm of urinary bladder, unspecified site (HCC) [C67.9] Bladder cancer (HCC) [C67.9] Present Diet Order: NPO Is the patient having any pain that is interfering with oral/enteral intake? Unable to assess Allergies: ALLERGIES Allergen Reactions - Lactose Other: See Comments constipated - Iodinated Contrast-* Hives - Fruit And Vegetable* Anaphylaxis Pt reports allergy to RAW fruits and Vegetables Reason for Visit: Nutrition screen: Food allergies Food allergies: Raw fruits and vegetables, lactose Patient concerns/Issues: Was unable to confirm allergies today, patient is in the OR. All items removed in CBORD. Please confirm at length of stay. Nursing Admission Assessment Malnutrition Score Tool: 1 Plan of Care: Recommendation No problems noted at this time. Will screen again within 7 days Discharge Plan: Home on diet ordered. MNT Billing Type: Routine Care/15 min 1 unit SIGNATURE: Nona Trotter PATIENT NAME: Serena Musa DATE: February 28, 2018 TIME: 2:12 PM PAGER: [phone] GASA + ALL Collected: 02/28/2018 Status: F Source: [place] FOR 12:39 PM [facility] RADIANCE USE ONLY REPOSITORY TYPE CODE TESTS RESULT OUT OF REFERENCE UNITS RANGE LAB PH 7.35-7.45 pH Low 7.23 LAB PCO2 34-46 mm Hg pCO2 42 LAB PO2 85-95 mm Hg pO2 High 124 LAB BE mmol/L Base Excess NEG 10 LAB HCO3 22-26 mmol/L Bicarbonate Low 17 LAB CO2CT 22.0-28.0 mmol/L CO2 Content Low 18 LAB O2HB 95-98 % Oxyhemoglobin, Art. 97 LAB COHB 0-5.0 % Carboxyhemoglobin, 1.2 Art LAB MHGB 0.4-1.5 % Methemoglobin 0.6 LAB TEMP C Temperature, Body 37.0 LAB PHTC 7.35-7.45 pH, Temp Low Corrected 7.23 LAB PCO2T 34-46 mm Hg pCO2, Temp Correct 42 LAB PO2T mm Hg pO2, Temp Corrected 124 LAB NAB 132-148 mmol/L Sodium,Whole Bld 142 LAB KWB 3.5-5.0 mmol/L Potassium, High Whole Bld 5.5 LAB HGBB 11.5-15.5 g/dL Low Hemoglobin,Total,A 8.8 CL LAB HCTB 36.0-46.0 % Hematocrit, Low ACL 27 LAB IC 1.08-1.30 mmol/L Calcium, Ion, WB 1.16 LAB GLB 60-105 mg/dL Glucose,Whole High Bld 147 LAB LACT 0.5-2.2 mmol/L Lactate 0.5 LAB ACBDTE Notify Date, Art [id number] LAB ACBTME Notify Time, Art Performed By: #### ALLBG #### [facility] [address] [place], [place] [address] GASA + ALL Collected: 02/28/2018 Status: F Source: [place] FOR 10:45 AM [facility] RADIANCE USE ONLY REPOSITORY TYPE CODE TESTS RESULT OUT OF REFERENCE UNITS RANGE LAB PH 7.35-7.45 pH Low 7.22 LAB PCO2 34-46 mm Hg pCO2 40 LAB PO2 85-95 mm Hg pO2 High 147 LAB BE mmol/L Base Excess NEG 11 LAB HCO3 22-26 mmol/L Bicarbonate Low 16 LAB CO2CT 22.0-28.0 mmol/L CO2 Content Low 17 LAB O2HB 95-98 % Oxyhemoglobin, Art. 97 LAB COHB 0-5.0 % Carboxyhemoglobin, 1.0 Art LAB MHGB 0.4-1.5 % Methemoglobin 0.6 LAB TEMP C Temperature, Body 37.0 LAB PHTC 7.35-7.45 pH, Temp Low Corrected 7.22 LAB PCO2T 34-46 mm Hg pCO2, Temp Correct 40 LAB PO2T mm Hg pO2, Temp Corrected 147 LAB NAB 132-148 mmol/L Sodium,Whole Bld 143 LAB KWB 3.5-5.0 mmol/L Potassium, High Whole Bld 5.3 LAB HGBB 11.5-15.5 g/dL Low Hemoglobin,Total,A 9.2 CL LAB HCTB 36.0-46.0 % Hematocrit, Low ACL 29 LAB IC 1.08-1.30 mmol/L Calcium, Ion, WB 1.23 LAB GLB 60-105 mg/dL Glucose,Whole High Bld 127 LAB LACT 0.5-2.2 mmol/L Lactate 0.5 LAB ACBDTE Notify Date, Art [id number] LAB ACBTME Notify Time, Art Performed By: #### ALLBG #### [facility] [address] [place] [address] CASE MANAGEM Observed: 02/28/2018 Status: COMPLETED Source: [place] 10:01 AM [facility] REPOSITORY HNO ID: [id number] Author: Priscilla Enciso) ELISSA Mcclain Service: Care Management Author Type: Registered Nurse Type: Care Mgt Progress Note Filed: 02/28/2018 10:04 AM Note Text: CARE MANAGEMENT PROGRESS NOTE SERVICE DATE: 02/28/2018 SERVICE TIME: 10:01 AM LOS: 1 day Needs Prior to Discharge: To Be Determined Pt was taken to OR early this am, before assessment for dc planning needs could be done. Pt is planned to have a cystectomy and urinary diversion (ileal conduit?). Referral initiated. Will need to have pt interviewed and freedom of choice offered for providers after surgery. Please contact unit based patient care nursing assistant if concerns arise. SIGNATURE: Priscilla Mcclain RN PATIENT NAME: Serena Musa DATE: February 28, 2018 TIME: 10:01 AM PAGER/CONTACT #: [phone] JANEEN ALL, MG Collected: 02/28/2018 Status: F Source: [facility] 9:22 AM [facility] RADIANCE USE ONLY REPOSITORY TYPE CODE TESTS RESULT OUT OF REFERENCE UNITS RANGE LAB PH 7.35-7.45 pH Low 7.24 LAB PCO2 34-46 mm Hg pCO2 37 LAB PO2 85-95 mm Hg pO2 High 188 LAB BE mmol/L Base Excess NEG 11 LAB HCO3 22-26 mmol/L Bicarbonate Low 15 LAB CO2CT 22.0-28.0 mmol/L CO2 Content Low 17 LAB O2HB 95-98 % Oxyhemoglobin, Art. 98 LAB COHB 0-5.0 % Carboxyhemoglobin, 0.7 Art LAB MHGB 0.4-1.5 % Methemoglobin 0.6 LAB TEMP C Temperature, Body 37.0 LAB PHTC 7.35-7.45 pH, Temp Low Corrected 7.24 LAB PCO2T 34-46 mm Hg pCO2, Temp Correct 37 LAB PO2T mm Hg pO2, Temp Corrected 188 LAB NAB 132-148 mmol/L Sodium,Whole Bld 143 LAB KWB 3.5-5.0 mmol/L Potassium, Whole Bld 4.8 LAB HGBB 11.5-15.5 g/dL Low Hemoglobin,Total,A 8.8 CL LAB HCTB 36.0-46.0 % Hematocrit, Low ACL 27 LAB IC 1.08-1.30 mmol/L Calcium, Ion, WB 1.26 LAB GLB 60-105 mg/dL Glucose,Whole High Bld 111 LAB LACT 0.5-2.2 mmol/L Lactate 0.5 LAB MGI 0.43-0.66 mmol/L Magnesium, Ion, WB 0.56 LAB ACBDTE Notify Date, Art [id number] LAB ACBTME Notify Time, Art Performed By: #### ALLMG #### [facility] [address] [place], [place] [address] CT ABD/PEL WO IVCON Observed: 02/28/2018 Status: F Source: [place] 8:14 AM [facility] REPOSITORY * * *Final Report* * * DATE OF EXAM: Feb 28 2018 8:14AM [facility] 0531 - CT ABD/PEL WO IVCON / PROCEDURE REASON: Bladder cancer, invasive, untreated, staging * * * * Physician Interpretation * * * * EXAMINATION: CT ABDOMEN AND PELVIS WITHOUT IV CONTRAST CLINICAL HISTORY: 67-year-old female with 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 Otherwise healthy. Also MISTI from post-renal obstruction secondary to tumor. Scheduled for surgery today. Additional history: TURB for bladder tumor and gross hematuria on (02/13/2018) shows focal area of necrosis and supports diagnosis of squamous cell differentiation and lymph-vascular invasion. No associated epithelial lesions identified. Histological grade is moderately differentiated. Tumor configuration: papillary, invasive and endophytic. Muscularis propria (detrusor muscle) is not identified. Lymph-vascular invasion- present. Microscopic extent of tumor- tumor invades subepithelial connective tissue (lamina propria). Additional pathological findings: acute and chronic inflammation. TECHNIQUE: Non-IV contrast imaging of the abdomen and pelvis was performed using standard technique, scanning from just above the dome of the diaphragm to the symphysis pubis. Unenhanced imaging is limited for the evaluation of some intra-abdominal and pelvic pathology. MQ: [id number]_3 Contrast: IV: None PO: None CT Radiation dose: Integrated Dose-length product (DLP) for this visit = 365 mGy*cm. CT Dose Reduction Employed: Automated exposure control (AEC) COMPARISON: None. RESULT: Abdomen / Pelvis: Liver: Unremarkable. Biliary: The gallbladder is unremarkable. Spleen: No splenomegaly. Pancreas: Unremarkable. Adrenals: No mass. Kidneys: There is moderate bilateral, right greater than left, hydroureteronephrosis due to the obstructing bladder mass. No calculus. No findings of renal mass. GI Tract: No bowel dilation. Lymph Nodes: 4.2 x 1.7 cm (2:180, 3:47) obturator lymphadenopathy. No other lymphadenopathy. Mesentery/peritoneum: No ascites. Retroperitoneum: No mass. Vasculature: No abdominal aortic or iliac artery aneurysm. Pelvis: There is marked wall thickening involving the posterior and lateral aspects of the urinary bladder, 2.1 cm in maximal thickness along the left lateral wall (2:121), corresponding with the patient's known neoplasm. There is extravesicular tumor extension along the left lateral bladder wall, with a 1.1 cm nodular mass (2:113). The tumor results in bilateral hydroureteronephrosis. Evaluation of the vaginal wall is not possible due to lack of IV contrast. The uterus contains several calcifications, likely representing calcified leiomyomas. The adnexa are normal for age. Bones/Soft Tissues: Small umbilical hernia containing only fat. No destructive osseous lesion. Lower thorax: Unremarkable. IMPRESSION: EXTENSIVE POSTEROLATERAL BLADDER WALL NEOPLASM, WITH EXTRAVESICULAR TUMOR EXTENSION ON THE LEFT AND BILATERAL HYDROURETERONEPHROSIS. EVALUATION FOR VAGINAL WALL INVASION IS NOT POSSIBLE. RIGHT OBTURATOR LYMPHADENOPATHY. NO OTHER LYMPHADENOPATHY OR METASTATIC DISEASE. Boat Hand: PSCB Transcribe Date/Time: Feb 28 2018 8:18A Dictated by : ADRIANNA NG MD This examination was interpreted and the report reviewed and electronically signed by: ZENON DORAN MD on Feb 28 2018 9:56AM EST [id number] PROGRESS Observed: 02/28/2018 Status: COMPLETED Source: [place] 8:10 AM [facility] REPOSITORY HNO ID: [id number] Author: OK Cano (Ct) Service: Radiology Author Type: Clinical Chocolatier Type: Progress Notes Filed: 02/28/2018 8:12 AM Note Text: Radiology Service Progress Note PATIENT NAME: Serena Musa DATE OF SERVICE: February 28, 2018 TIME: 8:10 AM PATIENT IDENTITY VERIFICATION COMPLETED USING TWO (2) METHODS: Patient confirmed name verbally and ID band matches.. PATIENT GENDER DATA: Female. status: : No status: NO. PATIENT RELEVANT IMPLANT DATA REVIEWED: Yes RADIOLOGY DEPARTMENT: CT; Exam(s) Completed: Abdomen/Pelvis PERIPHERAL IV DATA: Not applicable SIGNED BY: OK Alvares February 28, 2018 8:10 AM NURSING PROG Observed: 02/28/2018 Status: COMPLETED Source: [place] 8:03 AM [facility] REPOSITORY HNO ID: [id number] Author: Alpa OwenRn) ELISSA Gatica Service: Nursing Author Type: Registered Nurse Type: Nursing Progress Note Filed: 02/28/2018 8:06 AM Note Text: After patient was brought into operating room it was noted by physicians that she did not have necessary imaging. Patient went to CT scan from operating room by bed accompanied by Dr.'s Min AND Harry. Plan is to return to operating room after scan completed. PROGRESS Observed: 02/28/2018 Status: COMPLETED Source: [place] 6:33 AM [facility] RE[facility] HNO ID: [id number] Author: Jose (ResMargarita Olvera MD Service: Urology Author Type: Resident Type: Progress Notes Filed: 02/28/2018 7:27 AM Note Text: [facility] UROLOGY PROGRESS NOTE Name: Serena Musa Bed: G090 001/G090-01 Date: February 28, 2018 ASSESSMENT AND PLAN Ms. Musa is a 67 year old female with muscle invasive bladder cancer (squamous cell) planned for cystectomy today. ? Neuro - pain control with tylenol preop CV/Resp -Hgb 10.1 - no increased work of breathing GI - Potassium 4.8 from 5.5 - given SPS for K clearance - AM BMP pending -Diet - NPO for procedure - bowel regimen - Entereg - AM Scr pending - UOP adequate - UA w/ 1+ hgb, 1+ LE FEN/Endo -mIVF ID Perioperative antibiotics Activity - OOB to chair and Ambulate as tolerated DVT prophylaxis - SCDs, TID Heparin SQ Discharge teaching - will need home going MARK drain care teaching will need home going pouch management teaching Disposition - OR today Subjective -Some bilateral flank pain -Pain: controlled w/ tylenol -CP/SOB: Denies -N/V:Denies -Bowel function: no constipation or diarrhea -Ambulating: without issue Objective Vital Signs BP 146/63 Pulse (!) 55 Temp 36.7 ?C (98.1 ?F) (Oral) Resp 16 Ht 157.5 cm (5' 2) Wt 67.8 kg (149 lb 7.6 oz) SpO2 99% BMI 27.34 kg/m? Input and Output Intake/Output Summary (Last 24 hours) at 02/28/18 0633 Last data filed at 02/28/18 0600 Gross per 24 hour Intake 325 ml Output 702 ml Net -377 ml Urine: 700cc Physical Exam General: comfortable in NAD HEENT: Normocephalic, atraumatic CV:: warm, well-perfused Resp: breathing comfortably GI: Soft, non-tender, non-distended. No rebound or guarding. : voiding without issue, mild CVA tenderness bilaterally Extremities: no edema Neuro: Alert and oriented Psych: Normal affect Recent Labs 02/27/18 2101 02/27/18 1650 02/25/18 0817 WBC -- 9.45 -- HB -- 10.1* -- HCT -- 30.8* -- PLT -- 270 -- NA -- 140 138 K 4.8 5.5* 4.9 CHLOR -- 104 101 CO2 -- 17* 20* BUN -- 61* 56* CREAT -- 4.66* 3.73* GLUC -- 96 100* Jose Olvera MD Urology [id number] BASIC METABOLIC PANL Collected: 02/28/2018 Status: F Source: [place] 5:40 AM [facility] REPOSITORY TYPE CODE TESTS RESULT OUT OF REFERENCE UNITS RANGE LAB GLU 74-99 mg/dL High Glucose 102 Result Comment: The [place] [employer] (ADA) provides guidance for cutoff values for fasting glucose and random glucose. The ADA defines fasting as no caloric intake for at least 8 hours. Fas ting plasma glucose results between 100 to 125 mg/dL indicate increased risk for diabetes (prediabetes). Fasting plasma glucose results greater than or equal to 126 mg/dL meet the criteria for diagnosis of diabetes. In the absence of unequivocal hyperglycemia, results should be confirmed by repeat testing. In a patient with classic symptoms of hyperglycemia or hyperglycemic crisis, random plasma glucose results greater than or equal to 200 mg/dL meet the criteria for diagnosis of diabetes. Reference: Standards of Medical Care in Diabetes 2016, [place] [employer]. Diabetes Care. 2016.39(Suppl 1). LAB BUN 7-21 mg/dL BUN High 62 LAB CRET 0.58-0.96 mg/dL Creatinine High 4.28 LAB NA 136-144 mmol/L Sodium 142 LAB K 3.7-5.1 mmol/L Potassium 5.1 LAB CL 97-105 mmol/L Chloride High 108 LAB CO2 22-30 mmol/L Low CO2 18 LAB AGAP 9-18 mmol/L Anion Gap 16 LAB CA 8.5-10.2 mg/dL Calcium, Total 8.6 LAB GFRAA eGFR- Amer. 13 LAB GFRNAA . eGFR-All Other Races 10 Result Comment: eGFR (Estimated GFR) Units of measure: mL/min/1.73 meters squared eGFR is derived from the reexpressed MDRD Study equation using the following parameters: serum creatinine, age, gender and race. The creatinine assay has been calibrated to be traceable to IDMS. An eGFR <60 mL/min/1.73m2 for >3 months is consistent with chronic kidney disease. Refer to KDOQI guidelines for clinical interpretation. In patients with unstable renal function, e.g. those with acute kidney injury, the eGFR may not accurately reflect actual GFR. Performed By: #### BMP #### [facility] [address] [place], [place] [address] SURGICAL PATHOLOGY Observed: 02/28/2018 Status: F Source: [place] 12:00 AM [facility] REPOSITORY Specimen originated from [facility] Specimen #: [id number] Submitting Physician: SARAH JULES MD, PH.D FINAL DIAGNOSIS 1. Ureter, right distal #1 and #2, excision (A) - Segment of ureter, negative for neoplasm. 2. Ureter, left distal, excision (B) - Segment of ureter with reactive urothelial atypia, negative for neoplasm. 3. Urethra, margin, excision (C) - Extensively involved by invasive urothelial carcinoma, high-grade. 4. Urinary bladder, uterus, vagina, and bilateral fallopian tubes and ovaries, cystectomy with hysterectomy, vaginectomy and bilateral salpingo-oophorectomy - Invasive urothelial carcinoma of the urinary bladder with extensive secondary involvement of vagina and uterus. - Extensive angiolymphatic invasion is present. - Urothelial carcinoma extends to the paravaginal soft tissue margin. - Bilateral fallopian tubes and ovaries, negative for neoplasm. - One of eleven lymph nodes involved by metastatic urothelial carcinoma (07/19). - See synoptic report. FLAVIA/jimmy 03/08/2018 COMMENT Adjunctive study documentation: Because of the extensive involvement of the gynecologic tract and areas of squamous differentiation, we performed CISH for high-risk HPV and TINY-3. HPV CISH was negative. TINY-3 was also negative. The negative HPV CISH argues strongly against an HPV-related squamous cell carcinoma of the gynecologic tract. Laboratory Developed Test (LDT) Disclaimer: Positive and negative controls stain appropriately. Performance characteristics of immunohistochemical, immunofluorescent and chromogenic in-situ hybridization tests have been determined by [facility] [place] ([facility]) in a manner consistent with CLIA requirements. One or more of these tests have not been cleared or approved by the FDA. [facility] is regulated under CLIA as qualified to perform high-complexity testing. These tests are used for clinical purposes. They should not be regarded as investigational or for research. SYNOPTIC REPORT OF [facility] PATHOLOGIC FINDINGS BLADDER, UTERUS, OVARIES, VAGINA: URINARY BLADDER CYSTECTOMY & ANTERIOR Specimen: Bladder Procedure: Anterior exenteration Tumor Site: Other: Extensive Histologic Type: Urothelial carcinoma with squamous differentiation Specify percentage of squamous differentiation: 15 % Histologic Grade: Urothelial carcinoma High-grade Tumor Size: Greatest dimension: 7.5 cm Microscopic Tumor Extension: Female, Uterus Female, Vagina Margin Involvement: Margin(s) involved by invasive carcinoma Soft tissue margin Lymphovascular Invasion: Present Pathologic Stage Classification (pTNM,AJCC 8th ed) TNM Descriptors: Not applicable Primary Tumor (pT): pT4a: Extravesical tumor invadesdirectly into prostatic stroma, uterus or vagina Regional Lymph Nodes (pN): pN1: Single regional lymph node metastasis in the true pelvis (perivesical, obturator, internal and external iliac or sacral lymph node) Number of Lymph Nodes Involved:1 Number of Lymph Nodes Examined:11 Size of largest metastatic deposit: 20 mm Extranodal Extension: Not identified Distant Metastasis (pM): Not applicable/Not confirmed pathologically in this case Associated Epithelial Lesions: None identified Movement Assembly Final Inspector Tumor Block: Specify: D10 Julian Noriega M.D. (Electronic Signature) SPECIMEN SUBMITTED A: RIGHT DISTAL URETER #1 AND #2 B: LEFT DISTAL URETER C: URETHRAL MARGIN D: BLADDER, UTERUS, OVARIES, VAGINA CLINICAL DATA MALIGNANT NEOPLASM OF URINARY BLADDER INTRAOPERATIVE CONSULT DIAGNOSIS FSA1: Negative for tumor. (Dr. Teran) FSB1: Urothelial atypia suspicious for dysplasia. (Dr. Teran) Intraoperative diagnosis performed at [facility], [address] [place], [place] [id number] GROSS DESCRIPTION A. Received fresh for intraoperative consultation labeled right distal ureter 1 and 2 is 1.6 x 1.1 x 0.4 cm piece of pink-lewis soft tissue. Two lumens are identified. The specimen was totally submitted in FSA1. B. Received fresh for intraoperative consultation labeled left distal ureter is an unoriented piece of pink-lewis soft tissue measuring 1.5 x 0.5 x 0.3 cm. The specimen was totally submitted in FSB1. PB/lbk 02/28/2018 C. Received in formalin is a segment of lewis-pink soft tissue labeled urethral margin measuring 2.7 x 2.0 x 1.7 cm. The urethral opening is surrounded by lewis-pink mucosa. The mucosal margin is inked orange and the remainder of the line of resection is inked black. The specimen is sectioned to reveal a lewis-pink fibrous cut surface. The specimen is totally submitted as follows: C1 shave deep margin with urethral opening, C2-C7 remainder of specimen cut in perpendicular sections with mucosal margin and lateral margins. Gross examination performed at [facility], [address] [place] [address].[place] [address] ALEX/gp 03/01/2018 D. Received in formalin labeled bladder, uterus, ovaries, vagina is a specimen consisting of a urinary bladder, bilateral ureters, uterus with attached cervix together with both fallopian tubes and ovaries and vaginal wall. The bladder measures 6.5 x 6.0 x 4.2 cm. The external surface of the bladder is covered by a smooth serosal lining of the dome and fibroadipose tissue at the remaining portion. After the bladder is opened. A lewis-white solid mass is identified measuring 7.5 x 6.5 x 3.5 cm which involves the right, left, posterior, dome and trigone of the specimen. Sectioning reveals a white-lewis firm cut surface which extends through the bladder wall for a distance of 2.5 cm and involves the surrounding fibroadipose tissue. The mass is at the serosal surface at the dome. It extends down the urethra to within 1.2 cm of the urethral line of resection. It extends to within less than 0.1 cm to the soft tissue lines of resection of the right and left sides of the bladder. It also extends into the anterior uterine wall for a distance of 1.8 cm and extends to the endometrial surface. It also grossly involves the cervix and vaginal wall. The right ureter measures 4.4 cm in length and is involved by tumor. It is patent and the mucosa is granular. Bladder mass extends within 1.8 cm to the line of resection. The left ureter measures 4.6 cm in length and is involved by bladder mass. The lumen is patent and the mucosa is granular. The bladder mass extends within 1.4 cm of the line of resection. The urethra measures 2.3 cm in length and is grossly involved by tumor. The uterus with attached cervix measures 9.5 x 5.8 x 3.8 cm. The vaginal wall measures 5.0 x 4.7 cm. The vaginal wall is granular. The ectocervix mucosal is smooth. The os is [place] in contour. The endocervical canal measures 3.2 cm in length and is slightly granular. The endometrial cavity measures 4.7 cm in length and 2.8 cm in greatest width. The endometrium measures 0.1 cm in thickness and is lewis-white and granular. A lewis-white polyp is identified on the posterior wall measuring 2.0 x 0.5 cm. It appears superficial. The myometrium ranges from 3.0 to 2.0 cm in thickness and is grossly involved by bladder tumor. The serosal surface of the anterior aspect is firmly adhered to the posterior aspect of the bladder. The right fallopian tube measures 5.1 cm in length and demonstrates a normal villous fimbriated end. A tubal ligation site is identified located 1.3 cm from the proximal margin. The right ovary measures 2.0 x 0.8 x 0.8 cm and weighs 1.0 grams. It appears unremarkable. The left fallopian tube measures 5.0 cm in length and demonstrates a normal villous fimbriated end. No tubal ligation site is identified. The left tube is adhered to the ovary located 2.1 cm to the proximal aspect. The left ovary measures 2.5 x 1.0 x 0.6 cm and weighs 1.2 grams. The parenchyma is unremarkable. Also received in the same container are multiple fragments of yellow-lewis fibroadipose tissue aggregating to 10.0 x 6.5 x 2.5 cm. multiple ovoid lewis firm nodules resembling lymph node are identified ranging from 0.2 to 5.5 cm. One lymph node demonstrates a white-lewis soft and friable cut surface consistent with tumor involvement. A photograph was taken of the bladder and uterus. Movement Assembly Final Inspector sections are submitted as follows: D1 urethra shave, D2 dome with mass and serosal surface, D3 right bladder wall with soft tissue line of resection, D4 left bladder wall with soft tissue line of resection, D5 anterior uterine wall uninvolved by tumor, D6-D8 posterior bladder wall with anterior uterine wall, D9-D10 posterior trigone with extension into urethra and vaginal wall, D11-D12 mass with vaginal wall, D13 right ureteral opening, D14 left ureteral opening, D15-D16 right vaginal wall shave margin, D17-D18 left vaginal wall shave, D19 distal vaginal wall shave, D20 posterior vaginal wall shave, D21 anterior cervix, D22 posterior cervix, D23 anterior uterine wall, D24 posterior uterine wall with polyp totally submitted, D25 right tube, D26 right ovary, D27 left tube fimbriated end, D28 left tube with adhesion to left ovary, D29 left ovary, D30 two nodules from additional fat, D31 three nodules from fat, D32 one nodule bisected, D33 one nodule bisected, D34 one nodule bisected, D35 one nodule bisected, D36-D37 one nodule sectioned, D38-D41 one nodule sectioned, D42-D43 medical office representative sections of grossly involved nodule. LM/jimmy 03/01/2018 Gross examination performed at [place] [id number] [address] Date of Report: 03/08/2018 Date of Procedure: 02/28/2018 Date of Receipt: 02/28/2018 Submitted by: SARAH JULES MD, PH.D Location[place] [facility] [place] interpretation performed at [facility] [email or web address] [address]. CONFIRM BLOOD TYPE Collected: 02/27/2018 Status: F Source: [place] 9:02 PM [facility] REPOSITORY TYPE CODE TESTS RESULT OUT OF REFERENCE UNITS RANGE LAB %ABR O ABO/RH(D) POSITIVE Performed By: #### CONABO #### [facility] [place], [place] [address] POTASSIUM Collected: 02/27/2018 Status: F Source: [place] 9:01 PM [facility] REPOSITORY TYPE CODE TESTS RESULT OUT OF REFERENCE UNITS RANGE LAB K 3.7-5.1 mmol/L Potassium 4.8 Performed By: #### K1 #### [facility] [address] [place], [place] [address] ECG COMPLETE W Observed: 02/27/2018 Status: F Source: [place] INTERPRETATION 7:53 PM [facility] REPOSITORY NAME : SERENA MUSA PID : [id number] : 1950 Gender : Female Race : ORD : [id number] Procedure Date : Feb 27 2018 19:53:43 Edit Date : Mar 01 2018 14:34:41 Diagnosis:SINUS BRADYCARDIA OTHERWISE NORMAL ECG Confirmed by JOZEF MAHMOOD M.D. ([id number]) on 03/01/2018 2:32:53 PM Ventricular Rate : 55 BPM Atrial Rate : 55 BPM P-R Interval : 142 ms QRS Duration : 80 ms Q-T Interval : 418 ms QTC Calculation(Bezet) : 399 ms P [place] : 43 degrees R [place] : -17 degrees T [place] : 14 degrees Test Reason : Location : 97 : 0 01 Overread By : JOZEF MAHMOOD M.D. Edited By : JOZEF MAHMOOD M.D. Referred By : YOSHI LARA Acquired by : KIDNEY,STAN URINALYSIS WITH Collected: 02/27/2018 Status: F Source: [place] MICROSCOPIC 5:43 PM [facility] REPOSITORY TYPE CODE TESTS RESULT OUT OF RANGE REFERENCE UNITS LAB UCOL Yellow Color Yellow LAB [facility] Clear Clarity Clear LAB UGLUC Negative mg/dL Glucose, Urine Negative LAB UBIL Negative Bilirubin, Urine Negative LAB UKET Negative Ketones, Urine Negative LAB USPG 1.005-1.030 Specific [place], Ur 1.009 LAB UHGB Negative Abnormal Hemoglobin/Blood, 1+ Alert Ur LAB UPH 4.5-8.0 pH 6.0 LAB UPROT Negative mg/dL Protein, Urine Negative LAB UUROB Normal Urobilinogen Normal LAB UNITR Negative Nitrites Negative LAB ULKEST Negative Leukest Abnormal 1+ Alert LAB UCOM Comments SEE COMMENT Result Comment: N/A LAB UMCOM Urine SEE Abdi Comment COMMENT Result Comment: N/A LAB UWBC 0-5 /HPF Abnormal WBC Alert 6-10 LAB URBC 0-3 /HPF RBC 0-3 LAB UEPI /HPF Epithelial Cells SEE COMMENT Result Comment: Few Squamous Epithelial Cells Performed By: #### UAWMIC #### [facility] [address] [place], [place] [id number] Observed: 02/27/2018 Status: F Source: [place] URINE CULTURE 5:43 PM [facility] REPOSITORY Sp. Request/Comment: - Specimen received in preservative Culture Result - No growth (<1,000 CFU/ml) Performed By: #### URCUL #### [facility] [address] [place] [address] XR ABDOMEN 1V SUPINE Observed: 02/27/2018 Status: F Source: [place] 5:08 PM [facility] REPOSITORY * * *Final Report* * * DATE OF EXAM: Feb 27 2018 5:08PM RUFINO [id number] - XR ABDOMEN 1V SUPINE / PROCEDURE REASON: Nausea, vomiting * * * * Physician Interpretation * * * * ABDOMEN, 1 VIEW. CLINICAL INFORMATION: Nausea, vomiting. TECHNIQUE: Supine abdomen, 1 image(s) COMPARISON: None RESULT: No dilated large or small bowel. There are degenerative changes in the spine. No pathologic calcification. IMPRESSION: NO DILATED BOWEL. Boat Hand: GARRY Transcribe Date/Time: Feb 27 2018 10:49P Dictated by : FITO TALLEY MD This examination was interpreted and the report reviewed and electronically signed by: FITO TALLEY MD on Feb 27 2018 10:50PM EST [id number] TYPE AND SCREEN Collected: 02/27/2018 Status: F Source: [place] 5:07 PM [facility] REPOSITORY TYPE CODE TESTS RESULT OUT OF REFERENCE UNITS RANGE LAB %ABR O ABO/RH(D) POSITIVE LAB % Antibody NEG Screen Performed By: #### TSCR #### [facility] [address] [place], [place] [id number] CBC AND DIFFERENTIAL Collected: 02/27/2018 Status: F Source: [place] 4:50 PM [facility] REPOSITORY TYPE CODE TESTS RESULT OUT OF REFERENCE UNITS RANGE LAB WBC 3.70-11.00 k/uL WBC 9.45 LAB RBC 3.90-5.20 m/uL Low RBC 3.15 LAB HGB 11.5-15.5 g/dL Low Hemoglobin 10.1 LAB HCT 36.0-46.0 % Low Hematocrit 30.8 LAB MCV 80.0-100.0 fL MCV 97.8 LAB MCH 26.0-34.0 pG MCH 32.1 LAB MCHC 30.5-36.0 g/dL MCHC 32.8 LAB RDWCV 11.5-15.0 % RDW-CV 12.4 LAB PLTCT 150-400 k/uL Platelet Count 270 LAB MPV 9.0-12.7 fL MPV 9.2 LAB ANEUT % Neut% 79.9 LAB AANEUT 1.45-7.50 k/uL Abs Neut High 7.55 LAB ALYMP % Lymph% 10.5 LAB AALYMP 1.00-4.00 k/uL Low Abs Lymph 0.99 LAB AMONO % Davison% 7.9 LAB AAMONO <0.87 k/uL Abs [place] 0.75 LAB AEOS % Eosin% 1.3 LAB AAEOS <0.46 k/uL Abs Eosin 0.12 LAB ABASO % Baso% 0.4 LAB AABASO <0.11 k/uL Abs Baso 0.04 LAB AUNRBC 0 /100 WBC NRBCs 0.0 LAB ABNRBC <0.01 k/uL Absolute nRBC <0.01 LAB DTYP DTYPE Auto Diff Performed By: #### CBCDIF, PT, PTT, CMP #### [facility] [address] [place], [place] [address] PROTIME Collected: 02/27/2018 Status: F Source: [place] 4:50 PM [facility] REPOSITORY TYPE CODE TESTS RESULT OUT OF RANGE REFERENCE UNITS LAB PSEC 9.7-13.0 sec PT Sec 10.8 LAB INR 0.9-1.3 PT INR 1.0 Result Comment: Vitamin K Antagonist (VKA) Therapeutic Range: INR 2 to 3 (Target INR of 2.5) Note: For patients treated with VKA drugs, such as warfarin, the [place] [employer] 2012 Guideline recommends a therapeutic INR range of 2 to 3 (target INR of 2.5). This recommendation includes high-risk patients with antiphospholipid syndrome with previous arterial or venous thromboembolism, current-generation mechanical or bioprosthetic aortic heart valve replacement. Note: Patients with mechanical aortic valve replacement and additional risk factors for thromboembolic events (atrial fibrillation, previous thromboembolism, LV dysfunction, hypercoagulable conditions) or an older generation mechanical AVR (i.e., ball in-Cage) or any mechanical MVR should have a INR therapeutic range of 2.5 to 3.5 (target INR of 3). Herman GARCIA, et al. Chest 2012, 141:7S-47S Aden RA, et al. [facility] 2017, 70: 252-289 Performed By: #### CBCDIF, PT, PTT, CMP #### [facility] [address], [place] [id number] APTT Collected: 02/27/2018 Status: F Source: [place] 4:50 PM [facility] REPOSITORY TYPE CODE TESTS RESULT OUT OF RANGE REFERENCE UNITS LAB APTT 23.0-32.4 sec APTT 24.3 Result Comment: Unfractionated Heparin Therapeutic Ranges: Standard Heparin Nomogram: 53 to 78 seconds (anti-Xa level of 0.3 to 0.7 U/ml) Low Dose/ACS Nomogram: 49 to 67 seconds (anti-Xa level of 0.2 to 0.5 U/ml) Stroke Treatment Nomogram: 49 to 67 seconds (anti-Xa level of 0.2 to 0.5 U/ml) Note: The APTT therapeutic range has been determined for the current lot of laboratory APTT reagent in use throughout the [facility]. Performed By: #### CBCDIF, PT, PTT, CMP #### [facility] [address] [place], [place] [address] COMP METABOLIC PANEL Collected: 02/27/2018 Status: F Source: [place] 4:50 PM [facility] REPOSITORY TYPE CODE TESTS RESULT OUT OF REFERENCE UNITS RANGE LAB TP 6.3-8.0 g/dL Protein, Total 7.5 LAB ALB 3.9-4.9 g/dL Albumin 3.9 LAB CA 8.5-10.2 mg/dL Calcium, Total 9.5 LAB TBIL 0.2-1.3 mg/dL Bilirubin, Total 0.2 LAB ALKP 32-117 U/L Alkaline Phosphatase 57 LAB AST 13-35 U/L AST 18 LAB GLU 74-99 mg/dL Glucose 96 Result Comment: The [place] [employer] Association (ADA) provides guidance for cutoff values for fasting glucose and random glucose. The ADA defines fasting as no caloric intake for at least 8 hours. Fas ting plasma glucose results between 100 to 125 mg/dL indicate increased risk for diabetes (prediabetes). Fasting plasma glucose results greater than or equal to 126 mg/dL meet the criteria for diagnosis of diabetes. In the absence of unequivocal hyperglycemia, results should be confirmed by repeat testing. In a patient with classic symptoms of hyperglycemia or hyperglycemic crisis, random plasma glucose results greater than or equal to 200 mg/dL meet the criteria for diagnosis of diabetes. Reference: Standards of Medical Care in Diabetes 2016, [place] [employer]. Diabetes Care. 2016.39(Suppl 1). LAB BUN 7-21 mg/dL BUN High 61 LAB CRET 0.58-0.96 mg/dL Creatinine High 4.66 LAB NA 136-144 mmol/L Sodium 140 LAB K 3.7-5.1 mmol/L Potassium High 5.5 LAB CL 97-105 mmol/L Chloride 104 LAB CO2 22-30 mmol/L Low CO2 17 LAB AGAP 9-18 mmol/L Anion Gap High 19 LAB ALT 7-38 U/L ALT 15 LAB GFRAA eGFR- Amer. 11 LAB GFRNAA . eGFR-All Other Races 9 Result Comment: eGFR (Estimated GFR) Units of measure: mL/min/1.73 meters squared eGFR is derived from the reexpressed MDRD Study equation using the following parameters: serum creatinine, age, gender and race. The creatinine assay has been calibrated to be traceable to IDMS. An eGFR <60 mL/min/1.73m2 for >3 months is consistent with chronic kidney disease. Refer to KDOQI guidelines for clinical interpretation. In patients with unstable renal function, e.g. those with acute kidney injury, the eGFR may not accurately reflect actual GFR. Performed By: #### CBCDIF, PT, PTT, CMP #### [facility] [address] [place], [place] [address] HISTORY PHYSICAL Observed: 02/27/2018 Status: COMPLETED Source: [place] 4:17 PM [facility] REPOSITORY HNO ID: [id number] Author: Kirk (Flo) Chaarnjit Service: Urology Author Type: Resident Type: HANDP Filed: 02/27/2018 4:48 PM Note Text: HANDP: UROLOGY SERVICE NAME: Serena Musa BED: G090 001/G090-01 SERVICE DATE: 02/27/2018 SERVICE TIME: 4:17 PM PRIMARY CARE PHYSICIAN: Silas Rushing, DO ASSESSMENT AND PLAN Ms. Musa is a 67 year old female with h/o bladder cancer pre-admitted for scheduled cystectomy 02/28. - Consent is signed #Neuro - Pain control w/ tylenol. NO narcotics pre-op - Entereg BID #CV/Resp - -Hgb: check on admission -Encourage IS #GI - -Diet: electrolyte controlled, NPO @ midnight -Colace, Zofran # - - Follow up K -Scr: check on admission. Cr 3.7 on 02/25 (up from 2.8 on 02/19) -UOP: Continue to monitor #Activity - OOB to chair and Ambulate with assistance #DVT prophylaxis - SCDs, Heparin SQ #ID/Antibiotics - Will have cris-op Abx Ucx 02/25 neg. Re-check #Secondary Dx/Complications- Anemia: Chronic - bladder cancer Acute Kidney Injury on chronic: Obstructive - from bladder cancer. Anticipate improvement after cystectomy and stent placement tomorrow #Discharge teaching - pending course #Disposition - pending course Plan discussed with Dr. Belinda Donohue M.D. Urology PGY-3 Pager: [phone] February 27, 2018 4:17 PM Overnight and on weekends please page [phone] HISTORY OF PRESENT ILLNESS Ms. Musa is a 67 year old female with PMHx ?RA with bladder cancer who is admitted one day prior to scheduled cystectomy for potassium check due to worsening kidney function. Briefly, the patient has a history of gross hematuria noted 01/23. At OSH Noted to have bladder mass. TURBT at OSH reveleaed extensive mass w/ UO obstruction b/l. Of note, pt has lost 50Lbs over last yr, on [employer]. Over last several weeks, pt reports pain in b/l flanks, suprapubic area and urethra that has worsened over last few days. Pt w/ nausea for a few days; had emesis today. Pt reports night sweats and chills recently. Pt also fatigued. +constipation, but still passing flatus. Reports chronic freq, urgency, incomplete emptying. Denies hematuria, dysuria, straining to void. At bedside, pt reports pain and asks for analgesia. PAST MEDICAL HISTORY: PAST MEDICAL HISTORY Diagnosis Date - Bladder cancer (HCC) PAST SURGICAL HISTORY: No past surgical history on file. FAMILY HISTORY: No family history on file. SOCIAL HISTORY: Social History Substance Use Topics - Smoking status: Never Smoker - Smokeless tobacco: Never Used - Alcohol use Not on file MEDICATIONS: Prior to Admission Medications: Prescriptions Prior to Admission: ciprofloxacin HCl (CIPRO) 250 mg tablet take 1 Tablet two times daily Disp: Rfl: 0 Not Taking acetaminophen (TYLENOL ARTHRITIS ORAL) Take by mouth every 8 hours as needed. Disp: Rfl: Taking melatonin 10 mg cap Take by mouth daily at bedtime. Disp: Rfl: multivit with minerals/lutein (MULTIVITAMIN 50 PLUS ORAL) Take by mouth once daily. Disp: Rfl: biotin 1,000 mcg chew Take by mouth. Disp: Rfl: Potassium 99 mg tab Take by mouth once daily. Disp: Rfl: Ascorbic Acid (VITAMIN C) 100 mg tablet Take 100 mg by mouth once daily. Disp: Rfl: [START ON 03/15/2018] 0.9 % sodium chloride (NACL 0.9%) solution Infuse one liter of NS over one hour s/p cystectomy 02/28 Disp: 1000 mL Rfl: 0 FEXOFENADINE-PSEUDOEPHEDRINE SR 60 MG-120 MG 12 HR TAB as necessary Disp: Rfl: 0 Not Taking OPTIVAR 0.05 % EYE DROPS one(1) drop to each eye twice a day (Patient not taking: No sig reported) Disp: 6cc Rfl: 0 Not Taking PREDNISONE 20 MG TAB two (2) tablets daily for 3 days (Patient not taking: No sig reported) Disp: 6 Rfl: 0 Not Taking FEXOFENADINE-PSEUDOEPHEDRINE SR 60 MG-120 MG 12 HR TAB one(1) tablet every 12 hours prn (Patient not taking: No sig reported) Disp: 60 Rfl: 2 Not Taking Current hospital medications: polyethylene glycol 3350 17 g packet (MIRALAX, GLYCOLAX) 17 g ORAL DAILY acetaminophen 1,000 mg tab(s) (TYLENOL) 1,000 mg ORAL q 6 H PRN melatonin 9 mg tab(s) 9 mg ORAL AT BEDTIME NaCl 0.9% iv infusion 100 mL/hr INTRAVENOUS CONTINUOUS fentaNYL 50 mcg/mL 25-50 mcg injection (SUBLIMAZE) 25-50 mcg INTRAVENOUS q 4 H PRN ondansetron (PF) 4 mg injection (ZOFRAN) 4 mg INTRAVENOUS q 6 H PRN aluminum-magnesium hydroxide-simethicone 200-200-20 mg/5 mL 30 mL (MAALOX,MYLANTA,MAG-AL PLUS) 30 mL ORAL q 6 H PRN docusate sodium 100 mg cap(s) (COLACE) 100 mg ORAL BID phenol 1 [place] (CHLORASEPTIC) 1 [place] MUCOUS MEMBRANE (TOPICAL MOUTH AND THROAT) q 2 H PRN simethicone, chewable 80 mg tab(s) (MYLICON) 80 mg ORAL q 8 H PRN heparin 5,000 Units injection 5,000 Units SUBCUTANEOUS q 8 H CURRENT ALLERGIES: Allergies As of Date: 02/19/2018 Allergen Noted Reaction LACTOSE 02/19/2018 Other: See Comments IODINATED CONTRAST- ORAL AND IV D*02/19/2018 Hives FRUIT AND VEGETABLE DAILY [LYCOPE*02/19/2018 Anaphylaxis Fully Assessed 02/19/2018 COMPLETE REVIEW OF SYSTEMS: REVIEW OF SYSTEMS PAIN ASSESSMENT: +chronic pain GENERAL: +night sweats, chills. Negative for weight loss or fevers HEENT: Negative for changes in hearing or vision NECK: Negative for neck pain or swelling RESPIRATORY: Negative for shortness of breath CARDIOVASCULAR: Negative for chest pain GI: +nausea, vomiting, constipation. Still w/ flatus : See HPI MUSCULOSKELETAL: Negative for joint pain or swelling SKIN: Negative for lesions or rashes HEMATOLOGY: Negative for bleeding or clotting problems NEURO: Negative for strokes or seizures OBJECTIVE PHYSICAL EXAM: Patient Vitals for the past 3 hrs: BP Temp Temp src Pulse Resp SpO2 02/27/18 1541 154/78 37 ?C (98.6 ?F) Oral 66 18 97 % Body mass index is 27.33 kg/m?. General: In mild D istress HEENT: Normocephalic, atraumatic CV:: warm, well-perfused. Normal s1, s2 Resp: breathing comfortably on RA, CTAB GI: Soft, mild suprapubic tender, nondistended. No rebound or guarding. B/l mild CVAT : pelvic exam not indicated Extremities: no LE edema Neuro: Alert and oriented Psych: Normal affect DATA: Labs CBC, Coags, BMP, Mg, Phos Recent Labs 02/25/18 0817 NA 138 K 4.9 CHLOR 101 CO2 20* BUN 56* CREAT 3.73* GLUC 100* CA 8.7 Admission labs pending Specific [place], Ur (no units) Date Value 02/25/2018 1.008 Glucose, Urine (mg/dL) Date Value 02/25/2018 Negative Bilirubin, Urine (no units) Date Value 02/25/2018 Negative Ketones, Urine (no units) Date Value 02/25/2018 Negative Hemoglobin/Blood,Ur ( ) Date Value 02/25/2018 2+ Protein, Urine (mg/dL) Date Value 02/25/2018 Trace Nitrites (no units) Date Value 02/25/2018 Negative WBC, Urine (/HPF) Date Value 02/25/2018 11-25 Ucx- NEG Imaging CT A/P OSH- Per Dr. Lara clinic note- bladder mass and L hydro CT Chest 02/25- IMPRESSION: 1. ?Indeterminate subcentimeter pulmonary nodules measuring up to 4 mm. ? Comparison with prior studies if available, otherwise follow- up CT as per clinical protocol is suggested to ensure stability in this patient with known malignancy. 2. ?No lymphadenopathy in the chest. Upper abdomen: ?The right renal pelvis is mildly dilated. ?Incompletely imaged, known left-sided hydronephrosis. PROGRESS Observed: 02/25/2018 Status: COMPLETED Source: [place] 9:43 PM [facility] REPOSITORY HNO ID: [id number] Author: Harry Mancilla (Fel) Service: (none) Author Type: Fellow Type: Progress Notes Filed: 02/25/2018 9:44 PM Note Text: Addendum to prior note: -HealthQUEST score 2 -Plan should read: Surgery on 02/28/2018 -T/S not completed for unclear reason, will need AM of surgery. PROGRESS Observed: 02/25/2018 Status: COMPLETED Source: [place] 12:47 PM [facility] REPOSITORY HNO ID: [id number] Author: Jolynn (Rn) ELISSA Luther Service: (none) Author Type: Registered Nurse Type: Progress Notes Filed: 02/25/2018 12:53 PM Note Text: ET/WOC NURSING 02/25/2018 ET OUTCOME: Patient here with for preop marking and talk. Patient highly anxious but watched video and had many questions. All questions answered to patient satisfaction. Patient informed that tattoo is permanent if no stoma is placed and agreed to marking TOPIC: preop marking and talk READINESS TO LEARN COGNITIVE ABILITY: Alert and Oriented MOTIVATION TO LEARN: Eager FAMILY SUPPORT: High - Very involved in patient care INSTRUCTION PROVIDED TO: Patient and Spouse PATIENT LEARNS BEST BY: Multiple Methods FACTORS AFFECTING LEARNING: Emotional Factors: Anxious Fearful Overwhelmed PHYSICAL LIMITATIONS AFFECTING LEARNING: None LEARNING RESPONSE DIAGNOSIS: Bladder Cancer PROCEDURE / SURGERY: End ileal conduit EDUCATION TOPIC/ TEACHING POINTS: Ostomy Care Stoma appearance and function, Purpose of the pouching system, Postoperative ostomy care per ET/WOC Nurse, Postoperative self ostomy care instruction, Discharge equipment ordering and support options, Diet, Fluid Intake, ADL'S, Work, Clothing Adjustment, Exercise and Sexual Intimacy METHOD OF INSTRUCTION: Written instruction - handouts Verbal instruction Video PATIENT / FAMILY RESPONSE: Verbalizing understanding of: Preoperative teaching FOLLOW-UP PLAN: Complete - No need for follow-up SUPPLEMENTAL MATERIAL: Pre op Ostomy Booklets, Preop Ostomy Handouts and Urostomy Booklet REFERRAL (RECOMMENDATION): None Topic: STOMA MARKING The stoma marking purpose and procedure was explained: yes. The patient verbalized understanding and agrees to the marking: yes. Rectus Muscle boarders are located: yes. Abdominal contour evaluation was performed in the lying position, sitting position and standing position. The stoma marking was made according to ET/WOC Nursing Procedure #401 in the RLQ. Patient is able to see site in the following positions: lying position, sitting position and standing position DIAGRAM: See Medical Imaging printout TIME INCREMENT: 1 hour Electronically Signed By Jolynn Luther RN ET/[facility] Nursing URINALYSIS Collected: 02/25/2018 Status: F Source: [place] 12:18 PM [facility] REPOSITORY TYPE CODE TESTS RESULT OUT OF RANGE REFERENCE UNITS LAB UCOL Yellow Color Yellow LAB [facility] Clear Clarity Clear LAB UGLUC Negative mg/dL Glucose, Urine Negative LAB UBIL Negative Bilirubin, Urine Negative LAB UKET Negative Ketones, Urine Negative LAB USPG 1.005-1.030 Specific [place], Ur 1.008 LAB UHGB Negative Abnormal Hemoglobin/Blood, 2+ Alert Ur LAB UPH 4.5-8.0 pH 5.0 LAB UPROT Negative mg/dL Protein, Abnormal Urine Trace Alert LAB UUROB Normal Urobilinogen Normal LAB UNITR Negative Nitrites Negative LAB ULKEST Negative Leukest Abnormal 2+ Alert LAB UCOM Comments SEE COMMENT Result Comment: Microscopic Examination Performed LAB UWBC 0-5 /HPF Abnormal WBC Alert 11-25 LAB URBC 0-3 /HPF Abnormal RBC Alert 11-25 LAB UEPI /HPF Epithelial Cells SEE COMMENT Result Comment: Few Squamous Epithelial Cells Few Non-Squamous Epithelial Cells LAB UMCOM Urine SEE Abdi Comment COMMENT Result Comment: N/A Performed By: #### UA #### [facility] [address] [place], [place] [address] CNOV Observed: 02/25/2018 Status: COMPLETED Source: [place] 10:15 AM [facility] REPOSITORY Office Visit (UROLMN) SERENA MUSA ([id number]) 1950 F Date Time Provider Department 02/25/18 10:15 AM HARRY MANCILLA) UROSHERICE During your visit today, we recorded the following information about you: Pulse Blood pressure Weight Height 60/minute 135/87 67.3 kg 1.575 m Harry Mancilla MD 02/25/2018 12:57 PM Signed [facility] PRE-OP NOTE Serena Musa is a 67 year old female. Pre-op Date: February 25, 2018 Date of Procedure: 02/28/2018 Procedure/Surgery: Robotic Radical Cystectomy, bilateral pelvic lymph node dissection, creation of ileal conduit (radical hysterectomy as part of the cystectomy) Diagnosis: Bladder cancer Primary Surgeon: Dr. Sarah Jules, Dr. Aimee Lara Healthquest Score: Pending There were no vitals taken for this visit. Pain Assessment: Are you currently having pain? No 0 on a scale of 0 to 10 Surgical Guide Book Status: Patient given book today. Dialysis Guide Book Status: N/A Allergies Reviewed: Yes Medications Reviewed: Yes Is patient currently on oral steroids?: No Has the patient had a UTI in the past month?: No. Does the patient have any artificial joints (last 2 years), metal parts, pacemakers or cardiac/ureteral stents in place?: No Does the patient have diabetes?: No Is the patient routinely taking anticoagulants?: No. Can the patient have an IV put in either arm?: Yes Urine Dip Complete?: Yes URINE CULTURE COMPLETE?: Pending Ostomy/Stoma Nurse appointment made/completed: Yes IMPACT/Medical Clearance: Cleared per IMPACT - N/A PACE Clinic: Cleared per PACE - No All testing on cureform has been scheduled: No Consent Signed: Yes. DOS Orders Placed and Signed: Yes. Pre-op HANDP Done by Urology Fellow PATIENT INSTRUCTIONS FOR SURGERY 1.) DO NOT HAVE ANYTHING TO EAT AFTER MIDNIGHT THE DAY BEFORE SURGERY except for certain morning medications as instructed by the doctor. Candy, mints, gum, and smoking are NOT permitted. You may drink clear liquids (Sprite, water, cheyenne asha) up to two hours before your arrival time on the day of surgery. 2.) Medications to be taken on the morning of surgery with a few sips of water: No chronic meds 3.) Please bring all your prescribed inhalers (if you have any you normally take) to the hospital. 4.) Arrival time: TBD 5.) Prep given: No 6.) Lovenox instructions given: No 7.) Patient reminded that surgery time provided day before surgery is tentative based on potential changes with transplants. Recommendations: This patient is optimally prepared for surgery. History/Physical (per prior notes): Started on methotrexate for ?RA in July. Began having feelings of UTI-like symptoms around the same time. Treated with multiple courses of antibiotics for presumed UTIs. No gross hematuria at the time. ? Gross hematuria beginning in January 2018. Went to her PCP. Was given an antibiotic without any improvement. Urine cytology was reportedly performed and positive. Sent to a local urologist. CT A/P performed which revealed a mass and left hydronephrosis. ? Went to the OR quickly with an outside urologist who took her to the OR for TURBT. Revealed an extensive mass obstructing both ureteral orifices. ? Some occasional chest pain which she attributed to anxiety and shortness of breath. Underwent a cardiac workup in [place] approximately 1994 - reportedly negative. Reports intentional weight loss of 50 pounds over the past year using [employer]. Has been having some night sweats for the past week. No bone pain. Now urinary frequency q1 hour. ? No smoking history. Pt reports daily night sweats and chills. ? 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 No associated epithelial lesions identified. Histological grade is moderately differentiated. Tumor configuration: papilary, invasive and endophytic. Muscularis propria (detrusor muscle) is not identified. Lymph-vascular invasion- present. Microscopic extent of tumor- tumor invades subepithelial connective tissue (lamina propria). Additional pathological findings: acute and chronic inflammation. ? CT A/P without contrast revealed the following: IMAGING (02/01/2018) CONCLUSION: 1. Marked thickening of the superior and left lateral bladder wall measuring up to 2.5 cm. There is severe left-sided hydronephrosis. There are no ureteral calculi identified. 2. Ovoid hypodense right pelvic wall focus consistent with adenopathy. 3. 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 There is fullness of the lower pole. ? PMH: ?Rheumatoid arthritis - previously (briefly) on methotrexate and prednisone ? PSH: x 2, distant ? Meds: No medications since January Methotrexate stopped 7/3 Prednisone dc'd December (02/25/2018) Gen: no fevers/chills HEENT: normal vision, no changes, no headache Resp: no SOB Cardiac: no chest pain GI: no n/v/d/c MSK: no weakness, mild flank pain Skin: no rashes Psych: no substance abuse Endo: no hx of DMII : intermittent hematuria Physical Exam (02/25/2018) General: well-appearing, no distress HEENT: normocephalic, atraumatic Eyes: anicteric Dental: good dentition Resp: non-labored Cardiac: good peripheral perfusion Abdomen: no central obesity, scar present Skin: no visible rashes Psych: normal mood/affect MSK: normal bulk/tone Neuro: no focal deficits A/P 67yo with 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 Otherwise healthy. Also concern for MISTI from post-renal obstruction secondary to tumor. Plan for surgery on 02/07/3201. Consent signed. Pre-op orders placed. MaxxAthlete/PACE pending. Harry Mancilla MD Electronically signed Harry Mancilla MD 02/25/2018 9:44 PM Signed Addendum to prior note: -HealthQUEST score 2 -Plan should read: Surgery on 02/28/2018 -T/S not completed for unclear reason, will need AM of surgery. Referring Provider: SARAH JULES [[id number]] Allergies As of Date: 02/25/2018 Noted Allergy Reaction LACTOSE 02/19/2018 14 - Other: See Comments Comments: constipated IODINATED CONTRAST- ORAL AND IV D*02/19/2018 4 - Hives FRUIT AND VEGETABLE DAILY (LYCOPE*02/19/2018 10 - Anaphylaxis Comments: Pt reports allergy to RAW fruits and Vegetables Date Reviewed: 02/25/2018 Reviewed by: Harry Mancilla (Fel) - Fully Assessed Primary Visit Diagnosis:Malignant neoplasm of urinary bladder, unspecified site (HCC) [C67.9] Other Visit Diagnoses:Urinary tract infection without hematuria, site unspecified [N39.0] Screening for genitourinary condition [Z13.89] Order(s):BASIC METABOLIC PNL [SQBMP] Order #: [id number] FUTURE URINE CULTURE [SQURCUL] Order #: [id number]. #:[id number] TYPE + SCREEN,30 DAY [TFLSRA29] Order #: [id number] FUTURE CHEMSTRIP ONLY [SQUA] Order #: [id number] FUTURE CHEMSTRIP ONLY [SQUA] Order #: [id number]. #:[id number] Prescriptions as of 02/25/2018 Sig: TYLENOL ARTHRITIS ORAL Take by mouth every 8 hours a* MELATONIN 10 MG CAPSULE Take by mouth daily at bedtim* MULTIVITAMIN 50 PLUS ORAL Take by mouth once daily. BIOTIN 1,000 MCG CHEWABLE TAB* Take by mouth. POTASSIUM 99 MG TABLET Take by mouth once daily. ASCORBIC ACID (VITAMIN C) 100* Take 100 mg by mouth once reica* SODIUM CHLORIDE 0.9 % INTRAVE* Infuse one liter of NS over o* FEXOFENADINE 60 MG-PSEUDOEPHE* as necessary CIPROFLOXACIN 250 MG TABLET take 1 Tablet two times daily OPTIVAR 0.05 % EYE DROPS one(1) drop to each eye twice* Patient not taking: No sig reported PREDNISONE 20 MG TABLET two (2) tablets daily for 3 d* Patient not taking: No sig reported FEXOFENADINE 60 MG-PSEUDOEPHE* one(1) tablet every 12 hours * Patient not taking: No sig reported Problem List As Of Date 02/25/2018 Noted Resolved Malignant neoplasm of urinary bladder (HCC) [C6*INVALID FOR* More... Bladder cancer (HCC) [C67.9] INVALID FOR* More... Hydronephrosis [N13.30] INVALID FOR* Encounter Status:Closed by HARRY MANCILLA on 02/25/18 Observed: 02/25/2018 Status: F Source: [place] URINE CULTURE 9:18 AM [facility] REPOSITORY Culture Result - No growth (<1,000 CFU/ml) Performed By: #### URCUL #### [facility] [address] [place] [address] CNNURSE Observed: 02/25/2018 Status: COMPLETED Source: [place] 9:15 AM [facility] REPOSITORY Nurse Visit (CORSMN) SERENA MUSA ([id number]) 1950 F Date Time Provider Department 02/25/18 9:15 AM STOMA THERAPY [place] During your visit today, we recorded the following information about you: Jolynn Luther RN, RN 02/25/2018 12:53 PM Signed ET/WOC NURSING 02/25/2018 ET OUTCOME: Patient here with for preop marking and talk. Patient highly anxious but watched video and had many questions. All questions answered to patient satisfaction. Patient informed that tattoo is permanent if no stoma is placed and agreed to marking TOPIC: preop marking and talk READINESS TO LEARN COGNITIVE ABILITY: Alert and Oriented MOTIVATION TO LEARN: Eager FAMILY SUPPORT: High - Very involved in patient care INSTRUCTION PROVIDED TO: Patient and Spouse PATIENT LEARNS BEST BY: Multiple Methods FACTORS AFFECTING LEARNING: Emotional Factors: Anxious Fearful Overwhelmed PHYSICAL LIMITATIONS AFFECTING LEARNING: None LEARNING RESPONSE DIAGNOSIS: Bladder Cancer PROCEDURE / SURGERY: End ileal conduit EDUCATION TOPIC/ TEACHING POINTS: Ostomy Care Stoma appearance and function, Purpose of the pouching system, Postoperative ostomy care per ET/WOC Nurse, Postoperative self ostomy care instruction, Discharge equipment ordering and support options, Diet, Fluid Intake, ADL'S, Work, Clothing Adjustment, Exercise and Sexual Intimacy METHOD OF INSTRUCTION: Written instruction - handouts Verbal instruction Video PATIENT / FAMILY RESPONSE: Verbalizing understanding of: Preoperative teaching FOLLOW-UP PLAN: Complete - No need for follow-up SUPPLEMENTAL MATERIAL: Pre op Ostomy Booklets, Preop Ostomy Handouts and Urostomy Booklet REFERRAL (RECOMMENDATION): None Topic: STOMA MARKING The stoma marking purpose and procedure was explained: yes. The patient verbalized understanding and agrees to the marking: yes. Rectus Muscle boarders are located: yes. Abdominal contour evaluation was performed in the lying position, sitting position and standing position. The stoma marking was made according to ET/WO Nursing Procedure #401 in the RLQ. Patient is able to see site in the following positions: lying position, sitting position and standing position DIAGRAM: See Medical Imaging printout TIME INCREMENT: 1 hour Electronically Signed By Jolynn Luther RN ET/WO Nursing Referring Provider: ISRAEL WILSON [[id number]] Allergies As of Date: 02/25/2018 Noted Allergy Reaction LACTOSE 02/19/2018 14 - Other: See Comments Comments: constipated IODINATED CONTRAST- ORAL AND IV D*02/19/2018 4 - Hives FRUIT AND VEGETABLE DAILY (LYCOPE*02/19/2018 10 - Anaphylaxis Comments: Pt reports allergy to RAW fruits and Vegetables Date Reviewed: 02/25/2018 Reviewed by: Gabriella Espitia - Fully Assessed Primary 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 BIOTIN 1,000 MCG CHEWABLE TAB* Take by mouth. POTASSIUM 99 MG TABLET Take by mouth once daily. ASCORBIC ACID (VITAMIN C) 100* Take 100 mg by mouth once erica* SODIUM CHLORIDE 0.9 % INTRAVE* Infuse one liter of NS over o* FEXOFENADINE 60 MG-PSEUDOEPHE* as necessary OPTIVAR 0.05 % EYE DROPS one(1) drop to each eye twice* Patient not taking: No sig reported PREDNISONE 20 MG TABLET two (2) tablets daily for 3 d* Patient not taking: No sig reported FEXOFENADINE 60 MG-PSEUDOEPHE* one(1) tablet every 12 hours * Patient not taking: No sig reported Problem List As Of Date 02/25/2018 Noted Resolved Malignant neoplasm of urinary bladder (HCC) [C6*INVALID FOR* More... Bladder cancer (HCC) [C67.9] INVALID FOR* More... Hydronephrosis [N13.30] INVALID FOR* Annotated image of TORSO last updated by Jolynn (Elissa) ELISSA Luther on 02/25/2018 12:51 PM Encounter Status:Closed by JOLYNN LUTHER on 02/25/18 PROGRESS Observed: 02/25/2018 Status: COMPLETED Source: [place] 8:39 AM [facility] REPOSITORY HNO ID: [id number] Author: Huey Patterson Rt Service: (none) Author Type: (none) Type: Progress Notes Filed: 02/25/2018 8:40 AM Note Text: Radiology Service Progress Note PATIENT NAME: Serena Musa DATE OF SERVICE: February 25, 2018 TIME: 8:39 AM PATIENT IDENTITY VERIFICATION COMPLETED USING TWO (2) METHODS: Patient confirmed name verbally and ID band matches.. PATIENT GENDER DATA: Female. status: : No status: NO. PATIENT RELEVANT IMPLANT DATA REVIEWED: Yes RADIOLOGY DEPARTMENT: CT; Exam(s) Completed: Chest PERIPHERAL IV DATA: Not applicable SIGNED BY: Huey Patterson Rt February 25, 2018 8:[address] CHEST WO IVCON Observed: 02/25/2018 Status: F Source: [place] 8:39 AM [facility] REPOSITORY * * *Final Report* * * DATE OF EXAM: Feb 25 2018 8:39AM [facility] 0541 - CT CHEST WO IVCON / PROCEDURE REASON: Malignant neoplasm of lateral wall of bladder * * * * Physician Interpretation * * * * EXAMINATION: CHEST CT WITHOUT CONTRAST CLINICAL HISTORY: Malignant neoplasm of lateral wall of bladder Technique: Spiral CT acquisition of the chest from the thoracic inlet to the upper abdomen without contrast. MQ: CTCWOR_4 CT Dose-Length Product: 218 mGy*cm CT Dose Reduction Employed: Automated exposure control (AEC) Comparison: None RESULT: Limitations: None. Lines, tubes, and devices: None. Lung parenchyma and pleura: Few indeterminate subcentimeter pulmonary nodules are present. For reference, 4 mm nodular in the right middle lobe (image 121) and 3 mm within the left upper lobe (image 78). Nonspecific mild reticular changes are present in the inferior aspect of the right middle lobe. There is focal scarring in the medial right lower lobe, related to adjacent vertebral body osteophytes. Lungs are clear of focal consolidation. There is no pleural effusion. The trachea and central airways appear patent, devoid of endobronchial lesion. Thoracic inlet, heart, and mediastinum: There is no lymphadenopathy in the chest. Calcified left infrahilar lymph node is suggestive of remote granulomatous disease. The cardiac chambers are normal in size. Blood in the cardiac chambers appears relatively hypodense versus the interventricular septum, a finding associated with anemia. There is no pericardial effusion or thickening. The thoracic aorta is normal in calibre. There is common origin of the right brachiocephalic and left common carotid arteries, a normal anatomic variant. Minimal aortic valve leaflet calcifications are present. Scattered coronary artery calcifications are noted. The main pulmonary artery is dilated ( MPA - 31 mm). Mural thickening of the distal esophagus may relate to underdistention or a small hernia. The esophagus is mildly patulous. Bones and soft tissues: Chest wall soft tissues are unremarkable. Endplate degenerative changes are present within the thoracic spine. Upper abdomen: The right renal pelvis is mildly dilated. Incompletely imaged, known left-sided hydronephrosis. IMPRESSION: 1. Indeterminate subcentimeter pulmonary nodules measuring up to 4 mm. Comparison with prior studies if available, otherwise follow- up CT as per clinical protocol is suggested to ensure stability in this patient with known malignancy. 2. No lymphadenopathy in the chest. 3. Cardiovascular findings as detailed in the body of the report. Boat Hand: PSCB Transcribe Date/Time: Feb 25 2018 8:41A Dictated by : SUDHIR CASTILLO MD This examination was interpreted and the report reviewed and electronically signed by: SUDHIR CASTILLO MD on Feb 25 2018 10:24AM EST [id number] BASIC METABOLIC PANL Collected: 02/25/2018 Status: F Source: [place] 8:17 AM [facility] REPOSITORY TYPE CODE TESTS RESULT OUT OF REFERENCE UNITS RANGE LAB GLU 74-99 mg/dL High Glucose 100 Result Comment: The [place] [employer] (ADA) provides guidance for cutoff values for fasting glucose and random glucose. The ADA defines fasting as no caloric intake for at least 8 hours. Fas ting plasma glucose results between 100 to 125 mg/dL indicate increased risk for diabetes (prediabetes). Fasting plasma glucose results greater than or equal to 126 mg/dL meet the criteria for diagnosis of diabetes. In the absence of unequivocal hyperglycemia, results should be confirmed by repeat testing. In a patient with classic symptoms of hyperglycemia or hyperglycemic crisis, random plasma glucose results greater than or equal to 200 mg/dL meet the criteria for diagnosis of diabetes. Reference: Standards of Medical Care in Diabetes 2016, [place] [employer]. Diabetes Care. 2016.39(Suppl 1). LAB BUN 7-21 mg/dL BUN High 56 LAB CRET 0.58-0.96 mg/dL Creatinine High 3.73 LAB NA 136-144 mmol/L Sodium 138 LAB K 3.7-5.1 mmol/L Potassium 4.9 LAB CL 97-105 mmol/L Chloride 101 LAB CO2 22-30 mmol/L Low CO2 20 LAB AGAP 9-18 mmol/L Anion Gap 17 LAB CA 8.5-10.2 mg/dL Calcium, Total 8.7 LAB GFRAA eGFR- Amer. 15 LAB GFRNAA . eGFR-All Other Races 12 Result Comment: eGFR (Estimated GFR) Units of measure: mL/min/1.73 meters squared eGFR is derived from the reexpressed MDRD Study equation using the following parameters: serum creatinine, age, gender and race. The creatinine assay has been calibrated to be traceable to IDMS. An eGFR <60 mL/min/1.73m2 for >3 months is consistent with chronic kidney disease. Refer to KDOQI guidelines for clinical interpretation. In patients with unstable renal function, e.g. those with acute kidney injury, the eGFR may not accurately reflect actual GFR. Performed By: #### BMP #### [facility] [address] [place], [place] [address] HISTORY PHYSICAL Observed: 02/25/2018 Status: COMPLETED Source: [place] 8:12 AM [facility] REPOSITORY HNO ID: [id number] Author: Harry Mancilla (Fel) Service: (none) Author Type: Fellow Type: HANDP Filed: 02/25/2018 12:57 PM Note Text: [facility] PRE-OP NOTE Serena Musa is a 67 year old female. Pre-op Date: February 25, 2018 Date of Procedure: 02/28/2018 Procedure/Surgery: Robotic Radical Cystectomy, bilateral pelvic lymph node dissection, creation of ileal conduit (radical hysterectomy as part of the cystectomy) Diagnosis: Bladder cancer Primary Surgeon: Dr. Sarah Jules, Dr. Aimee Lara Healthquest Score: Pending There were no vitals taken for this visit. Pain Assessment: Are you currently having pain? No 0 on a scale of 0 to 10 Surgical Guide Book Status: Patient given book today. Dialysis Guide Book Status: N/A Allergies Reviewed: Yes Medications Reviewed: Yes Is patient currently on oral steroids?: No Has the patient had a UTI in the past month?: No. Does the patient have any artificial joints (last 2 years), metal parts, pacemakers or cardiac/ureteral stents in place?: No Does the patient have diabetes?: No Is the patient routinely taking anticoagulants?: No. Can the patient have an IV put in either arm?: Yes Urine Dip Complete?: Yes URINE CULTURE COMPLETE?: Pending Ostomy/Stoma Nurse appointment made/completed: Yes IMPACT/Medical Clearance: Cleared per IMPACT - N/A PACE Clinic: Cleared per PACE - No All testing on cureform has been scheduled: No Consent Signed: Yes. DOS Orders Placed and Signed: Yes. Pre-op HANDP Done by Urology Fellow PATIENT INSTRUCTIONS FOR SURGERY 1.) DO NOT HAVE ANYTHING TO EAT AFTER MIDNIGHT THE DAY BEFORE SURGERY except for certain morning medications as instructed by the doctor. Candy, mints, gum, and smoking are NOT permitted. You may drink clear liquids (Sprite, water, cheyenne asha) up to two hours before your arrival time on the day of surgery. 2.) Medications to be taken on the morning of surgery with a few sips of water: No chronic meds 3.) Please bring all your prescribed inhalers (if you have any you normally take) to the hospital. 4.) Arrival time: TBD 5.) Prep given: No 6.) Lovenox instructions given: No 7.) Patient reminded that surgery time provided day before surgery is tentative based on potential changes with transplants. Recommendations: This patient is optimally prepared for surgery. History/Physical (per prior notes): Started on methotrexate for ?RA in July. Began having feelings of UTI-like symptoms around the same time. Treated with multiple courses of antibiotics for presumed UTIs. No gross hematuria at the time. ? Gross hematuria beginning in January 2018. Went to her PCP. Was given an antibiotic without any improvement. Urine cytology was reportedly performed and positive. Sent to a local urologist. CT A/P performed which revealed a mass and left hydronephrosis. ? Went to the OR quickly with an outside urologist who took her to the OR for TURBT. Revealed an extensive mass obstructing both ureteral orifices. ? Some occasional chest pain which she attributed to anxiety and shortness of breath. Underwent a cardiac workup in [place] approximately 1994 - reportedly negative. Reports intentional weight loss of 50 pounds over the past year using Weight[employer]. Has been having some night sweats for the past week. No bone pain. Now urinary frequency q1 hour. ? No smoking history. Pt reports daily night sweats and chills. ? 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 No associated epithelial lesions identified. Histological grade is moderately differentiated. Tumor configuration: papilary, invasive and endophytic. Muscularis propria (detrusor muscle) is not identified. Lymph-vascular invasion- present. Microscopic extent of tumor- tumor invades subepithelial connective tissue (lamina propria). Additional pathological findings: acute and chronic inflammation. ? CT A/P without contrast revealed the following: IMAGING (02/01/2018) CONCLUSION: 1. Marked thickening of the superior and left lateral bladder wall measuring up to 2.5 cm. There is severe left-sided hydronephrosis. There are no ureteral calculi identified. 2. Ovoid hypodense right pelvic wall focus consistent with adenopathy. 3. 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 There is fullness of the lower pole. ? PMH: ?Rheumatoid arthritis - previously (briefly) on methotrexate and prednisone ? PSH: x 2, distant ? Meds: No medications since January Methotrexate stopped 01/08 Prednisone dc'd December ROS (02/25/2018) Gen: no fevers/chills HEENT: normal vision, no changes, no headache Resp: no SOB Cardiac: no chest pain GI: no n/v/d/c MSK: no weakness, mild flank pain Skin: no rashes Psych: no substance abuse Endo: no hx of DMII : intermittent hematuria Physical Exam (02/25/2018) General: well-appearing, no distress HEENT: normocephalic, atraumatic Eyes: anicteric Dental: good dentition Resp: non-labored Cardiac: good peripheral perfusion Abdomen: no central obesity, scar present Skin: no visible rashes Psych: normal mood/affect MSK: normal bulk/tone Neuro: no focal deficits A/P 67yo with 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 Otherwise healthy. Also concern for MISTI from post-renal obstruction secondary to tumor. Plan for surgery on 02/07/3201. Consent signed. Pre-op orders placed. [facility] pending. Harry Mancilla MD Electronically signed CNCO Observed: 02/22/2018 Status: COMPLETED Source: [place] 12:00 AM [facility] REPOSITORY Letter Text [phone] Formerly [address] [facility], [address] [place] [address] Toll-Free: [phone] ext. [phone] February 22, 2018 Serena Musa [facility]# [id number] [address] [facility] [address] Dear Ms. Musa: We regret to inform you that, due to unforeseen circumstances, Chuy Nicolas ([facility]) will be unable to see you on 03/15/2018, your scheduled appointment day. We apologize for any inconvenience that this adjustment may cause you. Please call the phone number above to schedule a new appointment. If you have any laboratory studies, x-rays, or other associated appointments originally scheduled for that day, please let us know so that we can try to reschedule them as well. Thank you. Sincerely, Appointment Office Pending Sale To [facility] [place] Observed: 02/19/2018 Status: F Source: [place] URINE CULTURE 3:46 PM [facility] REPOSITORY Sp. Request/Comment: - Presurgical Sterilization Specimen received in preservative Culture Result - No growth (<100 CFU/ml) Performed By: #### URCUL #### [facility] [address] [place] [address] URINALYSIS Collected: 02/19/2018 Status: F Source: [place] 3:45 PM [facility] REPOSITORY TYPE CODE TESTS RESULT OUT OF RANGE REFERENCE UNITS LAB UCOL Yellow Color Yellow LAB [facility] Clear Clarity Abnormal Cloudy Alert LAB UGLUC Negative mg/dL Glucose, Urine Negative LAB UBIL Negative Bilirubin, Urine Negative LAB UKET Negative Ketones, Urine Negative LAB USPG 1.005-1.030 Specific [place], Ur 1.010 LAB UHGB Negative Abnormal Hemoglobin/Blood, 2+ Alert Ur LAB UPH 4.5-8.0 pH 5.0 LAB UPROT Negative mg/dL Protein, Abnormal Urine 30 Alert LAB UUROB Normal Urobilinogen Normal LAB UNITR Negative Nitrites Negative LAB ULKEST Negative Leukest Abnormal 2+ Alert LAB UCOM Comments SEE COMMENT Result Comment: Microscopic Examination Performed LAB UWBC 0-5 /HPF Abnormal WBC Alert 11-25 LAB URBC 0-3 /HPF Abnormal RBC Alert 6-10 LAB UEPI /HPF Epithelial Cells SEE COMMENT Result Comment: Few Squamous Epithelial Cells Few Non-Squamous Epithelial Cells [facility] Abdi Comment COMMENT Result Comment: N/A Performed By: #### UA #### [facility] [address] [place], [place] [address] CBC AND DIFFERENTIAL Collected: 02/19/2018 Status: F Source: [place] 3:40 PM [facility] REPOSITORY TYPE CODE TESTS RESULT OUT OF REFERENCE UNITS RANGE LAB WBC 3.70-11.00 k/uL WBC 6.87 LAB RBC 3.90-5.20 m/uL Low RBC 3.45 LAB HGB 11.5-15.5 g/dL Low Hemoglobin 11.3 LAB HCT 36.0-46.0 % Low Hematocrit 33.3 LAB MCV 80.0-100.0 fL MCV 96.5 LAB MCH 26.0-34.0 pG MCH 32.8 LAB MCHC 30.5-36.0 g/dL MCHC 33.9 LAB RDWCV 11.5-15.0 % RDW-CV 12.4 LAB PLTCT 150-400 k/uL Platelet Count 234 LAB MPV 9.0-12.7 fL MPV 9.8 LAB ANEUT % Neut% 70.0 LAB AANEUT 1.45-7.50 k/uL Abs Neut 4.78 LAB ALYMP % Lymph% 17.0 LAB AALYMP 1.00-4.00 k/uL Abs Lymph 1.17 LAB AMONO % Davison% 10.0 LAB AAMONO <0.87 k/uL Abs Davison 0.69 LAB AEOS % Eosin% 2.3 LAB AAEOS <0.46 k/uL Abs Eosin 0.16 LAB ABASO % Baso% 0.7 LAB AABASO <0.11 k/uL Abs Baso 0.05 LAB AUNRBC 0 /100 WBC NRBCs 0.0 LAB ABNRBC <0.01 k/uL Absolute nRBC <0.01 LAB DTYP DTYPE Auto Diff Performed By: #### CBCDIF, CMP, PT, PTT #### [facility] [address] [place], [place] [address] COMP METABOLIC PANEL Collected: 02/19/2018 Status: F Source: [place] 3:40 PM [facility] REPOSITORY TYPE CODE TESTS RESULT OUT OF REFERENCE UNITS RANGE LAB TP 6.3-8.0 g/dL Protein, Total 8.0 LAB ALB 3.9-4.9 g/dL Albumin 4.5 LAB CA 8.5-10.2 mg/dL Calcium, Total 9.1 LAB TBIL 0.2-1.3 mg/dL Low Bilirubin, Total <0.2 LAB ALKP 32-117 U/L Alkaline Phosphatase 59 LAB AST 13-35 U/L AST 18 LAB GLU 74-99 mg/dL Glucose High 118 Result Comment: The [place] [employer] (ADA) provides guidance for cutoff values for fasting glucose and random glucose. The ADA defines fasting as no caloric intake for at least 8 hours. Fas ting plasma glucose results between 100 to 125 mg/dL indicate increased risk for diabetes (prediabetes). Fasting plasma glucose results greater than or equal to 126 mg/dL meet the criteria for diagnosis of diabetes. In the absence of unequivocal hyperglycemia, results should be confirmed by repeat testing. In a patient with classic symptoms of hyperglycemia or hyperglycemic crisis, random plasma glucose results greater than or equal to 200 mg/dL meet the criteria for diagnosis of diabetes. Reference: Standards of Medical Care in Diabetes 2016, [place] [employer]. Diabetes Care. 2016.39(Suppl 1). LAB BUN 7-21 mg/dL BUN High 41 LAB CRET 0.58-0.96 mg/dL Creatinine High 2.81 LAB NA 136-144 mmol/L Sodium 139 LAB K 3.7-5.1 mmol/L Potassium 4.6 LAB CL 97-105 mmol/L Chloride 99 LAB CO2 22-30 mmol/L CO2 25 LAB AGAP 9-18 mmol/L Anion Gap 15 LAB ALT 7-38 U/L ALT 9 LAB GFRAA eGFR- Amer. 20 LAB GFRNAA . eGFR-All Other Races 17 Result Comment: eGFR (Estimated GFR) Units of measure: mL/min/1.73 meters squared eGFR is derived from the reexpressed MDRD Study equation using the following parameters: serum creatinine, age, gender and race. The creatinine assay has been calibrated to be traceable to IDMS. An eGFR <60 mL/min/1.73m2 for >3 months is consistent with chronic kidney disease. Refer to KDOQI guidelines for clinical interpretation. In patients with unstable renal function, e.g. those with acute kidney injury, the eGFR may not accurately reflect actual GFR. Performed By: #### CBCDIF, CMP, PT, PTT #### [facility] [address] [place], [place] [address] PROTIME Collected: 02/19/2018 Status: F Source: [place] 3:40 PM [facility] REPOSITORY TYPE CODE TESTS RESULT OUT OF RANGE REFERENCE UNITS LAB PSEC 9.7-13.0 sec PT Sec 10.7 LAB INR 0.9-1.3 PT INR 1.0 Result Comment: Vitamin K Antagonist (VKA) Therapeutic Range: INR 2 to 3 (Target INR of 2.5) Note: For patients treated with VKA drugs, such as warfarin, the [place] [employer] 2012 Guideline recommends a therapeutic INR range of 2 to 3 (target INR of 2.5). This recommendation includes high-risk patients with antiphospholipid syndrome with previous arterial or venous thromboembolism, current-generation mechanical or bioprosthetic aortic heart valve replacement. Note: Patients with mechanical aortic valve replacement and additional risk factors for thromboembolic events (atrial fibrillation, previous thromboembolism, LV dysfunction, hypercoagulable conditions) or an older generation mechanical AVR (i.e., ball in-Cage) or any mechanical MVR should have a INR therapeutic range of 2.5 to 3.5 (target INR of 3). Debratt GH, et al. Chest 2012, 141:7S-47S Aden RA, et al. [facility] 2017, 70: 252-289 Performed By: #### CBCDIF, CMP, PT, PTT #### [facility] [address] [place], [place] [address] APTT Collected: 02/19/2018 Status: F Source: [place] 3:40 PM [facility] REPOSITORY TYPE CODE TESTS RESULT OUT OF RANGE REFERENCE UNITS LAB APTT 23.0-32.4 sec APTT 24.8 Result Comment: Unfractionated Heparin Therapeutic Ranges: Standard Heparin Nomogram: 53 to 78 seconds (anti-Xa level of 0.3 to 0.7 U/ml) Low Dose/ACS Nomogram: 49 to 67 seconds (anti-Xa level of 0.2 to 0.5 U/ml) Stroke Treatment Nomogram: 49 to 67 seconds (anti-Xa level of 0.2 to 0.5 U/ml) Note: The APTT therapeutic range has been determined for the current lot of laboratory APTT reagent in use throughout the [facility]. Performed By: #### CBCDIF, CMP, PT, PTT #### [facility] [address] [place], [place] [address] PROGRESS Observed: 02/19/2018 Status: COMPLETED Source: [place] 2:23 PM [facility] REPOSITORY HNO ID: [id number] Author: Ollie Nolen Service: (none) Author Type: Physician Type: Progress Notes Filed: 02/19/2018 8:43 PM Note Text: [facility] Initial History and Physical Exam - Consult Oncology Clinic Patient name: Serena Musa : 1950 Date of Service: February 19, 2018 PCP: Silas Rushing DO Referring Provider: Aimee Lara MD. 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 Final recommendations will be communicated back to the requesting physician by way of the shared medical record, or letter to requesting physician via [place] mail. She presented in mid [address] on 02/01/18 showed 1. Marked thickening of the superior and left lateral bladder wall measuring up to 2.5 cm. There is severe left-sided hydronephrosis. There are no ureteral calculi identified. 2. Ovoid hypodense right pelvic wall focus consistent with adenopathy. 3. 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 There is fullness of the lower pole. She subsequently underwent a TURBT on 02/13/18 which showed focal area of necrosis and supports diagnosis of squamous cell differentiation and lymph-vascular invasion. No associated epithelial lesions identified. Histological grade is moderately differentiated. Tumor configuration: papilary, invasive and endophytic. Muscularis propria (detrusor muscle) is not identified. Lymph-vascular invasion- present. Microscopic extent of tumor- tumor invades subepithelial connective tissue (lamina propria). Additional pathological findings: acute and chronic inflammation. ? Notes some intentional weight loss. Does have some night sweats almost every night. No fevers, chest pain, trouble breath, abdominal pain. Has some constipation from chronic IBS. She has no history of chronic indwelling menendez catheters or recurrent UTIs. PAST MEDICAL HISTORY Squamous cell carcinoma of the bladder Irritable bowel syndrome PAST SURGICAL HISTORY 2 c sections Wrist surgery Possible rheumatoid arthritis. 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 OBJECTIVE PHYSICAL EXAM: BP 120/68 Pulse 82 Temp 36.9 ?C (98.4 ?F) (Oral) Resp 20 Ht 155.6 cm (5' 1.26) Wt 66.4 kg (146 lb 6.4 oz) BMI 27.43 kg/m? GEN: no acute distress, well-appearing HEENT: atraumatic, normocephalic, clear oropharynx, extraocular movements are intact. NECK: Supple, no JVD. LYMPH: No cervical or axillary adenopathy SKIN: skin color, texture, turgor normal, no suspicious rashes or lesions. LUNGS: Clear CINTHIA. No wheezes. CV: Normal rate. Regular rhythm. Normal s1/s2. ABD: Soft, non-tender, non-distended. Mild suprapubic tenderness EXT: No deformities or edema. Peripheral pulses normal. NEURO: Grossly intact. No focal deficits. HEME: No signs of easy bruising PSYCH: Normal mood and affect ECOG / Karnofsky: 0/100% DATA: Labs, pathology, imaging reviewed. Sainz elements highlighted above. Component Latest Ref Rng AND Units 02/19/2018 WBC 3.70 - 11.00 k/uL 6.87 RBC 3.90 - 5.20 m/uL 3.45 (L) Hemoglobin 11.5 - 15.5 g/dL 11.3 (L) Hematocrit 36.0 - 46.0 % 33.3 (L) MCV 80.0 - 100.0 fL 96.5 MCH 26.0 - 34.0 pG 32.8 MCHC 30.5 - 36.0 g/dL 33.9 RDW-CV 11.5 - 15.0 % 12.4 Platelet Count 150 - 400 k/uL 234 MPV 9.0 - 12.7 fL 9.8 Neut% % 70.0 Abs Neut (ANC) 1.45 - 7.50 k/uL 4.78 Lymph% % 17.0 Abs Lymph 1.00 - 4.00 k/uL 1.17 Davison% % 10.0 Abs Davison <0.87 k/uL 0.69 Eosin% % 2.3 Abs Eosin <0.46 k/uL 0.16 Baso% % 0.7 Abs Baso <0.11 k/uL 0.05 Nucleated Reds 0 /100 WBC 0.0 Absolute nRBC <0.01 k/uL <0.01 Diff Type Auto Diff Protein, Total 6.3 - 8.0 g/dL 8.0 Albumin 3.9 - 4.9 g/dL 4.5 Calcium 8.5 - 10.2 mg/dL 9.1 Bilirubin, Total 0.2 - 1.3 mg/dL <0.2 (L) Alkaline Phosphatase 32 - 117 U/L 59 AST 13 - 35 U/L 18 Glucose 74 - 99 mg/dL 118 (H) BUN 7 - 21 mg/dL 41 (H) Creatinine 0.58 - 0.96 mg/dL 2.81 (H) Sodium 136 - 144 mmol/L 139 Potassium 3.7 - 5.1 mmol/L 4.6 Chloride 97 - 105 mmol/L 99 CO2 22 - 30 mmol/L 25 Anion Gap 9 - 18 mmol/L 15 ALT 7 - 38 U/L 9 eGFR- 20 eGFR-All Other Races . 17 ASSESSMENT AND PLAN 67 year old lady with newly diagnoses squamous cell carcinoma of the bladder with associated pelvic lymphadenopathy, L hydronephrosis, and renal dysfunction. She needs a CT chest done and her pathology reviewed here at [facility]. This is being arranged by Dr. Lara. I had a long discussion with the patient and her . We reviewed the nature of bladder cancer and more specifically the significance of squamous cell carcinoma of the bladder - an entity of which there is little prospective data and a generally poor outcome. I explained that I felt the chance of cure is low. However, the only potential chance for cure is with surgery sooner rather than later. Additionally, the benefit of surgery (perhaps more than the low chance of cure) is to provide local control as most patients with SqCC of the bladder who progress do so within the pelvis leading to significant morbidity. Given these facts I believe surgery is reasonable. The patient and her demonstrated clear understanding of this. I reviewed this with Dr Lara as well. I do think it will be beneficial for the patient to see me post- operatively in consideration for adjuvant chemotherapy. Patient has our office contact information and knows how to reach us at any time with questions/concerns or if clinical condition changes. Ollie Nolen MD MA Associate Staff [facility] February 19, 2018 CC: Aimee Lara MD CNOVSP Observed: 02/19/2018 Status: COMPLETED Source: [place] 2:15 PM [facility] REPOSITORY Visit (SP) Office ([id number]) SERENA MUSA ([id number]) 1950 F Date Time Provider Department 02/19/18 2:15 PM OLLIE NOLEN [id number] During your visit today, we recorded the following information about you: Temperature Pulse Respiration Blood pressure 98.4 degrees 82/minute 20/minute 120/68 Weight Height 66.4 kg 1.556 m Ollie Nolen MD 02/19/2018 8:43 PM Signed [facility] Initial History and Physical Exam - Consult Oncology Clinic Patient name: Serena Musa : 1950 Date of Service: February 19, 2018 PCP: Silas Rushing DO Referring Provider: Aimee Lara MD. 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 Final recommendations will be communicated back to the requesting physician by way of the shared medical record, or letter to requesting physician via [place] mail. She presented in mid [address] on 02/01/18 showed 1. Marked thickening of the superior and left lateral bladder wall measuring up to 2.5 cm. There is severe left- sided hydronephrosis. There are no ureteral calculi identified. 2. Ovoid hypodense right pelvic wall focus consistent with adenopathy. 3. 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 There is fullness of the lower pole. She subsequently underwent a TURBT on 02/13/18 which showed focal area of necrosis and supports diagnosis of squamous cell differentiation and lymph-vascular invasion. No associated epithelial lesions identified. Histological grade is moderately differentiated. Tumor configuration: papilary, invasive and endophytic. Muscularis propria (detrusor muscle) is not identified. Lymph-vascular invasion- present. Microscopic extent of tumor- tumor invades subepithelial connective tissue (lamina propria). Additional pathological findings: acute and chronic inflammation. ? Notes some intentional weight loss. Does have some night sweats almost every night. No fevers, chest pain, trouble breath, abdominal pain. Has some constipation from chronic IBS. She has no history of chronic indwelling menendez catheters or recurrent UTIs. PAST MEDICAL HISTORY Squamous cell carcinoma of the bladder Irritable bowel syndrome PAST SURGICAL HISTORY 2 c sections Wrist surgery Possible rheumatoid arthritis. 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 OBJECTIVE PHYSICAL EXAM: BP 120/68 Pulse 82 Temp 36.9 ?C (98.4 ?F) (Oral) Resp 20 Ht 155.6 cm (5' 1.26) Wt 66.4 kg (146 lb 6.4 oz) BMI 27.43 kg/m? GEN: no acute distress, well-appearing HEENT: atraumatic, normocephalic, clear oropharynx, extraocular movements are intact. NECK: Supple, no JVD. LYMPH: No cervical or axillary adenopathy SKIN: skin color, texture, turgor normal, no suspicious rashes or lesions. LUNGS: Clear CINTHIA. No wheezes. CV: Normal rate. Regular rhythm. Normal s1/s2. ABD: Soft, non-tender, non-distended. Mild suprapubic tenderness EXT: No deformities or edema. Peripheral pulses normal. NEURO: Grossly intact. No focal deficits. HEME: No signs of easy bruising PSYCH: Normal mood and affect ECOG / Karnofsky: 0/100% DATA: Labs, pathology, imaging reviewed. Sainz elements highlighted above. Component Latest Ref Rng AND Units 02/19/2018 WBC 3.70 - 11.00 k/uL 6.87 RBC 3.90 - 5.20 m/uL 3.45 (L) Hemoglobin 11.5 - 15.5 g/dL 11.3 (L) Hematocrit 36.0 - 46.0 % 33.3 (L) MCV 80.0 - 100.0 fL 96.5 MCH 26.0 - 34.0 pG 32.8 MCHC 30.5 - 36.0 g/dL 33.9 RDW-CV 11.5 - 15.0 % 12.4 Platelet Count 150 - 400 k/uL 234 MPV 9.0 - 12.7 fL 9.8 Neut% % 70.0 Abs Neut (ANC) 1.45 - 7.50 k/uL 4.78 Lymph% % 17.0 Abs Lymph 1.00 - 4.00 k/uL 1.17 Davison% % 10.0 Abs Davison <0.87 k/uL 0.69 Eosin% % 2.3 Abs Eosin <0.46 k/uL 0.16 Baso% % 0.7 Abs Baso <0.11 k/uL 0.05 Nucleated Reds 0 /100 WBC 0.0 Absolute nRBC <0.01 k/uL <0.01 Diff Type Auto Diff Protein, Total 6.3 - 8.0 g/dL 8.0 Albumin 3.9 - 4.9 g/dL 4.5 Calcium 8.5 - 10.2 mg/dL 9.1 Bilirubin, Total 0.2 - 1.3 mg/dL <0.2 (L) Alkaline Phosphatase 32 - 117 U/L 59 AST 13 - 35 U/L 18 Glucose 74 - 99 mg/dL 118 (H) BUN 7 - 21 mg/dL 41 (H) Creatinine 0.58 - 0.96 mg/dL 2.81 (H) Sodium 136 - 144 mmol/L 139 Potassium 3.7 - 5.1 mmol/L 4.6 Chloride 97 - 105 mmol/L 99 CO2 22 - 30 mmol/L 25 Anion Gap 9 - 18 mmol/L 15 ALT 7 - 38 U/L 9 eGFR- 20 eGFR-All Other Races . 17 ASSESSMENT AND PLAN 67 year old lady with newly diagnoses squamous cell carcinoma of the bladder with associated pelvic lymphadenopathy, L hydronephrosis, and renal dysfunction. She needs a CT chest done and her pathology reviewed here at [facility]. This is being arranged by Dr. Lara. I had a long discussion with the patient and her . We reviewed the nature of bladder cancer and more specifically the significance of squamous cell carcinoma of the bladder - an entity of which there is little prospective data and a generally poor outcome. I explained that I felt the chance of cure is low. However, the only potential chance for cure is with surgery sooner rather than later. Additionally, the benefit of surgery (perhaps more than the low chance of cure) is to provide local control as most patients with SqCC of the bladder who progress do so within the pelvis leading to significant morbidity. Given these facts I believe surgery is reasonable. The patient and her demonstrated clear understanding of this. I reviewed this with Dr Lara as well. I do think it will be beneficial for the patient to see me post-operatively in consideration for adjuvant chemotherapy. Patient has our office contact information and knows how to reach us at any time with questions/concerns or if clinical condition changes. Ollie Nolen MD MA Associate Staff [facility] [place] February 19, 2018 CC: MD Malia Trejo RN 02/19/2018 2:36 PM Signed Additional intake questions: Has the patient had nausea, vomiting, diarrhea, constipation, fatigue for > 1 week? None of the above Nausea, Yes, MD Notified Fatigue, Yes, Notified Does the patient have a decreased appetite? No Does patient want to see a Auto Inspection Specialist? No (yes to any of above refer patient to schedulers for dietitian appointment) ) Does patient have any new or increased numbness or tingling of extremities? No Is patient interested in fertility information? No Does patient need any prescription refills? No Electronically Signed By: Malia Portillo RN Referring Provider: OLLIE NOLEN [[id number]] Allergies As of Date: 02/19/2018 Noted Allergy Reaction LACTOSE 02/19/2018 14 - Other: See Comments Comments: constipated IODINATED CONTRAST- ORAL AND IV D*02/19/2018 4 - Hives FRUIT AND VEGETABLE DAILY (LYCOPE*02/19/2018 10 - Anaphylaxis Comments: Pt reports allergy to RAW fruits and Vegetables Date Reviewed: 02/19/2018 Reviewed by: Ollie Nolen - Fully Assessed Reason for Visit: Consult [[id number]] Primary Visit Diagnosis:Malignant neoplasm of urinary bladder, unspecified site (HCC) [C67.9] Other Visit Diagnosis:Other hydronephrosis [N13.39] Follow-up and Disposition History Recorded Prescriptions as of 02/19/2018 Sig: MELATONIN 10 MG CAPSULE Take by mouth. MULTIVITAMIN 50 PLUS ORAL Take by mouth. BIOTIN 1,000 MCG CHEWABLE TAB* Take by mouth. POTASSIUM 99 MG TABLET Take by mouth. ASCORBIC ACID (VITAMIN C) 100* Take 100 mg by mouth once erica* CIPROFLOXACIN 250 MG TABLET take 1 Tablet two times daily TYLENOL ARTHRITIS ORAL Take by mouth every 8 hours a* FEXOFENADINE 60 MG-PSEUDOEPHE* as necessary OPTIVAR 0.05 % EYE DROPS one(1) drop to each eye twice* Patient not taking: No sig reported PREDNISONE 20 MG TABLET two (2) tablets daily for 3 d* Patient not taking: No sig reported FEXOFENADINE 60 MG-PSEUDOEPHE* one(1) tablet every 12 hours * Patient not taking: No sig reported Problem List As Of Date 02/19/2018 Noted Resolved Malignant neoplasm of urinary bladder (HCC) [C6*INVALID FOR* More... Bladder cancer (HCC) [C67.9] INVALID FOR* More... Hydronephrosis [N13.30] INVALID FOR* Visit Notes: >> Malia Garcia Feb 19, 2018 2:33 PM Status: Signed Additional intake questions: Has the patient had nausea, vomiting, diarrhea, constipation, fatigue for > 1 week? None of the above Nausea, Yes, MD Notified Fatigue, Yes, MD Notified Does the patient have a decreased appetite? No Does patient want to see a Auto Inspection Specialist? No (yes to any of above refer patient to schedulers for dietitian appointment) ) Does patient have any new or increased numbness or tingling of extremities? No Is patient interested in fertility information? No Does patient need any prescription refills? No URINALYSIS Collected: 02/19/2018 Status: F Source: [place] 10:37 AM [facility] REPOSITORY TYPE CODE TESTS RESULT OUT OF RANGE REFERENCE UNITS LAB UCOL Yellow Color Yellow LAB [facility] Clear Clarity Clear LAB UGLUC Negative mg/dL Glucose, Urine Negative LAB UBIL Negative Bilirubin, Urine Negative LAB UKET Negative Ketones, Urine Negative LAB USPG 1.005-1.030 Specific [place], Ur 1.005 LAB UHGB Negative Abnormal Hemoglobin/Blood, 2+ Alert Ur LAB UPH 4.5-8.0 pH 5.5 LAB UPROT Negative mg/dL Protein, Urine Negative LAB UUROB Normal Urobilinogen Normal LAB UNITR Negative Nitrites Negative LAB ULKEST Negative Leukest Abnormal 1+ Alert LAB UCOM Comments SEE COMMENT Result Comment: Microscopic Examination Performed LAB UWBC 0-5 /HPF Abnormal WBC Alert 6-10 LAB URBC 0-3 /HPF Abnormal RBC Alert 3-5 LAB UEPI /HPF Epithelial Cells SEE COMMENT Result Comment: Few Squamous Epithelial Cells LAB UMCOM Urine SEE Abdi Comment COMMENT Result Comment: N/A Performed By: #### UA #### [facility] [address] [place], [place] [address] CNOV Observed: 02/19/2018 Status: COMPLETED Source: [place] 10:35 AM [facility] REPOSITORY Office Visit (UROLMN) SERENA MUSA ([id number]) 1950 F Date Time Provider Department 02/19/18 10:35 AM YOSHI LARA During your visit today, we recorded the following information about you: Temperature Pulse Blood pressure Weight 98.2 degrees 59/minute 124/77 66.7 kg Height 1.575 m Kaity Nunez 02/23/2018 10:42 PM Signed [facility] NEW PATIENT HISTORY AND PHYSICAL EXAM PATIENT INFO: Serena Musa 67 year old REFERRING M.D.: Data Unavailable PCP: Silas Rushing, DO HISTORY Consultation requested by Data Unavailable for an opinion regarding Bladder cancer and my final recommendations will be communicated back to the requesting physician by way of shared medical record or letter via US mail. CHIEF COMPLAINT: Bladder Cancer HPI: Started on methotrexate for ?RA in July. Began having feelings of UTI-like symptoms around the same time. Treated with multiple courses of antibiotics for presumed UTIs. No gross hematuria at the time. Gross hematuria beginning in January 2018. Went to her PCP. Was given an antibiotic without any improvement. Urine cytology was reportedly performed and positive. Sent to a local urologist. CT A/P performed which revealed a mass and left hydronephrosis. Went to the OR quickly with an outside urologist who took her to the OR for TURBT. Revealed an extensive mass obstructing both ureteral orifices. Some occasional chest pain which she attributed to anxiety and shortness of breath. Underwent a cardiac workup in [place] approximately 1994 - reportedly negative. Reports intentional weight loss of 50 pounds over the past year using [employer]. Has been having some night sweats for the past week. No bone pain. Now urinary frequency q1 hour. No smoking history. Pt reports daily night sweats and chills. 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 No associated epithelial lesions identified. Histological grade is moderately differentiated. Tumor configuration: papilary, invasive and endophytic. Muscularis propria (detrusor muscle) is not identified. Lymph-vascular invasion- present. Microscopic extent of tumor- tumor invades subepithelial connective tissue (lamina propria). Additional pathological findings: acute and chronic inflammation. CT A/P without contrast revealed the following: IMAGING (02/01/2018) CONCLUSION: 1. Marked thickening of the superior and left lateral bladder wall measuring up to 2.5 cm. There is severe left-sided hydronephrosis. There are no ureteral calculi identified. 2. Ovoid hypodense right pelvic wall focus consistent with adenopathy. 3. 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 There is fullness of the lower pole. PMH: ?Rheumatoid arthritis - previously (briefly) on methotrexate and prednisone PSH: x 2, distant Meds: No medications since January Methotrexate stopped 01/08 Prednisone dc'd December Disease Specificity: Acuity: Acute Anatomic Site: Bladder, Laterality: N/A Underlying Condition/Causal Agent: Primary Associated Conditions/Manifestations: N/A MEDICATIONS: Current Outpatient Prescriptions: FEXOFENADINE-PSEUDOEPHEDRINE SR 60 MG-120 MG 12 HR TAB as necessary Disp: Rfl: 0 OPTIVAR 0.05 % EYE DROPS one(1) drop to each eye twice a day Disp: 6cc Rfl: 0 PREDNISONE 20 MG TAB two (2) tablets daily for 3 days Disp: 6 Rfl: 0 FEXOFENADINE-PSEUDOEPHEDRINE SR 60 MG-120 MG 12 HR TAB one(1) tablet every 12 hours prn Disp: 60 Rfl: 2 No current facility-administered medications for this visit. MEDICATION ALLERGIES: ALLERGIES No Known Allergies PAST MEDICAL HISTORY: No past medical history on file. PAST SURGICAL HISTORY: No past surgical history on file. FAMILY HISTORY: No family history on file. Mother - SOCIAL HISTORY: Social History Marital status: Spouse name: Years of education: Number of children: Social History Main Topics Smoking status: Never Smoker REVIEW OF SYSTEMS: GENERAL: OTHER: night sweats, reported intentional weight loss HEAD AND NECK: No blurred vision CARDIOVASCULAR:OTHER: occasional chest pain - no hx HI RESPIRATORY: OTHER: no cough, rare shortness of breath GENITOURINARY: SEE HPI MUSCULOSKELETAL:OTHER: Occasional leg cramps SKIN: NO VARICOSE VEINS, RASH, ABNORMAL ITCHING BLOOD/LYMPHATIC: No easy bleeding, easy bruising NEUROLOGICAL: NO HEADACHES, NUMBNESS, SEIZURES, STROKE PHYSICAL EXAM: There were no vitals taken for this visit. GENERAL:WNL nutrition, no deformities, healthy appearing HEAD AND NECK: No masses visible RESP: Chest clear to auscultation without wheezing, rales, or rhonchi. CV: RRR, no murmurs, rubs or gallops ABDOMEN: Soft, nontender, nondistended, no masses HERNIAS: None SKIN/LYMPH: No rash, lesions NEURO/PSYCH: No signs of depression, anxiety, or agitation EXTREMITIES: Extremities normal. 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 (A2) PLAN: Robotic-Assisted Laproscopic Radical Cystectomy with ilieal conduit and hysterectomy Pt will consult with Dr. Nolen in medical oncology today. By signing my name below, I, Kaity Nunez, attest that this documentation has been prepared under the direction and in the presence of Yina Lara MD. Electronically signed: Derik Alcantar, February 19, 2018 12:34 PM I, Aimee Lara MD. , personally performed the services described in this documentation. All medical record entries made by the scribe were at my direction and in my presence. I have reviewed the chart and discharge instructions (if applicable) and agree that the record reflects my personal performance and is accurate and complete. Aimee Lara MD. 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 #:[id number] CBC [SQCBC] Order #: [id number] FUTURE COMP METABOLIC PANEL [SQCMP] Order #: [id number] FUTURE CT CHEST WO IVCON [[id number]] Order #: [id number] FUTURE Prescriptions as of 02/19/2018 Sig: CIPROFLOXACIN 250 MG TABLET take 1 Tablet two times daily TYLENOL ARTHRITIS ORAL Take by mouth every 8 hours a* FEXOFENADINE 60 MG-PSEUDOEPHE* as necessary OPTIVAR 0.05 % EYE DROPS one(1) drop to each eye twice* Patient not taking: No sig reported PREDNISONE 20 MG TABLET two (2) tablets daily for 3 d* Patient not taking: No sig reported FEXOFENADINE 60 MG-PSEUDOEPHE* one(1) tablet every 12 hours * Patient not taking: No sig reported Problem List As Of Date 02/19/2018 Noted Resolved Malignant neoplasm of urinary bladder (HCC) [C6*INVALID FOR* More... Bladder cancer (HCC) [C67.9] INVALID FOR* More... Hydronephrosis [N13.30] INVALID FOR* Encounter Status:Closed by YOSHI LARA MD on 02/23/18 PROGRESS Observed: 02/19/2018 Status: COMPLETED Source: [place] 9:41 AM [facility] [place] REPOSITORY HNO ID: [id number] Author: Kaity Nunez Service: (none) Author Type: (none) Type: Progress Notes Filed: 02/23/2018 10:42 PM Note Text: [facility] NEW PATIENT HISTORY AND PHYSICAL EXAM PATIENT INFO: Serena Musa 67 year old REFERRING M.D.: Data Unavailable PCP: Silas Rushing, DO HISTORY Consultation requested by Data Unavailable for an opinion regarding Bladder cancer and my final recommendations will be communicated back to the requesting physician by way of shared medical record or letter via US mail. CHIEF COMPLAINT: Bladder Cancer HPI: Started on methotrexate for ?RA in July. Began having feelings of UTI-like symptoms around the same time. Treated with multiple courses of antibiotics for presumed UTIs. No gross hematuria at the time. Gross hematuria beginning in January 2018. Went to her PCP. Was given an antibiotic without any improvement. Urine cytology was reportedly performed and positive. Sent to a local urologist. CT A/P performed which revealed a mass and left hydronephrosis. Went to the OR quickly with an outside urologist who took her to the OR for TURBT. Revealed an extensive mass obstructing both ureteral orifices. Some occasional chest pain which she attributed to anxiety and shortness of breath. Underwent a cardiac workup in [place] approximately 1994 - reportedly negative. Reports intentional weight loss of 50 pounds over the past year using [employer]. Has been having some night sweats for the past week. No bone pain. Now urinary frequency q1 hour. No smoking history. Pt reports daily night sweats and chills. 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 No associated epithelial lesions identified. Histological grade is moderately differentiated. Tumor configuration: papilary, invasive and endophytic. Muscularis propria (detrusor muscle) is not identified. Lymph-vascular invasion- present. Microscopic extent of tumor- tumor invades subepithelial connective tissue (lamina propria). Additional pathological findings: acute and chronic inflammation. CT A/P without contrast revealed the following: IMAGING (02/01/2018) CONCLUSION: 1. Marked thickening of the superior and left lateral bladder wall measuring up to 2.5 cm. There is severe left-sided hydronephrosis. There are no ureteral calculi identified. 2. Ovoid hypodense right pelvic wall focus consistent with adenopathy. 3. 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 There is fullness of the lower pole. PMH: ?Rheumatoid arthritis - previously (briefly) on methotrexate and prednisone PSH: x 2, distant Meds: No medications since January Methotrexate stopped 01/08 Prednisone dc'd December Disease Specificity: Acuity: Acute Anatomic Site: Bladder, Laterality: N/A Underlying Condition/Causal Agent: Primary Associated Conditions/Manifestations: N/A MEDICATIONS: Current Outpatient Prescriptions: FEXOFENADINE-PSEUDOEPHEDRINE SR 60 MG-120 MG 12 HR TAB as necessary Disp: Rfl: 0 OPTIVAR 0.05 % EYE DROPS one(1) drop to each eye twice a day Disp: 6cc Rfl: 0 PREDNISONE 20 MG TAB two (2) tablets daily for 3 days Disp: 6 Rfl: 0 FEXOFENADINE-PSEUDOEPHEDRINE SR 60 MG-120 MG 12 HR TAB one(1) tablet every 12 hours prn Disp: 60 Rfl: 2 No current facility-administered medications for this visit. MEDICATION ALLERGIES: ALLERGIES No Known Allergies PAST MEDICAL HISTORY: No past medical history on file. PAST SURGICAL HISTORY: No past surgical history on file. FAMILY HISTORY: No family history on file. Mother - SOCIAL HISTORY: Social History Marital status: Spouse name: Years of education: Number of children: Social History Main Topics Smoking status: Never Smoker REVIEW OF SYSTEMS: GENERAL: OTHER: night sweats, reported intentional weight loss HEAD AND NECK: No blurred vision CARDIOVASCULAR:OTHER: occasional chest pain - no hx HI RESPIRATORY: OTHER: no cough, rare shortness of breath GENITOURINARY: SEE HPI MUSCULOSKELETAL:OTHER: Occasional leg cramps SKIN: NO VARICOSE VEINS, RASH, ABNORMAL ITCHING BLOOD/LYMPHATIC: No easy bleeding, easy bruising NEUROLOGICAL: NO HEADACHES, NUMBNESS, SEIZURES, STROKE PHYSICAL EXAM: There were no vitals taken for this visit. GENERAL:WNL nutrition, no deformities, healthy appearing HEAD AND NECK: No masses visible RESP: Chest clear to auscultation without wheezing, rales, or rhonchi. CV: RRR, no murmurs, rubs or gallops ABDOMEN: Soft, nontender, nondistended, no masses HERNIAS: None SKIN/LYMPH: No rash, lesions NEURO/PSYCH: No signs of depression, anxiety, or agitation EXTREMITIES: Extremities normal. 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 (A2) PLAN: Robotic-Assisted Laproscopic Radical Cystectomy with ilieal conduit and hysterectomy Pt will consult with Dr. Nolen in medical oncology today. By signing my name below, I, Kaity Nunez, attest that this documentation has been prepared under the direction and in the presence of Aimee Lara MD. Electronically signed: Derik Alcantar, February 19, 2018 12:34 PM Aimee Wright MD. , personally performed the services described in this documentation. All medical record entries made by the scribe were at my direction and in my presence. I have reviewed the chart and discharge instructions (if applicable) and agree that the record reflects my personal performance and is accurate and complete. Aimee Lara MD. February 19, 2018 12:34 PM HOSP Observed: 02/19/2018 Status: COMPLETED Source: [place] 12:00 AM [facility] REPOSITORY Patient:Serena Musa MRN: <[id number]> Height:5' 2(1.575 m) Weight:148 lb 6.4 oz (67.314 kg) Outpatient Medications as of 02/28/18: ciprofloxacin HCl (CIPRO) 250 mg tablet acetaminophen (TYLENOL ARTHRITIS ORAL) melatonin 10 mg cap multivit with minerals/lutein (MULTIVITAMIN 50 PLUS ORAL) biotin 1,000 mcg chew Potassium 99 mg tab Ascorbic Acid (VITAMIN C) 100 mg tablet 0.9 % sodium chloride (NACL 0.9%) solution FEXOFENADINE-PSEUDOEPHEDRINE SR 60 MG-120 MG 12 HR TAB OPTIVAR 0.05 % EYE DROPS PREDNISONE 20 MG TAB FEXOFENADINE-PSEUDOEPHEDRINE SR 60 MG-120 MG 12 HR TAB Admission/Clinic Administered Medications as of 02/28/18: polyethylene glycol 3350 17 g packet (MIRALAX, GLYCOLAX) acetaminophen 1,000 mg tab(s) (TYLENOL) melatonin 9 mg tab(s) NaCl 0.9% iv infusion ondansetron (PF) 4 mg injection (ZOFRAN) aluminum-magnesium hydroxide-simethicone 200-200-20 mg/5 mL 30 mL (MAALOX,MYLANTA,MAG-AL PLUS) docusate sodium 100 mg cap(s) (COLACE) phenol 1 [place] (CHLORASEPTIC) simethicone, chewable 80 mg tab(s) (MYLICON) alvimopan 12 mg cap(s) (ENTEREG) heparin 5,000 Units injection Problem List: Malignant neoplasm of urinary bladder (HCC) [C67.9] Bladder cancer (HCC) [C67.9] Hydronephrosis [N13.30] Allergies: Lactose Iodinated Contrast- Oral And IV Dye Fruit And Vegetable Daily [Yjmltgax-Liyurw-Epjvg Extract] Date Verified: 02/28/18 Lab Values Lab Value Units Date High Low POTA* 5.1 mmol/L 02/28/2018 5.1 3.7 JERILYN* 30.8 % 02/27/2018 46.0 36.0 Progress Notes ([facility]): Jolynn Luther, RN, RN 02/25/2018 12:53 PM Signed ET/WOC NURSING 02/25/2018 ET OUTCOME: Patient here with for preop marking and talk. Patient highly anxious but watched video and had many questions. All questions answered to patient satisfaction. Patient informed that tattoo is permanent if no stoma is placed and agreed to marking TOPIC: preop marking and talk READINESS TO LEARN COGNITIVE ABILITY: Alert and Oriented MOTIVATION TO LEARN: Eager FAMILY SUPPORT: High - Very involved in patient care INSTRUCTION PROVIDED TO: Patient and Spouse PATIENT LEARNS BEST BY: Multiple Methods FACTORS AFFECTING LEARNING: Emotional Factors: Anxious Fearful Overwhelmed PHYSICAL LIMITATIONS AFFECTING LEARNING: None LEARNING RESPONSE DIAGNOSIS: Bladder Cancer PROCEDURE / SURGERY: End ileal conduit EDUCATION TOPIC/ TEACHING POINTS: Ostomy Care Stoma appearance and function, Purpose of the pouching system, Postoperative ostomy care per ET/WOC Nurse, Postoperative self ostomy care instruction, Discharge equipment ordering and support options, Diet, Fluid Intake, ADL'S, Work, Clothing Adjustment, Exercise and Sexual Intimacy METHOD OF INSTRUCTION: Written instruction - handouts Verbal instruction Video PATIENT / FAMILY RESPONSE: Verbalizing understanding of: Preoperative teaching FOLLOW-UP PLAN: Complete - No need for follow-up SUPPLEMENTAL MATERIAL: Pre op Ostomy Booklets, Preop Ostomy Handouts and Urostomy Booklet REFERRAL (RECOMMENDATION): None Topic: STOMA MARKING The stoma marking purpose and procedure was explained: yes. The patient verbalized understanding and agrees to the marking: yes. Rectus Muscle boarders are located: yes. Abdominal contour evaluation was performed in the lying position, sitting position and standing position. The stoma marking was made according to ET/WOC Nursing Procedure #401 in the RLQ. Patient is able to see site in the following positions: lying position, sitting position and standing position DIAGRAM: See Medical Imaging printout TIME INCREMENT: 1 hour Electronically Signed By Jolynn Luther RN ET/WOC Nursing Progress Notes (RADIO CT SCAN MAIN CA LL): Huey Patterson Rt 02/25/2018 8:40 AM Signed Radiology Service Progress Note PATIENT NAME: Serena Musa DATE OF SERVICE: February 25, 2018 TIME: 8:39 AM PATIENT IDENTITY VERIFICATION COMPLETED USING TWO (2) METHODS: Patient confirmed name verbally and ID band matches.. PATIENT GENDER DATA: Female. status: : No status: NO. PATIENT RELEVANT IMPLANT DATA REVIEWED: Yes RADIOLOGY DEPARTMENT: CT; Exam(s) Completed: Chest PERIPHERAL IV DATA: Not applicable SIGNED BY: Huey Patterson Rt February 25, 2018 8:39 AM 12 LEAD ELECTROCARDIOGRAM Observed: 02/18/2018 Status: F Source: [place] 3:57 PM [facility] REPOSITORY [facility] Cardiovascular Services [address] [place] [address] 12 Lead EKG 02/13/18 1300 MR#: [id number] Acct: [id number] Name: SERENA MUSA Rep #: [id number] : 1950 67 From: Shar Cook MD Attending Dr: Dulce Maria CORDOVA,Jose Smith Status: DEP [facility] Ordering Dr: Jose العراقي MD Date: 02/13/18 Location: [facility] Sex: F C Admitted: Test Reason : PREOP Blood Pressure : / mmHG Vent. Rate : 052 BPM Atrial Rate : 052 BPM P-R Int : 158 ms QRS Dur : 080 ms QT Int : 440 ms P-R-T Axes : 033 003 037 degrees QTc Int : 409 ms Sinus bradycardia Otherwise normal ECG No previous ECGs available Confirmed by SHAR COOK MD ([id number]), loan expeditor GIN STOREY ([id number]) on 02/18/2018 3:56:47 PM Referred By: Jose العراقي Confirmed By:SHAR COOK MD 02/18/18 1556 Date Shar Cook MD CC: Lizett Flores MD; Jose العراقي MD Signed DISCHARGE INSTRUCTION Observed: 02/14/2018 Status: F Source: [place] 7:44 AM [facility] REPOSITORY [facility] Medical Records Department [address] [place] [address] Instructions for Home/Discharge Instructions 02/14/18 0743 MR#: [id number] Acct: [id number] Name: SERENA MUSA Rep #: [id number] : 1950 67 From: Jose العراقي MD PCP: Lizett Flores MD Status: REG [facility] Discharge Diet: Light diet - advance as tolerated Discharge Activity: Return to Normal Activity Call your doctor if your incision/area has: Sudden Increased Bleeding Call your doctor if you observe: Fever of 101 or Higher Allergies/Adverse Reactions: Allergies apple Allergy (Verified 02/12/18 08:20) Anaphylaxis Iodinated Contrast- Oral and IV Dye [CONTRASTS] Allergy (Verified 02/12/18 08:19) Other HEADACHE Iodine and Iodide Containing Produc Allergy (Verified 02/12/18 08:19) Other HEADACHE Milk Containing Products Allergy (Verified 02/12/18 08:20) Other Medications to take at Discharge Ascorbic Acid [Vitamin C] 1,000 mg PO DAILY 02/12/18 Biotin 10 mg PO DAILY 02/12/18 Folic Acid 2 mg PO DAILY@0800 02/12/18 Melatonin 10 mg PO DAILY 02/12/18 Methotrexate 15 mg PO Q7D 02/12/18 Multivitamin [Daily Multiple Vitamin] 1 each PO DAILY 02/12/18 Naproxen Sodium [Aleve] 220 mg PO PRN PRN 02/12/18 Potassium 99 mg PO DAILY 02/12/18 Prednisone 20 mg PO PRN PRN 02/12/18 Ciprofloxacin [Cipro] 250 mg PO DAILY #10 tab 02/14/18 The following prescriptions were given: Ciprofloxacin [Cipro] 250 mg PO DAILY #10 tab Primary Care Physician: Lizett Flores MD [Primary Care Provider] - Test Results: Test results from this visit will be discussed in further detail at your follow-up appointment, if applicable. Please Follow Up With: Jose العراقي MD When: call my office to get appt with in [place]. 02/14/18 0744 <Electronically signed by Jose العراقي MD> Date Jose العراقي MD CC: Lizett Flores MD OPERATIVE REPORT Observed: 02/13/2018 Status: F Source: [place] 4:41 PM [facility] REPOSITORY [facility] Medical Records Department [address] [place] [address] Operative Report 02/13/18 1637 MR#: [id number] Acct: [id number] Name: SERENA MUSA Rep #: [id number] : 1950 67 From: Jose العراقي MD PCP: Lizett Flores MD Status: REG [facility] Y Location: [place] [address] Report of Operation Date of Procedure: 02/13/18 Pre-Operative Diagnosis: Large bladder mass with hydronephrosis and obstruction Post-Operative Diagnosis: Large bladder mass large fixed pelvic mass Surgery/Procedure Performed:: Transurethral resection of of the large bladder mass Description of Surgical Findings:: 87-year-old female who presented to my office with a large bladder mass and hydronephrosis we suspect she has invasive cancer no tissue diagnosis as of yet so today can take the surgery to attempt to do a resection if the tumor is resectable. I told the patient if she has a resectable tumor I was from the time the resected but it is not resectable then I does like to get a diagnosis of the tissue so we can plan for her treatment in the future. 67-year-old female taken back to the operating room after smooth induction of anesthesia she is placed in the dorsolithotomy position the urethra and vaginal area were prepped and draped in usual sterile fashion with Betadine. She was given IV antibiotics. Timeout was performed, she had SCDs on for DVT prophylaxis, after intubation by Dr. Ng she was then placed in dorsal lithotomy position, her vaginal area and urethra prepped and draped in usual fashion I first did a bimanual exam and she had a hard fixed pelvic mass within the anterior vaginal wall. I then dilated the urethra I went in the bladder with a cystoscope and looked inside the bladder and she had an extensive amount of tumor involving the trigone of both the left and right side and extending throughout the bladder to the patient's left side of the bladder. I then used the resectoscope and resected a handful of tissue from the trigone area but was not a complete resection was obviously invasive cancer complete resection would not of benefit the patient could not identify the left and right ureteral orifice are completely covered with tumor so did not even attempt to do stent placement. Left a catheter in place will have the nurses flush of the keep the urine clear and will offer her bilateral nephrostomy tubes tomorrow given the obstruction that I see within the bladder and she may have to consider chemotherapy first and perhaps cystectomy if she has a good response. Type of Anesthesia:: General Drains: menendez 20 fr - Admit VTE Documentation VTE Present on Admission: No VTE Mechan Device Prophylaxis: SCD's 02/13/18 0501 <Electronically signed by Jose العراقي MD> Date Jose العراقي MD CC: Lizett Flores MD; Jose العراقي MD Signed BLADDER TUR Observed: 02/13/2018 Status: F Source: [facility] 2:50 PM [facility] REPOSITORY Patient: SERENA MUSA : 1950 (67/F) Acct Num: [id number] Phys: Dulce Maria CORDOVA,Jose Smith Unit Num: [id number] Loc: [facility] Specimen: [id number] Received: 02/14/18918 Spec Type: TURB TISSUES TISSUES: Urinary bladder, NOS COMMENT Immunohistochemistry ([id number]) supports the diagnosis of squamous cell differentiation and lymph-vascular invasion. The tumor also shows focal area of necrosis. Case has been reviewed in consultation with Dr. Montano who concurs with the above diagnosis. IDC:AM GROSS DESCRIPTION Received in fixative is one container labeled with the patient's name and designated bladder tumor. The specimen consists of multiple irregular fragments of lewis-light brown soft tissue mixed with fragments of blood clot that in aggregate measure 5 x 3 x 0.8 cm. The entire specimen is submitted in four cassettes. / TIA:eliezer 02/14/18 TC:0 CPT: 78319 HEADER OPERATION: Cysto, transurethral resection bladder, Olymp[employer] PRE-OP DIAGNOSIS: Bladder tumor, gross hematuria TISSUE SUBMITTED: Bladder tumor MICROSCOPIC DESCRIPTION Slides are reviewed. MICROSCOPIC DIAGNOSIS Bladder tumor, TUR: Invasive moderately differentiated squamous carcinoma. See comment. See cancer summary below. BLADDER CANCER (TUR) SUMMARY: Procedure - TURBT Histologic type squamous cell carcinoma. Associated epithelial lesions none identified Histologic grade moderately differentiated. Tumor configuration papillary, invasive and endophytic. Adequacy of material for determining muscularis propria invasion - muscularis propria (detrusor muscle) is not identified. Lymph-Vascular invasion present. See comment. Microscopic extent of tumor tumor invades subepithelial connective tissue ( lamina propria). Additional pathologic findings acute and chronic inflammation. The above summary is in compliance with [employer] [place] [employer] (CAP) Cancer Protocols Checklist and [place] Joint Committee on Cancer (AJCC), Staging Manual, 8th Ed. TIA:eliezer 02/15/18 Signed Ricardo Mckeon 02/18/18 <signature on file> Performed By: #### PBLB #### [facility] [address] [place], [place], [address] BASIC METABOLIC Collected: 02/13/2018 Status: F Source: [facility] PROFILE (BMP) 1:10 PM [facility] REPOSITORY TYPE CODE TESTS RESULT OUT OF RANGE REFERENCE UNITS LAB L501.0100 74-106 mg/dL Normal GLU 87 Result Comment: Please note revised GLUCOSE reference range effective 2017. LAB L501.1000 7-18 mg/dL High BUN 35 LAB L501.1100 0.55-1.02 mg/dL High CREAT,SERUM 2.12 Result Comment: The validity of the calculated GFR AND GFRAA in patients over 70 years has not been determined. Clinical correlation is essential. LAB L501.1110 >60 mL/min Low EST GFR 25 Result Comment: Non- GFR Calc LAB L501.1115 >60 mL/min Low EST GFR - AA 30 Result Comment: GFR Calc LAB L501.1300 10-20 RATIO Normal BUN/CRE 16.5 LAB L501.2200 8.5-10.1 mg/dL CA Normal 8.9 LAB L501.5300 136-145 mmol/L NA Normal 141 LAB L501.5600 3.5-5.1 mmol/L K Normal 4.3 LAB L501.5900 98-107 mmol/L CL Normal 107 LAB L501.6100 21.0-32.0 mmol/L Normal CO2 26.0 LAB L501.6200 5-15 Normal GAP 8 Performed By: #### L500.2500 #### [facility] [address] [place], [address] CBC-COMPLETE BLOOD CNT Collected: 02/13/2018 Status: F Source: [facility] NO DIFF 1:10 PM [facility] REPOSITORY TYPE CODE TESTS RESULT OUT OF RANGE REFERENCE UNITS LAB L100.1000 4.4-11.0 K/mm3 Normal WBC 7.3 LAB L100.1200 4.2-5.4 M/mm3 Low RBC 3.50 LAB L100.1300 12.0-15.0 g/dl Low HGB 11.3 LAB L100.1400 37-47 % Low HCT 34.5 LAB L100.1500 81-99 fL Normal MCV 98.6 LAB L100.1600 27.0-32.0 pg High MCH 32.3 LAB L100.1700 32-36 g/gl Normal MCHC 32.8 LAB L100.1810 11.6-14.6 % Normal RDW CV 12.8 LAB L100.1820 35.1-43.9 fl High RDW SD 46.3 LAB L100.1900 150-450 K/mm3 Normal PLT 202 LAB L100.2000 6.2-12.0 fl Normal MPV 9.6 Performed By: #### L100.0500 #### [facility] [address] [place], [address] IMMUNOHISTOCHEMISTRY Observed: 02/13/2018 Status: F Source: [place] 12:00 [facility] REPOSITORY Patient: SERENA MUSA : 1950 (67/F) Acct Num: [id number] Phys: Dulce Maria CORDOVA,Jose Smith Unit Num: [id number] Loc: [facility] Specimen: [id number] Received: 02/15/181254 Spec Type: IMMUNO TISSUES TISSUES: Urinary bladder, NOS SPECIMEN INFORMATION: Tissue Source: Bladder tumor Clinical Info: Bladder tumor, gross hematuria Specimen Number: [id number] #4 CPT code: 98777, 40663 x6 METHODOLOGY: Deparaffinized sections of prefer/formalin-fixed tissue or PAP/DQ stained slides are incubated with monoclonal/polyclonal antibodies/oligonucleotide probes. Localization is made via biotin free immunoperoxidase method. Appropriate controls are performed and reacted as expected. Results on target cell population are indicated in the following table: RESULTS: ANTIBODY / CLONE RESULT Block 4 CK5-6 (D5 AND 1684) positive P40 (BC28) positive CK7 (OV-TL12/30) positive, focal CK20 (KS20.8) negative P53 (DO-7) positive CD31 (BUTCH/70A) positive Factor VIII (R Ag) positive These tests were developed and their performance characteristics determined by [facility]. They may not have been cleared or approved by the U.S. Food and Drug Administration. The FDA has determined that such clearance or approval is not necessary. INTERPRETATION: Bladder tumor: Invasive squamous cell carcinoma. Lymphvascular invasion is present. SJ:eliezer 02/18/18 Case has been reviewed in consultation with Dr. Montano who concurs with the above diagnosis. IDC:AM PHYSICIAN AND INSTITUTION [address] [address] Signed Ricardo Mike 02/18/18 <signature on file> Performed By: #### PIMM #### [facility] [address] [place] [address]. [place], [address] CT ABDOMEN/PELVIS W/WO Observed: 02/01/2018 Status: F Source: [facility] 8:[address] [address] Patient: SERENA MUSA Phone#: : 1950 Age: 67 Gender: F Pt. Type: Out Account: [id number] Location: Ordering: FERNANDO ONEIL Exam Date: 02/01/2018/8:26 Family Phys: Charge Code: [id number] Physician: [place] Order #: [id number] DLP Dose#: PROCEDURE: CT ABDOMEN/PELVIS WITH AND WITHOUT CONTRAST COMPARISON: None. INDICATIONS: Gross hematuria TECHNIQUE: After obtaining the patient's consent, CT images of the abdomen were created without and with non-ionic intravenous contrast material, and CT images of the pelvis were obtained with non-ionic intravenous contrast material. All CT scans at this facility use dose modulation, iterative reconstruction, and/or weight based dosing when appropriate to reduce radiation dose to as low as reasonably achievable. IV CONTRAST: Visipaque 320,80ml TOTAL DOSE: 18.00 CTDIvol(mGy) FINDINGS: LIVER: Normal. No enlargement, atrophy, abnormal density, or significant focal lesion. BILIARY: Normal. No visible dilatation or calcification. PANCREAS: Normal. No lesion, fluid collection, ductal dilatation, or atrophy. SPLEEN: Normal. No enlargement or focal lesion. KIDNEYS: There is left-sided hydronephrosis. The ureter is 12 mm in diameter. There is no evidence of intraluminal calculus. The ureter is dilated to the level of the bladder. Duplicated right-sided collecting system is present. There is fullness of the lower pole ureter. ADRENALS: Normal. No mass or enlargement. AORTA/VASCULAR: Normal. No aneurysm or dissection. RETROPERITONEUM: Ovoid hypodense focus is present anterior to the right ilium measuring 2.4 x 3.9 x 1.7 cm consistent with adenopathy. Continued Report - Page 2 of 2 Patient: SERENA MUSA Phone#: : 1950 Age: 67 Gender: F Pt. Type: Out Account: [id number] Location: Ordering: FERNANDO RIGGS Exam Date: 02/01/2018/8:26 Family Phys: Charge Code: [id number] Physician: [place] Order #: [id number] DLP Dose#: BOWEL/MESENTERY: Normal. No visible mass, obstruction, or bowel wall thickening. ABDOMINAL WALL: Normal. No mass or hernia. URINARY BLADDER: There is marked thickening of the superior left lateral bladder wall. Superiorly the bladder wall thickness is 2.5 cm and is suspicious for neoplastic process. PELVIC NODES: Normal. No adenopathy. PELVIC ORGANS: Normal. No visible mass. Pelvic organs appropriate for patient age. BONES: There is mild curvature of the lumbar spine to the left. Mild degenerative changes are present. LUNG BASES: Normal. No visible pulmonary or pleural disease. OTHER: Negative. CONCLUSION: 1. Marked thickening of the superior and left lateral bladder wall measuring up to 2.5 cm. There is severe left-sided hydronephrosis. There are no ureteral calculi identified. 2. Ovoid hypodense right pelvic wall focus consistent with adenopathy. Greatest dimension is 3.9 cm. 3. 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 There is fullness of the lower pole ureter. Dictated by: Afsaneh Pearson MD on 02/01/2018 at 9:42 Approved by: Afsaneh Pearson MD on 02/01/2018 at 9:42 CREATININE Collected: 01/29/2018 Status: F Source: [facility] 7:54 AM [facility] REPOSITORY TYPE CODE TESTS RESULT OUT OF REFERENCE UNITS RANGE LAB CREATININE 0.6 - 1.2 mg/dl (LOINC) CREATININE 1.2 Performed By: #### [id number] #### [facility],[address] [facility] [address] Observed: 01/21/2018 Status: F Source: [facility] CULTURE, URINE 3:53 PM [facility] REPOSITORY Order Date: 01/21/18 Order Info: [id number] - CUUR Specimen Source: clean catch Urine Culture Culture exhibits no growth. Performed By: #### M100.0650 #### [facility] [address], [address] CBC Collected: 11/28/2017 Status: F Source: [facility] 8:05 AM [facility] REPOSITORY TYPE CODE TESTS RESULT OUT OF RANGE REFERENCE UNITS LAB CBC(LOINC) CBC Result Comment: CBC-COMPLETE BLOOD COUNT LAB WBC(LOINC) 4.5 - 10.8 x 10EE3/UL WBC 5.4 LAB RBC(LOINC) 4.10 - x 10EE6/UL 5.30 RBC Low 3.68 LAB HEMOGLOBIN(LOINC) 12.0 - g/dl 16.0 HEMOGLOBIN 12.3 LAB HEMATOCRIT(LOINC) 34.0 - % 46.0 HEMATOCRIT 36.3 LAB MCV(LOINC) 80 - 99 fl MCV 99 LAB MCH(LOINC) 27 - 33 pg MCH 33 LAB MCHC(LOINC) 32 - 36 X10 3 MCHC 34 LAB RDW/CV(LOINC) 12.0 - % 15.6 RDW/CV 14.8 LAB PLATELET(LOINC) 150 - 450 x10EE3/UL PLATELET 230 LAB MPV(LOINC) 6.6 - 10.5 fl MPV 8.1 Result Comment: AUTOMATED DIFFERENTIAL LAB NEUT %(LOINC) 46.0 - 76.0 % NEUT % 66.2 LAB LYMPH %(LOINC) 20.0 - 45.0 % Low LYMPH % 18.8 LAB MONOS %(LOINC) 0.0 - 10.0 % MONOS % High 10.8 LAB EO %(LOINC) 0.0 - 7.0 % EO % 3.3 LAB BASO %(LOINC) 0.0 - 2.0 % BASO % 0.9 LAB Lymph #(LOINC) 0.80 - 2.80 x10EE3/U L Lymph # 1.00 LAB Neut #(LOINC) 1.50 - 7.10 x10EE3/U L Neut # 3.60 LAB Davison #(LOINC) 0.20 - 1.00 x10EE3/U L Davison # 0.60 LAB EO #(LOINC) 0.00 - 0.50 x10EE3/U L EO # 0.20 LAB Baso #(LOINC) 0.00 - 0.10 x10EE3/U L Baso # 0.10 LAB MANUAL DIFF(LOINC) MANUAL DIFF N/A LAB MORPHOLOGY(INC ) MORPHOLOGY N/A Result Comment: {CD] Performed By: #### [id number] #### [facility],[address] [place] [address] CMP WITH EGFR Collected: 11/28/2017 Status: F Source: [facility] 8:05 AM [facility] REPOSITORY TYPE CODE TESTS RESULT OUT OF RANGE REFERENCE UNITS LAB CMP with eGFR(INC) CMP with eGFR Result Comment: COMPREHENSIVE METABOLIC PANEL LAB SODIUM(LOINC) 136 - 145 mmol/l SODIUM 136 LAB POTASSIUM(LOINC) 3.5 - 5.1 mmol/L POTASSIUM 3.9 LAB CHLORIDE(LOINC) 98 - 107 mmol/L CHLORIDE 107 LAB CO2(LOINC) 21.0 - mmol/L 31.0 CO2 30.0 LAB GLUCOSE(LOINC) 74 - 106 mg/dl GLUCOSE Low 70 LAB BUN(LOINC) 6 - 20 mg/dl BUN 20 LAB CREATININE(LOINC) 0.6 - 1.2 mg/dl CREATININE 1.0 LAB AST/SGOT(LOINC) 13 - 39 U/L AST/SGOT 13 LAB ALK PHOS(LOINC) 38 - 126 U/L ALK PHOS 44 LAB CALCIUM(LOINC) 8.6 - mg/dl 10.2 CALCIUM 9.5 LAB TOTAL PROTEIN(LOINC) 6.4 - 8.3 g/dl TOTAL PROTEIN 6.9 LAB ALBUMIN(LOINC) 3.4 - 4.8 g/dL ALBUMIN 4.0 LAB GLOBULIN(LOINC) 1.5 - 3.8 G/DL GLOBULIN 2.9 LAB A/G RATIO(LOINC) 0.9 - 1.6 A/G RATIO 1.4 LAB TOTAL BILI(LOINC) 0.0 - 1.5 mg/dl TOTAL BILI 0.4 LAB B/C RATIO(LOINC) 0 - 30 ratio B/C RATIO 20 LAB ALT/SGPT(LOINC) 8 - 35 U/L ALT/SGPT 13 LAB ANION GAP(LOINC) 10 - 20 mmol/L ANION Low GAP 3 LAB AGE(LOINC) years AGE 67 LAB eGFR(LOINC) 60 - 999 ML/MINUTE eGFR Low 56 LAB eGFR(AA)(LOINC) 60 - 999 ML/MINUTE eGFR(AA) >60 Result Comment: ACCORDING TO THE NATIONAL KIDNEY DISEASE EDUCATION PROGRAM(NKDE), A NORMAL eGFR IS A VALUE GREATER THAN OR EQUAL TO 60 ML/MIN/1.73 SQ METERS. CHRONIC KIDNEY DISEASE: <60mL/MIN/1.73 SQ METERS KIDNEY FAILURE: <15mL/MIN/1.73 SQ METERS THIS TEST SHOULD ONLY BE USED FOR PATIENTS 18 YEARS OF AGE AND OLDER. Performed By: #### [id number] #### [facility],[address] [place] [address] CMP WITH EGFR Collected: 09/17/2017 Status: F Source: [facility] 7:40 AM [facility] REPOSITORY TYPE CODE TESTS RESULT OUT OF RANGE REFERENCE UNITS LAB CMP with eGFR(INC) CMP with eGFR Result Comment: COMPREHENSIVE METABOLIC PANEL LAB SODIUM(LOINC) 136 - 145 mmol/l SODIUM 139 LAB POTASSIUM(LOINC) 3.5 - 5.1 mmol/L POTASSIUM 4.0 LAB CHLORIDE(LOINC) 98 - 107 mmol/L CHLORIDE 101 LAB CO2(INC) 21.0 - mmol/L 31.0 CO2 High 31.1 LAB GLUCOSE(LOINC) 74 - 106 mg/dl GLUCOSE 91 LAB BUN(LOINC) 6 - 20 mg/dl BUN 15 LAB CREATININE(LOINC) 0.6 - 1.2 mg/dl CREATININE 1.0 LAB AST/SGOT(LOINC) 13 - 39 U/L AST/SGOT 17 LAB ALK PHOS(LOINC) 38 - 126 U/L ALK PHOS 48 LAB CALCIUM(LOINC) 8.6 - mg/dl 10.2 CALCIUM 9.6 LAB TOTAL 6.4 - 8.3 g/dl PROTEIN(LOINC) TOTAL PROTEIN 7.3 LAB ALBUMIN(LOINC) 3.4 - 4.8 g/dL ALBUMIN 4.1 LAB GLOBULIN(LOINC) 1.5 - 3.8 G/DL GLOBULIN 3.2 LAB A/G RATIO(LOINC) 0.9 - 1.6 A/G RATIO 1.3 LAB TOTAL BILI(LOINC) 0.0 - 1.5 mg/dl TOTAL BILI 0.4 LAB B/C RATIO(LOINC) 0 - 30 ratio B/C RATIO 15 LAB ALT/SGPT(LOINC) 8 - 35 U/L ALT/SGPT 15 LAB ANION GAP(LOINC) 10 - 20 mmol/L ANION GAP 11 LAB AGE(LOINC) years AGE 66 LAB eGFR(LOINC) 60 - 999 ML/MINUTE eGFR Low 56 LAB eGFR(AA)(LOINC) 60 - 999 ML/MINUTE eGFR(AA) >60 Result Comment: ACCORDING TO THE NATIONAL KIDNEY DISEASE EDUCATION PROGRAM(NKDE), A NORMAL eGFR IS A VALUE GREATER THAN OR EQUAL TO 60 ML/MIN/1.73 SQ METERS. CHRONIC KIDNEY DISEASE: <60mL/MIN/1.73 SQ METERS KIDNEY FAILURE: <15mL/MIN/1.73 SQ METERS THIS TEST SHOULD ONLY BE USED FOR PATIENTS 18 YEARS OF AGE AND OLDER. Performed By: #### [id number] #### [facility],[address] [place] [address] CBC Collected: 09/17/2017 Status: F Source: [facility] 7:40 AM [facility] REPOSITORY TYPE CODE TESTS RESULT OUT OF RANGE REFERENCE UNITS LAB CBC(LOINC) CBC Result Comment: CBC-COMPLETE BLOOD COUNT LAB WBC(LOINC) 4.5 - 10.8 x 10EE3/UL WBC 6.9 LAB RBC(LOINC) 4.10 - x 10EE6/UL 5.30 RBC Low 3.93 LAB HEMOGLOBIN(LOINC) 12.0 - g/dl 16.0 HEMOGLOBIN 12.7 LAB HEMATOCRIT(LOINC) 34.0 - % 46.0 HEMATOCRIT 36.9 LAB MCV(LOINC) 80 - 99 fl MCV 94 LAB MCH(LOINC) 27 - 33 pg MCH 32 LAB MCHC(LOINC) 32 - 36 X10 3 MCHC 34 LAB RDW/CV(LOINC) 12.0 - % 15.6 RDW/CV 15.3 LAB PLATELET(LOINC) 150 - 450 x10EE3/UL PLATELET 246 LAB MPV(LOINC) 6.6 - 10.5 fl MPV 7.9 Result Comment: AUTOMATED DIFFERENTIAL LAB NEUT %(LOINC) 46.0 - 76.0 % NEUT % 69.6 LAB LYMPH %(LOINC) 20.0 - 45.0 % LYMPH % Low 19.7 LAB MONOS %(LOINC) 0.0 - 10.0 % MONOS % 7.3 LAB EO %(LOINC) 0.0 - 7.0 % EO % 2.6 LAB BASO %(LOINC) 0.0 - 2.0 % BASO % 0.8 LAB Lymph #(LOINC) 0.80 - 2.80 x10EE3/U L Lymph # 1.40 LAB Neut #(LOINC) 1.50 - 7.10 x10EE3/U L Neut # 4.80 LAB Davison #(LOINC) 0.20 - 1.00 x10EE3/U L Davison # 0.50 LAB EO #(LOINC) 0.00 - 0.50 x10EE3/U L EO # 0.20 LAB Baso #(LOINC) 0.00 - 0.10 x10EE3/U L Baso # 0.10 LAB MANUAL DIFF(LOINC) MANUAL DIFF N/A LAB MORPHOLOGY(LOINC ) MORPHOLOGY N/A Result Comment: {CD] Performed By: #### [id number] #### [facility],[address] [place] [address] CBC W/DIFF, AUTOMATED Collected: 07/17/2017 Status: F Source: [place] 10:51 AM [facility] REPOSITORY TYPE CODE TESTS RESULT OUT OF RANGE REFERENCE UNITS LAB L100.1000 4.4-11.0 K/mm3 Normal WBC 5.4 LAB L100.1200 4.2-5.4 M/mm3 Normal RBC 4.33 LAB L100.1300 12.0-15.0 g/dl Normal HGB 13.2 LAB L100.1400 37-47 % Normal HCT 40.3 LAB L100.1500 81-99 fL Normal MCV 93.1 LAB L100.1600 27.0-32.0 pg Normal MCH 30.5 LAB L100.1700 32-36 g/gl Normal MCHC 32.8 LAB L100.1810 11.6-14.6 % Normal RDW CV 13.7 LAB L100.1820 35.1-43.9 fl High RDW SD 45.1 LAB L100.1900 150-450 K/mm3 Normal PLT 239 LAB L100.2000 6.2-12.0 fl Normal MPV 9.7 LAB L100.2100 47-70 % Normal NEUT% 67.1 LAB L100.2200 19-41 % Normal LY% 22.2 LAB L100.2300 0-10 % Normal MONO% 8.0 LAB L100.2400 0-5 % Normal EO% 2.1 LAB L100.2500 0-1 % Normal BASO% 0.6 LAB L100.2550 0.0-0.9 % Normal IM GRAN % 0.000 Result Comment: IG% - Immature Granulocytes (promyelocytes, myelocytes and metamyelocytes) > 1% indicates that a LEFT SHIFT is Present. LAB L100.2620 2.0-7.7 X10 3/uL Normal Absolute Neut 3.6 LAB L100.2720 0.83-4.51 X10 3/ul Normal Absolute Lymph 1.19 Performed By: #### L100.0100, L101.9900 #### [facility] [address] [place], [place], [id number] ERYTHROCYTE SED RATE Collected: 07/17/2017 Status: F Source: [place] 10:51 [facility] REPOSITORY TYPE CODE TESTS RESULT OUT OF RANGE REFERENCE UNITS LAB L102.0000 0-30 mm/hr Normal SED RATE 28 Performed By: #### L100.0100, L101.9900 #### [facility] [address] [place], [address] COMPREHENSIVE METABOLIC Collected: 07/17/2017 Status: F Source: [facility] 10:51 AM [facility] REPOSITORY TYPE CODE TESTS RESULT OUT OF RANGE REFERENCE UNITS LAB L501.0100 70-110 mg/dL Normal GLU 82 LAB L501.1000 7-18 mg/dL Normal BUN 18 LAB L501.1100 0.55-1.02 mg/dL High 1.05 CREAT,SERUM Result Comment: The validity of the calculated GFR AND GFRAA in patients over 70 years has not been determined. Clinical correlation is essential. LAB L501.1110 >60 mL/min Low EST GFR 56 Result Comment: Non- GFR Calc LAB L501.1115 >60 mL/min Normal EST GFR - AA 68 Result Comment: GFR Calc LAB L501.1300 10-20 RATIO Normal BUN/CRE 17.1 LAB L501.1500 6.4-8.2 g/dL T Normal PROT 8.2 LAB L501.1800 3.4-5.0 g/dL Normal ALB 3.9 Result Comment: Please note revised Albumin AND Globulin reference range effective 2017. LAB L501.1950 2.2-4.2 g/dL High GLOB 4.3 LAB L501.2000 0.9-2.4 RATIO Normal A/G 0.9 LAB L501.2200 8.5-10.1 mg/dL Normal CA 9.3 LAB L501.4100 15-37 U/L Normal AST 17 LAB L501.4305 45-117 U/L Normal ALK P 65 LAB L501.4405 12-78 U/L Normal ALT 21 LAB L501.4600 0.20-1.00 mg/dL Normal T BILI 0.50 LAB L501.5300 136-145 mmol/L Normal NA 139 LAB L501.5600 3.5-5.1 mmol/L Normal K 4.0 LAB L501.5900 98-107 mmol/L Normal CL 102 LAB L501.6100 21.0-32.0 mmol/L Normal CO2 28.0 LAB L501.6200 5-15 Normal GAP 9 Performed By: #### L500.4050, L505.7010 #### [facility] [address] [facility]. [place], [place], [id number] RHEUMATOID FACTOR Collected: 07/17/2017 Status: F Source: [facility] 10:51 AM [facility] REPOSITORY TYPE CODE TESTS RESULT OUT OF RANGE REFERENCE UNITS LAB L505.7010 <15 IU/mL Normal RHEUMATOID FAC < 10.0 Performed By: #### L500.4050, L505.7010 #### [facility] [address] [place], [place], [id number] ANTINUCLEAR ANTIBODIES Collected: 07/17/2017 Status: F Source: [facility] DIRECT 10:51 AM [facility] REPOSITORY TYPE CODE TESTS RESULT OUT OF RANGE REFERENCE UNITS LAB L3100.5475 Negative Normal Negative KARLA-DIRECT Result Comment: Performed at: - [facility] [id number] Math Coach: Alf Lin PhD, Phone: [phone] Performed By: #### L3100.5475 #### [facility] (refer to report for specific site) refer to report for address and phone number HEPATITIS B SURFACE Collected: 07/17/2017 Status: F Source: [facility] AG 10:51 AM [facility] REPOSITORY TYPE CODE TESTS RESULT OUT OF RANGE REFERENCE UNITS LAB L3100.0400 Negative Normal HB Negative SURF AG Result Comment: Performed at: - [facility] [id number] Math Coach: Alf Lin PhD, Phone: [phone] Performed at: [address] [id number] Math Coach: Hiram Beltran PhD, Phone: [phone] Performed at: - [facility] [id number] Math Coach: Erickson Boyce MD, Phone: [phone] Performed By: #### L3100.0390, L3100.0528, L3100.0625, L3410.1400, L4600.0100 #### [facility] (refer to report for specific site) refer to report for address and phone number HEP B SURFACE Collected: 07/17/2017 Status: F Source: [facility] ANTIBODIES 10:51 AM [facility] REPOSITORY TYPE CODE TESTS RESULT OUT OF RANGE REFERENCE UNITS LAB L3100.0528 . Normal Hep B Non Reactive Jenn AB Result Comment: Non Reactive: Inconsistent with immunity, less than 10 mIU/mL Reactive: Consistent with immunity, greater than 9.9 mIU/mL Performed By: #### L3100.0390, L3100.0528, L3100.0625, L3410.1400, L4600.0100 #### [facility] (refer to report for specific site) refer to report for address and phone number HEPATITIS C ANTIBODIES Collected: 07/17/2017 Status: F Source: [facility] 10:51 AM [facility] REPOSITORY TYPE CODE TESTS RESULT OUT OF RANGE REFERENCE UNITS LAB L3100.0650 0.0-0.9 s/co ratio Normal HEP C AB <0.1 Result Comment: Negative: < 0.8 Indeterminate: 0.8 - 0.9 Positive: > 0.9 The CDC recommends that a positive HCV antibody result be followed up with a HCV Nucleic Acid Amplification test (090556). Performed By: #### L3100.0390, L3100.0528, L3100.0625, L3410.1400, L4600.0100 #### [facility] (refer to report for specific site) refer to report for address and phone number HLA B27 Collected: 07/17/2017 Status: F Source: [facility] 10:51 AM [facility] REPOSITORY TYPE CODE TESTS RESULT OUT OF RANGE REFERENCE UNITS LAB L3410.1500 . Normal HLA Positive B27 Result Comment: HLA-B*27 Positive This patient is positive for HLA-B*27. This procedure rules out the B*27:06 and 27:09 alleles, which the literature suggests are not associated with spondyloarthropathies. B27 allele interpretation for all loci based on IMGT/HLA database version 3.27 This test was developed and its performance characteristics determined by [facility]. It has not been cleared or approved by the Food and Drug Administration. [facility] CLIA ID Number [id number] This test was performed using PCR (Polymerase Chain Reaction)/SSOP (Sequence Specific Oligonucleotide Probes) technique. SBT (Sequence Based Typing) and/or SSP (Sequence Specific Primers) may be used as supplemental methods when necessary. Please contact [facility] Customer Service at if you have any questions. Director of [facility] Laboratory Dr Hiram Beltran, PhD Performed By: #### L3100.0390, L3100.0528, L3100.0625, L3410.1400, L4600.0100 #### [facility] (refer to report for specific site) refer to report for address and phone number CCP IGG ANTIBODIES Collected: 07/17/2017 Status: F Source: [facility] 10:51 AM [facility] REPOSITORY TYPE CODE TESTS RESULT OUT OF RANGE REFERENCE UNITS LAB L4600.0100 0-19 units Normal ANTI-CCP 4 [id number] Result Comment: Negative <20 Weak positive 20 - 39 Moderate positive 40 - 59 Strong positive >59 Performed By: #### L3100.0390, L3100.0528, L3100.0625, L3410.1400, L4600.0100 #### [facility] (refer to report for specific site) refer to report for address and phone number PELVIS 1 OR 2 VIEWS Observed: 07/17/2017 Status: F Source: [facility] 10:10 AM [facility] REPOSITORY [facility] [address] [place] [address] Pelvis 1 or 2 Views MR#: [id number] Acct: [id number] Name: SERENA MUSA Rep #: [id number] : 1950 F 66 From: Carlton Tabares MD PCP: Lizett Flores MD Status: REG CLI Study: Pelvis 1 or 2 Views Date of Exam: 07/17/17 Exam# [id number] Ordering Dr: Madyson Perez MD STUDY: X-RAY - PELVIS REASON FOR EXAM: Female, 66 years old. Inflammatory polyarthropathy TECHNIQUE: One view of the pelvis was obtained. COMPARISON: None. FINDINGS: There is a non-specific bowel gas pattern. Normal visualized soft tissue structures. Normal bilateral iliac wings, sacroiliac joints and visualized sacrum. Normal visualized bilateral superior and inferior pubic rami. Normal pubic symphysis. Normal ischial tuberosities. Normal visualized right femoral head. Normal right acetabulum. Normal right hip joint. Normal visualized left femoral head. There is osteoarthritic spur formation of the left acetabular rim. There is moderate articular joint space narrowing of the left hip. RAD/Pelvis 1 or 2 Views IMPRESSION: Moderate osteoarthritis of the left hip joint Electronically Signed: Carlton Tabares MD, FACR at 8:36 EST , Service support , CC: Lizett Flores MD; Madsyon Perez MD Boat Hand: Signed NCS AND/OR EMG Observed: 07/11/2017 Status: F Source: [facility] PATIENT 3:44 PM [facility] REPOSITORY [facility] Pulmonary Services/Neurology [address] [place] [address] MR#: [id number] Acct: [id number] Name: SERENA MUSA Rep #: [id number] : 1950 66 From: Emerson Ibarra MD Referring Dr: Lizett Flores MD Status: REG CLI Ordering Dr: Date: Location: [facility] Sex: F C NCS and/or EMG Patient Report Ordering Doctor: Lizett Flores DATE OF SERVICE: 07/11/17 Serena Musa is a 66-year-old female presents for electrodiagnostic testing of the right upper limb. She has a chief complaint of numbness and tingling in the right hand. Electrodiagnostic findings: The right median motor nerve demonstrates prolonged distal latency with normal amplitude and conduction velocity. Normal right ulnar motor response. Prolonged right median sensory distal latency. Normal right median and ulnar F waves. On needle EMG, all muscles tested in the right upper limb show no evidence of denervation with normal motor unit action potentials. Electrodiagnostic Impression: This is an abnormal study in the right upper limb. 1. Findings demonstrate right-sided median mononeuropathy. This is consistent with a moderate right carpal tunnel syndrome. 2. No electrodiagnostic evidence is noted for cervical radiculopathy. If there are any further questions in regards to this exam, please do not hesitate to contact me. 07/11/17 1544 <Electronically signed by Emerson Ibarra MD> Date Emerson Ibarra MD CC: Lizett Flores MD; Emerson Ibarra Date Dictated: 07/11/17 1415 Date Transcribed: 07/11/171414 Boat Hand: ARABELLA Signed ALLERGIES ALLERGIES DATE TYPE / CODE NAME / CODE REACTION SEVERITY SOURCE 05/21/2018 Environ/420 SEASONAL OTHER: SEE C [facility] 201215(SN ALLERGIES [facility] ED CT) Repository 02/19/2018 DRUG LACTOSE OTHER: SEE C High [facility] INGREDI/[address] [place] 885427(SNOM Repository ED CT) 02/19/2018 Drug IODINATED HIVES Med [facility] Class/91480 CONTRAST- ORAL [address] [place] 1003(SNOMED AND IV DYE Repository CT) 02/19/2018 DRUG/781457 LYCOPENE-LUTEIN- ANAPHYLAXIS [facility] 003(SNOMED FRUIT EXTRACT [address] [place] CT) Repository 02/12/2018 Drug Iodinated Other Unknown [facility] Allergy/416 Contrast- Oral Community 906006([facility] and Hospital ED CT) Dye/[id number](R Repository XNORM) 02/12/2018 Drug Iodine and Other Unknown [place] Allergy/416 Iodide Community 555245([facility] ED CT) Produc/[id number] Repository 5(RXNORM) 02/12/2018 Drug Milk Containing Other Unknown [place] Allergy/416 Products/T606515 Community 786531([facility] 546(RXNORM) Hospital ED CT) Repository 02/12/2018 Drug apple/[id number] Anaphylaxis Unknown [place] Allergy/416 (RXNORM) Community 129137([facility] ED CT) Repository ENCOUNTERS ENCOUNTERS ADMIT/DISCHARGE ACCOUNT ADMITTING ENCOUNTER LOCATION SOURCE NUMBER CLASS 06/05/2018 [id number] [facility] ing:OPBI Repository 05/21/2018/06/12/[id number] Repository 05/21/2018/05/21/[id number] Repository 05/21/2018/05/22/[id number] Repository 05/06/2018 [id number] [facility] ing:MFPLAB Repository 04/17/2018/04/17/[id number] Repository 04/17/2018/04/17/[id number] Repository 04/17/2018/04/17/[id number] Repository 04/17/2018/04/18/[id number] Repository 03/22/2018/03/22/20 [id number] Ambulatory [address] Repository 03/15/2018/03/15/20 [id number] Ambulatory [address] [place] Repository 03/15/2018/03/15/20 [id number] Ambulatory [address] [place] Repository 03/15/2018/03/15/20 [id number] Ambulatory [address] [place] Repository 02/27/2018/03/10/20 [id number] BELINDA, Inpatient [address] [place] Repository 02/25/2018/02/26/20 [id number] Ambulatory [address] [place] Repository 02/25/2018/02/26/20 [id number] Ambulatory [address] [place] Repository 02/25/2018/02/26/20 [id number] Ambulatory [address] [place] Repository 02/25/2018/02/26/20 [id number] Ambulatory [address] Repository 02/19/2018 [id number] Ambulatory [facility] Repository 02/19/2018/02/21/20 [id number] Ambulatory [address] Repository 02/19/2018/02/26/20 [id number] Ambulatory [address] [place] Repository 02/13/2018/02/15/20 [id number] Ambulatory [address] ing:SDCRoom: Repository MS211 02/13/2018 [id number] Ambulatory [facility]MS[facility] Repository 02/01/2018/02/02/20 [id number] ONEIL, Ambulatory Jeff Pomerene [address] [place] [address] Repository 01/29/2018/01/30/20 [id number] ONE[place], Ambulatory Jeff Pomerene [address] [place] [address] Repository 01/21/2018 [id number] Ambulatory [facility] ing:LABSPEC Repository 11/28/2017/11/29/19 [id number] ROGE, Ambulatory Jeff Pomerene [facility] Repository 09/17/2017/09/18/19 [id number] ROGE, Ambulatory Jeff Pomerene [facility] Repository 07/17/2017 [id number] Ambulatory [facility] ing:MTRAD Repository 07/11/2017 [id number] Ambulatory Victor [place] [facility] ing:PSN Repository PAYERS PAYERS ENCOUNTER GUARANTOR PAYER SUBSCRIBER SOURCE 06/05/2018 SERENA R Primary SERENA R [place] [id number] Insurance:MEDICARE CROWNERDOB: [facility] [place], PART A BPolicy Number: [id number] [facility] 101[address]Trv: [id number] Repository Date:2018-05-07 () 06/05/2018 Secondary SERENA R [place] Insurance:ANTHEMPolicy CROWNERDOB: Community Number: [id number] Regional Medical [id number] Repository Date:8975-46-38HB [address] [place] [address] 86040ER: 06/05/2018 Tertiary NOT GIVENUNK [place] Insurance:SELF PAY [facility] Number: Effective Repository Date:2018-05-07 05/06/2018 SERENA R Primary SERENA R [place] [id number] Insurance:MEDICARE CROWNERDOB: [facility] [place], PART A BPolicy Number: [id number] County Hospital [address]Cvp: [id number] Repository Date:2018-05-06 () 05/06/2018 Secondary SERENA R [place] Insurance:ANTHEMPolicy CROWNERDOB: Community Number: [id number] Regional Medical [id number] Repository Date:[id number] [id number] [place] [address] 26432OG: 05/06/2018 Tertiary NOT GIVENUNK [place] Insurance:SELF PAY [facility] Number: Effective Repository Date:2018-05-06 02/13/2018 SERENA R Primary SERENA R [place] [id number] Insurance:MEDICARE [facility]ERDOB[facility] [place] PART A BPolicy Number: [id number] [place] [address]Dmi: [id number] Repository Date:2018-02-11 () 02/13/2018 Secondary SERENA R [place] Insurance:ANTHEMPolicy CROWNERDOB: Community Number: [id number] Regional Medical [id number] Repository Date:3221-38-09YH [id number] [place] [address] 63201OZ: 02/13/2018 Tertiary NOT GIVENUNK [place] Insurance:SELF PAY [facility] Number: Effective Repository Date:2018-02-11 02/13/2018 SERENA R Primary SERENA R [place] [id number] Insurance:MEDICARE CROWNERDOB: [facility], PART A BPolicy Number: [id number] County Hospital 18[address]Nus: [id number] Repository Date:2018-02-11 () 02/13/2018 Secondary SERENA R [place] Insurance:ANTHEMPolicy CROWNERDOB: Community Number: [id number] Regional Medical [id number] Repository Date:7655-90-26OF [address], [place] [address]EO: 02/13/2018 Tertiary NOT GIVENUNK [place] Insurance:SELF PAY [facility] Number: Effective Repository Date:2018-02-13 02/01/2018 SERENA R Primary SERENA R Jeff Pomerene CROWNERDOB: Insurance:MEDICARE CROWNERDOB: [facility] [id number] OUTPATIENTPolmercy[facility] [id number] Hospital [facility], Number: [address] [place] [place] [address]Rfq: [id number] [place] Date:Plan Name: [id number] () 02/01/2018 Secondary SERENA R Jeff Pomerene Insurance:ANTHEM BLUE CROWNERDOB: [facility] [id number] [facility] OUTPATIENTPolicy 6 [place] Repository Number: [place] [id number] Date: 01/29/2018 SERENA R Primary SERENA R Jeff Pomerene CROWNERDOB: Insurance:MEDICARE CROWNERDOB: [facility] [id number] [facility]ville [facility] [id number] Hospital [place]ER Number: 6 [address] [facility] [place] [id number] [place], [place] [address]Ikn: 330) Date:Plan Name: [id number] [phone] () 01/29/2018 Secondary SERENA R Jeff Pomerene Insurance:ANTHEM BLUE CROWNERDOB: [facility] [id number] [facility] 6 [place] Repository Number: [place], [place] [id number] Date:Plan Name: 01/21/2018 SERENA R Primary SERENA R [place] [id number] Insurance:MEDICARE CROWNERDOB: [facility], PART A BPolicy Number: [id number] [place] [address]Gsj: [id number] Repository Date:2018-01-21 () 01/21/2018 Secondary SERENA R [place] Insurance:ANTHEMPolicy CROWNERDOB: [facility] Number: [id number] Hospital [id number] Repository Date:[id number] [address]BD: 01/21/2018 Tertiary NOT GIVENUNK [place] Insurance:SELF PAY [facility] Number: Effective Repository Date:2018-01-21 11/28/2017 SERENA R Primary SERENA R Jeff Pomerene CROWNERDOB: Insurance:MEDICARE CROWNERDOB: [facility] [id number] [facility] [id number] [facility] CRAMER Number: 6 [place] [facility] [place] [id number] [place], [place] [address]Uau: 330) Date:Plan Name: [id number] [phone] () 11/28/2017 Secondary SERENA R Jeff Pomerene Insurance:ANTHEM BLUE CROWNERDOB: [facility] [id number] [facility] OUTPATIENTPolicy 6 [address] Repository Number: [place], [place] [id number] Date:Plan Name:B2 09/17/2017 SERENA R Primary Insurance:THE SERENA Albert Aguilar Pomerene CROWNERDOB: HEALTH PLANPolicy CROWNERDOB: [facility] Number: [id number] Hospital CRAMER [id number] 6 [address] Repository [place], [place] Date:Plan Name:[id number] [place], [place] [address]Jan: (152) [facility] [address] EST [address] [phone] () [place], [place] [id number]: 07/17/2017 SERENA R Primary SERENA R [place] [id number] Insurance:HEALTH PLAN CROWNERDOB: [facility] [id number] County Hospital [address]Fnn: VALLEYPolicy Number: Repository [id number] (HP) Date: [place] [address]SW: 07/17/2017 Secondary NOT GIVENUNK [place] Insurance:SELF PAY [facility] Number: Effective Repository Date:2017-07-17 07/11/2017 SERENA R Primary SERENA R [place] [id number] Insurance:HEALTH PLAN CROWNERDOB: [facility] [id number] County Hospital [address]Ntq: VALLEYPolicy Number: Repository [id number] (HP) Date: [place] [address]YG: 07/11/2017 Secondary NOT GIVENUNK [place] Insurance:SELF PAY [facility] Number: Effective Repository Date:2017-05-18
== END ==
PROVIDERS: Family Provider Family Medicine; PCP Family Medicine; Visit Provider Family Medicine
DX: Z12.31 Encounter for screening mammogram for malignant neoplasm of breast (principal)
CPT/HCPCS: 77063; 77067

== ENCOUNTER 2018-09-27 19:57 | Emergency (ER) | payer MEDICARE, BC, SELFPAY ==
[2018-09-27 19:59] VITALS: BP 154/70; PULSE 107; RESP 18; TEMP 36.2; O2SAT 97; BMI 27.6
--- NOTE | 2018-09-27 20:14 | ED.VIS.GEN ---
History of Present Illness Chief Complaint: Nausea/Vomiting Detail of Chief Complaint: Fever and chills Informant: Patient, Family, Significant Other Onset: Today Context: Sudden Onset Timing: Continuous - Nausea, Intermittent - Vomiting Quality: Moderate Location: Abdomen Current Severity: Mild Maximum Severity: Moderate Worsened by: Attempt to eat or drink Relieved by: Nothing Associated Symptoms: Fever and chills Narrative: Patient is a 67-year-old woman with metastatic diagnosed March 2018. She underwent cystectomy and hysterectomy. She had her first chemotherapy yesterday. She presents with nausea and one episode of vomiting. She states she is unable to drink anything. She also reports documented fever to 101.1 ?F and shaking chills. She does report rhinorrhea, congestion and cough which started yesterday. The cough is nonproductive. She reports mild shortness of breath. She states she did get a flu vaccine but did not get a Pneumovax. Prior similar symptoms: No Recent Illness/Hospitalization: No - Past Medical History (1) Malignant neoplasm metastatic from bladder Status: Acute Past Medical History - Allergies and Home Meds Allergies/Adverse Reactions: Allergies apple Allergy (Verified 09/27/18 20:01) Anaphylaxis Iodinated Contrast- Oral and IV Dye [CONTRASTS] Allergy (Verified 09/27/18 20:01) Other HEADACHE Iodine and Iodide Containing Produc Allergy (Verified 09/27/18 20:01) Other HEADACHE Milk Containing Products Allergy (Verified 09/27/18 20:01) Other Primary Care Physician: Lizett Flores MD [Primary Care Provider] - As Needed Prior records reviewed: Yes Surgical History: hysterectomy, - - Cystectomy has a urostomy Smoking Status: Former smoker Review of Systems General: Reports: Chills, Fever, Malaise. Denies: Sweats Eyes: Denies: Visual changes - bilaterally, Blurred Vision - bilaterally, Diplopia ENT: Denies: Bilateral ear pain, Rhinorrhea, Sore throat Cardiovascular: Denies: Chest pain, Palpitations Respiratory: Denies: Dyspnea, Cough, Dyspnea on exertion Gastrointestinal: Reports: Abdominal pain, Nausea, Vomiting. Denies: Diarrhea, Constipation, Melena, Hematochezia Musculoskeletal: Reports: Myalgias. Denies: Back pain, Extremity Pain Skin: Denies: Rash, Wounds Neurological: Reports: Headache, Weakness. Denies: Numbness Hematologic: Denies: Easy bruising, Easy bleeding Physical Exam Vital Signs/Narrative: Vital Signs Temp Pulse Resp BP Pulse Ox 09/27/18 19:59 97.2 F L 107 H 18 154/70 H 97 Inital Vital Signs reviewed: Yes General: Well nourished, Well developed Head: Normocephalic, Atraumatic Eyes: Perrl, EOMI. Negative for: Pale conjunctiva, Scleral icterus ENT: No rhinorrhea, TM's clear, Dry mucous membranes Neck: Supple, Nontender, No lymphadenopathy, No JVD Cardiovascular: Regular rhythm, No murmurs, Normal S1, Normal S2, Tachycardia Respiratory: No distress, CTA bilaterally, Chest nontender Abdomen: Soft, Nontender, Nondistended, Normal bowel sounds, No masses Back: Nontender, Normal Inspection. Negative for: CVA tenderness Extremities: Nontender, Edema - 1+ symmetric in bilateral Skin: No rash, Pallor. Negative for: Cyanosis, Diaphoresis Neurological: Alert, Oriented x3, Cranial nerves II-XII grossly intact, Normal Strength, Normal Sensation Psychological: Normal affect, Normal Mood Diagnostic/Tx/Re-eval Chest X-Ray - ED: 2 View, Normal, Heart, Mediastinum, Bony Structures, No Acute Disease, Chronic Changes Impressions Chest X-Ray 09/27/18 21:05 IMPRESSION: No acute thoracic pathology. Electronically Signed: Ti Pierce, at 22:01 EDT Tel , Service support , 09/27/18 21:05 Chest PA and Lateral [RAD] Stat 09/27/18 20:45 Mucosa - Throat Group A Streptococcus Rapid Screen - Preliminary Laboratory Results 09/27/18 09/27/18 09/27/18 20:30 20:30 20:30 WBC 15.3 H RBC 2.92 L Hgb 8.6 L Hct 27.0 L MCV 92.5 MCH 29.5 MCHC 31.9 L RDW 14.6 RDW Differential 49.6 H Plt Count 349 MPV 8.2 Immature Gran % (Auto) 0.100 Neut % (Auto) 90.5 H Lymph % (Auto) 4.3 L [place] % (Auto) 4.7 Eos % (Auto) 0.3 Baso % (Auto) 0.1 Absolute Neuts (auto) 13.9 H Absolute Lymphs (auto) 0.66 L Total Counted Not Reportable Sodium 135 L Potassium 3.9 Chloride 103 Carbon Dioxide 26.0 Anion Gap 6 BUN 23 H Creatinine 1.03 H Estim Creat Clear Calc 43.07 Est GFR (MDRD) Af Amer 69 Est GFR (MDRD) Non-Af 57 L BUN/Creatinine Ratio 22.3 H Glucose 105 Lactic Acid 1.6 Calcium 10.5 H Rapid influenza screen was negative. - Rhythm Strip Rhythm Strip: Sinus Rhythm Rate: 105 Ectopy: None - Medical Decision Making IV was established as clinically she appears dehydrated. Because she has a fever and respiratory symptoms will obtain chest x-ray, influenza rapid screen, blood work and will administer 6 and 50 mg Tylenol for elevated temperature. Spoke with patient's oncologist. He recommended no antibiotics. If influenza is positive will treat with Tamiflu otherwise patient will follow-up with her oncologist. She was made aware of his recommendations and her results. Patient's white count and all likely secondary to the Decadron she was administered. ED Disposition - Plan for ED Patient: Disposition: Home or Assisted Living Diagnosis: Febrile illness, acute, Stage IV bladder cancer, Patient on antineoplastic chemotherapy regimen Instructions: ED Fever Unconf Cause, ED Nausea Vomiting Prescriptions: Ondansetron [Zofran Odt] 8 mg PO Q8H PRN PRN #10 tab PRN Reason: Nausea Referrals: Lizett Flores MD [Primary Care Provider] - As Needed
[2018-09-27] MEDS: 0.9% Normal Saline 1,000 ML 1000 ML IV (20:39)
[2018-09-27] MEDS: Ondansetron 4 MG/2 ML Vial 8 MG IV (20:39)
[2018-09-27] MEDS: Acetaminophen 325 MG Tablet 650 MG PO (20:46)
[2018-09-27 20:50] LABS: Absolute Lymphocyte Count 0.66 X10^3/ul (0.83-4.51); Absolute Neutrophil Count 13.9 X10^3/uL (2.0-7.7); Basophil# 0.01 X10^3/uL; Basophil% 0.1 % (0-1); Eosinophil# 0.05 X10^3/uL; Eosinophils% 0.3 % (0-5); Hemoglobin 8.6 g/dl (12.0-15.0); Lymphocyte # 0.66 X10^3/ul (4.0); Lymphocyte % 4.3 % (19-41); Mean Corp Hgb Conc 31.9 g/gl (32-36); Mean Corpuscular Hgb 29.5 pg (27.0-32.0); Mean Corpuscular Volume 92.5 fL (81-99); Mean Platelet Vol. 8.2 fl (6.2-12.0); Monocyte# 0.72 X10^3/uL; Monocyte% 4.7 % (0-10); Neutrophil # 13.85 X10^3/uL (2.7-7.7); Neutrophil % 90.5 % (47-70); Platelet Count 349 K/mm3 (150-450); RBC Distribution Width CV 14.6 % (11.6-14.6); RBC Distribution Width SD 49.6 fl (35.1-43.9); Red Blood Count 2.92 M/mm3 (4.2-5.4); White Blood Count 15.3 K/mm3 (4.4-11.0)
[2018-09-27 20:51] LABS: POSITIVE COUNT NO; POSITIVE DIFFERENTIAL NO; POSITIVE MORPHOLOGY NO
[2018-09-27 20:57] LABS: Anion Gap 6 (5-15); BUN 23 mg/dL (7-18); BUN/Creat Ratio 22.3 RATIO (10-20); Calcium,Total 10.5 mg/dL (8.5-10.1); Chloride 103 mmol/L (98-107); Creatinine, Serum 1.03 mg/dL (0.55-1.02); EST Glomerular Filtration Rate 57 mL/min (>60); Est Glom Filt Rate - Afr Amer 69 mL/min (>60); Estimated Creatinine Clearance 43.07 ml/min; Glucose 105 mg/dL (74-106); Potassium 3.9 mmol/L (3.5-5.1); Sodium Level 135 mmol/L (136-145)
[2018-09-27 21:01] VITALS: BP 141/66; PULSE 77; PULSE 79; RESP 15; RESP 23; TEMP 38.3; O2SAT 89; O2SAT 92
--- NOTE | 2018-09-27 21:05 | RAD_ITS ---
STUDY: X-RAY CHEST REASON FOR EXAM: Female, 67 years old. Fever TECHNIQUE: Frontal and lateral views of the chest COMPARISON: None. FINDINGS: The lungs are clear. There are no pleural effusions. There is no pneumothorax. The heart is normal in size. The visualized osseous structures are within normal limits. RAD/Chest PA and Lateral IMPRESSION: No acute thoracic pathology. Electronically Signed: Ti Pelayo, at 22:01 EDT Tel , Service support ,
[2018-09-27 21:14] LABS: Lactic Acid 1.6 mmol/L (0.4-2.0)
[2018-09-27 22:00] VITALS: BP 122/94; PULSE 88; RESP 19; TEMP 37.8; O2SAT 94
[2018-09-27] MEDS: HYDROcodone Bitartrate/Apap 5/325 Tablet PO (23:40)
[2018-09-27] MEDS: Ondansetron 4 MG/2 ML Vial IV (23:46)
[2018-09-28] VITALS: BP 117/78; PULSE 70; RESP 15; TEMP 37.3; O2SAT 93
[2018-09-28 00:39] VITALS: BP 117/78; RESP 15; TEMP 37.3
== END 2018-09-28 00:47 | disposition home or self-care (01) ==
PROVIDERS: Emergency Provider Emergency Medicine; Family Provider Family Medicine; PCP Family Medicine
DX: R50.9 Fever, unspecified (principal); C67.9 Malignant neoplasm of bladder, unspecified; Z87.891 Personal history of nicotine dependence; Z93.6 Other artificial openings of urinary tract status; Z90.710 Acquired absence of both cervix and uterus
CPT/HCPCS: 71046; 80048; 83605; 85025; 87040; 87804; 87880; 96361; 96374; 96376; 99285; J2405

== ENCOUNTER → 2019-05-30 09:10 | Outpatient (CLI) | payer MEDICARE, BC, SELFPAY ==
--- NOTE | 2019-05-30 10:00 | MRI_ITS ---
STUDY: MRI BRAIN WITHOUT CONTRAST REASON FOR EXAM: Female, 68 years old. Asymmetric left hearing loss, history of bladder cancer TECHNIQUE: Standardized multiplanar fat and water weighted pulse sequences were obtained. COMPARISON: None. FINDINGS: Normal size of the ventricles and extra-axial spaces for the patient's age. There are a limited number of small white matter hyperintensities, distributed throughout the deep white matter tracts of the cerebral hemispheres, consistent with mild chronic white matter ischemic changes. There is no evidence for recent intracranial ischemia or other cause of cytotoxic edema on diffusion weighted imaging (DWI). Normal T2* images of the brain without demonstrated susceptibility artifact. There is no demonstrated hemosiderin stain. Normal bilateral basal ganglia. Normal thalami. There is no extra-axial fluid accumulation. Normal flow voids within the major intracranial circulation suggesting patency by spin echo criteria. Normal sella turcica, pituitary gland, infundibular stalk, optic chiasm and hypothalamus. Normal tectal plate and pineal gland. Normal midbrain, mary and medulla. Normal cerebellum. Normal basal cisterns. Normal bilateral temporal bones. Normal bilateral internal auditory canals. No demonstrated orbital abnormality, within the constraints of a routine brain study. Normal visualized paranasal sinuses. Normal calvarium and skull base. Normal visualized soft tissue structures. Normal visualized upper cervical spine. MRI/Brain without Contrast IMPRESSION: Normal bilateral internal auditory canals. Involutional changes of the brain, as described above. Electronically Signed: Nehemiah Andrew, at 13:35 EST Tel , Service support ,
[2019-05-30 10:19] LABS: Creatinine, Serum 1.54 mg/dL (0.55-1.02); EST Glomerular Filtration Rate 36 mL/min (>60); Est Glom Filt Rate - Afr Amer 43 mL/min (>60)
== END ==
PROVIDERS: Family Provider Family Medicine; PCP Family Medicine; Referring Provider Otolaryngology; Visit Provider Otolaryngology
DX: H91.90 Unspecified hearing loss, unspecified ear (principal); Z01.812 Encounter for preprocedural laboratory examination
CPT/HCPCS: 36415; 70551; 82565

== ENCOUNTER → 2019-06-06 10:16 | Outpatient (CLI) | payer MEDICARE, BC, SELFPAY ==
--- NOTE | 2019-06-06 10:22 | BI_ITS ---
MAMMOGRAPHY - BILATERAL SCREENING 3-D TOMOSYNTHESIS REASON FOR EXAM: Female, 68 years old. PERTINENT HISTORY: No significant family history. TECHNIQUE: 2-D mammograms and 3-D Tomosynthesis of the breast (s) were performed. CAD was performed. COMPARISON: June 05, 2018 FINDINGS: The breast composition is heterogeneously dense parenchyma behind the nipple bilaterally that may obscure tiny lesions. Scattered benign calcifications of diffuse type are seen. No dense spiculated masses or suspicious microcalcifications are identified. No architectural distortion is identified. There is no skin thickening or nipple retraction. There has been no significant change since the prior study. BI/SCREEN MAMM (CAD) W/DARREL BILAT IMPRESSION: No mammographic signs of malignancy. Routine yearly mammograms recommended. ASSESSMENT CATEGORY: BIRADS Category 1: Negative. A letter regarding these results will be sent to the patient by the facility within 30 days. FOLLOW UP RECOMMENDATION: Yearly follow up mammogram recommended. (A) Approximately 10% of breast cancers are not detected by mammography. A normal mammogram should not delay biopsy of a clinically suspicious abnormality. Electronically Signed: Mary Kate Ryan, at 14:16 EST Tel , Service support ,
== END ==
PROVIDERS: Family Provider Family Medicine; PCP Family Medicine; Referring Provider Family Medicine; Visit Provider Family Medicine
DX: Z12.31 Encounter for screening mammogram for malignant neoplasm of breast (principal)
CPT/HCPCS: 77063; 77067

== ENCOUNTER 2020-09-06 08:42 | Outpatient (RCR) | payer MEDICARE, BC, SELFPAY | END 2020-09-06 23:59 | LOC: IMMUN 08:42 | PROVIDERS: PCP Family Medicine; Visit Provider Family Medicine | DX: Z23 Encounter for immunization (principal) | CPT/HCPCS: 0011A; 0012A ==

== ENCOUNTER 2020-11-17 00:02 | Emergency (ER) | payer MEDICARE, BC, SELFPAY ==
[2020-11-17 00:03] VITALS: BP 130/60; PULSE 99; RESP 18; TEMP 37.1; O2SAT 96; BMI 29.4
--- NOTE | 2020-11-17 00:39 | CT_ITS ---
STUDY: CT ABDOMEN AND PELVIS WITHOUT CONTRAST REASON FOR EXAM: Female, 70 years old. Abd pain RADIATION DOSAGE (If Supplied By Facility): CTDIvol = ( 14.00 ) mGy, DLP = ( 805.03 ) mGycm TECHNIQUE: Transaxial images were obtained from the dome of the diaphragm to the symphysis pubis without oral contrast, and without intravenous contrast. Sagittal and coronal images were reconstructed. Individualized dose optimization techniques were used for this CT. COMPARISON: None. FINDINGS: The study is limited due to lack of intravenous contrast. Mild bibasilar dependent atelectasis. No definite cholelithiasis. Unremarkable liver, spleen, adrenals, and pancreas on this unenhanced study. Status post radical cystectomy with ileal conduit. Marked dilatation of the ileal loops proximal to the level of right rectus abdominis muscle noted. There is associated moderate to severe bilateral hydroureteronephrosis. Significant fat stranding around the bilateral kidneys is seen. The possibility of stricture of the ileal conduit at the level of the anterior abdominal wall cannot be excluded. Bowel loops nonobstructed. No free air or free fluid. Vascular calcification with no abdominal aortic aneurysm. No adenopathy. Fat-containing ventral abdominal wall hernia. Status post right total hip arthroplasty an ORIF of the right acetabulum. Old fractures of the right inferior and superior pubic rami. Advanced osteoarthritis of the left hip joint. Multilevel lumbar spondylosis with mild levoscoliosis. CT/Abdomen/Pel W ORAL Cont Only IMPRESSION: Status post radical cystectomy with ileal conduit in the right lower abdomen. Findings suspicious for stricture of the conduit at the level of the right rectus abdominis muscle with associated dilatation of the proximal ileal loops and moderate to severe bilateral hydroureteronephrosis. Clinical correlation recommended. No other acute finding the abdomen and pelvis on this unenhanced study. Electronically Signed: Darshan Flores MD at 3:18 EDT Tel , Service support ,
[2020-11-17] MEDS: 0.9% Normal Saline 1,000 ML 150 ML IV (01:01)
[2020-11-17] MEDS: Ondansetron 4 MG/2 ML Vial IV (01:01)
[2020-11-17 01:09] LABS: Absolute Lymphocyte Count 0.44 X10^3/uL (0.83-4.51); Absolute Neutrophil Count 12.4 X10^3/uL (2.0-7.7); Basophil# 0.06 X10^3/uL; Basophil% 0.4 % (0-1); Eosinophil# 0.06 X10^3/uL; Eosinophils% 0.4 % (0-5); Hematocrit 34.5 % (37-47); Hemoglobin 10.8 g/dL (12.0-15.0); Lymphocyte # 0.44 X10^3/ul (0.83-4.51); Lymphocyte % 3.2 % (19-41); Mean Corp Hgb Conc 31.3 g/dL (32-36); Mean Corpuscular Hgb 30.9 pg (27.0-32.0); Mean Corpuscular Volume 98.6 fL (81-99); Mean Platelet Vol. 8.7 fl (6.2-12.0); Monocyte# 0.78 X10^3/uL; Monocyte% 5.6 % (0-10); NRBC Flagged by Analyzer 0 % (0-5); Neutrophil # 12.43 X10^3/uL (2.7-7.7); POSITIVE DIFFERENTIAL YES; Platelet Count 360 K/mm3 (150-450); RBC Distribution Width CV 13.2 % (11.6-14.6); RBC Distribution Width SD 47.9 fl (35.1-43.9); White Blood Count 13.8 K/mm3 (4.4-11.0)
[2020-11-17 01:11] LABS: Differential Indicated SCAN CRITERIA MET
[2020-11-17 01:25] LABS: AST(SGOT) 15 U/L (15-37); Alanine Aminotransfer ALT/SGPT 20 U/L (13-56); Albumin, Serum 3.5 g/dL (3.2-5.0); Alkaline Phosphatase 62 U/L (45-117); Anion Gap 8 (5-15); BUN 35 mg/dL (7-18); BUN/Creat Ratio 17.9 RATIO (10-20); Bilirubin, Direct 0.11 mg/dL (0.00-0.30); Calcium,Total 9.3 mg/dL (8.5-10.1); Chloride 107 mmol/L (98-107); Creatinine, Serum 1.96 mg/dL (0.55-1.02); EST Glomerular Filtration Rate 27 mL/min (>60); Est Glom Filt Rate - Afr Amer 33 mL/min (>60); Estimated Creatinine Clearance 21.73 ml/min; Globulin 4.4 g/dL (2.2-4.2); Glucose 112 mg/dL (74-106); Lipase 299 U/L (73-393); Potassium 3.6 mmol/L (3.5-5.1); Protein, Total 7.9 g/dL (6.4-8.2); Sodium Level 138 mmol/L (136-145)
[2020-11-17 01:56] VITALS: BP 134/74; PULSE 64; RESP 18; TEMP 37.7; O2SAT 95
[2020-11-17 02:15] VITALS: RESP 16
--- NOTE | 2020-11-17 02:20 | EX.ED.DYSGE1 ---
HPI History of Present Illness Chief Complaint: Abd Pain Informant: patient and spouse/S.O. Onset/Context/Timing Onset: Yesterday Context: Gradual Onset Current Severity: Moderate Maximum Severity: Moderate Narrative Narrative: Patient present secondary abdominal pain and vomiting. 2 weeks ago the patient was at the [facility] for similar symptoms. She was found to have a partial small bowel obstruction. She was admitted for 5 days at that time. She did not require an NG tube. Patient states symptoms recurred again last evening and she had been advised that she should present to the hospital this occurs again. [facility] Medical History Asthma Cancer Kidney disease Home Medications ascorbic acid (vitamin C) [Vitamin C] 1,000 mg PO DAILY 02/12/18 [History Last Taken Unknown] biotin 10 mg PO DAILY 02/12/18 [History Last Taken Unknown] melatonin 10 mg PO QHS 02/12/18 [History Last Taken Unknown] multivitamin [Daily Multiple Vitamin] 1 ea PO DAILY 02/12/18 [History Last Taken Unknown] naproxen sodium [Aleve] 220 mg PO PRN PRN 02/12/18 [History Last Taken Unknown] Morphine [Morphine Ir] 15 mg PO BID 09/27/18 [History Last Taken Unknown] metoclopramide HCl 10 mg PO BID 09/27/18 [History Last Taken Unknown] ondansetron HCl [Zofran] 4 mg PO Q8H PRN 09/27/18 [History Last Taken Unknown] oxycodone 5 mg PO Q4H PRN PRN 09/27/18 [History Last Taken Unknown] ondansetron 8 mg PO Q8H PRN PRN #10 tab 09/28/18 [Rx Last Taken Unknown] Allergy/AdvReac Type Severity Reaction Status Date / Time apple Allergy Anaphylaxis Verified 11/17/20 00:05 Iodinated Contrast Media Allergy Other Verified 11/17/20 00:05 [CONTRASTS] Iodine and Iodide Containing Allergy Other Verified 11/17/20 00:05 Produc Milk Containing Products Allergy Other Verified 11/17/20 00:05 Surgical History History of urostomy Social History Smoking Status: Former smoker ROS ROS ED Constitutional Constitutional ED: Denies chills or fever(s) Eyes Eyes: Denies change in vision ENT ENT ED: Denies sore throat Cardiovascular Cardiovascular: Denies chest pain Respiratory/Chest Respiratory/Chest: Denies cough or dyspnea Gastrointestinal Gastrointestinal: Reports abdominal pain, nausea and vomiting; Denies diarrhea Genitourinary Genitourinary ED: Reports other Details: Urostomy in place Musculoskeletal Musculoskeletal: Denies back pain Integumentary Denies rash Neurologic Neurologic: Denies headache(s) or weakness Psychiatric Psychiatric: Denies anxiety or depression Endocrine Endocrinology: Denies polydipsia or polyuria Allergic/Immunologic Allergic/Immunologic ED: Denies urticaria EXAM Physical Exam Const Vital Signs: 11/17/20 00:03 11/17/20 01:56 11/17/20 02:15 Temperature 98.7 F 99.9 F H Temperature Source Temporal Oral Pulse Rate 99 64 Respiratory Rate 18 18 16 Blood Pressure 130/60 H 134/74 H Blood Pressure Mean 83 94 Pulse Ox 96 95 Oxygen Delivery Method Room Air Room Air 11/17/20 03:40 Temperature 99.2 F H Temperature Source Oral Pulse Rate 78 Respiratory Rate 18 Blood Pressure 127/67 H Blood Pressure Mean 87 Pulse Ox 94 Oxygen Delivery Method Room Air Positive well nourished and well developed General Appearance ED: well developed HEENT Reports normocephalic and head/scalp atraumatic Eyes PERRL and EOMs intact bilaterally Neck supple Chest Wall inspection of chest normal and palpation of chest normal Resp normal respiratory effort and clear to auscultation bilaterally Cardio regular rate and regular rhythm GI non-tender Auscultation: hypoactive bowel sounds Palpation: soft Back/Spine no CVA tenderness Extremity normal to inspection Neuro oriented x3 and no sensory deficits noted Sensorium / Orientation: alert Motor Exam: strength 5/5 throughout Psych mental status grossly normal Skin no rashes or lesions noted MDM MDM MDM Narrative Medical decision making narrative: Patient was given IV fluids. She was given a dose of Zofran to help with nausea. Lab Data Attestation: I reviewed the patient's lab results. Labs: Laboratory Results - last 24 hr 11/17/20 11/17/20 01:05 01:05 WBC 13.8 H RBC 3.50 L Hgb 10.8 L Hct 34.5 L MCV 98.6 MCH 30.9 MCHC 31.3 L RDW Std Deviation 47.9 H RDW Coeff of Gretta 13.2 Plt Count 360 MPV 8.7 Immature Gran % (Auto) 0.400 Neut % (Auto) 90.0 H Lymph % (Auto) 3.2 L [place] % (Auto) 5.6 Eos % (Auto) 0.4 Baso % (Auto) 0.4 Absolute Neuts (auto) 12.4 H Absolute Lymphs (auto) 0.44 L Nucleated RBC % 0 Sodium 138 Potassium 3.6 Chloride 107 Carbon Dioxide 23.0 Anion Gap 8 BUN 35 H Creatinine 1.96 H Estim Creat Clear Calc 21.73 Est GFR (MDRD) Af Amer 33 L Est GFR (MDRD) Non-Af 27 L BUN/Creatinine Ratio 17.9 Glucose 112 H Calcium 9.3 Total Bilirubin 0.30 Direct Bilirubin 0.11 AST 15 ALT 20 Alkaline Phosphatase 62 Total Protein 7.9 Albumin 3.5 Globulin 4.4 H Lipase 299 Radiography Diagnostic Testing: Radiology Impression Abdomen CT 11/17/20 00:39 IMPRESSION: Status post radical cystectomy with ileal conduit in the right lower abdomen. Findings suspicious for stricture of the conduit at the level of the right rectus abdominis muscle with associated dilatation of the proximal ileal loops and moderate to severe bilateral hydroureteronephrosis. Clinical correlation recommended. No other acute finding the abdomen and pelvis on this unenhanced study. Electronically Signed: Darshan Flores MD at 3:18 EDT Tel , Service support , Treatment and Re-Evaluation Comments:: On repeat evaluation patient resting more comfortably. I was able to review recent records from [facility]. It appears her creatinine was as high as 2.10 on admission and improved to 1.60. She had a CT scan of the abdomen and pelvis on November 03 that revealed mild bilateral pelvic and ureteral fullness. Patient did note at home that she had not passed any urine from her stoma for approximately 2-1/2 hours. She does have good passage of urine in the emergency room. I discussed the patient's with urology on-call at [facility]. They will see the patient in the office today. She is to call [phone] this morning for an appointment time. Patient is comfortable with this plan. She is given return instructions. Discharge Plan Triage Chief Complaint: Abd Pain ED Provider: Ivett Ordaz Dx/Rx/DC Orders Clinical Impression: Hydronephrosis Prescriptions: No Action multivitamin [Daily Multiple] 1 EACH tablet 1 ea PO DAILY RF: 0 biotin 10 MG tablet 10 mg PO DAILY RF: 0 ascorbic acid (vitamin C) [Vitamin C] 1,000 MG tablet 1,000 mg PO DAILY RF: 0 melatonin 10 MG capsule 10 mg PO QHS RF: 0 naproxen sodium [Aleve] 220 MG tablet 220 mg PO PRN PRN (Reason: Pain) RF: 0 Morphine [Morphine Ir] 15 MG tablet 15 mg PO BID RF: 0 oxycodone 5 MG tablet 5 mg PO Q4H PRN PRN (Reason: Pain) RF: 0 metoclopramide HCl 10 MG tablet 10 mg PO BID RF: 0 ondansetron HCl [Zofran] 4 MG tablet 4 mg PO Q8H PRN (Reason: Nausea) RF: 0 ondansetron 4 MG tablet 8 mg PO Q8H PRN PRN (Reason: Nausea) Qty: 10 RF: 0 Primary Care Provider: Kristie Nam Referrals: Kristie Nam MD [Primary Care Provider] - Activity Restrictions/Additional Instructions: As discussed, there appears to be a backup noted in your ileal conduit. As discussed, please call [phone] today to be seen by urology at [facility]. For any worsening symptoms please return to the emergency room immediately. Disposition Disposition: Home, self care
[2020-11-17 03:40] VITALS: BP 127/67; PULSE 78; RESP 18; TEMP 37.3; O2SAT 94
[2020-11-17 05:10] VITALS: BP 125/72; PULSE 80; RESP 18; O2SAT 95
== END 2020-11-17 05:11 | disposition home or self-care (01) ==
PROVIDERS: Emergency Provider Emergency Medicine; PCP Internal Medicine
DX: N13.30 Unspecified hydronephrosis (principal); J45.909 Unspecified asthma, uncomplicated; Z87.891 Personal history of nicotine dependence
CPT/HCPCS: 74176; 80048; 80076; 83690; 85025; 96361; 96374; 99283; J7030; J2405

== ENCOUNTER 2021-01-30 02:32 | Emergency (ER) | payer MEDICARE, BC, SELFPAY ==
[2021-01-30 02:33] VITALS: BP 138/80; PULSE 134; RESP 16; TEMP 35.8; O2SAT 95; BMI 30.9
--- NOTE | 2021-01-30 02:46 | CT_ITS ---
EXAM: CT ABDOMEN AND PELVIS WITHOUT INTRAVENOUS CONTRAST : 1950 CLINICAL INDICATION: Pain TECHNIQUE: Helically acquired images were obtained of the abdomen and pelvis without intravenous contrast. This CT exam was performed using one or more of the following dose reduction techniques: automated exposure control, adjustment of the mA and/or kV according to patient size, and/or use of iterative reconstruction technique. This report was created using [employer] report generation technology. COMPARISON: 11/17/2020 FINDINGS: LOWER THORAX: Unremarkable. Lung bases are clear. No cardiomegaly. No significant pericardial effusion. ABDOMEN: LIVER: Unremarkable. Homogeneous. GALLBLADDER AND BILE DUCTS: Unremarkable. No calcified gallstones. No gallbladder distention or wall edema. No intra- or extrahepatic biliary ductal dilation. PANCREAS: Unremarkable. No focal cystic mass. SPLEEN: Unremarkable. Normal size without focal cystic or solid mass. ADRENALS: Unremarkable. No nodules. KIDNEYS AND URETERS: There is dilatation of the ureters bilaterally slightly greater on the left than on the right. There is perinephric inflammation on the left but not on the right on today's exam. Normal renal size and position. STOMACH AND BOWEL: There is a right lower quadrant ostomy present. PELVIS: APPENDIX: No evidence of acute appendicitis. BLADDER: Patient status post cystectomy with a right lower quadrant ileostomy. REPRODUCTIVE: Unremarkable as visualized. No mass. ABDOMEN and PELVIS: INTRAPERITONEAL SPACE: Unremarkable. No ascites or other fluid collection. No free air. BONES/JOINTS: There is beam hardening artifact from hardware across an old right hip prosthesis. No suspicious lytic or blastic abnormality. SOFT TISSUES: Unremarkable. No discrete abdominal or pelvic wall hernia. VASCULATURE: Unremarkable. Abdominal aorta is non-dilated. LYMPH NODES: Unremarkable. No enlarged lymph nodes. CT/Abdomen/Pelvis without Cont IMPRESSION: 1. Bilateral hydronephrosis and hydroureter. There is perinephric inflammation surrounding the left kidney on today's exam. 2. Status post cystectomy with the right lower quadrant ileal conduit. Individualized dose optimization techniques were used for this CT. at 0340 Reported and signed by: Kevon Garcia MD Electronically Signed: Kevon Garcia MD at 3:39 EDT Tel , Service support ,
[2021-01-30 03:06] LABS: Absolute Lymphocyte Count 0.99 X10^3/uL (0.83-4.51); Absolute Neutrophil Count 8.8 X10^3/uL (2.0-7.7); Basophil# 0.03 X10^3/uL; Basophil% 0.3 % (0-1); Hematocrit 33.5 % (37-47); Hemoglobin 10.5 g/dL (12.0-15.0); Lymphocyte # 0.99 X10^3/ul (0.83-4.51); Lymphocyte % 9.5 % (19-41); Mean Corp Hgb Conc 31.3 g/dL (32-36); Mean Corpuscular Hgb 31.8 pg (27.0-32.0); Mean Corpuscular Volume 101.5 fL (81-99); Mean Platelet Vol. 8.6 fl (6.2-12.0); Monocyte# 0.39 X10^3/uL; Monocyte% 3.8 % (0-10); NRBC Flagged by Analyzer 0 % (0-5); Neutrophil % 84.6 % (47-70); Platelet Count 347 K/mm3 (150-450); RBC Distribution Width CV 14.3 % (11.6-14.6); RBC Distribution Width SD 52.4 fl (35.1-43.9); White Blood Count 10.4 K/mm3 (4.4-11.0)
[2021-01-30 03:28] LABS: Color, Urine Straw (Yellow); Glucose, Dipstick Normal (Normal); Ketone-Dipstick Negative (Negative); Leukocyte Esterase-Dipstick 500 /ul (Negative); Nitrite-Dipstick Positive (Negative); Occult Blood-Urine 50 /ul (Negative); Protein-Dipstick 100 mg/dl (Negative); Urine Bilirubin Dipstick Negative (Negative); Urine Clarity Sl. Cloudy (Clear); Urine Urobilinogen Normal (Normal)
[2021-01-30 03:35] LABS: Lactic Acid 0.9 mmol/L (0.4-1.9)
[2021-01-30] MEDS: 0.9% Normal Saline 1,000 ML 999 ML IV (03:38)
[2021-01-30] MEDS: Ondansetron 4 MG/2 ML Vial IV (03:38)
[2021-01-30 04:21] LABS: ALB/GLOB Ratio 0.9 RATIO (0.9-2.4); AST(SGOT) 18 U/L (15-37); Alanine Aminotransfer ALT/SGPT 19 U/L (13-56); Albumin, Serum 3.5 g/dL (3.2-5.0); Alkaline Phosphatase 56 U/L (45-117); Anion Gap 10 (5-15); BUN 49 mg/dL (7-18); BUN/Creat Ratio 23.1 RATIO (10-20); Calcium,Total 9.1 mg/dL (8.5-10.1); Chloride 104 mmol/L (98-107); Creatinine, Serum 2.12 mg/dL (0.55-1.02); EST Glomerular Filtration Rate 25 mL/min (>60); Est Glom Filt Rate - Afr Amer 30 mL/min (>60); Estimated Creatinine Clearance 20.09 ml/min; Globulin 4.1 g/dL (2.2-4.2); Glucose 97 mg/dL (74-106); Potassium 3.7 mmol/L (3.5-5.1); Protein, Total 7.6 g/dL (6.4-8.2); Sodium Level 138 mmol/L (136-145)
--- NOTE | 2021-01-30 05:07 | EDS_ITS ---
HPI History of Present Illness Chief Complaint: Abd Pain Narrative Narrative: 70-year-old female presenting with left flank pain and left lower abdominal pain. She states she has history of ileostomy and urostomy. This was done at [facility]. She states her urostomy has not been putting out for several hours. On the way to the ED it started putting out urine and she feels improved but she still has some mild flank pain. She complains of nausea. Patient has history of bowel obstruction as well. She denies fever, chills. [facility] Medical History Asthma Cancer Kidney disease Home Medications ascorbic acid (vitamin C) [Vitamin C] 1,000 mg PO DAILY 02/12/18 [History Last Taken Unknown] biotin 10 mg PO DAILY 02/12/18 [History Last Taken Unknown] melatonin 10 mg PO QHS 02/12/18 [History Last Taken Unknown] multivitamin [Daily Multiple Vitamin] 1 ea PO DAILY 02/12/18 [History Last Taken Unknown] [id number] [Extra Strength Pain Reliever] 1 tab PO Q6H PRN 01/30/21 [History Last Taken Unknown] ciprofloxacin HCl 500 mg PO BID #28 tablet 01/30/21 [Rx Last Taken Unknown] prednisone 5 mg PO DAILY 01/30/21 [History Last Taken Unknown] Allergy/AdvReac Type Severity Reaction Status Date / Time apple Allergy Anaphylaxis Verified 01/30/21 02:38 Iodinated Contrast Media Allergy Other Verified 01/30/21 02:38 [CONTRASTS] Iodine and Iodide Containing Allergy Other Verified 01/30/21 02:38 Produc Milk Containing Products Allergy Other Verified 01/30/21 02:38 Surgical History History of urostomy Social History Smoking Status: Former smoker ROS ROS ED Constitutional Constitutional ED: Denies chills, fever(s) or sweats Eyes Eyes: Denies blurry vision or change in vision ENT ENT ED: Denies ear pain or sore throat Cardiovascular Cardiovascular: Denies chest pain, palpitations or racing heartbeat Respiratory/Chest Respiratory/Chest: Denies cough, dyspnea or sputum Gastrointestinal Gastrointestinal: Reports abdominal pain, diarrhea and nausea; Denies constipation or vomiting Genitourinary Genitourinary ED: Reports other Details: Decreased urostomy output ; Denies dysuria or hematuria Musculoskeletal Musculoskeletal: Denies arthralgias, myalgias or neck pain Integumentary Denies abscess, Abrasions or rash Neurologic Neurologic: Denies headache(s), paresthesias or weakness Psychiatric Psychiatric: Denies anxiety, depression, suicidal ideation or suicidal thoughts Endocrine Endocrinology: Denies polydipsia or polyuria EXAM Physical Exam Const Vital Signs: 01/30/21 02:33 Temperature 96.5 F L Temperature Source Temporal Pulse Rate 134 H Respiratory Rate 16 Blood Pressure 138/80 H Blood Pressure Mean 99 Pulse Ox 95 Oxygen Delivery Method Room Air Positive obese General Appearance ED: NAD Nutritional Appearance: obese HEENT Reports moist mucous membranes Negative for trauma Eyes PERRL and EOMs intact bilaterally Resp normal respiratory effort and clear to auscultation bilaterally Cardio regular rate and regular rhythm GI GI Narrative: Tenderness to palpation right lower quadrant and left CVA tenderness. Ileostomy and urostomy noted. Extremity normal to inspection Neuro oriented x3 and CN's II-XII intact bilaterally Sensorium / Orientation: alert Psych mental status grossly normal Skin no rashes or lesions noted and no wounds MDM MDM MDM Narrative Medical decision making narrative: Patient presents with left flank pain and pain around her urostomy however she states is improving since it started putting out urine again. Her CBC shows no leukocytosis and her H&H are stable. Creatinine is at baseline. Electrolytes are normal. LFTs are normal. CT of the abdomen pelvis shows bilateral hydronephrosis with inflammatory changes around the left kidney. Urinalysis is positive for UTI. Patient states that since her urostomy is not working and she does not wish to stay. I did contact the on-call physician for her senior biostatistician, Dr. Stokes. They stated that they could get her close follow-up since she does not want to stay. They recommended putting on Cipro based on previous urinalyses. Patient was provided a prescription for this. She will follow-up as an outpatient. Impression: 1. Pyelonephritis 2. Hydronephrosis bilaterally Lab Data Attestation: I reviewed the patient's lab results. Labs: Laboratory Results - last 24 hr 01/30/21 01/30/21 01/30/21 02:40 02:40 03:00 WBC 10.4 RBC 3.30 L Hgb 10.5 L Hct 33.5 L MCV 101.5 H MCH 31.8 MCHC 31.3 L RDW Std Deviation 52.4 H RDW Coeff of Gretta 14.3 Plt Count 347 MPV 8.6 Immature Gran % (Auto) 0.800 Neut % (Auto) 84.6 H Lymph % (Auto) 9.5 L [place] % (Auto) 3.8 Eos % (Auto) 1.0 Baso % (Auto) 0.3 Absolute Neuts (auto) 8.8 H Absolute Lymphs (auto) 0.99 Nucleated RBC % 0 Sodium 138 Potassium 3.7 Chloride 104 Carbon Dioxide 24.0 Anion Gap 10 BUN 49 H Creatinine 2.12 H Estim Creat Clear Calc 20.09 Est GFR (MDRD) Af Amer 30 L Est GFR (MDRD) Non-Af 25 L BUN/Creatinine Ratio 23.1 H Glucose 97 Lactic Acid 0.9 Calcium 9.1 Total Bilirubin 0.20 AST 18 ALT 19 Alkaline Phosphatase 56 Total Protein 7.6 Albumin 3.5 Globulin 4.1 Albumin/Globulin Ratio 0.9 Urine Color Urine Clarity Urine pH Ur Specific Dickinson Urine Protein Urine Glucose (UA) Urine Ketones Urine Occult Blood Urine Nitrite Urine Bilirubin Urine Urobilinogen Ur Leukocyte Esterase 01/30/21 03:10 WBC RBC Hgb Hct MCV MCH MCHC RDW Std Deviation RDW Coeff of Gretta Plt Count MPV Immature Gran % (Auto) Neut % (Auto) Lymph % (Auto) [place] % (Auto) Eos % (Auto) Baso % (Auto) Absolute Neuts (auto) Absolute Lymphs (auto) Nucleated RBC % Sodium Potassium Chloride Carbon Dioxide Anion Gap BUN Creatinine Estim Creat Clear Calc Est GFR (MDRD) Af Amer Est GFR (MDRD) Non-Af BUN/Creatinine Ratio Glucose Lactic Acid Calcium Total Bilirubin AST ALT Alkaline Phosphatase Total Protein Albumin Globulin Albumin/Globulin Ratio Urine Color Straw Urine Clarity Sl. Cloudy Urine pH 7.0 Ur Specific Dickinson 1.010 Urine Protein 100 H Urine Glucose (UA) Normal Urine Ketones Negative Urine Occult Blood 50 H Urine Nitrite Positive H Urine Bilirubin Negative Urine Urobilinogen Normal Ur Leukocyte Esterase 500 H Radiography Diagnostic Testing: Radiology Impression Abdomen/Pelvis CT 01/30/21 02:46 IMPRESSION: 1. Bilateral hydronephrosis and hydroureter. There is perinephric inflammation surrounding the left kidney on today's exam. 2. Status post cystectomy with the right lower quadrant ileal conduit. Individualized dose optimization techniques were used for this CT. at 0340 Reported and signed by: Kevon Garcia MD Electronically Signed: Kevon Garcia MD at 3:39 EDT Tel , Service support , Discharge Plan Triage Chief Complaint: Abd Pain ED Provider: Nick Jerome Dx/Rx/DC Orders Instructions: Understanding Hydronephrosis, ED Pyelonephritis, Female (Adult) Prescriptions: New ciprofloxacin HCl 500 mg tablet 500 mg PO BID Qty: 28 RF: 0 No Action multivitamin [Daily Multiple] 1 EACH tablet 1 ea PO DAILY RF: 0 biotin 10 MG tablet 10 mg PO DAILY RF: 0 ascorbic acid (vitamin C) [Vitamin C] 1,000 MG tablet 1,000 mg PO DAILY RF: 0 melatonin 10 MG capsule 10 mg PO QHS RF: 0 prednisone 5 mg Tablet 5 mg PO DAILY RF: 0 Extra Strength Pain Reliever Tablet 1 tab PO Q6H PRN (Reason: Pain) RF: 0 Primary Care Provider: Kristie Nam Referrals: Kristie Nam MD [Primary Care Provider] - Disposition Disposition: Home, Self Care
[2021-01-30] MEDS: Ciprofloxacin 500 MG Tablet PO (05:14)
[2021-01-30 05:17] LABS: Mucous, Urine 0 SEEN /hpf (<or=2+); Squamous Epithelial Cells - UA 0 SEEN /hpf (5-10)
[2021-01-30 05:31] VITALS: BP 124/60; PULSE 90; RESP 18
[2021-01-30 05:33] LABS: Bacteria 4+ /hpf (None Seen); Red Blood Cells-Urine 0-5 SEEN /hpf (0-5); White Blood Cells 10-25 SEEN /hpf (0-5)
[2021-01-30 05:35] VITALS: RESP 18
== END 2021-01-30 05:35 | disposition home or self-care (01) ==
PROVIDERS: Emergency Provider Student in an Organized Health Care Education/Training Program; PCP Internal Medicine
DX: N13.6 Pyonephrosis (principal); J45.909 Unspecified asthma, uncomplicated; E66.9 Obesity, unspecified; Z93.2 Ileostomy status; Z93.6 Other artificial openings of urinary tract status; Z87.891 Personal history of nicotine dependence
CPT/HCPCS: 74176; 80053; 81002; 83605; 85025; 87077; 87086; 87088; 87186; 96361; 96374; 99283; J7030; A4216; J2405

== ENCOUNTER 2021-03-25 08:44 | Emergency (ER) | payer MEDICARE, BC, SELFPAY ==
[2021-03-25 08:45] VITALS: BP 119/72; PULSE 78; RESP 16; TEMP 36.8; O2SAT 99; BMI 30.2
--- NOTE | 2021-03-25 09:07 | CT_ITS ---
STUDY: CT ABDOMEN AND PELVIS WITHOUT CONTRAST REASON FOR EXAM: Female, 70 years old. History of bladder cancer. Status post cystectomy. Patient presents with weakness and nausea and vomiting. RADIATION DOSAGE (If Supplied By Facility): CTDIvol = ( 12.49 ) mGy, DLP = ( 583.52 ) mGycm TECHNIQUE: Transaxial images were obtained from the dome of the diaphragm to the symphysis pubis without oral contrast, and without intravenous contrast. Sagittal and coronal images were reconstructed. Individualized dose optimization techniques were used for this CT. COMPARISON: Comparison is made with prior study dated 01/30/2021. FINDINGS: The visualized lung bases are unremarkable. The visualized portions of the heart are within normal limits. Normal liver. There is evidence of sludge or small gallstones within the deep ended portion of the gallbladder lumen. Normal spleen. Normal pancreas. Normal bilateral adrenal glands. Normal right kidney. Normal left kidney. Normal visualized stomach. Normal small intestine. Normal colon. The appendix is visualized and appears normal. There is scattered atherosclerotic calcification of the abdominal aorta, without a demonstrated aneurysm. Normal inferior vena cava. Normal retroperitoneum. The patient is status post cystectomy with evidence of an ileal loop in the right lower quadrant. There is a small umbilical hernia containing fat. The neck of the hernia measures 2.6 cm. There are mild degenerative changes of the visualized lumbar spine. Mild levoscoliosis. The patient is status post right total hip replacement. CT/Abdomen/Pel W ORAL Cont Only IMPRESSION: Status post cystectomy with evidence of an ileal conduit in the anterior right abdominal wall. Increased density in the gallbladder lumen suggestive of either sludge or small gallstones. Small umbilical hernia containing fat. Electronically Signed: Aiden Kenny MD at 11:34 EDT , Service support ,
--- NOTE | 2021-03-25 09:12 | EDS_ITS ---
HPI History of Present Illness Chief Complaint: Nausea/Vomiting/Diarrhea Informant: patient Onset/Context/Timing Onset: Days Context: Gradual Onset Timing: Waxes and wanes Current Severity: Mild Maximum Severity: Moderate Narrative Narrative: Patient presents secondary to abdominal pain along with nausea, vomiting, diarrhea. She has a history of bladder cancer and has a stoma. She reports decreased urine output. She has a history of partial small bowel obstruction earlier this year and states this feels similar. She did have a colonoscopy last week but states that her Jasmeet was not able to get through the bowel. [facility] Medical History Asthma Cancer Kidney disease Home Medications ascorbic acid (vitamin C) [Vitamin C] 1,000 mg PO DAILY 02/12/18 [History Last Taken Unknown] biotin 10 mg PO DAILY 02/12/18 [History Last Taken Unknown] melatonin 10 mg PO QHS 02/12/18 [History Last Taken Unknown] multivitamin [Daily Multiple Vitamin] 1 ea PO DAILY 02/12/18 [History Last Taken Unknown] cnraoxg-jeazakyikuids-fjyzbihq [Extra Strength Pain Reliever] 2 tab PO Q8H 01/30/21 [History Last Taken Unknown] nitrofurantoin monohyd/m-cryst [Macrobid] 100 mg PO Q12H 5 Days #10 cap 03/25/21 [Rx Last Taken Unknown] ondansetron 4 mg PO Q8H PRN #10 tab 03/25/21 [Rx Last Taken Unknown] Allergy/AdvReac Type Severity Reaction Status Date / Time Iodinated Contrast Media Allergy Other Verified 03/25/21 09:06 [CONTRASTS] Iodine and Iodide Containing Allergy Other Verified 03/25/21 09:06 Produc Milk Containing Products Allergy Other Verified 03/25/21 09:06 Surgical History History of urostomy Social History Smoking Status: Former smoker ROS ROS ED Constitutional Constitutional ED: Reports chills and sweats; Denies fever(s) Eyes Eyes: Denies change in vision ENT ENT ED: Denies sore throat Cardiovascular Cardiovascular: Denies chest pain Respiratory/Chest Respiratory/Chest: Denies cough or dyspnea Gastrointestinal Gastrointestinal: Reports abdominal pain, diarrhea, nausea and vomiting Genitourinary Genitourinary ED: Reports other Details: Decreased urine output Musculoskeletal Musculoskeletal: Denies back pain Integumentary Denies rash Neurologic Neurologic: Denies headache(s) or weakness Allergic/Immunologic Allergic/Immunologic ED: Denies urticaria EXAM Physical Exam Const Vital Signs: 03/25/21 08:45 Temperature 98.2 F Temperature Source Temporal Pulse Rate 78 Respiratory Rate 16 Blood Pressure 119/72 Blood Pressure Mean 87 Pulse Ox 99 Oxygen Delivery Method Room Air Positive well nourished and well developed General Appearance ED: well developed HEENT Reports normocephalic and head/scalp atraumatic Eyes PERRL and EOMs intact bilaterally Neck supple Chest Wall inspection of chest normal and palpation of chest normal Resp normal respiratory effort and clear to auscultation bilaterally Cardio regular rate and regular rhythm GI non-tender Auscultation: hypoactive bowel sounds Palpation: soft Extremity normal to inspection Neuro oriented x3 and no sensory deficits noted Sensorium / Orientation: alert Motor Exam: strength 5/5 throughout Psych mental status grossly normal Skin no rashes or lesions noted MDM MDM MDM Narrative Medical decision making narrative: Patient is given IV fluids and Zofran. Lab work, Covid swab, CT abdomen pelvis obtained. Lab Data Attestation: I reviewed the patient's lab results. Labs: Laboratory Results - last 24 hr 03/25/21 03/25/21 03/25/21 09:25 09:25 09:25 WBC 12.2 H RBC 3.39 L Hgb 10.5 L Hct 32.9 L MCV 97.1 MCH 31.0 MCHC 31.9 L RDW Std Deviation 45.8 H RDW Coeff of Gretta 12.8 Plt Count 286 MPV 9.0 Immature Gran % (Auto) 0.400 Neut % (Auto) 84.7 H Lymph % (Auto) 3.9 L [place] % (Auto) 10.0 Eos % (Auto) 0.7 Baso % (Auto) 0.3 Absolute Neuts (auto) 10.3 H Absolute Lymphs (auto) 0.48 L Nucleated RBC % 0 Differential Comment [employer] Sodium 138 Potassium 3.4 L Chloride 109 H Carbon Dioxide 18.0 L Anion Gap 11 BUN 59 H Creatinine 2.78 H Estim Creat Clear Calc 15.32 Est GFR (MDRD) Af Amer 22 L Est GFR (MDRD) Non-Af 18 L BUN/Creatinine Ratio 21.2 H Glucose 135 H Calcium 9.5 Urine Color Urine Clarity Urine pH Ur Specific Lee Urine Protein Urine Glucose (UA) Urine Ketones Urine Occult Blood Urine Nitrite Urine Bilirubin Urine Urobilinogen Ur Leukocyte Esterase Urine RBC Urine WBC Ur Squamous Epith Cells Urine Bacteria Urine Mucus COVID-19 (JENNY) Not Detected 03/25/21 10:40 WBC RBC Hgb Hct MCV MCH MCHC RDW Std Deviation RDW Coeff of Gretta Plt Count MPV Immature Gran % (Auto) Neut % (Auto) Lymph % (Auto) [place] % (Auto) Eos % (Auto) Baso % (Auto) Absolute Neuts (auto) Absolute Lymphs (auto) Nucleated RBC % Differential Comment Sodium Potassium Chloride Carbon Dioxide Anion Gap BUN Creatinine Estim Creat Clear Calc Est GFR (MDRD) Af Amer Est GFR (MDRD) Non-Af BUN/Creatinine Ratio Glucose Calcium Urine Color Yellow Urine Clarity Sl. Cloudy Urine pH 7.0 Ur Specific Lee 1.005 Urine Protein 100 H Urine Glucose (UA) Normal Urine Ketones Negative Urine Occult Blood 50 H Urine Nitrite Negative Urine Bilirubin Negative Urine Urobilinogen Normal Ur Leukocyte Esterase 500 H Urine RBC 0-5 SEEN Urine WBC 25-50 SEEN Ur Squamous Epith Cells 0-5 SEEN Urine Bacteria 1+ Urine Mucus 0 SEEN COVID-19 (JENNY) Radiography Diagnostic Testing: Radiology Impression Abdomen CT 03/25/21 09:07 IMPRESSION: Status post cystectomy with evidence of an ileal conduit in the anterior right abdominal wall. Increased density in the gallbladder lumen suggestive of either sludge or small gallstones. Small umbilical hernia containing fat. Electronically Signed: Aiden Kenny MD at 11:34 EDT , Service support , Treatment and Re-Evaluation Comments:: Test results reviewed with the patient. White blood cell count is mildly elevated at 12.2 with left shift. BMP reveals worsening renal function. Previous creatinine has been in the low to mid 2 range. Patient is treated with IV fluids for this. Urine does appear to be infected, however patient does have a stoma which may give appearance of infection. Because the patient does have new vomiting and diarrhea this may be because of infection. In light of this she will be treated with a short course of antibiotics and given antiemetics for home. Patient reports feeling significantly improved with IV fluids. She will increase fluids at home and follow-up closely with her physician. Return instructions are provided. Discharge Plan Triage Chief Complaint: Nausea/Vomiting/Diarrhea ED Provider: Ivett Ordaz Dx/Rx/DC Orders Clinical Impression: Abdominal pain, Vomiting, Diarrhea Instructions: ED Vomiting and Diarrhea ... Prescriptions: New ondansetron 4 mg tablet,disintegrating 4 mg PO Q8H PRN (Reason: nausea and vomiting) Qty: 10 RF: 0 nitrofurantoin monohyd/m-cryst [Macrobid] 100 mg capsule 100 mg PO Q12H 5 Days Qty: 10 RF: 0 No Action multivitamin [Daily Multiple] 1 EACH tablet 1 ea PO DAILY RF: 0 biotin 10 MG tablet 10 mg PO DAILY RF: 0 ascorbic acid (vitamin C) [Vitamin C] 1,000 MG tablet 1,000 mg PO DAILY RF: 0 melatonin 10 MG capsule 10 mg PO QHS RF: 0 Extra Strength Pain Reliever Tablet 2 tab PO Q8H RF: 0 Primary Care Provider: Kristie Nam Referrals: Kristie Nam MD [Primary Care Provider] - 1 Week Disposition Disposition: Home, Self Care
[2021-03-25] MEDS: Ondansetron 4 MG/2 ML Vial IV (09:21)
[2021-03-25] MEDS: 0.9% Normal Saline 1,000 ML 150 ML IV (09:24)
[2021-03-25 09:33] LABS: Absolute Lymphocyte Count 0.48 X10^3/uL (0.83-4.51); Absolute Neutrophil Count 10.3 X10^3/uL (2.0-7.7); Basophil# 0.04 X10^3/uL; Basophil% 0.3 % (0-1); Eosinophil# 0.08 X10^3/uL; Eosinophils% 0.7 % (0-5); Hematocrit 32.9 % (37-47); Hemoglobin 10.5 g/dL (12.0-15.0); Lymphocyte # 0.48 X10^3/ul (0.83-4.51); Lymphocyte % 3.9 % (19-41); Mean Corp Hgb Conc 31.9 g/dL (32-36); Mean Corpuscular Volume 97.1 fL (81-99); Monocyte# 1.22 X10^3/uL; NRBC Flagged by Analyzer 0 % (0-5); Neutrophil # 10.33 X10^3/uL (2.7-7.7); Neutrophil % 84.7 % (47-70); POSITIVE DIFFERENTIAL YES; Platelet Count 286 K/mm3 (150-450); RBC Distribution Width CV 12.8 % (11.6-14.6); RBC Distribution Width SD 45.8 fl (35.1-43.9); Red Blood Count 3.39 M/mm3 (4.2-5.4); White Blood Count 12.2 K/mm3 (4.4-11.0)
[2021-03-25 09:36] LABS: Differential Indicated SCAN CRITERIA MET
[2021-03-25 09:46] LABS: Anion Gap 11 (5-15); BUN 59 mg/dL (7-18); BUN/Creat Ratio 21.2 RATIO (10-20); Calcium,Total 9.5 mg/dL (8.5-10.1); Chloride 109 mmol/L (98-107); Creatinine, Serum 2.78 mg/dL (0.55-1.02); EST Glomerular Filtration Rate 18 mL/min (>60); Est Glom Filt Rate - Afr Amer 22 mL/min (>60); Estimated Creatinine Clearance 15.32 ml/min; Glucose 135 mg/dL (74-106); Potassium 3.4 mmol/L (3.5-5.1); Sodium Level 138 mmol/L (136-145)
[2021-03-25 10:49] LABS: Mucous, Urine 0 SEEN /hpf (<or=2+)
[2021-03-25 10:51] LABS: Color, Urine Yellow (Yellow); Glucose, Dipstick Normal (Normal); Ketone-Dipstick Negative (Negative); Leukocyte Esterase-Dipstick 500 /ul (Negative); Nitrite-Dipstick Negative (Negative); Occult Blood-Urine 50 /ul (Negative); Protein-Dipstick 100 mg/dl (Negative); Specific Gravity, Urine 1.005 (1.002-1.030); Urine Bilirubin Dipstick Negative (Negative); Urine Clarity Sl. Cloudy (Clear); Urine Urobilinogen Normal (Normal)
[2021-03-25 11:02] LABS: Bacteria 1+ /hpf (None Seen); Red Blood Cells-Urine 0-5 SEEN /hpf (0-5); Squamous Epithelial Cells - UA 0-5 SEEN /hpf (5-10); White Blood Cells 25-50 SEEN /hpf (0-5)
[2021-03-25 12:25] VITALS: PULSE 74; RESP 16; O2SAT 97; O2SAT 98
== END 2021-03-25 12:27 | disposition home or self-care (01) ==
PROVIDERS: Emergency Provider Emergency Medicine; PCP Internal Medicine
DX: R19.7 Diarrhea, unspecified (principal); R11.2 Nausea with vomiting, unspecified; R10.9 Unspecified abdominal pain; J45.909 Unspecified asthma, uncomplicated; Z87.891 Personal history of nicotine dependence
CPT/HCPCS: 74176; 80048; 81001; 85025; 87635; 96361; 96374; 99283; J7030; U0005; A4216; J2405; U0003

== ENCOUNTER 2021-04-10 04:16 | Emergency (ER) | payer MEDICARE, BC, SELFPAY ==
[2021-04-10] VITALS (7 sets, daily range): BP systolic 105–151; BP diastolic 62–80; PULSE 84–99; RESP 16–18; TEMP 36.7–36.8; O2SAT 93–97; BMI 30.4
--- NOTE | 2021-04-10 04:47 | EDS_ITS ---
HPI HPI - Female History of Present Illness Chief Complaint: Complaint Informant: patient and spouse/S.O. Pain Onset: Today Timing: Continuous Location: Suprapubic Current Severity: Mild Maximum Severity: Mild Associated Symptoms Associated Symptoms: Negative for Dysuria, Frequency, Urgency and Hematuria Narrative Narrative: 70-year-old female history of bladder cancer with mets to her right hip. She has had bladder resection with urostomy. She also had a hysterectomy and hip replacement. States that she has gotten infections and had recent admissions for this and also renal insufficiency and kidney problems from this. States she was feeling reasonably well at around 9 PM on Sunday she started having nausea vomiting and diarrhea. And also stopped urinating. She denies fever or chills. Prior similar symptoms: Yes Recent Illness/Hospitalization: Yes PFSH [facility] Medical History Asthma Cancer Kidney disease Home Medications ascorbic acid (vitamin C) [Vitamin C] 1,000 mg PO DAILY 02/12/18 [History Last Taken Unknown] biotin 10 mg PO DAILY 02/12/18 [History Last Taken Unknown] melatonin 10 mg PO QHS 02/12/18 [History Last Taken Unknown] multivitamin [Daily Multiple Vitamin] 1 ea PO DAILY 02/12/18 [History Last Taken Unknown] quoaqoi-ofkmirfykiwkj-ompfnark [Extra Strength Pain Reliever] 2 tab PO Q8H 01/30/21 [History Last Taken Unknown] nitrofurantoin monohyd/m-cryst [Macrobid] 100 mg PO Q12H 5 Days #10 cap 03/25/21 [Rx Last Taken Unknown] ondansetron 4 mg PO Q8H PRN #10 tab 03/25/21 [Rx Last Taken Unknown] Allergy/AdvReac Type Severity Reaction Status Date / Time Iodinated Contrast Media Allergy Other Verified 04/10/21 04:23 [CONTRASTS] Iodine and Iodide Containing Allergy Other Verified 04/10/21 04:23 Produc Milk Containing Products Allergy Other Verified 04/10/21 04:23 Surgical History History of urostomy Social History Smoking Status: Former smoker ROS ROS ED ROS Narrative Unable to urinate. Nausea, vomiting and diarrhea. Review of Systems ROS Unobtainable: Denies due to encephalopathy Constitutional Constitutional ED: Denies chills or fever(s) Eyes Eyes: Denies change in vision ENT ENT ED: Denies ear pain or sore throat Cardiovascular Cardiovascular: Denies chest pain Respiratory/Chest Respiratory/Chest: Denies cough or dyspnea Gastrointestinal Gastrointestinal: Reports abdominal pain, diarrhea, nausea and vomiting; Denies constipation or melena Genitourinary Genitourinary ED: Denies dysuria, hematuria or urinary frequency Musculoskeletal Musculoskeletal: Denies myalgias Integumentary Denies rash Neurologic Neurologic: Denies headache(s) Psychiatric Psychiatric: Denies depression Endocrine Endocrinology: Denies polyuria Hematologic/Lymphatic Hematologic/Lymphatic: Denies easy bruising Allergic/Immunologic Allergic/Immunologic ED: Denies urticaria EXAM Physical Exam Narrative Exam Narrative: 62-year-old female actively nauseated. And retching. Vital signs stable she is afebrile she does not look septic or toxic. HEENT exam unremarkable. Moist with memories. Lungs clear to auscultation. Heart regular rhythm rate about 85 no murmur. Abdomen soft nondistended normal bowel sounds no peritoneal signs. She has a urostomy bag and its empty. Moving all 4 extremities. Nontender. Back nontender. Neurologically she is awake and alert with no focal motor deficits. Const Vital Signs: 04/10/21 04:18 04/10/21 04:26 04/10/21 05:22 Temperature 98.0 F 98.0 F 98.2 F Temperature Source Temporal Temporal Temporal Pulse Rate 99 84 88 Respiratory Rate 18 18 18 Blood Pressure 105/66 105/66 132/74 H Blood Pressure Mean 79 79 93 Pulse Ox 95 97 93 Oxygen Delivery Method Room Air Room Air Room Air 04/10/21 06:00 Temperature 98.0 F Temperature Source Temporal Pulse Rate 89 Respiratory Rate 16 Blood Pressure 111/62 Blood Pressure Mean 78 Pulse Ox 95 Oxygen Delivery Method Room Air Positive well nourished and well developed; Negative for cachectic, contractures or unkempt General Appearance ED: well developed and NAD; Negative for unkempt, cachectic, contractures or odor of alcohol detected Nutritional Appearance: Negative for cachectic HEENT Reports moist mucous membranes Negative for trauma or tenderness Eyes PERRL Neck no lymphadenopathy, supple and no JVD Thyroid: Negative for tender Chest Wall inspection of chest normal and palpation of chest normal Resp normal respiratory effort and clear to auscultation bilaterally Auscultation: Negative for rales, rhonchi or wheezes GI normal to inspection, nondistended, normoactive bowel sounds, soft to palpation, non-distended and no masses; Negative for non-tender Auscultation: normoactive bowel sounds; Negative for hypoactive bowel sounds Palpation: tender; Negative for guarding or rigid Back/Spine no CVA tenderness General Back: Negative for CVA tenderness Extremity normal to inspection General Extremety ED: Negative for edema or tenderness General Extremity: Negative for edema Neuro oriented x3 Sensorium / Orientation: alert, oriented to person, oriented to place and oriented to time Motor Exam: strength 5/5 throughout Psych mental status grossly normal Appearance: Negative for unkempt Skin no rashes or lesions noted and no wounds MDM MDM MDM Narrative Medical decision making narrative: 62-year-old female unable to urinate with bilateral flank pain. History of bladder resection due to bladder cancer and urostomy. Should be treated IV fluids and Phenergan for her nausea. She states that Zofran makes her very constipated. Screening labs and urinalysis are being obtained. Repeat exam unchanged. Patient was given a second dose of pain medication. She will be given IV Rocephin in case she has a urinary tract infection with the suspected urinary tract obstruction. I spoke to [facility] transfer line, their urologist secondary art teacher Dr. Nagel and their emergency department physician. Patient be transferred from this emergency department to [facility] emergency department and urology will be consulted to determine how they are going to evaluate this obstruction and if they need to take her for surgery or possible urologic scope procedure. I discussed this all with the patient and her and she will be set up by ground squad. Lab Data Attestation: I reviewed the patient's lab results. Lab results narrative: CBC shows an elevated white count of 15.2. Hemoglobin is 10 which is her baseline secondary to chronic anemia. Electrolytes show sodium 135. Gap 11 BUN of 57 creatinine 2.77 consistent with her chronic renal insufficiency. Liver enzymes unremarkable. Labs: Laboratory Results - last 24 hr 04/10/21 04/10/21 04:32 04:32 WBC 15.2 H RBC 3.23 L Hgb 10.0 L Hct 31.9 L MCV 98.8 MCH 31.0 MCHC 31.3 L RDW Std Deviation 48.2 H RDW Coeff of Gretta 13.5 Plt Count 343 MPV 8.9 Immature Gran % (Auto) 0.400 Neut % (Auto) 87.8 H Lymph % (Auto) 5.2 L [place] % (Auto) 5.9 Eos % (Auto) 0.3 Baso % (Auto) 0.4 Absolute Neuts (auto) 13.3 H Absolute Lymphs (auto) 0.79 L Nucleated RBC % 0 Sodium 135 L Potassium 4.1 Chloride 107 Carbon Dioxide 17.0 L Anion Gap 11 BUN 57 H Creatinine 2.77 H Estim Creat Clear Calc 14.67 Est GFR (MDRD) Af Amer 22 L Est GFR (MDRD) Non-Af 18 L BUN/Creatinine Ratio 20.6 H Glucose 155 H Calcium 9.4 Total Bilirubin 0.30 AST 15 ALT 15 Alkaline Phosphatase 68 Total Protein 7.9 Albumin 3.0 L Globulin 4.9 H Albumin/Globulin Ratio 0.6 L Discharge Plan Triage Chief Complaint: Complaint ED Provider: Allen Blanco Dx/Rx/DC Orders Clinical Impression: Acute urinary retention, Obstructive uropathy, History of bladder cancer, Leukocytosis, Acute renal insufficiency Prescriptions: No Action multivitamin [Daily Multiple] 1 EACH tablet 1 ea PO DAILY RF: 0 biotin 10 MG tablet 10 mg PO DAILY RF: 0 ascorbic acid (vitamin C) [Vitamin C] 1,000 MG tablet 1,000 mg PO DAILY RF: 0 melatonin 10 MG capsule 10 mg PO QHS RF: 0 Extra Strength Pain Reliever Tablet 2 tab PO Q8H RF: 0 ondansetron 4 mg tablet,disintegrating 4 mg PO Q8H PRN (Reason: nausea and vomiting) Qty: 10 RF: 0 nitrofurantoin monohyd/m-cryst [Macrobid] 100 mg capsule 100 mg PO Q12H 5 Days Qty: 10 RF: 0 Primary Care Provider: Kristie Nam Referrals: Kristie Nam MD [Primary Care Provider] - Disposition Disposition: [facility]
[2021-04-10 04:54] LABS: Absolute Lymphocyte Count 0.79 X10^3/uL (0.83-4.51); Absolute Neutrophil Count 13.3 X10^3/uL (2.0-7.7); Basophil# 0.06 X10^3/uL; Basophil% 0.4 % (0-1); Eosinophil# 0.04 X10^3/uL; Eosinophils% 0.3 % (0-5); Hematocrit 31.9 % (37-47); Lymphocyte # 0.79 X10^3/ul (0.83-4.51); Lymphocyte % 5.2 % (19-41); Mean Corp Hgb Conc 31.3 g/dL (32-36); Mean Corpuscular Volume 98.8 fL (81-99); Mean Platelet Vol. 8.9 fl (6.2-12.0); Monocyte% 5.9 % (0-10); NRBC Flagged by Analyzer 0 % (0-5); Neutrophil # 13.34 X10^3/uL (2.7-7.7); Neutrophil % 87.8 % (47-70); Platelet Count 343 K/mm3 (150-450); RBC Distribution Width CV 13.5 % (11.6-14.6); RBC Distribution Width SD 48.2 fl (35.1-43.9); Red Blood Count 3.23 M/mm3 (4.2-5.4); White Blood Count 15.2 K/mm3 (4.4-11.0)
[2021-04-10] MEDS: 0.9% Normal Saline 1,000 ML 1000 ML IV (04:54)
[2021-04-10] MEDS: proMETHazine 25 MG/ML Syringe 12.5 MG IV (04:54)
[2021-04-10] MEDS: morphine 8 MG/ML Syringe 6 MG IV ×2 (04:55→06:15)
[2021-04-10 05:25] LABS: ALB/GLOB Ratio 0.6 RATIO (0.9-2.4); AST(SGOT) 15 U/L (15-37); Alanine Aminotransfer ALT/SGPT 15 U/L (13-56); Alkaline Phosphatase 68 U/L (45-117); Anion Gap 11 (5-15); BUN 57 mg/dL (7-18); BUN/Creat Ratio 20.6 RATIO (10-20); Calcium,Total 9.4 mg/dL (8.5-10.1); Chloride 107 mmol/L (98-107); Creatinine, Serum 2.77 mg/dL (0.55-1.02); EST Glomerular Filtration Rate 18 mL/min (>60); Est Glom Filt Rate - Afr Amer 22 mL/min (>60); Estimated Creatinine Clearance 14.67 ml/min; Globulin 4.9 g/dL (2.2-4.2); Glucose 155 mg/dL (74-106); Potassium 4.1 mmol/L (3.5-5.1); Protein, Total 7.9 g/dL (6.4-8.2); Sodium Level 135 mmol/L (136-145)
[2021-04-10] MEDS: Ceftriaxone 1 GM/50 ML BAG IV (07:00)
[2021-04-10] MEDS: Morphine 4 MG/ML Syringe 6 MG IV (07:43)
[2021-04-10] MEDS: Ondansetron 4 MG/2 ML Vial IV (08:22)
== END 2021-04-10 09:30 | disposition short-term general hospital (02) ==
PROVIDERS: Emergency Provider Emergency Medicine; PCP Internal Medicine
DX: R33.9 Retention of urine, unspecified (principal); N13.9 Obstructive and reflux uropathy, unspecified; D72.829 Elevated white blood cell count, unspecified; N28.9 Disorder of kidney and ureter, unspecified; Z96.649 Presence of unspecified artificial hip joint; Z87.891 Personal history of nicotine dependence; Z85.51 Personal history of malignant neoplasm of bladder
CPT/HCPCS: 80053; 85025; 96365; 96375; 96376; 99285; A4216; J2405

== ENCOUNTER 2021-09-17 13:55 | Inpatient (IN) | payer MEDICARE, BC, SELFPAY ==
[2021-09-17 14:15] VITALS: BP 130/76; PULSE 71; RESP 16; TEMP 36.2; O2SAT 96; BMI 29.2
[2021-09-17] MEDS: Magnesium Hydroxide 30 ML UDC PO (16:40)
[2021-09-17 17:00] VITALS: O2SAT 96
[2021-09-17] MEDS: Methocarbamol 500 MG Tablet PO (19:44)
[2021-09-17 19:45] VITALS: BP 112/58; PULSE 84; RESP 20; TEMP 37.4; O2SAT 93
[2021-09-17] MEDS: Senna/Docusate Sodium 1 Tablet 2 TABLET PO (20:28)
[2021-09-17] MEDS: MELATONIN 3 MG TABLET PO (20:29)
[2021-09-17] MEDS: traZODone 50 MG Tablet PO (20:29)
--- NOTE | 2021-09-18 03:21 | NURSING ---
Reviewed and agree with [employer] SUPERVISOR assessment and handoff.
[2021-09-18] MEDS: Enoxaparin 30 MG/0.3 ML Syringe SC (05:47)
[2021-09-18] MEDS: Bisacodyl 10 MG Suppository RC (05:51)
[2021-09-18 06:47] LABS: Hematocrit 25.5 % (37-47); Hemoglobin 8.1 g/dL (12.0-15.0); Mean Corp Hgb Conc 31.8 g/dL (32-36); Mean Corpuscular Hgb 30.9 pg (27.0-32.0); Mean Corpuscular Volume 97.3 fL (81-99); Mean Platelet Vol. 8.5 fl (6.2-12.0); Platelet Count 202 K/mm3 (150-450); RBC Distribution Width CV 13.3 % (11.6-14.6); RBC Distribution Width SD 47.5 fl (35.1-43.9); Red Blood Count 2.62 M/mm3 (4.2-5.4)
[2021-09-18 07:14] LABS: ALB/GLOB Ratio 0.6 RATIO (0.9-2.4); AST(SGOT) 22 U/L (15-37); Alanine Aminotransfer ALT/SGPT 7 U/L (13-56); Albumin, Serum 2.6 g/dL (3.2-5.0); Alkaline Phosphatase 49 U/L (45-117); Anion Gap 6 (5-15); BUN 34 mg/dL (7-18); BUN/Creat Ratio 19.4 RATIO (10-20); Calcium,Total 8.6 mg/dL (8.5-10.1); Chloride 105 mmol/L (98-107); Creatinine, Serum 1.75 mg/dL (0.55-1.02); EST Glomerular Filtration Rate 31 mL/min (>60); Est Glom Filt Rate - Afr Amer 37 mL/min (>60); Estimated Creatinine Clearance 24.33 ml/min; Glucose 108 mg/dL (74-106); Magnesium 2.4 mg/dL (1.6-2.6); Phosphorus 2.9 mg/dL (2.5-4.9); Potassium 4.4 mmol/L (3.5-5.1); Protein, Total 6.6 g/dL (6.4-8.2); Sodium Level 136 mmol/L (136-145)
[2021-09-18] MEDS: Cholecalciferol (VIT D3) 25 MCG TABLET (1,000 UNITS) PO (08:10)
[2021-09-18] MEDS: Pantoprazole Sodium 20 MG Tablet PO (08:10)
[2021-09-18] MEDS: Magnesium Chloride 64 MG Delay Rel.Tablet 128 MG PO (08:10)
[2021-09-18] MEDS: Senna/Docusate Sodium 1 Tablet 2 TABLET PO ×2 (08:10→20:24)
[2021-09-18] MEDS: Cyanocobalamin 500 MCG Tablet PO (08:10)
[2021-09-18] MEDS: Multivitamins,Therapeutic Tablet 1 TABLET PO (08:10)
[2021-09-18] MEDS: HYDROcodone Bitartrate/Apap 5/325 Tablet PO ×2 (08:25→18:30)
[2021-09-18 10:00] VITALS: BP 118/70; RESP 73; TEMP 36.6; O2SAT 92
--- NOTE | 2021-09-18 11:04 | HP.PCM_ITS ---
HPI - General General Date of Admission: 09/17/21 HPI Narrative SERENA PENDLETON, is a 70 YO with a PMH of bladder cancer (diagnosed in 2018 and metastatic to the bladder, uterus and the R posterior acetabulum), osteoarthritis of multiple joints , insomnia, allergic rhinitis, hx of cystect heena with ileal conduit, revision of the ileal conduit due to stenosis (Apr 2021), BL cataract extraction, + HLA B-27 (negative RA, CCP and KARAL) and recent L SONJA who was transferred to the in acute rehab unit at [facility] on 09/17/21 for 3 hours of therapy daily to restore function and independence at or near her prior level. She is 50% wt bearing on the R side and WBAT on the Left side. She lives in a ranch home and has 3 steps to enter her house. she has a walk in shower and a shower chair. Grab bar is suction cup variety. No HR outside to get in the house but the steps are wide enough so that she can get the walker on the step. Activity for the past several months has been very limited due to severe pain. All lab from this morning was personally reviewed. HGB is low at 8.1 with an M CV of 97.3. In April of 2021 it was 10. Creat is 1.75 which is down from 2.77 in April 2021. CREAT clearance is 24. GFR is 31 today which is up from 18 in April 2021. this makes her stage IIIb - 4 CRF. LFTs are unremarkable. Serena tells me that she slept pretty well last night. She tells me that Melatonin does not really work for her and the Trazodone helped. She has no hx of DVT's. [facility] Medical History (Updated 09/18/21 @ 13:[address] Nat Emerson, ) Allergic rhinitis Anemia of chronic disease Asthma Cancer Chronic renal failure, stage 3b History of hip fracture HLA B27 (HLA B27 positive) Hydronephrosis Insomnia Kidney disease Osteoarthritis Post-nasal drip Home Medications ascorbic acid (vitamin C) [Vitamin C] 1,000 mg PO DAILY@1200 02/12/18 [History Last Taken Unknown] melatonin 10 mg PO QHS 02/12/18 [History Last Taken Unknown] multivitamin [Daily Multiple Vitamin] 1 ea PO DAILY 08/07/18 [History Last Taken Unknown] acetaminophen [Tylenol] 1,000 mg PO Q8H PRN 09/17/21 [History Last Taken Unknown] biotin 1,000 mcg PO DAILY 09/17/21 [History Last Taken Unknown] calcium carbonate [Tums 500] 500 mg PO BID PRN 09/17/21 [History Last Taken Unknown] cholecalciferol (vitamin D3) 25 mcg PO DAILY 09/17/21 [History Last Taken Unknown] cyanocobalamin (vitamin B-12) 500 mcg PO DAILY 09/17/21 [History Last Taken Unknown] diphenhydramine HCl [Benadryl] 25 mg PO QHS 09/17/21 [History Last Taken Unknown] ferrous sulfate 325 mg PO DAILY@1200 09/17/21 [History Last Taken Unknown] hydrocodone-acetaminophen [Eugene] 1 - 2 tab PO Q4H PRN 09/17/21 [History Last Taken Unknown] magnesium 250 mg PO DAILY 09/17/21 [History Last Taken Unknown] methocarbamol [Robaxin] 500 mg PO TID PRN 09/17/21 [History Last Taken Unknown] pantoprazole [Protonix] 20 mg PO DAILY 09/17/21 [History Last Taken Unknown] Allergy/AdvReac Type Severity Reaction Status Date / Time codeine Allergy Itching Verified 09/17/21 14:44 Iodinated Contrast Media Allergy Other Verified 04/10/21 04:23 [CONTRASTS] Iodine and Iodide Containing Allergy Other Verified 04/10/21 04:23 Produc Family History (Updated 09/18/21 @ 11:[address] Nat Emerson DO) Mother Colon polyps Diverticulosis Father CAD (coronary artery disease) Myocardial infarction Sister No problems noted. Brother CAD (coronary artery disease) Myocardial infarction Grandmother Diabetes Daughter Congenital Q-T prolongation on ECG Daughter Cancer cervical cancer Congenital Q-T prolongation on ECG Surgical History (Updated 09/18/21 @ 13:[address] Nat Emerson DO) Cataract extraction status of left eye Cataract extraction status of right eye History of open reduction and internal fixation (ORIF) procedure History of tonsillectomy History of urostomy History of vaginal hysterectomy Hx of total cystectomy Status post total hip replacement, left Social History (Updated 09/18/21 @ 13:[address] Nat Emerson DO) household members: spouse housing: house Smoking Status: Former smoker pack-years: 1 Tobacco: How many years used: 1 how long ago did patient quit smoking: >40 She smoked in her 20's for 1 year only alcohol intake: current details: social ROS ROS Narrative She is outgoing and talkative. Makes good eye contact. Constitutional Constitutional: Reports weakness; Denies anorexia, change in weight, chills, fatigue, fever(s) or night sweats Eyes Eyes: Denies blurry vision, change in vision, eye pain or loss of vision ENT HEENT: Reports post nasal drip; Denies abnormal hearing, dysphagia, headache(s), hearing loss, nasal congestion or sore throat Cardiovascular Cardiovascular: Reports lightheadedness and weakness in extremities; Denies chest pain, dyspnea on exertion, edema, orthopnea, palpitations, paroxysmal nocturnal dyspnea or syncope Respiratory/Chest Respiratory/Chest: Reports dyspnea and other Details: Has had FLORENTINO in the past with ambulation but, due to the pain in the hips she has not been very active. She has used an inhaler in the past and states it did help. Can not recall if she has ever had PFT's in the past. ; Denies cough, productive cough, shortness of breath at rest, shortness of breath with exertion or wheezing Gastrointestinal Gastrointestinal: Reports constipation and nausea; Denies abdominal pain, chewing difficulty, diarrhea, dyspepsia, hematemesis, hematochezia, taste impaired or vomiting Genitourinary Genitourinary: Reports other Details: She has an ileal conduit ; Denies hematuria, urinary frequency, urinary hesitancy, urinary incontinence or urinary urgency Musculoskeletal Musculoskeletal: Reports joint pain and limited range of motion; Denies back pain, joint swelling or neck pain Integumentary Integumentary: Reports rash, wounds and other Details: she has a candidal skin infection in the groin and around the stoma. She also has a rash from drug allergy ....presumed to be due to Oxycodone. ; Denies skin pain Neurologic Neurologic: Reports dizziness; Denies confusion, disequilibrium, focal weakness, headache(s), paresthesias, seizures, tremor(s) or vertigo Psychiatric Psychiatric: Reports anxiety and other Details: The Anxiety is usually at night when she tries to go to sleep....she can't turn my brain off ; Denies depression, homicidal ideation or suicidal ideation Endocrine Endocrinology: Denies change in body appearance, polydipsia or polyuria Hematologic/Lymphatic Hematologic/Lymphatic: Denies easy bleeding, easy bruising or lymphadenopathy Allergic/Immunologic Allergic/Immunologic: Reports seasonal rhinorrhea, rhinitis and asthma; Denies eczemia Vital Signs Vital Signs Vital Signs: 09/17/21 14:15 09/17/21 17:00 09/17/21 19:45 Temperature 97.1 F L 99.4 F H Temperature Source Oral Temporal Pulse Rate 71 84 Respiratory Rate 16 20 H Respiratory Effort Normal Non-Labored Respiratory Depth Normal Respiratory Pattern Normal Blood Pressure 130/76 H 112/58 L Blood Pressure Mean 94 76 Blood Pressure Source Monitor Monitor Blood Pressure Position Semi-Fowlers Semi-Fowlers Blood Pressure Location Right Arm Right Arm Pulse Ox 96 96 93 Oxygen Delivery Method Room Air Room Air Room Air 09/18/21 10:00 Temperature 97.9 F Temperature Source Temporal Pulse Rate Respiratory Rate 73 H Respiratory Effort Respiratory Depth Respiratory Pattern Blood Pressure 118/70 Blood Pressure Mean 86 Blood Pressure Source Monitor Blood Pressure Position Semi-Fowlers Blood Pressure Location Right Arm Pulse Ox 92 Oxygen Delivery Method Room Air Weight Weight: 160 lb Body Mass Index (BMI) 29.2 Physical Exam Const alert, oriented x3 and no apparent distress Constitutional Narrative: Talkative and friendly. Making excellent eye contact when she talks with me. Appears in no distress. General Appearance: cooperative, comfortable, well kempt and well developed; Negative for ill appearing Nutritional Appearance: overweight HEENT normocephalic and oropharynx normal HEENT Narrative: Tongue is a little dry but, this may be due to the narcotics. No thrush. Eyes PERRL, EOMs intact bilaterally, conjunctivae normal, no scleral icterus and normal visual lomeli by confrontation Neck no lymphadenopathy and no carotid bruits Neck Narrative: Trachea is midline Lymph Lymphatic: no lymphadenopathy noted Chest Chest Narrative: She has a patchy red rash on the chest that is being attributed to an allergic reaction to Oxycodone. Chest: symmetrical chest wall rise Resp normal respiratory effort, normal air movement, no use of accessory muscles and clear to auscultation bilaterally Effort and Inspection: able to speak in complete sentences Cardio regular rate, regular rhythm, S1 normal heart sound, S2 normal heart sound, no rub and no gallops; Negative for diaphoretic Cardio Narrative: She has a soft systolic MM at the second RICS which may be a flow MM due to the anemia. It is grade 1-2. No ectopy. Jugular Venous Distention: Negative for JVD Peripheral Pulses: pulses 2+ throughout GI soft to palpation, non-tender, non-distended and no masses GI Narrative: She has a urostomy in the RLQ. Bladder / Kidney Exam: other S/P total cystectomy with a ileal conduit and stoma Extremity normal capillary refill, no calf tenderness and no pedal edema General Extremity: Negative for calf tenderness Skin General Skin Exam: other Andrzej skin infection around the stoma and in the BL groin. None beneath the breasts. She also has a maculopapular rash on the chest and sides and some on the extremities that is pruritic and is supposedly due to Oxycodone. ; Negative for jaundice Rashes: rashes noted Wound Narrative: the wound from the R SONJA is dressed and the dressing is not to be removed yet. there is no erythema outside the boundary of the dressing and the dressing has no significant drainage. Neuro oriented x3, CN's II-XII intact bilaterally and moves all extremities Psych mental status grossly normal, thought process normal, cooperative and affect normal Results Lab / Micro Data Result Diagrams: 09/18/21 06:31 09/18/21 06:31 Labs: Laboratory Results - last 24 hr 09/18/21 06:31: WBC 6.0, RBC 2.62 L, Hgb 8.1 L, Hct 25.5 L, MCV 97.3, MCH 30.9, MCHC 31.8 L, RDW Std Deviation 47.5 H, RDW Coeff of Gretta 13.3, Plt Count 202, MPV 8.5 09/18/21 06:31: Sodium 136, Potassium 4.4, Chloride 105, Carbon Dioxide 25.0, Anion Gap 6, BUN 34 H, Creatinine 1.75 H, Estim Creat Clear Calc 24.33, Est GFR (MDRD) Af Amer 37 L, Est GFR (MDRD) Non-Af 31 L, BUN/Creatinine Ratio 19.4, Glucose 108 H, Calcium 8.6, Phosphorus 2.9, Magnesium 2.4, Total Bilirubin 0.40, AST 22, ALT 7 L, Alkaline Phosphatase 49, Total Protein 6.6, Albumin 2.6 L, Globulin 4.0, Albumin/Globulin Ratio 0.6 L Assessment & Plan Assessment/Plan (1) Physical debility: (2) Osteoarthritis: (3) Status post total hip replacement, left: (4) Acute on chronic anemia: (5) Post-nasal drip: (6) Insomnia: (7) Chronic renal failure, stage 3b: (8) Candidal skin infection: PLAN: PLAN PT for gait stability while maintaining 50% wt bearing on the RLE and WBAT on the LLE OT for ADL's Analgesics as needed - She tells me that the rash and the pruritus have improved since the Oxycodone was discontinued and she was transitioned to [place]. I am not entirely sure that she is not allergic to the Hydrocodone. She has had Tramadol in the past but, she did not like it because it caused constipation. Will continue the Eugene fro now and continue to follow the rash. Bowel protocol - She had a BM today. Fall precautions Assess for Anxiety/Depression GI prophylaxis with Protonix DVT prophylaxis with Lovenox Follow up with Dr. aNm, orthopedics and a pets and pet supplies salesperson following DC from Rehab. she did not like the pets and pet supplies salesperson she saw at the [facility] and has not been back to see him. She is amenable to seeing a pets and pet supplies salesperson in [place] and will refer to [facility] here in [place] at [place]. AM lab including CMP, CBC, Mag and Phos reviewed today personally. Continue the Trazodone for sleep Claritin 10 mg at Bedtime daily to help with Pruritus Atrovent nasal spray for PND Ketoconazole topical BID for andrzej skin infection. Unit Exclusion This patient is an acute care inpatient being housed in the excluded unit because of capacity issues related to the disaster or emergency.: Yes Charges/Coding Visit Charges Inpatient E&M: 11063 Init Hosp L3
[2021-09-18] MEDS: Ascorbic Acid 500 MG Tablet 1000 MG PO (11:50)
[2021-09-18] MEDS: Ferrous Sulfate 325 MG Tablet PO (11:51)
--- NOTE | 2021-09-18 12:03 | PCM.RU.PYE ---
Admission Information Primary Diagnosis:: Debility due to recent L SONJA for severe OA. Status Changes from Prescreening?: No changes Identified Actual Problem List:: Bleeding, Skin Intergrity, Pain, ALteration in Cmfrt, Bowel, Constipation, Alteration in Sleep, Alteration in Nutrition, Mobility Impaired, Self Care Deficit and Alteration-Leisure Activ. Potential Problem List:: DVT, Bleeding, Infection, UTI, Aspiration, Falls, Skin Integrity and Depression Risk of Complications DVT: LMWH and EZEQUIEL Hose Bleeding: Monitor Lab Values, Nursing to Teach Precautions for anti-coagulation therapy., Wound, if applicable, to be assessed every shift. and Stroke patients assessed for lethargy or change in status. Infection: Clinical Staff to Monitor for S/S of infection: and S/S of infection include fever, redness, warmth, etc. Urinary Tract Infection: Monitor for frequency, burning, discomfort, or incontinence. and Nursing will obtain urine sample for urinalysis and C&S when ordered. Aspiration: Clinical staff will monitor for coughing, drooling, congestion., Speech will evaluate swallowing and dsyphasia. and Nursing will monitor patient swallowing during meals. Falls: Patient will be evaluated for Fall Precautions and Patient will be placed on Fall Precautions as indicated per protocol. Skin Breakdown: Nursing will assess skin daily using assessment tool. and Nursing will place on Skin Breakdown Precautions as indicated. Pain: Clinical staff will assess patient's pain level per protocol., Medications will be given, if needed, and the pain level reassessed. and Other methods: Massage, distraction, decrease stimulus, etc. used PRN. Plan of Care Patient requires physician specializing in physical medicine and rehab oversight to provide close medical supervision of rehab issues including: Pain Management, Sleep Problems, Bowel and Bladder, Medical and co-morbidity Management, DVT prophylaxis, Rehabilitation Leadership and Coordination of treatment team Patient needs Physical Therapy: For a minimum of 1 hour and At least 5 out of 7 days Patient needs Physical Therapy to improve:: Mobility, Strengthening, Transfers, Stretching, ROM, Endurance, Stairs, Gait and Balance Patient needs Occupational Therapy: For a minimum of 1 hour and At least 5 out of 7 days Patient needs Occupational Therapy to improve ADL's incl.: Eating, Grooming, Bathing, Dressing, Toileting, Toilet transfers, Community Reintegration, Higher functioning activities, Household tasks, Adaptive Equipment, Splinting and Other activities as determined Patient requires 29/01 Rehabilitation Nursing for: Pain Issues, Identifying and preventing risk factors, Monitoring and reporting current medical conditions, Assisting with ambulation, transfer, and all ADL's, Teaching patients about disease process and medications, Family teaching, Providing safe environment, Bowel and Bladder Issues, Skin integrity and Medication Management Patient needs Filter Press Operator/ Case Management for: Discharge Planning, Arranging Home Equipment or Services and Family Interventions Patient needs Dietary and Nutrition Services for: Adequate Nutrition, Nutritional Supplements and Nutritional Education Goals Patient will remain: free from falls and or injury at time of discharge. Patient will perform bed mobility at: MOD I level of assist. Patient will complete transfers from bed to chair at: MOD I level of assist. Patient will ambulate: 100 feet, with LRD and - (400 feet with WW at MOD I ) Patient will complete upper body dressing at: MOD I level of assist. Patient will complete lower body dressing at: MOD I level of assist. Patient will complete toileting at: MOD I level of assist. Patient will perform bathing at: MOD I level of assist. Patient will complete grooming at: MOD I level of assist. Patient will complete home management skills at: MOD I level of assist. Patient will achieve: - (3 steps and 1 curb step. ) Patient will have pain level of: of 3 or less Patient's skin will: remain intact Patient will receive: adequate nutrition. Discharge Planning Pt Prognosis for Sig. Practical Improv. w/in Reasonable Time: Good Estimated Length of stay (days): 14 Anticipated D/C Destination: Home with Outpt Therapy Was Preadmission Assessment Accurate?: Yes
[2021-09-18 14:43] VITALS: BP 127/71; BP 141/85; BP 150/63; PULSE 80; PULSE 85; PULSE 87
[2021-09-18 20:00] VITALS: BP 148/68; PULSE 85; RESP 16; TEMP 36.7; O2SAT 96
[2021-09-18] MEDS: Ketoconazole Cream 1 APPLIC TOPICAL (20:23)
[2021-09-18] MEDS: traZODone 50 MG Tablet PO (20:24)
[2021-09-18] MEDS: Loratadine 10 MG Tablet PO (20:24)
[2021-09-18] MEDS: Ipratropium Bromide 0.06% NASAL SPRAY 2 SPRAY NASAL (20:25)
--- NOTE | 2021-09-19 02:12 | NURSING ---
Reviewed and agree with MILL ROLL OPERATOR assessment.
[2021-09-19] MEDS: HYDROcodone Bitartrate/Apap 5/325 Tablet PO (05:40)
[2021-09-19] MEDS: Enoxaparin 30 MG/0.3 ML Syringe SC (05:41)
[2021-09-19 07:40] VITALS: BP 133/80; PULSE 64; RESP 18; TEMP 36.3; O2SAT 97
[2021-09-19] MEDS: Ipratropium Bromide 0.06% NASAL SPRAY 2 SPRAY NASAL ×2 (08:12→22:15)
[2021-09-19] MEDS: Senna/Docusate Sodium 1 Tablet 2 TABLET PO ×2 (08:13→22:17)
[2021-09-19] MEDS: Magnesium Chloride 64 MG Delay Rel.Tablet 128 MG PO (08:13)
[2021-09-19] MEDS: Multivitamins,Therapeutic Tablet 1 TABLET PO (08:13)
[2021-09-19] MEDS: Cyanocobalamin 500 MCG Tablet PO (08:13)
[2021-09-19] MEDS: Pantoprazole Sodium 20 MG Tablet PO (08:13)
[2021-09-19] MEDS: Cholecalciferol (VIT D3) 25 MCG TABLET (1,000 UNITS) PO (08:13)
[2021-09-19] MEDS: Ketoconazole Cream 1 APPLIC TOPICAL ×2 (08:14→22:17)
[2021-09-19 09:06] VITALS: BP 122/77; BP 126/72; BP 138/84; PULSE 61; PULSE 67; PULSE 87
--- NOTE | 2021-09-19 09:39 | PCM.PROGNOTE ---
Subjective Subjective Day #1 Medrol dosepak Afebrile VSS Maintaining appropriate oxygen saturation on RA Oral intake is good Discussed with nursing - no problems that need addressed Reviewed the PT/OT/ST notes Medication list reviewed. She is requesting Miralax. She had a difficult time sleeping last night due to pruritus. She is c/o increased pain in the L hip today....this may be tied to the lack of sleep. S he had some nausea today after the hydrocodone. She denies CP, SOB at rest, palpitations, dysuria, cough, sore throat. Objective Data Objective Data Vital Signs: Vital Signs Temp Pulse Resp BP Pulse Ox 97.3 F L 61 18 126/72 H 97 09/19/21 07:40 09/19/21 09:06 09/19/21 07:40 09/19/21 09:06 09/19/21 07:40 Oxygen Delivery Method Room Air Weight: 166 lb Body Mass Index (BMI) 29.2 Intake & Output: Intake and Output for Last 24 Hours 09/17/21 09/18/21 09/19/21 22:59 23:59 23:59 Intake Total 600 / 600 Output Total 1550 / 1550 Balance -950 / -950 Lab / Micro Data Result Diagrams: 09/18/21 06:31 09/18/21 06:31 Physical Exam Const alert and oriented x3 General Appearance: cooperative Resp normal respiratory effort, normal air movement and clear to auscultation bilaterally Effort and Inspection: able to speak in complete sentences Cardio regular rate, regular rhythm and no gallops GI normal to inspection, nondistended, normoactive bowel sounds and soft to palpation GI Narrative: no guarding with palpation Extremity no calf tenderness and no pedal edema Extremity Narrative: EZEQUIEL hose are in place Skin Skin Narrative: There is increased rash on the chest and the abd today. There is excoriation from scratching. No sign of cellulitis. Assessment & Plan Assessment/Plan (1) Status post total hip replacement, left: (2) Acute on chronic anemia: (3) Chronic renal failure, stage 3b: (4) Physical debility: (5) Allergic dermatitis: PLAN: 1. DC [place] and start Tramadol for pain. 2. Medrol Dosepak 3. Schedule Tylenol 1 GM every 8 hours. 4. Recheck a BMP and a HH on . 5. Continue therapy. Charges/Coding Visit Charges Inpatient E&M: 77149 Subs Hosp L2
[2021-09-19] MEDS: Ferrous Sulfate 325 MG Tablet PO (11:48)
[2021-09-19] MEDS: Polyethylene Glycol 3350 17 GM PACKET PO ×2 (11:48→22:17)
[2021-09-19] MEDS: traMADol 50 MG Tablet PO ×2 (11:48→22:27)
[2021-09-19] MEDS: Ascorbic Acid 500 MG Tablet 1000 MG PO (11:48)
[2021-09-19] MEDS: MethylPREDNISolone DosePak 4 MG BOX PO ×3 (11:48→22:15)
[2021-09-19] MEDS: Acetaminophen 500 MG Tablet 1000 MG PO ×2 (14:14→22:17)
[2021-09-19 19:29] VITALS: BP 146/52; PULSE 74; RESP 16; TEMP 36.4; O2SAT 92
[2021-09-19] MEDS: traZODone 50 MG Tablet PO (22:15)
[2021-09-19] MEDS: Loratadine 10 MG Tablet PO (22:15)
--- NOTE | 2021-09-20 04:21 | NURSING ---
Reviewed and agree with JAVA SOFTWARE documentation and assessment charting.
[2021-09-20] MEDS: Acetaminophen 500 MG Tablet 1000 MG PO ×3 (06:25→21:12)
[2021-09-20] MEDS: Enoxaparin 30 MG/0.3 ML Syringe SC (06:28)
[2021-09-20 07:38] VITALS: BP 130/74; PULSE 84; RESP 18; TEMP 36.3; O2SAT 96
[2021-09-20] MEDS: Senna/Docusate Sodium 1 Tablet 2 TABLET PO ×2 (08:24→20:36)
[2021-09-20] MEDS: Cholecalciferol (VIT D3) 25 MCG TABLET (1,000 UNITS) PO (08:24)
[2021-09-20] MEDS: Polyethylene Glycol 3350 17 GM PACKET PO ×2 (08:24→20:34)
[2021-09-20] MEDS: Multivitamins,Therapeutic Tablet 1 TABLET PO (08:24)
[2021-09-20] MEDS: Pantoprazole Sodium 20 MG Tablet PO (08:24)
[2021-09-20] MEDS: Magnesium Chloride 64 MG Delay Rel.Tablet 128 MG PO (08:25)
[2021-09-20] MEDS: Cyanocobalamin 500 MCG Tablet PO (08:25)
[2021-09-20] MEDS: Ipratropium Bromide 0.06% NASAL SPRAY 2 SPRAY NASAL ×2 (08:25→20:36)
[2021-09-20] MEDS: MethylPREDNISolone DosePak 4 MG BOX PO ×2 (08:25→13:02)
[2021-09-20] MEDS: Ketoconazole Cream 1 APPLIC TOPICAL ×2 (08:26→20:33)
[2021-09-20] MEDS: traMADol 50 MG Tablet PO (08:30)
[2021-09-20 09:14] VITALS: O2SAT 100
[2021-09-20] MEDS: Ascorbic Acid 500 MG Tablet 1000 MG PO (13:02)
[2021-09-20] MEDS: Ferrous Sulfate 325 MG Tablet PO (13:02)
--- NOTE | 2021-09-20 16:08 | PCM.PN.BLA ---
Progress Note Afebrile VSS Maintaining appropriate oxygen saturation on RA Oral intake is good Discussed with nursing - did not sleep well last night. Reviewed the PT/OT notes Medication list reviewed. She took 2 doses of tramadol yesterday and had 1 dose of tramadol today at approximately 8:30 AM. She is on scheduled Tylenol now. Lady tells me that the pruritus is much better since the Medrol was started however she tells me that she only slept for about 2 hours last night. She attributes this to the medrol. She denies CP, SOB, palpitations, calf pain, dysuria, cough, lightheadedness. She looks fatigued today and she tells me that she feels rough due to lack of sleep but, she was able to do her therapy. She had a BM today and feels no nausea or abd pain. Lungs are CTA HRRR no ankles edema and no calf tenderness the rash is defervescing and it is mostly macular now. No evidence of cellulitis. the andrzej is much improved around the stoma and in the BL groin the incision is intact and there is no purulent Dc and no erythema. There is still some swelling and bruising. Impressions 1. debility due to recent L SONJA 2. allergic dermatitis 3. insomnia 4. Stage 3b-4 CRF. 5. acute blood loss anemia on chronic anemia due to CRF. She was transfused 1 unit PRBC's prior to transfer to rehab. Recheck the DC the Medrol and change to Prednisone 40 mg once a day Increase the Trazodone to 100 mg while she is on Orednisone Continue therapy Follow up with nephrology post DC from rehab. Visit Charges Inpatient E&M: 65598 Subs Hosp L1
[2021-09-20 19:12] VITALS: BP 126/75; PULSE 78; RESP 18; TEMP 36.9; O2SAT 95
[2021-09-20] MEDS: Loratadine 10 MG Tablet PO (20:35)
[2021-09-20] MEDS: traZODone 100 MG Tablet PO (20:35)
[2021-09-20 22:00] VITALS: PULSE 78; RESP 16; O2SAT 95
[2021-09-21] MEDS: Enoxaparin 30 MG/0.3 ML Syringe SC (05:25)
[2021-09-21] MEDS: Acetaminophen 500 MG Tablet 1000 MG PO ×3 (05:25→21:17)
[2021-09-21] MEDS: traMADol 50 MG Tablet PO ×2 (06:13→13:21)
[2021-09-21 07:22] VITALS: BP 144/77; PULSE 75; RESP 16; TEMP 35.8; O2SAT 97
[2021-09-21] MEDS: Multivitamins,Therapeutic Tablet 1 TABLET PO (08:03)
[2021-09-21] MEDS: Ketoconazole Cream 1 APPLIC TOPICAL ×2 (08:03→20:47)
[2021-09-21] MEDS: predniSONE 20 MG Tablet 40 MG PO (08:03)
[2021-09-21] MEDS: Pantoprazole Sodium 20 MG Tablet PO (08:04)
[2021-09-21] MEDS: Cholecalciferol (VIT D3) 25 MCG TABLET (1,000 UNITS) PO (08:04)
[2021-09-21] MEDS: Magnesium Chloride 64 MG Delay Rel.Tablet 128 MG PO (08:04)
[2021-09-21] MEDS: Ipratropium Bromide 0.06% NASAL SPRAY 2 SPRAY NASAL ×2 (08:04→20:48)
[2021-09-21] MEDS: Cyanocobalamin 500 MCG Tablet PO (08:04)
--- NOTE | 2021-09-21 11:13 | PCM.PN.BLA ---
Progress Note Afebrile VSS Maintaining appropriate oxygen saturation on RA Oral intake is good Discussed with nursing - no problems that need addressed Reviewed the PT/OT/ST notes Medication list reviewed. She tells me the Atrovent nasal spray is working well to control the post nasal drip. She only took 1 Tramadol yesterday and that was in the AM and she took 1 tab today prior to therapy. She is surprised at how well she is doing just 1 week post op. She had trouble sleeping last night but was she went to sleep she was able to stay asleep. The pruritus continues to improve. The candidal rash around the stoma and in the groin is almost completely gone. The allergic dermatitis rash is much improved and there is no evidence of any cellulitis where the excoriation is from scratching. Denies chest pain, shortness of breath, calf pain, dysuria, palpitations, nausea/vomiting, constipation. Physical Exam Const alert, oriented x3 and no apparent distress General Appearance: cooperative Resp clear to auscultation bilaterally Cardio regular rate and regular rhythm Extremity no calf tenderness and no pedal edema Assessment & Plan Assessment/Plan (1) Allergic dermatitis: PLAN: Much improved. Continue prednisone 40 mg daily times a total of 3 days. Also continue increased dose of trazodone at bedtime to aid in sleep. (2) Candidal skin infection: PLAN: Much improved, continue ketoconazole. (3) Status post total hip replacement, left: PLAN: Continue therapy. She is happy with the program/care here and plans on returning when the R hip is done....possibly in the fall. (4) Acute on chronic anemia: PLAN: CBC and BMP ordered for Sunday. (5) Chronic renal failure, stage 3b: PLAN: Follow with with nephrology going forward. Visit Charges Inpatient E&M: 25192 Subs Hosp L1
[2021-09-21] MEDS: Ascorbic Acid 500 MG Tablet 1000 MG PO (12:38)
[2021-09-21] MEDS: Ferrous Sulfate 325 MG Tablet PO (12:38)
[2021-09-21] MEDS: Loratadine 10 MG Tablet PO (20:49)
[2021-09-21] MEDS: traZODone 100 MG Tablet PO (20:50)
[2021-09-21 21:03] VITALS: BP 138/73; PULSE 76; RESP 16; TEMP 36.6; O2SAT 98
[2021-09-21] MEDS: Menthol/Lanolin/Calamine/Znox 113 GM Tube 1 APPLIC TOPICAL (21:14)
[2021-09-21 22:00] VITALS: PULSE 76; RESP 16; O2SAT 98
[2021-09-22 05:40] LABS: Hematocrit 26.7 % (37-47); Hemoglobin 8.4 g/dL (12.0-15.0); Mean Corp Hgb Conc 31.5 g/dL (32-36); Mean Corpuscular Hgb 30.5 pg (27.0-32.0); Mean Corpuscular Volume 97.1 fL (81-99); Mean Platelet Vol. 8.2 fl (6.2-12.0); Platelet Count 326 K/mm3 (150-450); RBC Distribution Width CV 13.2 % (11.6-14.6); RBC Distribution Width SD 47.4 fl (35.1-43.9); Red Blood Count 2.75 M/mm3 (4.2-5.4); White Blood Count 6.4 K/mm3 (4.4-11.0)
[2021-09-22 05:59] LABS: Albumin, Serum 2.8 g/dL (3.2-5.0); BUN 46 mg/dL (7-18); BUN/Creat Ratio 23.7 RATIO (10-20); Calcium,Total 9.1 mg/dL (8.5-10.1); Chloride 108 mmol/L (98-107); Creatinine, Serum 1.94 mg/dL (0.55-1.02); EST Glomerular Filtration Rate 27 mL/min (>60); Est Glom Filt Rate - Afr Amer 33 mL/min (>60); Estimated Creatinine Clearance 21.95 ml/min; Glucose 99 mg/dL (74-106); Phosphorus 3.7 mg/dL (2.5-4.9); Potassium 4.2 mmol/L (3.5-5.1); Sodium Level 139 mmol/L (136-145)
[2021-09-22] MEDS: traMADol 50 MG Tablet PO ×2 (05:59→12:24)
[2021-09-22] MEDS: Enoxaparin 30 MG/0.3 ML Syringe SC (06:01)
[2021-09-22] MEDS: Menthol/Lanolin/Calamine/Znox 113 GM Tube 1 APPLIC TOPICAL ×3 (06:02→22:12)
[2021-09-22] MEDS: Acetaminophen 500 MG Tablet 1000 MG PO ×3 (06:44→22:10)
[2021-09-22 07:31] VITALS: BP 154/83; PULSE 83; RESP 18; TEMP 36.3; O2SAT 97
[2021-09-22] MEDS: Pantoprazole Sodium 20 MG Tablet PO (08:17)
[2021-09-22] MEDS: Ipratropium Bromide 0.06% NASAL SPRAY 2 SPRAY NASAL ×2 (08:17→22:11)
[2021-09-22] MEDS: predniSONE 20 MG Tablet 40 MG PO (08:17)
[2021-09-22] MEDS: Magnesium Chloride 64 MG Delay Rel.Tablet 128 MG PO (08:17)
[2021-09-22] MEDS: Multivitamins,Therapeutic Tablet 1 TABLET PO (08:17)
[2021-09-22] MEDS: Cyanocobalamin 500 MCG Tablet PO (08:18)
[2021-09-22] MEDS: Cholecalciferol (VIT D3) 25 MCG TABLET (1,000 UNITS) PO (08:18)
--- NOTE | 2021-09-22 12:02 | PN_ITS ---
Subjective Subjective Lady was seen on TEAM rounds today. Afebrile VSS Maintaining appropriate oxygen saturation on RA Oral intake is good Discussed with nursing - Nursing tells me that she has a red rash on her bottom that looks different than the allergic dermatitis. No vesicles per nursing. Reviewed the PT/OT notes Medication list reviewed. All lab was personally reviewed. White blood cell count is within normal limits. The hemoglobin is 8.4 today, up from 8.1 on 09/18/2021. Platelets are within normal limits. Sodium and potassium are within normal limits. Serum bicarb is now normal at 25. The BUN is elevated at 46 and the creatinine today is 1.94 and stable. this is consistent with stage 4 CRF. with a GFR of 27. Phosphorus is normal at 3.7 and calcium is 9.1 and when corrected for hypoalbuminemia is 10.06. Lady is c/o an itchy back side and some discomfort in the L groin. She has been vigorously scratching some area.......most of the itching now is in the intertriginous areas. She denies chest pain, shortness of breath, cough, hemoptysis, calf pain, nausea/vomiting/abdominal pain, dysuria. Slept better last night. She is c/o pain in both hips today and thinks it because she had more exercise with PT yesterday. She has only been taking Tramadol once daily and that is in the AM. Will change the dose to 25 - 50 mg because she is afraid it will make her sleepy and she will not be able to do therapy. Objective Data Objective Data Vital Signs: Vital Signs Temp Pulse Resp BP Pulse Ox 97.4 F L 83 18 154/83 H 97 09/22/21 07:31 09/22/21 07:31 09/22/21 07:31 09/22/21 07:31 09/22/21 07:31 Oxygen Delivery Method Room Air Weight: 162 lb 11.218 oz Body Mass Index (BMI) 29.2 Intake & Output: Intake and Output for Last 24 Hours 09/20/21 09/21/21 09/22/21 23:59 23:59 23:59 Intake Total 800 / 800 1600 / 1600 Output Total 1100 / 1100 Balance 800 / 800 500 / 500 Lab / Micro Data Result Diagrams: 09/22/21 05:34 09/22/21 05:34 Labs: Laboratory Results - last 24 hr 09/22/21 05:34: WBC 6.4, RBC 2.75 L, Hgb 8.4 L, Hct 26.7 L, MCV 97.1, MCH 30.5, MCHC 31.5 L, RDW Std Deviation 47.4 H, RDW Coeff of Gretta 13.2, Plt Count 326, MPV 8.2 09/22/21 05:34: Sodium 139, Potassium 4.2, Chloride 108 H, Carbon Dioxide 25.0, BUN 46 H, Creatinine 1.94 H, Estim Creat Clear Calc 21.95, Est GFR (MDRD) Af Amer 33 L, Est GFR (MDRD) Non-Af 27 L, BUN/Creatinine Ratio 23.7 H, Glucose 99, Calcium 9.1, Phosphorus 3.7, Albumin 2.8 L Physical Exam Const alert and oriented x3 General Appearance: cooperative Resp clear to auscultation bilaterally Effort and Inspection: able to speak in complete sentences Cardio regular rate, regular rhythm and no gallops GI normal to inspection, nondistended, normoactive bowel sounds, soft to palpation and non-tender Extremity no calf tenderness and no pedal edema Skin Skin Narrative: the candidal rash around the stoma appliance is mostly all resolved. the R groing looks good. She has been scratching the Left groin and there is still rash there......there is also some moisture from sweating. The majority of the allergic dermatitis has resolved. There is mild hyperpigmentation of the skin on the inner aspect of the thighs and in a skin fold on the Left abdomen. The rash beneath the left breast laterally is much better. Psych mental status grossly normal, thought process normal, cooperative and affect normal Assessment & Plan Assessment/Plan (1) Allergic dermatitis: (2) Candidal skin infection: (3) Acute on chronic anemia: (4) Status post total hip replacement, left: PLAN: 1. mix Kenalog + Calmoseptine in equal parts and apply to the intertriginous areas 2. Continue therapy 3. Lady has decided she would like to go home Sunday and I think this is reasonable so will DC Sunday. HHC for 1-2 weeks then OP PT. Fax RX's to the [facility] retail pharmacy. 4. Encouraged her to take the Tramadol if the pain is >4. Changed it to 25-50 mg. Charges/Coding Visit Charges Inpatient E&M: 80835 Subs Hosp L2
[2021-09-22] MEDS: Ascorbic Acid 500 MG Tablet 1000 MG PO (12:11)
[2021-09-22] MEDS: Ferrous Sulfate 325 MG Tablet PO (12:11)
[2021-09-22] MEDS: Ketoconazole Cream 1 APPLIC TOPICAL (12:11)
--- NOTE | 2021-09-22 16:17 | CASEMGMT ---
Social Work IDT met with patient and for Team meeting. Discussed patient's progress in PT/OT and nursing. Pt progressing well. Explained Medicare approved 12 days with EDC 09/29. Pt requesting to DC 09/27. IDT agreeable. Provided option of HHC vs OP PT. Pt prefers HHC first then transition to OP. Provided skilled HHC list with Medicare data. Pt prefers [facility]. No DME needs. to transport. Referral made to [facility] PT. Plan: DC home with 09/27, [facility] PT Amada Heard, MISTY BALLESTEROSW
[2021-09-22 19:02] VITALS: BP 130/83; PULSE 82; RESP 16; TEMP 36.6; O2SAT 95
[2021-09-22] MEDS: traZODone 100 MG Tablet PO (22:11)
[2021-09-22] MEDS: Loratadine 10 MG Tablet PO (22:11)
[2021-09-23] MEDS: Acetaminophen 500 MG Tablet 1000 MG PO ×3 (05:36→22:15)
[2021-09-23] MEDS: traMADol 50 MG Tablet PO ×2 (05:36→20:21)
[2021-09-23] MEDS: Enoxaparin 30 MG/0.3 ML Syringe SC (05:36)
[2021-09-23] MEDS: Menthol/Lanolin/Calamine/Znox 113 GM Tube 1 APPLIC TOPICAL (05:37)
[2021-09-23 07:38] VITALS: BP 131/66; PULSE 63; RESP 16; TEMP 36.3; O2SAT 98
[2021-09-23] MEDS: predniSONE 20 MG Tablet 40 MG PO (07:48)
[2021-09-23] MEDS: Pantoprazole Sodium 20 MG Tablet PO (07:48)
[2021-09-23] MEDS: Magnesium Chloride 64 MG Delay Rel.Tablet 128 MG PO (07:49)
[2021-09-23] MEDS: Multivitamins,Therapeutic Tablet 1 TABLET PO (07:49)
[2021-09-23] MEDS: Ipratropium Bromide 0.06% NASAL SPRAY 2 SPRAY NASAL ×2 (07:50→20:20)
[2021-09-23] MEDS: Cyanocobalamin 500 MCG Tablet PO (07:51)
[2021-09-23] MEDS: Cholecalciferol (VIT D3) 25 MCG TABLET (1,000 UNITS) PO (07:51)
[2021-09-23] MEDS: Ketoconazole Cream 1 APPLIC TOPICAL ×2 (08:01→22:16)
[2021-09-23] MEDS: Ferrous Sulfate 325 MG Tablet PO (12:13)
[2021-09-23] MEDS: Ascorbic Acid 500 MG Tablet 1000 MG PO (12:13)
[2021-09-23 22:00] VITALS: BP 116/66; PULSE 71; RESP 16; TEMP 37; O2SAT 96
[2021-09-23] MEDS: Loratadine 10 MG Tablet PO (22:15)
[2021-09-23] MEDS: traZODone 100 MG Tablet PO (22:15)
--- NOTE | 2021-09-24 04:00 | NURSING ---
Reviewed and agree with DIRECT SERVICE WORKER assessment.
[2021-09-24] MEDS: Enoxaparin 30 MG/0.3 ML Syringe SC (06:29)
[2021-09-24] MEDS: Acetaminophen 500 MG Tablet 1000 MG PO ×3 (06:29→21:47)
[2021-09-24] MEDS: traMADol 50 MG Tablet PO ×2 (06:29→20:34)
[2021-09-24] MEDS: Pantoprazole Sodium 20 MG Tablet PO (08:41)
[2021-09-24] MEDS: Cyanocobalamin 500 MCG Tablet PO (08:41)
[2021-09-24] MEDS: Cholecalciferol (VIT D3) 25 MCG TABLET (1,000 UNITS) PO (08:41)
[2021-09-24] MEDS: Magnesium Chloride 64 MG Delay Rel.Tablet 128 MG PO (08:41)
[2021-09-24] MEDS: predniSONE 20 MG Tablet 40 MG PO (08:41)
[2021-09-24] MEDS: Multivitamins,Therapeutic Tablet 1 TABLET PO (08:42)
[2021-09-24] MEDS: Ipratropium Bromide 0.06% NASAL SPRAY 2 SPRAY NASAL ×2 (08:43→21:47)
[2021-09-24 09:55] VITALS: BP 123/75; PULSE 70; RESP 18; TEMP 36.7; O2SAT 100
[2021-09-24] MEDS: Ascorbic Acid 500 MG Tablet 1000 MG PO (11:56)
[2021-09-24] MEDS: Ferrous Sulfate 325 MG Tablet PO (11:56)
[2021-09-24 20:30] VITALS: BP 110/73; PULSE 84; RESP 16; TEMP 36.6; O2SAT 97
[2021-09-24] MEDS: Ketoconazole Cream 1 APPLIC TOPICAL (20:39)
[2021-09-24] MEDS: Loratadine 10 MG Tablet PO (21:47)
[2021-09-24] MEDS: traZODone 100 MG Tablet PO (21:47)
[2021-09-24] MEDS: Menthol/Lanolin/Calamine/Znox 113 GM Tube 1 APPLIC TOPICAL (21:48)
--- NOTE | 2021-09-25 03:51 | NURSING ---
REVIEWED AND AGREE WITH BURRING WHEEL OPERATOR'S FUNCTIONAL ASSESSMENT AND HANDOFF CHARTING.
[2021-09-25] MEDS: Enoxaparin 30 MG/0.3 ML Syringe SC (05:00)
[2021-09-25] MEDS: Acetaminophen 500 MG Tablet 1000 MG PO ×3 (05:01→21:03)
[2021-09-25 07:53] VITALS: BP 150/83; PULSE 80; RESP 18; TEMP 36.4; O2SAT 96
[2021-09-25] MEDS: Magnesium Chloride 64 MG Delay Rel.Tablet 128 MG PO (09:03)
[2021-09-25] MEDS: Cyanocobalamin 500 MCG Tablet PO (09:03)
[2021-09-25] MEDS: Pantoprazole Sodium 20 MG Tablet PO (09:03)
[2021-09-25] MEDS: Cholecalciferol (VIT D3) 25 MCG TABLET (1,000 UNITS) PO (09:03)
[2021-09-25] MEDS: Ipratropium Bromide 0.06% NASAL SPRAY 2 SPRAY NASAL ×2 (09:04→21:01)
[2021-09-25] MEDS: Multivitamins,Therapeutic Tablet 1 TABLET PO (09:04)
[2021-09-25] MEDS: traMADol 50 MG Tablet PO ×2 (09:05→19:49)
[2021-09-25] MEDS: Ferrous Sulfate 325 MG Tablet PO (11:44)
[2021-09-25] MEDS: Ascorbic Acid 500 MG Tablet 1000 MG PO (11:44)
[2021-09-25] MEDS: Menthol/Lanolin/Calamine/Znox 113 GM Tube 1 APPLIC TOPICAL ×2 (13:59→21:02)
[2021-09-25 19:55] VITALS: BP 125/76; PULSE 75; RESP 16; TEMP 36.6; O2SAT 98
[2021-09-25] MEDS: Ketoconazole Cream 1 APPLIC TOPICAL (21:02)
[2021-09-25] MEDS: traZODone 100 MG Tablet PO (21:02)
[2021-09-25] MEDS: Loratadine 10 MG Tablet PO (21:02)
--- NOTE | 2021-09-26 03:48 | NURSING ---
REVIEWED AND AGREE WITH REGISTRATION MANAGER'S HANDOFF CHARTING AND FUNCTIONAL ASSESSMENT.
[2021-09-26] MEDS: Acetaminophen 500 MG Tablet 1000 MG PO ×3 (05:19→21:23)
[2021-09-26] MEDS: Enoxaparin 30 MG/0.3 ML Syringe SC (05:20)
[2021-09-26] MEDS: Pantoprazole Sodium 20 MG Tablet PO (07:58)
[2021-09-26] MEDS: Cyanocobalamin 500 MCG Tablet PO (07:58)
[2021-09-26] MEDS: Magnesium Chloride 64 MG Delay Rel.Tablet 128 MG PO (07:58)
[2021-09-26] MEDS: Ipratropium Bromide 0.06% NASAL SPRAY 2 SPRAY NASAL ×2 (07:58→21:23)
[2021-09-26] MEDS: Cholecalciferol (VIT D3) 25 MCG TABLET (1,000 UNITS) PO (07:58)
[2021-09-26] MEDS: Multivitamins,Therapeutic Tablet 1 TABLET PO (07:58)
[2021-09-26] MEDS: Ketoconazole Cream 1 APPLIC TOPICAL ×2 (08:05→21:24)
[2021-09-26 08:21] VITALS: BP 123/80; PULSE 65; RESP 18; TEMP 36.4; O2SAT 97
[2021-09-26] MEDS: Ascorbic Acid 500 MG Tablet 1000 MG PO (11:28)
[2021-09-26] MEDS: Ferrous Sulfate 325 MG Tablet PO (11:28)
[2021-09-26] MEDS: traMADol 50 MG Tablet PO ×2 (11:29→20:22)
--- NOTE | 2021-09-26 12:21 | PCM.PROGNOTE ---
Subjective Subjective Afebrile VSS -blood pressure is well controlled. Maintaining appropriate oxygen saturation on RA Oral intake is good Constipation has resolved and she is having regular bowel movements. Has not been taking the stool softeners regularly. Discussed with nursing - no problems that need addressed Reviewed the PT/OT notes Medication list reviewed. Lady denies chest pain, shortness of breath, cough, sore throat, nausea/vomiting/abdominal pain, lightheadedness and cephalgia. She tells me her pain is adequately controlled with as needed tramadol. She still complains of some pruritus. Objective Data Objective Data Vital Signs: Vital Signs Temp Pulse Resp BP Pulse Ox 97.6 F L 65 18 123/80 H 97 09/26/21 08:21 09/26/21 08:21 09/26/21 08:21 09/26/21 08:21 09/26/21 08:21 Oxygen Delivery Method Room Air Weight: 162 lb 11.218 oz Body Mass Index (BMI) 29.2 Intake & Output: Intake and Output for Last 24 Hours 09/24/21 09/25/21 09/26/21 23:59 23:59 23:59 Intake Total 480 / 480 240 / 240 Output Total 800 / 800 Balance -320 / -320 240 / 240 Lab / Micro Data Result Diagrams: 09/22/21 05:34 09/22/21 05:34 Physical Exam Const alert, oriented x3 and no apparent distress Eyes conjunctivae normal and no scleral icterus Resp normal respiratory effort, normal air movement and clear to auscultation bilaterally Effort and Inspection: able to speak in complete sentences Cardio regular rate, regular rhythm, no rub and no gallops GI normal to inspection, nondistended, normoactive bowel sounds, soft to palpation and non-tender Extremity no calf tenderness and no pedal edema Peripheral Pulses: Yes pulses 2+ throughout Assessment & Plan Assessment/Plan (1) Physical debility: (2) Acute on chronic anemia: (3) Status post total hip replacement, left: PLAN: 1. Plan DC home tomorrow with [facility]. No DME needed. 2. She is agreeable to following up with a tick inspector and has chosen Dr. Lucila Jules. Will make her an appt in 4-6 weeks after DC. 3. She has an appt to follow up with Dr. Hamilton 4. she is planning on having the R hip revised in Ocyober 5. We discussed using Trazodone for chronic insomnia. She had some questions about side effects and she told me that she does not think she needs and antidepressant. I explained we are using it for its side effect of making her sleepy. I also told her it is non-addictive and it would be safe for her to take with CRF. She requested a RX at [facility]. Charges/Coding Visit Charges Inpatient E&M: 55732 Subs Hosp L2
[2021-09-26] MEDS: Menthol/Lanolin/Calamine/Znox 113 GM Tube 1 APPLIC TOPICAL ×2 (14:30→21:25)
--- NOTE | 2021-09-26 14:35 | DCINST_ITS ---
Discharge Instructions Diet Discharge Diet: No restrictions Activity Discharge Activity: May Not Drive, May Shower and Use Walker Ice area for (Minutes): 10 Weight Bearing Status: Weight bearing as tolerated (on the left leg and 50% weight bearing on the RLE) and Partial weight bearing (R leg) Dressing / Incision Call your doctor if your incision/area has: Continuous Slow Oozing, Increased Pain/ Swelling, Increased Redness and Foul Smelling Discharge Call your doctor if you observe: Fever of 101 or Higher, Shortness of breath, Dizziness, Fainting spells, Chest pain, Increased palpitations (irregular heartbeat), Calf discomfort and Uncontrolled pain Suture Line Care: Avoid Pulling/Pushing and Avoid Pinching/Bending Additional Dressing/Incision Instructions:: Allow ope to air but, if rubbing against the clothes can cover with a light dry dressing Follow Up Care Please Follow Up With: Kristie Nam MD Test Results: Test results from this visit will be discussed in further detail at your follow-up appointment, if applicable. Pending Tests Upon Discharge: none Discharge Plan Admission Admit Date/Time: 09/17/21 13:55 Primary Reason for Your Visit: Debility due to L SONJA Attending Provider: Nat Emerson Primary Care Provider: Kristie Nam Instructions Patient Instructions: Hip Precautions Additional Instructions / Restrictions: 1. Because of your chronic kidney disease I think you should follow up with a building services supervisor (kidney doctor) to prevent any further damage to the kidney and to preserve the function you currently do have. There are 2 kidney groups at the hospital here. Dr. Lucila Jules DO ([phone]) and [facility] ([phone]). 2. You have done very well in therapy and we all appreciate the great effort on your part. Remember to keep the hip precautions to prevent dislocation of your new hip. a. No flexing of the hip greater than 90 degrees b. Do not cross your legs c. No twisting 3. Do the exercises given to you by the therapists daily. 4. Try not to sit for longer than 1 hour without getting up and taking a short walk.......helps to prevent stiffness and blood clots. 5. The risk for blood clots in the legs is increased after a hip replacement. Because you have chronic kidney disease and you are anemic I do not want to give you Aspirin twice a day and I also do not want to fully anticoagulate you on Eliquis. You will need to take something to prevent clots until 10/15/21 to complete DVT prophylaxis for 1 month post surgery. I am giving you a prescription for Lovenox and you will take 1 shot daily until gone. 6. If you have ANY questions after you leave the rehab unit please do not hesitate to call me at Office: [phone] We would be happy to have you back after the R hip surgery and will look forward to seeing you. If you change you mind about the pill to help you sleep please call me and I will get you a prescription. Trazodone is an antidepressant we use in small amounts to help with sleep. It is not addictive and it is better for you than taking Benadryl. Discharge Orders/Prescriptions Prescriptions: New ipratropium bromide 42 mcg (0.06 %) Brick,Non-Aerosol 2 spray NASAL BID Qty: 1 RF: 0 enoxaparin 30 mg/0.3 mL Syringe 30 mg subcut 0600 Qty: 18 RF: 0 tramadol 50 mg Tablet 25 - 50 mg PO Q6H PRN PRN (Reason: Pain Score 4-10) Qty: 28 RF: 0 trazodone 100 mg tablet 100 mg PO QHS PRN (Reason: insomnia) Qty: 30 RF: 0 Continued multivitamin [Daily Multiple] 1 EACH tablet 1 ea PO DAILY RF: 0 ascorbic acid (vitamin C) [Vitamin C] 1,000 MG tablet 1,000 mg PO DAILY@1200 RF: 0 acetaminophen [Tylenol] 325 mg Tablet 1,000 mg PO Q8H PRN (Reason: Pain) RF: 0 pantoprazole [Protonix] 20 mg Tablet,Delayed Release (Dr/Ec) 20 mg PO DAILY RF: 0 cyanocobalamin (vitamin B-12) 500 mcg Tablet 500 mcg PO DAILY RF: 0 calcium carbonate 500 mg calcium (1,250 mg) Tablet,Chewable 500 mg PO BID PRN (Reason: Acid Reflux) RF: 0 magnesium 250 mg Tablet 250 mg PO DAILY RF: 0 cholecalciferol (vitamin D3) 25 mcg (1,000 unit) Tablet 25 mcg PO DAILY RF: 0 biotin 1,000 mcg Tablet,Chewable 1,000 mcg PO DAILY RF: 0 ferrous sulfate 325 mg (65 mg iron) Tablet 325 mg PO DAILY@1200 Qty: 0 RF: 0 Discontinued melatonin 10 MG capsule 10 mg PO QHS RF: 0 methocarbamol [Robaxin] 500 mg Tablet 500 mg PO TID PRN (Reason: Pain) RF: 0 hydrocodone-acetaminophen [Gilbert] 5-325 mg Tablet 1 - 2 tab PO Q4H PRN (Reason: Pain) RF: 0 diphenhydramine HCl [Benadryl] 25 mg Capsule 25 mg PO QHS RF: 0 Referrals / Follow Up: [facility] [Other] - 10/07/21 12:20 pm Kristie Nam MD [Primary Care Provider] - 10/06/21 9:55 am Disposition Disposition (needs filled in before D/C Order can be placed): Home Health Service
[2021-09-26 19:26] VITALS: BP 126/71; PULSE 88; RESP 14; TEMP 36.4; O2SAT 98
[2021-09-26] MEDS: Loratadine 10 MG Tablet PO (21:23)
[2021-09-26] MEDS: traZODone 100 MG Tablet PO (21:23)
--- NOTE | 2021-09-27 02:53 | NURSING ---
Reviewed and agree with SENIOR WINDOWS ENGINEER documentation and assessment charting.
[2021-09-27] MEDS: Acetaminophen 500 MG Tablet 1000 MG PO (05:43)
[2021-09-27] MEDS: Enoxaparin 30 MG/0.3 ML Syringe SC (05:43)
[2021-09-27 07:43] VITALS: BP 133/70; PULSE 66; RESP 18; TEMP 36.7; O2SAT 99
[2021-09-27] MEDS: Polyethylene Glycol 3350 17 GM PACKET PO (08:17)
[2021-09-27] MEDS: Multivitamins,Therapeutic Tablet 1 TABLET PO (08:18)
[2021-09-27] MEDS: Magnesium Chloride 64 MG Delay Rel.Tablet 128 MG PO (08:18)
[2021-09-27] MEDS: Ipratropium Bromide 0.06% NASAL SPRAY 2 SPRAY NASAL (08:18)
[2021-09-27] MEDS: Pantoprazole Sodium 20 MG Tablet PO (08:19)
[2021-09-27] MEDS: Cholecalciferol (VIT D3) 25 MCG TABLET (1,000 UNITS) PO (08:19)
[2021-09-27] MEDS: Cyanocobalamin 500 MCG Tablet PO (08:19)
[2021-09-27] MEDS: Ketoconazole Cream 1 APPLIC TOPICAL (08:23)
--- NOTE | 2021-09-27 09:54 | DS.PCM_ITS ---
Providers Date of Admission: 09/17/21 Date of Discharge: 09/27/21 Primary Care Physician: Dr. Kristie Nam MD Reason For Visit: LEFT TOTAL HIP REPLACEMENT Diagnosis Discharge Diagnosis (1) Physical debility: Status: Acute Code(s): R53.81 - Other malaise (2) Status post total hip replacement, left: Status: Acute Code(s): Z96.642 - Presence of left artificial hip joint (3) Acute on chronic anemia: Status: Chronic Code(s): D64.9 - Anemia, unspecified (4) Allergic dermatitis: Status: Acute Code(s): L23.9 - Allergic contact dermatitis, unspecified cause (5) Candidal skin infection: Status: Acute Code(s): B37.2 - Candidiasis of skin and nail (6) Insomnia: Status: Acute Code(s): G47.00 - Insomnia, unspecified Qualifiers: Insomnia type: psychophysiologic Qualified Code(s): F51.04 - Psychophysiologic insomnia (7) Post-nasal drip: Status: Acute Code(s): R09.82 - Postnasal drip (8) Chronic renal failure, stage 3b: Status: Acute Code(s): N18.32 - Chronic kidney disease, stage 3b (9) Osteoarthritis: Status: Acute Code(s): M19.90 - Unspecified osteoarthritis, unspecified site Qualifiers: Osteoarthritis location: multiple joints Osteoarthritis type: primary Qualified Code(s): M15.9 - Polyosteoarthritis, unspecified Plan: DC home with [facility]. No DME needs. Needs follow up with nephrology. Follow up with Dr. Nam and Dr. Hamilton. Medications at Discharge Home Medications ascorbic acid (vitamin C) [Vitamin C] 1,000 mg PO DAILY@1200 02/12/18 multivitamin [Daily Multiple] 1 ea PO DAILY 02/12/18 acetaminophen [Tylenol] 1,000 mg PO Q8H PRN 09/17/21 biotin 1,000 mcg PO DAILY 09/17/21 calcium carbonate 500 mg PO BID PRN 09/17/21 cholecalciferol (vitamin D3) 25 mcg PO DAILY 09/17/21 cyanocobalamin (vitamin B-12) 500 mcg PO DAILY 09/17/21 magnesium 250 mg PO DAILY 09/17/21 pantoprazole [Protonix] 20 mg PO DAILY 09/17/21 enoxaparin 30 mg SUBCUT 0600 #18 ml 09/26/21 ferrous sulfate 325 mg PO DAILY@1200 #0 tab 09/26/21 ipratropium bromide 2 spray NASAL BID #1 bottle 09/26/21 tramadol 25 - 50 mg PO Q6H PRN PRN #28 tab 09/26/21 trazodone 100 mg PO QHS PRN #30 tab 09/26/21 Hospital Course Operations - (L THR by Dr. Hamilton at [facility] prior to transfer to acute rehab. ) Procedures None Summary of Care Provided Minutes Spent on Discharge: 40 Hospital Course: nor Plateletmocytic in and white blood cells were within normal limits.cecilia.With SERENA PENDLETON, is a 70 YO with a PMH of bladder cancer (diagnosed in 2017 with metastatic disease to the bladder, uterus and the R posterior acetabulum), osteoarthritis of multiple joints , chronic insomnia, allergic rhinitis, hx of cystectomy with ileal conduit, revision of the ileal conduit due to stenosis (Apr 2021), BL cataract extraction, + HLA B-27 (negative RA, CCP and KARLA) and recent L SONJA who was transferred to the in acute rehab unit at [facility] on 09/17/21 for 3 hours of therapy daily to restore function and independence at or near her prior level. She is 50% wt bearing on the R side and WBAT on the Left side. She lives in a ranch home and has 3 steps to enter her house. She has a walk in shower and a shower chair. Grab bar is suction cup variety. No handrail outside to get in the house but the steps are wide enough so that she can get the walker on the step. Activity for the past several months has been very limited due to severe pain. Lab at admission revealed a HGB of 8.1 with normochromic normocytic indices. Platelets and white blood cell count were within normal limits. The BUN was 34 with a creatinine of 1.75 which is less than her baseline for the past 2 years. GFR was 31. Prior to DC the Creat was 1.94 with a BUN of 46 and a GFR of 27 consistent with stage 4 CRF. Creat clearance is 21.95. She does no t follow with a bead flipper and she told me the kidney failure came from 1 of the chemotherapy drugs used to treat the met\static bladder cancer. Phosphorus, calcium and magnesium were all within normal limits. At presentation to rehab she had 2 rashes present. She had a moist candidal skin infection in the BL groin area, around the stoma appliance and beneath the L breast. She also had a pruritic red macular papular rash over the chest, back, trunk, abdomen and extremities that was presumed to be due to Oxycodone at the prior hospital. She has a known allergy to codeine in the pas t. She was on Hydrocodone at presentation to rehab for pain control and the rash continued to worsen. She was transitioned to Tramadol and placed on a 3 day course of Prednisone along with an antihistamine. The intertrigo was treated with a mix of Calmoseptine and Ketoconazole. Both rashes had resolved by the time she was discharged from rehab. Serena did well in rehab. At the time of DC she was able to ascend/descend 5 6 steps with BL HR's at stand by assist. She had ambulated 40 0' with a WW independently with no LOB. She was independent with eating, grooming, upper and lower body dressing, toileting and toilet transfer and bathing. She is supervision/set up for tub/shower transfer. she has grab bars in the shower but, they are the suction variety and these are not stable or safe. She was given the name and number of a contractor who installs grab bars for people with disabilities. Serena was discharged from rehab to home on 09/27/21 with [facility]. She will follow up with Dr. Hamilton for orthopedic care and with her PCP, Dr. Kristie Nam. An appt was made for her to follow up with Dr. Lucila Jules for CRF stage 3b/4. Physical Exam Const alert, oriented x3, no apparent distress and well nourished Constitutional Narrative: Sitting in the recliner at the bedside. General Appearance: cooperative, comfortable, well kempt and well developed HEENT normocephalic and hearing grossly normal bilaterally HEENT Narrative: Dry MM. She was reminded to maintain good fluid intake because with CRF the kidney can no longer concentrate the urine. Eyes PERRL, EOMs intact bilaterally, conjunctivae normal, no scleral icterus and normal visual lomeli by confrontation Neck no lymphadenopathy and no carotid bruits General: trachea midline Chest Chest: symmetrical chest wall rise Resp normal respiratory effort, no use of accessory muscles and clear to auscultation bilaterally Resp Narrative: excellent air flow Effort and Inspection: able to speak in complete sentences Cardio regular rate, regular rhythm, S1 normal heart sound, S2 normal heart sound, no murmurs, no rub and no gallops Cardio Narrative: She had a soft systolic flow murmur at the second right intercostal space at admission to rehab but this has resolved. No ectopy GI normal to inspection, nondistended, normoactive bowel sounds and non-tender GI Narrative: The candidal rash around the stoma appliance has resolved. Extremity no calf tenderness and no pedal edema Skin Skin Narrative: The intertrigo of the groin has resolved but, there is still moisture in the groin from sitting/sweating. I advised her to continue with the Calmoseptine in the groin following DC because it provides a moisture barrier. General Skin Exam: no breakdown Wound Narrative: Incision is intact with no erythema and no purulent DC. Neuro oriented x3, CN's II-XII intact bilaterally, moves all extremities and no focal motor deficits Psych mental status grossly normal, thought process normal, cooperative and affect normal Weight / BMI Weight Weight: 162 lb 11.218 oz Body Mass Index (BMI) 29.2 ABG / Lab / Microbiology Data Result Diagrams: 09/22/21 05:34 09/22/21 05:34 D/C Instructions Discharge Diet: No restrictions Ice area for (Minutes): 10 Weight Bearing Status: Weight bearing as tolerated (on the left leg and 50% weight bearing on the RLE) and Partial weight bearing (R leg) Call your doctor if your incision/area has: Continuous Slow Oozing, Increased Pain/ Swelling, Increased Redness and Foul Smelling Discharge Call your doctor if you observe: Fever of 101 or Higher, Shortness of breath, Dizziness, Fainting spells, Chest pain, Increased palpitations (irregular heartbeat), Calf discomfort and Uncontrolled pain Suture Line Care: Avoid Pulling/Pushing and Avoid Pinching/Bending Additional Dressing/Incision Instructions: Allow ope to air but, if rubbing against the clothes can cover with a light dry dressing Pending Tests Upon Discharge: none Please Follow Up With: Kristie Nam MD Meaningful Use Info Meaningful Use Diagnoses (Choose all that apply): None applicable Discharge Plan Admission Admit Date/Time: 09/17/21 13:55 Primary Reason for Your Visit: Debility due to L SONJA Attending Provider: Nat Emerson Primary Care Provider: Kristie Nam Instructions Patient Instructions: Hip Precautions Additional Instructions / Restrictions: 1. Because of your chronic kidney disease I think you should follow up with a bead flipper (kidney doctor) to prevent any further damage to the kidney and to preserve the function you currently do have. There are 2 kidney groups at the hospital here. Dr. Lucila Jules DO ([phone]) and [facility] ([phone]). 2. You have done very well in therapy and we all appreciate the great effort on your part. Remember to keep the hip precautions to prevent dislocation of your new hip. a. No flexing of the hip greater than 90 degrees b. Do not cross your legs c. No twisting 3. Do the exercises given to you by the therapists daily. 4. Try not to sit for longer than 1 hour without getting up and taking a short walk.......helps to prevent stiffness and blood clots. 5. The risk for blood clots in the legs is increased after a hip replacement. Because you have chronic kidney disease and you are anemic I do not want to give you Aspirin twice a day and I also do not want to fully anticoagulate you on Eliquis. You will need to take something to prevent clots until 10/15/21 to complete DVT prophylaxis for 1 month post surgery. I am giving you a prescription for Lovenox and you will take 1 shot daily until gone. 6. If you have ANY questions after you leave the rehab unit please do not hesitate to call me at Office: [phone] We would be happy to have you back after the R hip surgery and will look forward to seeing you. If you change you mind about the pill to help you sleep please call me and I will get you a prescription. Trazodone is an antidepressant we use in small amounts to help with sleep. It is not addictive and it is better for you than taking Benadryl. Discharge Orders/Prescriptions Prescriptions: New ipratropium bromide 42 mcg (0.06 %) [place],Non-Aerosol 2 spray NASAL BID Qty: 1 RF: 0 enoxaparin 30 mg/0.3 mL Syringe 30 mg subcut 0600 Qty: 18 RF: 0 tramadol 50 mg Tablet 25 - 50 mg PO Q6H PRN PRN (Reason: Pain Score 4-10) Qty: 28 RF: 0 trazodone 100 mg tablet 100 mg PO QHS PRN (Reason: insomnia) Qty: 30 RF: 0 Continued multivitamin [Daily Multiple] 1 EACH tablet 1 ea PO DAILY RF: 0 ascorbic acid (vitamin C) [Vitamin C] 1,000 MG tablet 1,000 mg PO DAILY@1200 RF: 0 acetaminophen [Tylenol] 325 mg Tablet 1,000 mg PO Q8H PRN (Reason: Pain) RF: 0 pantoprazole [Protonix] 20 mg Tablet,Delayed Release (Dr/Ec) 20 mg PO DAILY RF: 0 cyanocobalamin (vitamin B-12) 500 mcg Tablet 500 mcg PO DAILY RF: 0 calcium carbonate 500 mg calcium (1,250 mg) Tablet,Chewable 500 mg PO BID PRN (Reason: Acid Reflux) RF: 0 magnesium 250 mg Tablet 250 mg PO DAILY RF: 0 cholecalciferol (vitamin D3) 25 mcg (1,000 unit) Tablet 25 mcg PO DAILY RF: 0 biotin 1,000 mcg Tablet,Chewable 1,000 mcg PO DAILY RF: 0 ferrous sulfate 325 mg (65 mg iron) Tablet 325 mg PO DAILY@1200 Qty: 0 RF: 0 Discontinued melatonin 10 MG capsule 10 mg PO QHS RF: 0 methocarbamol [Robaxin] 500 mg Tablet 500 mg PO TID PRN (Reason: Pain) RF: 0 hydrocodone-acetaminophen [Dongola] 5-325 mg Tablet 1 - 2 tab PO Q4H PRN (Reason: Pain) RF: 0 diphenhydramine HCl [Benadryl] 25 mg Capsule 25 mg PO QHS RF: 0 Referrals / Follow Up: [facility] [Other] - 10/07/21 12:20 pm Lucila Jules DO [STAFF PHYSICIAN] - Kristie Nam MD [Primary Care Provider] - 10/06/21 9:55 am Disposition Disposition (needs filled in before D/C Order can be placed): Home Health Service Charges/Coding Visit Charges Inpatient E&M: 85218 Disch Hosp
[2021-09-27] MEDS: Ferrous Sulfate 325 MG Tablet PO (11:23)
[2021-09-27] MEDS: Ascorbic Acid 500 MG Tablet 1000 MG PO (11:23)
[2021-09-27] MEDS: traMADol 50 MG Tablet PO (12:54)
--- NOTE | 2021-09-27 14:30 | NURSING ---
Discharged home with family. discharge instructions, medications and appointments reviewed with the pt, denies questions or concerns
[2021-09-27 14:31] VITALS: BP 133/70; PULSE 66; RESP 18; TEMP 36.7; O2SAT 91
== END 2021-09-27 13:10 | disposition home health service (06) | DRG 561 ==
PROVIDERS: Admitting Provider Internal Medicine; PCP Internal Medicine; Visit Provider Internal Medicine
DX: Z47.1 Aftercare following joint replacement surgery (principal); D63.8 Anemia in other chronic diseases classified elsewhere; B37.2 Candidiasis of skin and nail; J45.909 Unspecified asthma, uncomplicated; L23.89 Allergic contact dermatitis due to other agents; F51.04 Psychophysiologic insomnia; N18.32 Chronic kidney disease, stage 3b; M16.12 Unilateral primary osteoarthritis, left hip; Z87.891 Personal history of nicotine dependence; Z79.899 Other long term (current) drug therapy; Z96.642 Presence of left artificial hip joint
CPT/HCPCS: 36415; 80053; 80069; 83735; 84100; 85027; 97110; 97116; 97161; 97165; 97530; 97535; 97802; 99251; G0463

== ENCOUNTER 2022-04-28 17:00 | Inpatient (IN) | payer MEDICARE, BC, SELFPAY ==
[2022-04-28 17:00] VITALS: BP 134/66; PULSE 83; RESP 18; TEMP 37.4; O2SAT 97
[2022-04-28 17:17] VITALS: BMI 30.7
[2022-04-28 19:14] VITALS: BP 140/67; PULSE 77; RESP 18; TEMP 37.4; O2SAT 98
[2022-04-28 19:34] VITALS: O2SAT 94
[2022-04-28] MEDS: MELATONIN 10 MG TABLET PO (21:06)
[2022-04-28] MEDS: Docusate Sodium 100 MG Capsule PO (21:06)
[2022-04-28] MEDS: Acetaminophen 500 MG Tablet 1000 MG PO (21:06)
[2022-04-28] MEDS: Nystatin Powder 15gm Bottle 1 APPLIC TOPICAL (21:06)
[2022-04-28] MEDS: oxyCODONE 5 MG Tablet PO (21:19)
[2022-04-28 22:00] VITALS: PULSE 77; O2SAT 98
[2022-04-29 00:49] VITALS: BP 107/56; PULSE 79; RESP 18; TEMP 36.3; O2SAT 96
[2022-04-29] MEDS: oxyCODONE 5 MG Tablet PO ×4 (02:50→22:20)
[2022-04-29] MEDS: Doxycycline 100 MG CAPSULE PO ×2 (06:21→17:15)
[2022-04-29] MEDS: Acetaminophen 500 MG Tablet 1000 MG PO ×3 (06:21→20:39)
[2022-04-29 06:23] VITALS: BP 116/64; PULSE 74; RESP 18; TEMP 36.8; O2SAT 97
[2022-04-29 07:56] LABS: Hematocrit 25.4 % (37-47); Hemoglobin 8.4 g/dL (12.0-15.0); Mean Corp Hgb Conc 33.1 g/dL (32-36); Mean Corpuscular Hgb 31.3 pg (27.0-32.0); Mean Corpuscular Volume 94.8 fL (81-99); Mean Platelet Vol. 9.1 fl (6.2-12.0); Platelet Count 184 K/mm3 (150-450); RBC Distribution Width CV 15.9 % (11.6-14.6); RBC Distribution Width SD 55.6 fl (35.1-43.9); Red Blood Count 2.68 M/mm3 (4.2-5.4); White Blood Count 5.4 K/mm3 (4.4-11.0)
[2022-04-29 08:22] VITALS: BP 116/64; PULSE 76; RESP 18; TEMP 36.8; O2SAT 97
[2022-04-29 08:35] LABS: ALB/GLOB Ratio 0.6 RATIO (0.9-2.4); AST(SGOT) 24 U/L (15-37); Alanine Aminotransfer ALT/SGPT 7 U/L (13-56); Albumin, Serum 2.2 g/dL (3.2-5.0); Alkaline Phosphatase 56 U/L (45-117); Anion Gap 7 (5-15); BUN 34 mg/dL (7-18); BUN/Creat Ratio 19.7 RATIO (10-20); Calcium,Total 8.6 mg/dL (8.5-10.1); Chloride 107 mmol/L (98-107); Creatinine, Serum 1.73 mg/dL (0.55-1.02); EST Glomerular Filtration Rate 31 mL/min (>60); Est Glom Filt Rate - Afr Amer 38 mL/min (>60); Estimated Creatinine Clearance 23.16 ml/min; Glucose 107 mg/dL (74-106); Magnesium 1.8 mg/dL (1.6-2.6); Phosphorus 2.8 mg/dL (2.5-4.9); Protein, Total 6.2 g/dL (6.4-8.2); Sodium Level 136 mmol/L (136-145)
[2022-04-29] MEDS: Magnesium Chloride 64 MG Delay Rel.Tablet 128 MG PO (09:58)
[2022-04-29] MEDS: Docusate Sodium 100 MG Capsule PO ×2 (09:59→20:39)
[2022-04-29] MEDS: Ascorbic Acid 500 MG Tablet PO (09:59)
[2022-04-29] MEDS: Cyanocobalamin 500 MCG Tablet PO (09:59)
[2022-04-29] MEDS: Enoxaparin 30 MG/0.3 ML Syringe SC (10:01)
[2022-04-29] MEDS: Cholecalciferol (VIT D3) 25 MCG TABLET (1,000 UNITS) PO (10:01)
[2022-04-29] MEDS: Nystatin Powder 15gm Bottle 1 APPLIC TOPICAL ×2 (10:11→20:40)
[2022-04-29] MEDS: Calcium Carbonate 500 MG Tablet PO ×2 (10:17→17:18)
[2022-04-29] MEDS: Multivitamins,Therapeutic Tablet 1 TABLET PO (12:28)
[2022-04-29 20:35] VITALS: BP 109/67; PULSE 80; RESP 16; TEMP 36.6; O2SAT 98
[2022-04-29 20:41] VITALS: PULSE 80
[2022-04-29] MEDS: MELATONIN 10 MG TABLET PO (22:22)
[2022-04-30] MEDS: oxyCODONE 5 MG Tablet PO ×4 (03:17→21:52)
[2022-04-30] MEDS: Doxycycline 100 MG CAPSULE PO ×2 (05:53→17:05)
[2022-04-30] MEDS: Enoxaparin 30 MG/0.3 ML Syringe SC (05:53)
[2022-04-30] MEDS: Nystatin Powder 15gm Bottle 1 APPLIC TOPICAL ×2 (05:53→21:53)
[2022-04-30] MEDS: Acetaminophen 500 MG Tablet 1000 MG PO ×3 (05:54→21:52)
[2022-04-30] MEDS: Ondansetron ODT 4 MG Tablet PO (06:13)
[2022-04-30 07:15] VITALS: O2SAT 97
[2022-04-30] MEDS: Docusate Sodium 100 MG Capsule PO ×2 (09:57→21:53)
[2022-04-30] MEDS: Magnesium Chloride 64 MG Delay Rel.Tablet 128 MG PO (09:58)
[2022-04-30] MEDS: Ferrous Sulfate 325 MG Tablet PO (09:58)
[2022-04-30] MEDS: Ascorbic Acid 500 MG Tablet PO (09:58)
[2022-04-30] MEDS: Cyanocobalamin 500 MCG Tablet PO (09:59)
[2022-04-30] MEDS: Cholecalciferol (VIT D3) 25 MCG TABLET (1,000 UNITS) PO (09:59)
[2022-04-30 10:00] VITALS: BP 161/78; PULSE 86; RESP 18; TEMP 36.6; O2SAT 97
--- NOTE | 2022-04-30 10:36 | HP.PCM_ITS ---
HPI - General General Date of Admission: 04/28/22 Date of Service: 04/30/22 Chief Complaint: Debility due to HPI Narrative SERENA PENDLETON, is a 71 YO F with a past medical history of bladder cancer (diagnosed in 2017 and metastatic to the bladder, uterus and the R posterior acetabulum), osteoarthritis of multiple joints , insomnia, allergic rhinitis, hx of cystectomy with ileal conduit, revision of the ileal conduit due to stenosis (Apr 2021), BL cataract extraction, + HLA B-27 (negative RA, CCP and KARLA), periacetabular Reconstruction for a pathologic right posterior column acetabular fracture secondary to metastatic urothelial cancer in August 2018 at [facility] and a Left hip replacement in September of 2021. 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 A custom hip prostesis had to be designed to reconstruct the R hip. On 04/24/22 she underwent right acetabular fracture open reduction internal fixation with a Tri flange custom acetabular component by Dr. Hamilton at [facility]. She had an unremarkable post-op course and she was transferred to the acute inpt rehab unit at [facility] on 04/29/22 for 3 hours of therapy daily to strengthen and restore function to the RLE. She is to adhere strictly to posterior dislocation precautions. She will be TTWB on the RLE for 8 weeks then advance to 50% WB for 8 weeks and then advance to WBAT for 12 weeks. Serena is well known to me from admission to the [facility] rehab unit following a L SONJA in September of 2021. All lab from 04/29/2022 was personally reviewed. Hemoglobin is 8.4 and platelets and white blood cell count are within normal limits. The BMP is unremarkable. BUN is 34 and the creatinine is 1.73 which is within her baseline. Calcium, phosphorus and magnesium are all within normal limits. [facility] Medical History (Updated 05/02/22 @ 17:[address] Nat Emerson, ) Allergic rhinitis Anemia of chronic disease Asthma Cancer Chronic renal failure, stage 3b Diverticulosis History of hip fracture HLA B27 (HLA B27 positive) Hydronephrosis Insomnia Kidney disease Osteoarthritis Post-nasal drip Home Medications ascorbic acid (vitamin C) 1,000 mg tablet (Vitamin C) 100 mg PO DAILY vitamin 02/12/18 [History Last Taken Unknown] multivitamin (Daily Multiple tablet) 1 ea PO DAILY vitamin 02/12/18 [History Last Taken Unknown] acetaminophen 325 mg tablet (Tylenol) 1,000 mg PO Q8H PRN Pain 09/17/21 [History Last Taken 04/28/22 13:34] biotin 1,000 mcg chewable tablet 1,000 mcg PO DAILY vitamin 09/17/21 [History Last Taken Unknown] calcium carbonate 500 mg calcium (1,250 mg) chewable tablet 500 mg PO BID PRN Heartburn 09/17/21 [History Last Taken Unknown] cholecalciferol (vitamin D3) 25 mcg (1,000 unit) tablet 25 mcg PO DAILY vitamin 09/17/21 [History Last Taken Unknown] cyanocobalamin (vitamin B-12) 500 mcg tablet 500 mcg PO DAILY vitamin 09/17/21 [History Last Taken Unknown] magnesium 250 mg tablet 250 mg PO DAILY vitamin 09/17/21 [History Last Taken Unknown] pantoprazole 20 mg tablet,delayed release (Protonix) 20 mg PO DAILY acid 09/17/21 [History Last Taken Unknown] ipratropium bromide 42 mcg (0.06 %) nasal spray 2 spray NASAL BID #1 BOTTLE 09/26/21 [Rx Last Taken Unknown] tramadol 50 mg tablet 25 - 50 mg PO Q6H PRN PRN Pain Score 4-10 #28 tabs 09/26/21 [Rx Last Taken Unknown] trazodone 100 mg tablet 100 mg PO QHS PRN insomnia #30 tabs 09/26/21 [Rx Last Taken Unknown] ascorbic acid (vitamin C) 100 mg tablet 100 mg PO DAILY Supplement 04/28/22 [History Last Taken Unknown] baclofen 10 mg tablet 10 mg PO TID Muscle spasms 04/28/22 [History Last Taken Unknown] diphenhydramine HCl 25 mg capsule (Benadryl) 25 mg PO QHS Sleep 04/28/22 [History Last Taken Unknown] docusate sodium 100 mg capsule (Colace) 100 mg PO BID constipation 04/28/22 [History Last Taken Unknown] doxycycline hyclate 100 mg capsule (Vibramycin) 100 mg PO 0600,1800 Antibiotic 04/28/22 [History Last Taken 04/28/22 06:00] enoxaparin 30 mg/0.3 mL subcutaneous syringe 30 mg subcut 0600 Blood thinner 04/28/22 [History Last Taken Unknown] enoxaparin 30 mg/0.3 mL subcutaneous syringe (Lovenox) 30 mg subcut DAILY Blood thinner 04/28/22 [History Last Taken Unknown] ferrous sulfate 325 mg (65 mg iron) tablet 325 mg PO QODAY vitamin 04/28/22 [History Last Taken Unknown] melatonin 10 mg capsule 10 mg PO QHS Sleep 04/28/22 [History Last Taken Unknown] naloxone 4 mg/actuation nasal spray 4 mg intranasal Q3M PRN Overdose 04/28/22 [History Last Taken Unknown] ondansetron HCl 4 mg tablet 4 mg PO Q6H PRN Nausea/Vomiting 04/28/22 [History Last Taken Unknown] oxycodone 5 mg tablet 5 - 10 mg PO Q4H PRN Pain 1-10 04/28/22 [History Last Take n Unknown] Allergy/AdvReac Type Severity Reaction Status Date / Time codeine Allergy Itching Verified 09/17/21 14:44 Iodinated Contrast Media Allergy Other Verified 04/10/21 04:23 [CONTRASTS] Iodine and Iodide Containing Allergy Other Verified 04/10/21 04:23 Produc Family History Mother Colon polyps Diverticulosis Father CAD (coronary artery disease) Myocardial infarction Sister No problems noted. Brother CAD (coronary artery disease) Myocardial infarction Grandmother Diabetes Daughter Congenital Q-T prolongation on ECG Daughter Cancer cervical cancer Congenital Q-T prolongation on ECG Surgical History (Updated 05/02/22 @ 17:[address] Nat Emerson DO) Cataract extraction status of left eye Cataract extraction status of right eye History of open reduction and internal fixation (ORIF) procedure History of tonsillectomy History of urostomy History of vaginal hysterectomy Hx of total cystectomy Status post total hip replacement, left Social History household members: spouse housing: house Smoking Status: Former smoker pack-years: 1 Tobacco: How many years used: 1 how long ago did patient quit smoking: >40 She smoked in her 20's for 1 year only alcohol intake: current details: social ROS Review of Systems ROS Unobtainable: Denies due to encephalopathy, due to endotracheal tube, due to mental condition or due to mental status Constitutional Constitutional: Reports difficulty sleeping; Denies anorexia, change in weight, chills, fatigue, fever(s), night sweats or weakness Eyes Eyes: Denies blurry vision, change in vision, eye pain or loss of vision ENT HEENT: Reports odynophagia; Denies abnormal hearing, dysphagia, headache(s), hearing loss, nasal congestion or sore throat Cardiovascular Cardiovascular: Denies chest pain, dyspnea on exertion, edema, lightheadedness, orthopnea, palpitations, paroxysmal nocturnal dyspnea or syncope Respiratory/Chest Respiratory/Chest: Denies cough, dyspnea, shortness of breath at rest, shortness of breath with exertion or wheezing Gastrointestinal Gastrointestinal: Reports constipation, odynophagia and vomiting; Denies abdominal pain, diarrhea, dyspepsia, hematemesis, hematochezia or nausea Genitourinary Genitourinary: Denies dysuria, hematuria, nocturia, urinary frequency, urinary hesitancy, urinary incontinence or urinary urgency Musculoskeletal Musculoskeletal: Reports joint pain, muscle cramps and muscle spasms; Denies back pain, joint swelling or neck pain Integumentary Integumentary: Denies rash Neurologic Neurologic: Denies confusion, disequilibrium, dizziness, focal weakness, headache(s), paresthesias, seizures or tremor(s) Psychiatric Psychiatric: Denies anxiety, depression, homicidal ideation or suicidal ideation Endocrine Endocrinology: Denies change in body appearance, polydipsia or polyuria Hematologic/Lymphatic Hematologic/Lymphatic: Denies easy bleeding, easy bruising or lymphadenopathy Allergic/Immunologic Allergic/Immunologic: Denies rhinitis, eczemia or asthma Vital Signs Vital Signs Vital Signs: 04/29/22 20:35 04/29/22 20:41 04/30/22 07:15 Temperature 97.9 F Temperature Source Oral Pulse Rate 80 80 Respiratory Rate 16 Blood Pressure 109/67 Blood Pressure Mean 81 Blood Pressure Source Monitor Blood Pressure Position Sitting Blood Pressure Location Right Forearm Pulse Ox 98 97 Oxygen Delivery Method Room Air Room Air 04/30/22 10:00 Temperature 97.9 F Temperature Source Oral Pulse Rate 86 Respiratory Rate 18 Blood Pressure 161/78 H Blood Pressure Mean 105 Blood Pressure Source Monitor Blood Pressure Position Semi-Fowlers Blood Pressure Location Right Arm Pulse Ox 97 Oxygen Delivery Method Room Air Weight Weight: 167 lb 0.002 oz Body Mass Index (BMI) 30.7 Physical Exam Const alert, oriented x3, no apparent distress, healthy appearing and well nourished Constitutional Narrative: Lying in bed and appears in NAD. General Appearance: cooperative and comfortable HEENT normocephalic, head/scalp atraumatic and hearing grossly normal bilaterally HEENT Narrative: Dry mucous membranes. No mucosal lesions. Denies a bad taste or burning in her mouth. Mouth: oral and palatal mucosa normal Eyes PERRL, EOMs intact bilaterally, conjunctivae normal and no scleral icterus General Eye: normal appearance of both eyes Neck no lymphadenopathy, supple, no JVD and no carotid bruits General: trachea midline Resp normal respiratory effort, no use of accessory muscles and clear to auscultation bilaterally Resp Narrative: Not tachypneic, no conversational dyspnea. Cardio regular rate, regular rhythm, S1 normal heart sound, S2 normal heart sound, no murmurs, no rub and no gallops GI normal to inspection, nondistended, normoactive bowel sounds, non-tender and non-distended GI Narrative: No guarding with palpation. She has a urostomy no CVA tenderness Extremity normal capillary refill, no clubbing, cyanosis or edema and no pedal edema Extremity Narrative: EZEQUIEL hose are in place. Skin no rashes or lesions noted and no jaundice Skin Narrative: She has yeast in the fold of the R groin and also under where her urostomy bag which always lays in the RLQ/R groin .....mild and improving with nystatin. General Skin Exam: no breakdown Neuro oriented x3, CN's II-XII intact bilaterally and no focal motor deficits Sensorium / Orientation: alert Psych mental status grossly normal, thought process normal, cooperative, affect normal, activity/motor behavior normal, denies hallucinations, denies homicidal ideation and denies suicidal ideation Psych Narrative: appropriate, makes good eye contact Appearance: appropriate Attitude: calm Activity / Motor Behavior: appropriate eye contact Results Lab / Micro Data Result Diagrams: 04/29/22 07:16 04/29/22 07:16 Assessment & Plan Assessment/Plan (1) Physical debility: (2) History of open reduction and internal fixation (ORIF) procedure: (3) Acute on chronic anemia: (4) Nausea and vomiting: (5) Constipation: (6) Chronic renal failure, stage 3b: (7) Cancer: (8) History of urostomy: PLAN: Plan PLAN PT for gait stability OT for ADL's Analgesics as needed Bowel protocol Fall precautions Assess for Anxiety/Depression GI prophylaxis - not on a PPI or H2B at transfer but, she has a hx of GERD and has been on Protonix in the past. May need to restart for N/V DVT prophylaxis with enoxaparin 30 mg subcu daily Follow up with PCP and Dr. Hamilton following DC from Rehab AM lab including CMP, CBC, Mag and Phos - personally reviewed. Unit Exclusion This patient is an acute care inpatient being housed in the excluded unit because of capacity issues related to the disaster or emergency.: Yes Charges/Coding Visit Charges Inpatient E&M: 87051 Init Hosp L3
--- NOTE | 2022-04-30 10:43 | REHABEVAL_ITS ---
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 Potential Problem List:: DVT, Bleeding, Infection, UTI, Aspiration, Falls, Skin Integrity and Depression Risk of Complications DVT: LMWH and EZEQUIEL Hose Bleeding: Monitor Lab Values, Nursing to Teach Precautions for anti-coagulation therapy., Wound, if applicable, to be assessed every shift. and Stroke patients assessed for lethargy or change in status. Infection: Clinical Staff to Monitor for S/S of infection: and S/S of infection include fever, redness, warmth, etc. Urinary Tract Infection: Monitor for frequency, burning, discomfort, or incontinence. and Nursing will obtain urine sample for urinalysis and C&S when ordered. Aspiration: Clinical staff will monitor for coughing, drooling, congestion., Speech will evaluate swallowing and dsyphasia. and Nursing will monitor patient swallowing during meals. Falls: Patient will be evaluated for Fall Precautions and Patient will be placed on Fall Precautions as indicated per protocol. Skin Breakdown: Nursing will assess skin daily using assessment tool. and Nursing will place on Skin Breakdown Precautions as indicated. Pain: Clinical staff will assess patient's pain level per protocol., Medications will be given, if needed, and the pain level reassessed. and Other methods: Massage, distraction, decrease stimulus, etc. used PRN. Plan of Care Patient requires physician specializing in physical medicine and rehab oversight to provide close medical supervision of rehab issues including: Pain Management, Sleep Problems, Bowel and Bladder, Medical and co-morbidity Management, DVT prophylaxis, Rehabilitation Leadership and Coordination of treatment team Patient needs Physical Therapy: For a minimum of 1 hour and At least 5 out of 7 days Patient needs Physical Therapy to improve:: Mobility, Strengthening, Transfers, Stretching, ROM, Endurance, Stairs, Gait and Balance Patient needs Occupational Therapy: For a minimum of 1 hour and At least 5 out of 7 days Patient needs Occupational Therapy to improve ADL's incl.: Eating, Grooming, Bathing, Dressing, Toileting, Toilet transfers, Community Reintegration, Higher functioning activities, Household tasks, Adaptive Equipment, Splinting and Other activities as determined Patient requires 24/7 Rehabilitation Nursing for: Pain Issues, Identifying and preventing risk factors, Monitoring and reporting current medical conditions, Assisting with ambulation, transfer, and all ADL's, Teaching patients about disease process and medications, Family teaching, Providing safe environment, Bowel and Bladder Issues, Skin integrity and Medication Management Patient needs Security Attendant/ Case Management for: Discharge Planning, Arranging Home Equipment or Services and Family Interventions Patient needs Dietary and Nutrition Services for: Adequate Nutrition, Nutritional Supplements and Nutritional Education Goals Patient will remain: free from falls Patient will perform bed mobility at: MOD I level of assist. Patient will complete transfers from bed to chair at: MOD I level of assist. Patient will ambulate: - (25 feet with least restrictive device at mod I while maintaining toe-touch weightbearing on the right lower extremity) Patient will complete upper body dressing at: MOD I level of assist. Patient will complete lower body dressing at: MOD I level of assist. Patient will complete toileting at: - (Minimal assistance) Patient will perform bathing at: - (Min assist) Patient will complete grooming at: MOD I level of assist. Patient will complete home management skills at: MOD I level of assist. Patient will achieve: - (1 curb step) Patient will have pain level of: of 3 or less Patient's skin will: remain intact Patient will receive: adequate nutrition. Discharge Planning Estimated Length of stay (days): 28 Anticipated D/C Destination: Home with Home Health Was Preadmission Assessment Accurate?: Yes
[2022-04-30] MEDS: Multivitamins,Therapeutic Tablet 1 TABLET PO (11:48)
[2022-04-30 20:02] VITALS: BP 133/77; PULSE 54; RESP 16; TEMP 36.7; O2SAT 97
[2022-04-30] MEDS: MELATONIN 10 MG TABLET PO (21:53)
[2022-05-01] MEDS: oxyCODONE 5 MG Tablet PO ×5 (03:29→22:58)
[2022-05-01] MEDS: Ondansetron ODT 4 MG Tablet PO ×2 (03:30→21:51)
[2022-05-01] MEDS: Nystatin Powder 15gm Bottle 1 APPLIC TOPICAL ×2 (05:16→21:24)
[2022-05-01] MEDS: Enoxaparin 30 MG/0.3 ML Syringe SC (05:16)
[2022-05-01] MEDS: Baclofen 10 MG Tablet PO ×3 (05:17→21:48)
[2022-05-01] MEDS: Doxycycline 100 MG CAPSULE PO ×2 (05:17→17:41)
[2022-05-01] MEDS: Acetaminophen 500 MG Tablet 1000 MG PO ×3 (05:18→21:23)
[2022-05-01 07:15] VITALS: BP 130/70; PULSE 79; RESP 16; TEMP 36.8; O2SAT 96
[2022-05-01] MEDS: Cyanocobalamin 500 MCG Tablet PO (09:40)
[2022-05-01] MEDS: Ascorbic Acid 500 MG Tablet PO (09:40)
[2022-05-01] MEDS: Magnesium Chloride 64 MG Delay Rel.Tablet 128 MG PO (09:40)
[2022-05-01] MEDS: Docusate Sodium 100 MG Capsule PO ×2 (09:40→21:23)
[2022-05-01] MEDS: Cholecalciferol (VIT D3) 25 MCG TABLET (1,000 UNITS) PO (09:40)
[2022-05-01] MEDS: Multivitamins,Therapeutic Tablet 1 TABLET PO (09:41)
--- NOTE | 2022-05-01 14:59 | CHAPLAIN ---
Type of Pastoral Visit _x__ Initial Visit ___ Follow-up Visit ___ On-call Visit ___ General Patient Visit ___ Spiritual Assessment ___ Family Conference ___ Bereavement ___ Rapid Response ___ Code Blue ___ Other (describe below) Pastoral Care Referral From _x__ Patient ___ Family ___ Nurse ___ Physician ___ Station Helper ___ Shoe Cobbler ___ Other (describe below) Sacrament/Intervention _x__ Active listening ___ Anointing ___ Presybeterian ___ Bereavement ___ Communion _x__ [place] exploration ___ _x__ Life review _x__ Prayer ___ Reconciliation ___ Sacrament of Sick ___ Supportive presence ___ Wedding ___ Other (describe below) Pastoral Comments patient is welcoming and talks immediately about her [place] journey; pt very positive about her stay in Rehab and her friends/family; pt open to prayer and presence; words and laughter
[2022-05-01 20:49] VITALS: BP 129/76; PULSE 85; RESP 16; TEMP 36.7; O2SAT 96
[2022-05-01] MEDS: MELATONIN 10 MG TABLET PO (21:23)
[2022-05-02] MEDS: Baclofen 10 MG Tablet PO (03:25)
[2022-05-02] MEDS: Nystatin Powder 15gm Bottle 1 APPLIC TOPICAL ×2 (06:23→21:05)
[2022-05-02] MEDS: Enoxaparin 30 MG/0.3 ML Syringe SC (06:23)
[2022-05-02] MEDS: Doxycycline 100 MG CAPSULE PO (06:23)
[2022-05-02] MEDS: Acetaminophen 500 MG Tablet 1000 MG PO ×2 (06:25→21:05)
[2022-05-02] MEDS: Ondansetron ODT 4 MG Tablet PO (06:48)
[2022-05-02 07:27] VITALS: BP 132/67; PULSE 67; RESP 16; TEMP 36.6; O2SAT 97
[2022-05-02] MEDS: Mag Hydrox/Al Hydrox/Simeth 30 ML UDC PO (12:04)
[2022-05-02] MEDS: proCHLORPERazine 10 MG/2 ML Vial IM (15:24)
--- NOTE | 2022-05-02 17:33 | PCM.PROGNOTE ---
Subjective Subjective Afebrile VSS Maintaining appropriate oxygen saturation on RA Oral intake is poor.......she continues to c/o nausea and has had emesis once.......sudden onset. Discussed with nursing - no problems that need addressed Reviewed the PT/OT/ST notes Medication list reviewed. She had sudden onset retching this AM while in PT. She had a large emesis. She is c/o of burning and pain when she swallows since yesterday. She got a GI cocktail and the painful swallowing resolved.. Later in the day she c/o nausea and had another emesis. Has not been eating or drinking. She got 10 mg of Compazine this afternoon for nausea because it was not time for Zofran yet and then she became restless and had constriction of her pupils. Has not had any pain medication today and she is having pain in the R hip and pain radiating down her leg. Objective Data Objective Data Vital Signs: Vital Signs Temp Pulse Resp BP Pulse Ox O2 Del Method 97.9 F 67 16 132/67 H 97 Room Air 05/02/22 07:27 05/02/22 07:27 05/02/22 07:27 05/02/22 07:27 05/02/22 07:27 05/02/22 07:27 Oxygen Delivery Method Room Air Weight: 167 lb 0.002 oz Body Mass Index (BMI) 30.7 Intake & Output: Intake and Output for Last 24 Hours 04/30/22 05/01/22 05/02/22 23:59 23:59 23:59 Intake Total 1989 / 1989 1380 / 1380 420 / 420 Output Total 2600 / 2600 1900 / 1900 1950 / 1950 Balance -610 / -610 -520 / -520 -1530 / -1530 Lab / Micro Data Result Diagrams: 04/29/22 07:16 05/03/22 05:44 Physical Exam Const Constitutional Narrative: restless, confused, has been sending incoherent texts to her today. Looks ill. Very fidgety and has pressured speech. Eyes Eyes Narrative: Pupils are mildly constricted Neck supple Resp normal respiratory effort and clear to auscultation bilaterally Cardio regular rate, regular rhythm, no murmurs and no gallops GI normal to inspection, nondistended, normoactive bowel sounds, soft to palpation and non-tender GI Narrative: She is constipated Extremity Extremity Narrative: No ankle edema. General Extremity: Negative for cyanosis Skin General Skin Exam: no breakdown Rashes: no rashes Wound Narrative: dressing remains in place over the surgical site. No DC on the dressing.....we are not to remove yet. Psych Attitude: agitated Activity / Motor Behavior: restless Assessment & Plan Assessment/Plan (1) Physical debility: (2) History of open reduction and internal fixation (ORIF) procedure: (3) Acute on chronic anemia: (4) Nausea and vomiting: (5) Gastritis: (6) Dehydration, mild: (7) Adverse reaction to drug: PLAN: Plan 1. DC Compazine and list as an allergy - she is having an adverse reaction to PTZ due to the anticholinergic effects of the medication 2. Ativan 1 mg IV now and start an IV of LR at 100 cc/hr. and run for 2 liters 3. Protonix 40 mg IV BID and give first dose now 4. Hold the Doxycycline - I suspect she has gastritis from this and this is causing the N/V/heartburn. 5. DC the Baclofen - it makes her forgetful and confused and try Flexeril 5 mg PO Q 8 hours. 6. Continue therapy 7. recheck lab in the AM Charges/Coding Visit Charges Inpatient E&M: 42488 Subs Hosp L2
[2022-05-02] MEDS: oxyCODONE 5 MG Tablet PO (17:34)
[2022-05-02] MEDS: Lactated Ringers 1,000 ML 100 ML IV (17:49)
[2022-05-02] MEDS: LORazepam 2 MG/ML Syringe 1 MG IV (18:07)
[2022-05-02] MEDS: 0.9% Saline Lock 10 ML Syringe IV (18:08)
[2022-05-02] MEDS: Neuropathy Pain Cream Compound 60 CLICK TUBE TOPICAL ×2 (18:10→21:04)
[2022-05-02 20:45] VITALS: PULSE 75; RESP 15; O2SAT 97
[2022-05-02] MEDS: Docusate Sodium 100 MG Capsule PO (21:05)
[2022-05-02 22:00] VITALS: BP 130/70; PULSE 75; RESP 15; TEMP 36.8; O2SAT 97
[2022-05-03] MEDS: cycloBENZAPRine HCl 5 MG TABLET PO ×3 (01:28→18:02)
[2022-05-03] MEDS: Lactated Ringers 1,000 ML 100 ML IV (03:41)
[2022-05-03] MEDS: oxyCODONE 5 MG Tablet PO ×3 (03:41→22:20)
[2022-05-03 06:43] LABS: Anion Gap 6 (5-15); BUN 37 mg/dL (7-18); Calcium,Total 9.1 mg/dL (8.5-10.1); Chloride 107 mmol/L (98-107); Creatinine, Serum 1.68 mg/dL (0.55-1.02); EST Glomerular Filtration Rate 32 mL/min (>60); Est Glom Filt Rate - Afr Amer 39 mL/min (>60); Estimated Creatinine Clearance 23.85 ml/min; Glucose 104 mg/dL (74-106); Potassium 4.3 mmol/L (3.5-5.1); Sodium Level 140 mmol/L (136-145)
[2022-05-03] MEDS: Acetaminophen 500 MG Tablet 1000 MG PO ×3 (06:57→22:18)
[2022-05-03] MEDS: Neuropathy Pain Cream Compound 60 CLICK TUBE TOPICAL ×2 (06:57→22:19)
[2022-05-03] MEDS: Nystatin Powder 15gm Bottle 1 APPLIC TOPICAL ×2 (06:58→22:26)
[2022-05-03] MEDS: Enoxaparin 30 MG/0.3 ML Syringe SC (06:58)
[2022-05-03 08:02] VITALS: BP 107/95; PULSE 65; RESP 18; TEMP 37.1; O2SAT 96
[2022-05-03] MEDS: Ascorbic Acid 500 MG Tablet PO (08:43)
[2022-05-03] MEDS: Magnesium Chloride 64 MG Delay Rel.Tablet 128 MG PO (08:43)
[2022-05-03] MEDS: Polyethylene Glycol 3350 17 GM PACKET PO (08:43)
[2022-05-03] MEDS: Docusate Sodium 100 MG Capsule PO ×2 (08:43→22:19)
[2022-05-03] MEDS: Cyanocobalamin 500 MCG Tablet PO (08:44)
[2022-05-03 09:18] VITALS: O2SAT 95
[2022-05-03] MEDS: Multivitamins,Therapeutic Tablet 1 TABLET PO (13:01)
--- NOTE | 2022-05-03 13:04 | PCM.PROGNOTE ---
Subjective Subjective Afebrile VSS Maintaining appropriate oxygen saturation on RA Oral intake is improving now that the nausea and vomiting have improved/resolved. Discussed with nursing - no problems that need addressed Reviewed the PT/OT notes Medication list reviewed. Doing much better today. She is calm, slept well last night and she denies nausea. She was able to eat breakfast. She denies painful swallowing but, c/o pain in the epigastric area. Still having some Muscle spasms in the R thigh and in the R calf.......not as bad as previously. Just started on Scheduled Flexeril last evening. Lady denies chest pain, shortness of breath, palpitations, lightheadedness, constipation/diarrhea, dysuria today. And lab was personally reviewed. Sodium and potassium are within normal limits. The BUN is 37 and the creatinine is 1.68, down from 1.73 on the . This is within her baseline. Objective Data Objective Data Vital Signs: Vital Signs Temp Pulse Resp BP Pulse Ox O2 Del Method 98.8 F 65 18 107/95 H 95 Room Air 05/03/22 08:02 05/03/22 08:02 05/03/22 08:02 05/03/22 08:02 05/03/22 09:18 05/03/22 10:00 Oxygen Delivery Method Room Air Weight: 167 lb 0.002 oz Body Mass Index (BMI) 30.7 Intake & Output: Intake and Output for Last 24 Hours 05/01/22 05/02/22 05/03/22 23:59 23:59 23:59 Intake Total 1380 / 1380 540 / 540 1995.67 / 1995. Output Total 1900 / 1900 2254 / 2254 1200 / 1200 Balance -520 / -520 -1714 / -1714 796.67 / 796.67 Lab / Micro Data Result Diagrams: 04/29/22 07:16 05/03/22 05:44 Labs: Laboratory Results - last 24 hr 05/03/22 05:44: Sodium 140, Potassium 4.3, Chloride 107, Carbon Dioxide 27.0, Anion Gap 6, BUN 37 H, Creatinine 1.68 H, Estim Creat Clear Calc 23.85, Est GFR (MDRD) Af Amer 39 L, Est GFR (MDRD) Non-Af 32 L, BUN/Creatinine Ratio 22.0 H, Glucose 104, Calcium 9.1 Physical Exam Const alert, oriented x3 and no apparent distress Constitutional Narrative: Making good eye contact when I talk with her today. She is not restless or agitated today. She is up in the chair and pleasant and ready to do therapy. General Appearance: cooperative HEENT HEENT Narrative: MM are a little dry but, better than prior to the IV fluids last night.....she still have about 500 cc's left in the last IV bag. Eyes PERRL and EOMs intact bilaterally Resp normal respiratory effort and clear to auscultation bilaterally Cardio regular rate and regular rhythm GI soft to palpation GI Narrative: No guarding with palpation. Normal bowel sounds heard. Nondistended. Mild discomfort with deep palpation in the epigastric area. Extremity General Extremity: Negative for edema Skin General Skin Exam: no breakdown Rashes: no rashes Neuro CN's II-XII intact bilaterally and no focal motor deficits Psych thought process normal, cooperative and affect normal Appearance: appropriate Assessment & Plan Assessment/Plan (1) Physical debility: (2) History of open reduction and internal fixation (ORIF) procedure: PLAN: R hip - for failure of hardware due to previous THR in 2019. (3) Adverse reaction to drug: PLAN: Restlessness, agitation, confusion after Compazine. (4) Dehydration, mild: PLAN: IV fluids ordered to rehydrate and she is starting to eat and drink again because the nausea/esophagitis is better since the Doxy was stopped and the Protonix was started. (5) Chronic renal failure, stage 3b: PLAN: Stable (6) Nausea and vomiting: PLAN: Due to gastritis from Doxycycline. (7) Gastritis: PLAN: Plan 1. Continue therapy 2. Call Dr. Hamilton to if he would like me to use another antibiotic or is is OK just to discontinue antibiotics. 3. DC antibiotics after this liter has been infused. Creatinine is stable/improved at 1.6 today. Charges/Coding Visit Charges Inpatient E&M: 98146 Subs Hosp L2
[2022-05-03] MEDS: 0.9% Saline Lock 10 ML Syringe IV ×3 (13:14→22:57)
[2022-05-03 20:30] VITALS: BP 136/64; PULSE 68; RESP 15; TEMP 36.5; O2SAT 96
[2022-05-04] MEDS: cycloBENZAPRine HCl 5 MG TABLET PO ×4 (02:49→23:05)
[2022-05-04] MEDS: Acetaminophen 500 MG Tablet 1000 MG PO ×3 (04:47→23:05)
[2022-05-04] MEDS: oxyCODONE 5 MG Tablet PO ×3 (04:48→16:55)
[2022-05-04] MEDS: Magnesium Hydroxide 30 ML UDC PO (04:52)
[2022-05-04] MEDS: Nystatin Powder 15gm Bottle 1 APPLIC TOPICAL ×2 (05:32→23:06)
[2022-05-04] MEDS: Enoxaparin 30 MG/0.3 ML Syringe SC (05:33)
[2022-05-04] MEDS: Neuropathy Pain Cream Compound 60 CLICK TUBE TOPICAL ×3 (08:21→23:05)
[2022-05-04] MEDS: Polyethylene Glycol 3350 17 GM PACKET PO (08:24)
[2022-05-04] MEDS: Ferrous Sulfate 325 MG Tablet PO (08:24)
[2022-05-04] MEDS: Magnesium Chloride 64 MG Delay Rel.Tablet 128 MG PO (08:24)
[2022-05-04] MEDS: Docusate Sodium 100 MG Capsule PO ×2 (08:24→23:06)
[2022-05-04] MEDS: Cholecalciferol (VIT D3) 25 MCG TABLET (1,000 UNITS) PO (08:25)
[2022-05-04] MEDS: Cyanocobalamin 500 MCG Tablet PO (08:25)
[2022-05-04] MEDS: Ascorbic Acid 500 MG Tablet PO (08:25)
[2022-05-04 08:30] VITALS: BP 135/72; PULSE 80; RESP 17; TEMP 36.6; O2SAT 95
[2022-05-04] MEDS: 0.9% Saline Lock 10 ML Syringe IV ×2 (10:13→20:35)
[2022-05-04 10:50] VITALS: O2SAT 95
[2022-05-04] MEDS: Multivitamins,Therapeutic Tablet 1 TABLET PO (12:31)
--- NOTE | 2022-05-04 13:24 | CASEMGMT ---
Social Work IDT met with patient and for Team meeting. Discussed patient's progress in PT/OT/SN. Educated to Medicare approval of 23 days with DC 05/21. Pts goal is to return home with assistance. Pt requesting hospital bed. SW to place order with [employer]. Pt will pay privately if insurance will not cover. Pt agreeable to [facility] recommendation for PT/OT/SN. SW provided list of skilled HHC agencies with quality and resource data via [employer]. to transport. Plan: DC home with 05/11, HHC PT/OT/SN, hospital bed [facility]
--- NOTE | 2022-05-04 17:21 | PCM.PROGNOTE ---
Subjective Subjective Lady was seen on team rounds today. Her Andrea participated by phone. Afebrile VSS Maintaining appropriate oxygen saturation on RA Oral intake is improved Discussed with nursing - Nursing reports that there is some erythema around the R hip dressing and on the medial R inner thigh. Reviewed the PT/OT notes she did better with therapy yesterday. Medication list reviewed. she is c/o spasms in the R lateral thigh today and in the R lateral calf. I am having a hard time getting a good description of the pain from her. She tells me that it is not constant and it grabs her. She denies pain in the right buttock. She denies chest pain, shortness of breath, nausea. She has no odynophagia today and did not complain of epigastric pain either. Intake is significantly improved over the past 2 days. Objective Data Objective Data Vital Signs: Vital Signs Temp Pulse Resp BP Pulse Ox O2 Del Method 97.8 F 80 17 135/72 H 95 Room Air 05/04/22 08:30 05/04/22 08:30 05/04/22 08:30 05/04/22 08:30 05/04/22 10:50 05/04/22 10:50 Oxygen Delivery Method Room Air Weight: 167 lb 0.002 oz Body Mass Index (BMI) 30.7 Intake & Output: Intake and Output for Last 24 Hours 05/02/22 05/03/22 05/04/22 23:59 23:59 23:59 Intake Total 540 / 540 4066.67 / 4066.67 840 / 840 Output Total 2254 / 2254 1450 / 1450 1850 / 1850 Balance -1714 / -1714 2616.67 / 2616.67 -1010 / -1010 Lab / Micro Data Result Diagrams: 04/29/22 07:16 05/03/22 05:44 Physical Exam Const alert and oriented x3 Constitutional Narrative: Seems a little restless/anxious today? She does not c/o this. General Appearance: cooperative HEENT moist oral mucous membranes Neck General: trachea midline Resp normal respiratory effort and clear to auscultation bilaterally Cardio regular rate, regular rhythm and no gallops GI normal to inspection, nondistended, normoactive bowel sounds, soft to palpation and non-tender Extremity Extremity Narrative: No calf tenderness with dorsiflexion of the right foot or with compression of the calf. The calf tenderness is only on the lateral aspect of the left calf. NO edema of the ankles Skin Skin Narrative: There is erythema around the Duoderm dressing and there is a very mild increase in warmth to touch. I removed the dressing and there is NO erythema in the cris-incisional area and the incision is intact with no dehiscence and no purulent discharge. the redness reported on the R medial thigh has resolved completely since this morning. General Skin Exam: no breakdown Rashes: no rashes Neuro CN's II-XII intact bilaterally and no focal motor deficits Psych cooperative Psych Narrative: Seems a little anxious and restless today. She has had Oxycodone 10 mg 3 times today. She looks more stressed than she did yesterday morning.......she was not taking Oxycodone at that time because she was afraid it was causing the N/V. Assessment & Plan Assessment/Plan (1) Physical debility: (2) History of open reduction and internal fixation (ORIF) procedure: (3) Constipation: (4) Gastritis: PLAN: Plan 1. Continue therapy 2. Lady tells me that the Flexeril seems to be helping but it does not last an entire 8 hours. Since she is only taking 5 mg every 8 hours will decrease the dosing freq to every 6 hours. We will reevaluate in the a.m. I am thinking that some of this pain in the right lateral thigh and right lateral calf may be radicular. May need to consider trial of gabapentin, low-dose. 3. I have noticed a change in behavior when she is taking the Oxycodone regularly every 4-6 hours. She is more demanding and restless and seems to be mildly confused/forgetful. When she was in rehab in September of this year after a L SONJA she was on [place] and had a rash but, did not have confusion........at that time she was changed to Tramadol which was effective and cause no mental status changes. I am going to DC the Oxycodone and change the pain medication to Tramadol 25-50 mg Q6H PRN pain > 3 4. Transition her to p.o. Protonix 40 mg p.o. twice daily to finish 1 week of twice daily therapy and then decrease to once daily. 5. I placed call to Dr. Hamilton's office asking whether he would like her to start Zyvox or Levaquin or another antibiotic in place of the Doxyxycline. He was in surgery today and his staff sent him a message along with my cell phone # and I am awaiting a call back. No sign of infection and the antibiotic was prophylactic and not treating an actual infection so will continue to monitor off antibiotics at this time. Charges/Coding Visit Charges Inpatient E&M: 30261 Subs Hosp L2
[2022-05-04] MEDS: Bisacodyl 10 MG Suppository RC (18:12)
[2022-05-04] MEDS: Ondansetron ODT 4 MG Tablet PO (18:21)
[2022-05-04 19:58] VITALS: BP 129/66; PULSE 69; RESP 18; TEMP 36.8; O2SAT 93
[2022-05-04] MEDS: Menthol/Lanolin/Calamine/Znox 113 GM Tube 1 APPLIC TOPICAL (20:34)
[2022-05-04] MEDS: traMADol 50 MG Tablet PO (23:03)
[2022-05-04] MEDS: Pantoprazole Sodium 40 MG Tablet PO (23:05)
[2022-05-05] MEDS: traMADol 50 MG Tablet PO ×3 (05:11→20:29)
[2022-05-05] MEDS: Acetaminophen 500 MG Tablet 1000 MG PO ×3 (05:11→20:30)
[2022-05-05] MEDS: Neuropathy Pain Cream Compound 60 CLICK TUBE TOPICAL ×3 (05:12→20:30)
[2022-05-05] MEDS: cycloBENZAPRine HCl 5 MG TABLET PO ×4 (05:12→21:57)
[2022-05-05] MEDS: Enoxaparin 30 MG/0.3 ML Syringe SC (05:12)
[2022-05-05] MEDS: Nystatin Powder 15gm Bottle 1 APPLIC TOPICAL ×2 (05:12→20:31)
[2022-05-05 07:30] VITALS: BP 139/74; PULSE 67; RESP 16; TEMP 37.1; O2SAT 95
[2022-05-05] MEDS: Docusate Sodium 100 MG Capsule PO (08:16)
[2022-05-05] MEDS: Ascorbic Acid 500 MG Tablet PO (08:16)
[2022-05-05] MEDS: Magnesium Chloride 64 MG Delay Rel.Tablet 128 MG PO (08:16)
[2022-05-05] MEDS: Cyanocobalamin 500 MCG Tablet PO (08:16)
[2022-05-05] MEDS: Pantoprazole Sodium 40 MG Tablet PO ×2 (08:16→20:30)
[2022-05-05] MEDS: Polyethylene Glycol 3350 17 GM PACKET PO (08:17)
[2022-05-05] MEDS: Cholecalciferol (VIT D3) 25 MCG TABLET (1,000 UNITS) PO (08:17)
[2022-05-05] MEDS: Menthol/Lanolin/Calamine/Znox 113 GM Tube 1 APPLIC TOPICAL ×2 (08:18→20:32)
[2022-05-05] MEDS: Multivitamins,Therapeutic Tablet 1 TABLET PO (12:00)
[2022-05-05] MEDS: 0.9% Saline Lock 10 ML Syringe IV ×2 (12:01→20:47)
[2022-05-05 19:22] VITALS: BP 120/64; PULSE 67; RESP 16; TEMP 37.1; O2SAT 96
--- NOTE | 2022-05-05 23:45 | NURSING ---
PT VERY DISTRAUGHT SHE HAS HAD NO RELIEF OF HER PAIN TO RLE. PT REPOSITIONED AND POLAR CARE REFRESHED WITH ICE. REDNESS NOTED FROM PT'S INNER R THIGH AND REDNESS TO R LATERAL CALF. NEG CALF TENDERNESS TO PALPATION, BUT PAIN TO R LATERAL CALF WITH DORSIFLEXION OF R FOOT. CALF MEASUREMENTS ARE EQUAL AT 4O CM.
[2022-05-06] MEDS: traMADol 50 MG Tablet PO ×4 (02:15→21:14)
[2022-05-06] MEDS: Acetaminophen 500 MG Tablet 1000 MG PO ×3 (05:16→21:11)
[2022-05-06] MEDS: Nystatin Powder 15gm Bottle 1 APPLIC TOPICAL ×2 (05:17→21:10)
[2022-05-06] MEDS: Neuropathy Pain Cream Compound 60 CLICK TUBE TOPICAL ×3 (05:17→21:10)
[2022-05-06] MEDS: cycloBENZAPRine HCl 5 MG TABLET PO ×4 (05:17→23:04)
[2022-05-06] MEDS: Enoxaparin 30 MG/0.3 ML Syringe SC (05:17)
[2022-05-06 08:00] VITALS: BP 144/73; PULSE 70; RESP 18; TEMP 36.6; O2SAT 95
[2022-05-06] MEDS: Pantoprazole Sodium 40 MG Tablet PO ×2 (08:38→21:11)
[2022-05-06] MEDS: Docusate Sodium 100 MG Capsule PO ×2 (08:39→21:11)
[2022-05-06] MEDS: Cholecalciferol (VIT D3) 25 MCG TABLET (1,000 UNITS) PO (08:39)
[2022-05-06] MEDS: Magnesium Chloride 64 MG Delay Rel.Tablet 128 MG PO (08:39)
[2022-05-06] MEDS: Ferrous Sulfate 325 MG Tablet PO (08:39)
[2022-05-06] MEDS: Cyanocobalamin 500 MCG Tablet PO (08:39)
[2022-05-06] MEDS: Ascorbic Acid 500 MG Tablet PO (08:40)
[2022-05-06] MEDS: Menthol/Lanolin/Calamine/Znox 113 GM Tube 1 APPLIC TOPICAL ×2 (08:54→21:12)
[2022-05-06 10:00] VITALS: O2SAT 99
[2022-05-06] MEDS: Multivitamins,Therapeutic Tablet 1 TABLET PO (13:11)
[2022-05-06] MEDS: 0.9% Saline Lock 10 ML Syringe IV (14:22)
[2022-05-06 20:50] VITALS: BP 137/79; PULSE 88; RESP 18; TEMP 36.8; O2SAT 94
[2022-05-07] MEDS: traMADol 50 MG Tablet PO ×4 (03:29→23:00)
--- NOTE | 2022-05-07 03:35 | NURSING ---
pt reports that she had not be sleeping this hs , d/t pain in her leg. ultram given x's [address] pt has been quiet on rounds voicing no needs until later in the shift.
[2022-05-07] MEDS: Enoxaparin 30 MG/0.3 ML Syringe SC (05:44)
[2022-05-07] MEDS: cycloBENZAPRine HCl 5 MG TABLET PO ×4 (05:44→23:00)
[2022-05-07] MEDS: Neuropathy Pain Cream Compound 60 CLICK TUBE TOPICAL ×3 (05:45→21:24)
[2022-05-07] MEDS: Acetaminophen 500 MG Tablet 1000 MG PO ×3 (05:48→21:24)
[2022-05-07] MEDS: Nystatin Powder 15gm Bottle 1 APPLIC TOPICAL ×2 (05:58→21:25)
[2022-05-07 07:24] VITALS: BP 133/72; PULSE 78; RESP 18; TEMP 36.1; O2SAT 95
[2022-05-07] MEDS: Cyanocobalamin 500 MCG Tablet PO (09:03)
[2022-05-07] MEDS: Docusate Sodium 100 MG Capsule PO ×2 (09:03→21:24)
[2022-05-07] MEDS: Polyethylene Glycol 3350 17 GM PACKET PO (09:03)
[2022-05-07] MEDS: Cholecalciferol (VIT D3) 25 MCG TABLET (1,000 UNITS) PO (09:03)
[2022-05-07] MEDS: Ascorbic Acid 500 MG Tablet PO (09:03)
[2022-05-07] MEDS: Magnesium Chloride 64 MG Delay Rel.Tablet 128 MG PO (09:03)
[2022-05-07] MEDS: Pantoprazole Sodium 40 MG Tablet PO ×2 (09:03→21:24)
[2022-05-07] MEDS: Menthol/Lanolin/Calamine/Znox 113 GM Tube 1 APPLIC TOPICAL ×2 (11:06→21:23)
[2022-05-07] MEDS: Multivitamins,Therapeutic Tablet 1 TABLET PO (11:07)
--- NOTE | 2022-05-07 11:42 | PCM.PROGNOTE ---
Subjective Subjective Afebrile VSS Maintaining appropriate oxygen saturation on RA Oral intake is good Discussed with nursing - She c/o not sleeping due to pain in the R leg to the night nursing staff last night. This is recurrent complaint almost nightly. Reviewed the PT/OT notes Medication list reviewed. She is taking tramadol 50 mg 4 times a day......ordered PRN. She is also getting flexeril 5 mg Q6H scheduled Tyelnol 1 GM Q8H. She is 13 days post op. Objective Data Objective Data Vital Signs: Vital Signs Temp Pulse Resp BP Pulse Ox O2 Del Method 96.9 F L 78 18 133/72 H 95 Room Air 05/07/22 07:24 05/07/22 07:24 05/07/22 07:24 05/07/22 07:24 05/07/22 07:24 05/07/22 07:24 Oxygen Delivery Method Room Air Weight: 167 lb 0.002 oz Body Mass Index (BMI) 30.7 Intake & Output: Intake and Output for Last 24 Hours 05/05/22 05/06/22 05/07/22 23:59 23:59 23:59 Intake Total 1740 / 1740 1620 / 1620 400 / 400 Output Total 1700 / 1700 4075 / 4075 1600 / 1600 Balance 40 / 40 -2455 / -2455 -1200 / -1200 Lab / Micro Data Result Diagrams: 05/08/22 04:22 05/08/22 04:22 Physical Exam Const alert, oriented x3 and no apparent distress Constitutional Narrative: She is sitting in the recliner at the bedside and appears in no distress. She is smiling and talkative. General Appearance: cooperative Resp normal respiratory effort, normal air movement and clear to auscultation bilaterally Cardio regular rate, regular rhythm and no gallops GI normal to inspection, nondistended, normoactive bowel sounds and soft to palpation Palpation: Negative for guarding or rebound tenderness present Extremity Extremity Narrative: No significant ankle edema. EZEQUIEL hose are in place. No calf tenderness with palpation. Neuro CN's II-XII intact bilaterally and no focal motor deficits Psych cooperative and affect normal Assessment & Plan Assessment/Plan (1) Physical debility: (2) History of open reduction and internal fixation (ORIF) procedure: (3) Acute on chronic anemia: (4) Insomnia: QUALIFIERS: Insomnia type: psychophysiologic Qualified Code(s): F51.04 - Psychophysiologic insomnia PLAN: Plan 1. Continue therapy 2. CBC with differential, BMP in the a.m. 3. Add Lyrica 25 mg p.o. nightly to the current drug regimen for suspected radicular pain. The worst pain is at night and It may be related to lying in 1 position for a long time.......she is not able to roll onto her left side and sleeps on her back. Charges/Coding Visit Charges Inpatient E&M: 45816 Subs Hosp L2
[2022-05-07] MEDS: Ondansetron ODT 4 MG Tablet PO (12:16)
[2022-05-07] MEDS: Pregabalin 25 MG Capsule PO (20:44)
[2022-05-07 21:00] VITALS: BP 151/83; PULSE 77; RESP 18; TEMP 37.5; O2SAT 95
[2022-05-07 23:00] VITALS: TEMP 37.1
--- NOTE | 2022-05-08 04:09 | NURSING ---
dressing removed from rt hip as per order. dermabond intact with 5 large sutures noted along the incision. incision is well approximated with no active drainage noted
[2022-05-08] MEDS: Acetaminophen 500 MG Tablet 1000 MG PO ×3 (06:15→21:36)
[2022-05-08] MEDS: traMADol 50 MG Tablet PO ×2 (06:15→17:14)
[2022-05-08] MEDS: cycloBENZAPRine HCl 5 MG TABLET PO ×3 (06:15→17:08)
[2022-05-08 06:16] LABS: Absolute Lymphocyte Count 0.98 X10^3/uL (0.83-4.51); Absolute Neutrophil Count 6.4 X10^3/uL (2.0-7.7); Basophil# 0.04 X10^3/uL; Basophil% 0.5 % (0-1); Eosinophil# 0.12 X10^3/uL; Eosinophils% 1.4 % (0-5); Hemoglobin 8.5 g/dL (12.0-15.0); Lymphocyte # 0.98 X10^3/ul (0.83-4.51); Lymphocyte % 11.6 % (19-41); Mean Corp Hgb Conc 31.5 g/dL (32-36); Mean Corpuscular Hgb 31.4 pg (27.0-32.0); Mean Corpuscular Volume 99.6 fL (81-99); Mean Platelet Vol. 8.8 fl (6.2-12.0); Monocyte# 0.85 X10^3/uL; Monocyte% 10.1 % (0-10); NRBC Flagged by Analyzer 0 % (0-5); Neutrophil # 6.39 X10^3/uL (2.7-7.7); Neutrophil % 75.7 % (47-70); Platelet Count 493 K/mm3 (150-450); RBC Distribution Width CV 14.3 % (11.6-14.6); RBC Distribution Width SD 52.5 fl (35.1-43.9); Red Blood Count 2.71 M/mm3 (4.2-5.4); White Blood Count 8.4 K/mm3 (4.4-11.0)
[2022-05-08] MEDS: Enoxaparin 30 MG/0.3 ML Syringe SC (06:16)
[2022-05-08] MEDS: Neuropathy Pain Cream Compound 60 CLICK TUBE TOPICAL ×3 (06:16→21:37)
[2022-05-08 06:26] LABS: Anion Gap 8 (5-15); BUN 37 mg/dL (7-18); BUN/Creat Ratio 18.5 RATIO (10-20); Calcium,Total 9.1 mg/dL (8.5-10.1); Chloride 100 mmol/L (98-107); EST Glomerular Filtration Rate 26 mL/min (>60); Est Glom Filt Rate - Afr Amer 32 mL/min (>60); Estimated Creatinine Clearance 20.03 ml/min; Glucose 103 mg/dL (74-106); Potassium 4.3 mmol/L (3.5-5.1); Sodium Level 134 mmol/L (136-145)
[2022-05-08] MEDS: Nystatin Powder 15gm Bottle 1 APPLIC TOPICAL ×2 (06:33→20:57)
[2022-05-08] MEDS: Menthol/Lanolin/Calamine/Znox 113 GM Tube 1 APPLIC TOPICAL ×2 (08:40→20:57)
[2022-05-08] MEDS: Magnesium Chloride 64 MG Delay Rel.Tablet 128 MG PO (08:40)
[2022-05-08] MEDS: Ferrous Sulfate 325 MG Tablet PO (08:40)
[2022-05-08] MEDS: Docusate Sodium 100 MG Capsule PO ×2 (08:40→21:36)
[2022-05-08] MEDS: Pantoprazole Sodium 40 MG Tablet PO ×2 (08:42→21:36)
[2022-05-08] MEDS: Cyanocobalamin 500 MCG Tablet PO (08:42)
[2022-05-08] MEDS: Ascorbic Acid 500 MG Tablet PO (08:42)
[2022-05-08] MEDS: Cholecalciferol (VIT D3) 25 MCG TABLET (1,000 UNITS) PO (08:42)
[2022-05-08 08:54] VITALS: BP 128/65; PULSE 76; RESP 18; TEMP 37; O2SAT 93
[2022-05-08 09:23] VITALS: PULSE 63; RESP 18; O2SAT 98
--- NOTE | 2022-05-08 11:40 | PCM.PROGNOTE ---
Subjective Subjective Afebrile - 1 elevated temp at 99.5 last night. Currently 98.6. VSS Maintaining appropriate oxygen saturation on RA Oral intake is good. Output>> input the past 3 days. Discussed with nursing - she awoke last night in excruciating pain at 3 AM.......prior to that was sleeping better with the Lyrica. The pain was in the R lateral calf and the lateral thigh. She took 50 mg of Tramadol at 2300 and then again at 0615 this AM. Reviewed the PT/OT notes Medication list reviewed. Still eating TAco [place] and c/o heartburn. Denies shortness of breath, lightheadedness, palpitations, hemoptysis, cough, vomiting, dysuria. BM's are better with the MiraLAX + Senna however she is sometimes refusing the MiraLAX. All lab was personally reviewed. Hemoglobin is stable at 8.5. White blood cell count is normal at 8.4 with 75.7% neutrophils. Platelets are increased to 493,000. Sodium is mildly decreased at 134. Potassium is normal at 4.3 and the BUN is 37 with a creatinine of 2.0 which is up from 1.68 on 05/03/2022. Objective Data Objective Data Vital Signs: Vital Signs Temp Pulse Resp BP Pulse Ox O2 Del Method 98.6 F 63 18 128/65 H 98 Room Air 05/08/22 08:54 05/08/22 09:23 05/08/22 09:23 05/08/22 08:54 05/08/22 09:23 05/08/22 09:23 Oxygen Delivery Method Room Air Weight: 167 lb 0.002 oz Body Mass Index (BMI) 30.7 Intake & Output: Intake and Output for Last 24 Hours 05/06/22 05/07/22 05/08/22 23:59 23:59 23:59 Intake Total 1620 / 1620 1480 / 1480 100 / 100 Output Total 4075 / 4075 3625 / 3625 1250 / 1250 Balance -2455 / -2455 -2145 / -2145 -1150 / -1150 Lab / Micro Data Result Diagrams: 05/08/22 04:22 05/08/22 04:22 Labs: Laboratory Results - last 24 hr 05/08/22 04:22: WBC 8.4, RBC 2.71 L, Hgb 8.5 L, Hct 27.0 L, MCV 99.6 H, MCH 31.4, MCHC 31.5 L, RDW Std Deviation 52.5 H, RDW Coeff of Gretta 14.3, Plt Count 493 H, MPV 8.8, Immature Gran % (Auto) 0.700, Neut % (Auto) 75.7 H, Lymph % (Auto) 11.6 L, [place] % (Auto) 10.1 H, Eos % (Auto) 1.4, Baso % (Auto) 0.5, Absolute Neuts (auto) 6.4, Absolute Lymphs (auto) 0.98, Nucleated RBC % 0 05/08/22 04:22: Sodium 134 L, Potassium 4.3, Chloride 100, Carbon Dioxide 26.0, Anion Gap 8, BUN 37 H, Creatinine 2.00 H, Estim Creat Clear Calc 20.03, Est GFR (MDRD) Af Amer 32 L, Est GFR (MDRD) Non-Af 26 L, BUN/Creatinine Ratio 18.5, Glucose 103, Calcium 9.1 Physical Exam Const alert Constitutional Narrative: abrupt today General Appearance: cooperative HEENT moist oral mucous membranes Resp normal respiratory effort, normal air movement and clear to auscultation bilaterally Cardio regular rate, regular rhythm, S1 normal heart sound, S2 normal heart sound and no gallops GI normal to inspection, nondistended, normoactive bowel sounds and non-tender Extremity no calf tenderness Extremity Narrative: The incision is intact. There is no erythema and there is no DC from the wound. There is mild tenderness at the inferior pole of the wound with palpation but, that is the only place she is tender in the cris-incisional area. General Extremity: Negative for edema Skin General Skin Exam: no breakdown Rashes: no rashes Assessment & Plan Assessment/Plan (1) Physical debility: (2) History of open reduction and internal fixation (ORIF) procedure: (3) Acute on chronic anemia: (4) Constipation: (5) Chronic renal failure, stage 3b: (6) Right calf pain: PLAN: Plan 1. Continue therapy 2. Venous ultrasound right lower extremity today 3. Check a UA, urine sodium and urine creatinine. 4. Increase the Lyrica to 50 mg at 2000 5. Tramadol 100 mg at HS and 50 mg Q6H PRN 6. I think the pain in the R calf and R thigh is radicular and it seems to bother her more at night. Last night she got up in the chair at 0300 and the pain got better and she was able to go to sleep for a while longer. Charges/Coding Visit Charges Inpatient E&M: 46277 Subs Hosp L2
--- NOTE | 2022-05-08 11:58 | VDLE_ITS ---
Reason For Study: LEG PAIN RIGHT GSV is normal. CFV is compressible, spontaneous, phasic, competent and demonstrates normal augmentation. FV is compressible, spontaneous, phasic, competent and demonstrates normal augmentation. POP V is compressible, spontaneous, phasic, competent and demonstrates normal augmentation. T/P Trunk is compressible. PTV is compressible. RT PerV is compressible. Rt Gastrocnemius vein is hypoechoic, non- compressible and dilated. Echogenic filling is noted within the vessel. Procedure This is a venous duplex using B-mode, color flow and spectral Doppler. Exam performed portable in patient room. The exam was diagnostic. A preliminary report was called and/or faxed to Rehab 4th floor. VL/Venous Duplex US, Unilateral Interpretation Summary Acute deep venous thrombosis right gastrocnemius vein Patent and compressible right great saphenous vein Ordering Physician: Nat Emerson Performed By: Carlton Slater RVT
[2022-05-08] MEDS: Multivitamins,Therapeutic Tablet 1 TABLET PO (12:42)
[2022-05-08 12:44] LABS: Ferritin 461 ng/mL (8-252); Iron 18 ug/dL (50-170); Iron Binding Capacity,Total 194 ug/dL (250-450); PERCENT IRON SATURATION 9.3 % (15.0-55.0)
--- NOTE | 2022-05-08 12:55 | CASEMGMT ---
Social Work Followed up with pt on HHC choice. Pt selected [facility]. Referral made via phone and [facility] for PT/OT/SN. SW spoke with [facility] liaison on hospital bed. [facility] to contact pt to schedule delivery prior to DC. Answered pts questions. No other issues noted. DC as planned 05/11. MISTY ShieldsW
[2022-05-08 16:26] LABS: Mucous, Urine 0 SEEN /hpf (<or=2+); Red Blood Cells-Urine 0 SEEN /hpf (0-5); Squamous Epithelial Cells - UA 0 SEEN /hpf (5-10)
[2022-05-08 16:38] LABS: Color, Urine Straw (Yellow); Glucose, Dipstick Normal (Normal); Ketone-Dipstick Negative (Negative); Leukocyte Esterase-Dipstick 25 /ul (Negative); Nitrite-Dipstick Negative (Negative); Occult Blood-Urine Negative /ul (Negative); Protein-Dipstick 30 mg/dl (Negative); Specific Gravity, Urine 1.005 (1.002-1.030); Urine Bilirubin Dipstick Negative (Negative); Urine Clarity Clear (Clear); Urine Urobilinogen Normal (Normal)
[2022-05-08 17:01] LABS: Urine Sodium 29 mmol/L (Not Establ.)
[2022-05-08 17:09] LABS: Bacteria 1+ /hpf (None Seen); White Blood Cells 0-5 SEEN /hpf (0-5)
[2022-05-08 19:37] VITALS: BP 109/59; PULSE 82; RESP 18; TEMP 36.6; O2SAT 94
[2022-05-08] MEDS: Pregabalin 50 MG Capsule PO (20:55)
[2022-05-08] MEDS: APIXABAN 2.5 MG TABLET PO (21:37)
[2022-05-08] MEDS: traMADol 50 MG Tablet 100 MG PO (21:37)
[2022-05-08 21:45] VITALS: O2SAT 94
[2022-05-09] MEDS: cycloBENZAPRine HCl 5 MG TABLET PO ×4 (00:32→18:18)
[2022-05-09] MEDS: Acetaminophen 500 MG Tablet 1000 MG PO ×3 (05:47→21:31)
[2022-05-09] MEDS: traMADol 50 MG Tablet PO (05:48)
[2022-05-09] MEDS: Neuropathy Pain Cream Compound 60 CLICK TUBE TOPICAL ×3 (05:48→21:28)
[2022-05-09] MEDS: Nystatin Powder 15gm Bottle 1 APPLIC TOPICAL ×2 (05:49→21:27)
[2022-05-09 07:45] VITALS: BP 140/69; PULSE 76; RESP 19; TEMP 35.8; O2SAT 95
[2022-05-09] MEDS: Polyethylene Glycol 3350 17 GM PACKET PO (10:03)
[2022-05-09] MEDS: Docusate Sodium 100 MG Capsule PO ×2 (10:03→21:28)
[2022-05-09] MEDS: Magnesium Chloride 64 MG Delay Rel.Tablet 128 MG PO (10:03)
[2022-05-09] MEDS: Cholecalciferol (VIT D3) 25 MCG TABLET (1,000 UNITS) PO (10:03)
[2022-05-09] MEDS: Ascorbic Acid 500 MG Tablet PO (10:03)
[2022-05-09] MEDS: Cyanocobalamin 500 MCG Tablet PO (10:03)
[2022-05-09] MEDS: Pantoprazole Sodium 40 MG Tablet PO ×2 (10:03→21:30)
[2022-05-09] MEDS: Menthol/Lanolin/Calamine/Znox 113 GM Tube 1 APPLIC TOPICAL ×2 (10:06→21:26)
[2022-05-09] MEDS: APIXABAN 2.5 MG TABLET PO ×2 (10:06→21:28)
[2022-05-09] MEDS: Multivitamins,Therapeutic Tablet 1 TABLET PO (12:02)
[2022-05-09] MEDS: Sodium Ferric Gluconat 250 MG in 0.9% Normal Saline 250 ML 135 MG IV (15:17)
[2022-05-09 19:00] VITALS: BP 134/68; PULSE 72; RESP 18; TEMP 36.8; O2SAT 94
[2022-05-09] MEDS: Pregabalin 50 MG Capsule PO (20:07)
[2022-05-09] MEDS: traMADol 50 MG Tablet 100 MG PO (21:26)
[2022-05-10] MEDS: cycloBENZAPRine HCl 5 MG TABLET PO ×2 (00:54→04:55)
[2022-05-10] MEDS: Neuropathy Pain Cream Compound 60 CLICK TUBE TOPICAL ×3 (04:55→22:17)
[2022-05-10] MEDS: Acetaminophen 500 MG Tablet 1000 MG PO ×3 (04:55→22:16)
[2022-05-10] MEDS: Nystatin Powder 15gm Bottle 1 APPLIC TOPICAL ×2 (04:56→22:17)
[2022-05-10] MEDS: traMADol 50 MG Tablet PO ×2 (06:55→18:30)
[2022-05-10 08:34] VITALS: BP 141/72; PULSE 73; RESP 16; TEMP 36.4; O2SAT 94
[2022-05-10] MEDS: Polyethylene Glycol 3350 17 GM PACKET PO (10:14)
[2022-05-10] MEDS: Pantoprazole Sodium 40 MG Tablet PO ×2 (10:15→22:17)
[2022-05-10] MEDS: APIXABAN 2.5 MG TABLET PO ×2 (10:15→22:16)
[2022-05-10] MEDS: Ascorbic Acid 500 MG Tablet PO (10:15)
[2022-05-10] MEDS: Magnesium Chloride 64 MG Delay Rel.Tablet 128 MG PO (10:15)
[2022-05-10] MEDS: Ferrous Sulfate 325 MG Tablet PO (10:15)
[2022-05-10] MEDS: Cholecalciferol (VIT D3) 25 MCG TABLET (1,000 UNITS) PO (10:15)
[2022-05-10] MEDS: Cyanocobalamin 500 MCG Tablet PO (10:15)
[2022-05-10] MEDS: Docusate Sodium 100 MG Capsule PO ×2 (10:15→22:16)
[2022-05-10] MEDS: 0.9% Saline Lock 10 ML Syringe IV ×2 (10:16→11:52)
[2022-05-10] MEDS: Menthol/Lanolin/Calamine/Znox 113 GM Tube 1 APPLIC TOPICAL ×2 (10:25→22:16)
[2022-05-10] MEDS: Multivitamins,Therapeutic Tablet 1 TABLET PO (11:52)
[2022-05-10] MEDS: Sodium Ferric Gluconat 250 MG in 0.9% Normal Saline 250 ML 135 MG IV (11:52)
[2022-05-10 19:12] VITALS: BP 136/70; PULSE 80; RESP 14; TEMP 36.9; O2SAT 95
[2022-05-10] MEDS: Pregabalin 50 MG Capsule PO (20:41)
[2022-05-10] MEDS: cycloBENZAPRine HCl 10 MG Tablet PO (22:16)
[2022-05-10] MEDS: traMADol 50 MG Tablet 100 MG PO (22:16)
[2022-05-11] MEDS: Nystatin Powder 15gm Bottle 1 APPLIC TOPICAL (05:05)
[2022-05-11] MEDS: Neuropathy Pain Cream Compound 60 CLICK TUBE TOPICAL ×2 (05:05→13:52)
[2022-05-11] MEDS: Acetaminophen 500 MG Tablet 1000 MG PO ×2 (05:05→13:52)
[2022-05-11 07:53] VITALS: BP 136/76; PULSE 81; RESP 18; TEMP 36.5; O2SAT 96
[2022-05-11] MEDS: Docusate Sodium 100 MG Capsule PO (10:11)
[2022-05-11] MEDS: Pantoprazole Sodium 40 MG Tablet PO (10:11)
[2022-05-11] MEDS: Ascorbic Acid 500 MG Tablet PO (10:11)
[2022-05-11] MEDS: APIXABAN 2.5 MG TABLET PO (10:11)
[2022-05-11] MEDS: Cyanocobalamin 500 MCG Tablet PO (10:12)
[2022-05-11] MEDS: Magnesium Chloride 64 MG Delay Rel.Tablet 128 MG PO (10:12)
[2022-05-11] MEDS: Polyethylene Glycol 3350 17 GM PACKET PO (10:12)
[2022-05-11] MEDS: Sodium Ferric Gluconat 250 MG in 0.9% Normal Saline 250 ML 135 MG IV (10:12)
[2022-05-11] MEDS: Menthol/Lanolin/Calamine/Znox 113 GM Tube 1 APPLIC TOPICAL (10:12)
[2022-05-11] MEDS: Cholecalciferol (VIT D3) 25 MCG TABLET (1,000 UNITS) PO (10:20)
--- NOTE | 2022-05-11 10:22 | DCINST_ITS ---
Discharge Instructions Diet Discharge Diet: - (Low-salt, low-fat.) Activity Discharge Activity: May Not Drive, May Shower and - (Toe-touch weightbearing only on the right lower extremity.) Weight Bearing Status: Toe touch weight bearing (On the right leg.) Lifting Restrictions: 10 lbs Keep extremity elevated above heart level: Right Leg Dressing / Incision Call your doctor if your incision/area has: Continuous Slow Oozing, Sudden Increased Bleeding, Increased Pain/ Swelling, Increased Redness, Foul Smelling Discharge and Swelling at the incision site Call your doctor if you observe: Fever of 101 or Higher, Inability to have a bowel movement, Shortness of breath, Fainting spells, Chest pain, Increased palpitations (irregular heartbeat) and Uncontrolled pain Suture Line Care: Avoid Pulling/Pushing and Avoid Pinching/Bending Change Dressing in: 1 day Cleanse incision/area with: Soap & Water and Keep Dressing Clean & Dry Additional Dressing/Incision Instructions:: 1. No flexing of the hip greater than 90 degrees 2. Do not cross your legs 3. No twisting Follow Up Care Please Follow Up With: Dr. Bautista When: 05/19/2022 at 1:15 PM Test Results: Test results from this visit will be discussed in further detail at your follow- up appointment, if applicable. Pending Tests Upon Discharge: none Discharge Plan Admission Admit Date/Time: 04/28/22 17:00 Primary Reason for Your Visit: Debility due to R hip replacement. Attending Provider: Nat Emerson Primary Care Provider: Kristie Nam Instructions Additional Instructions / Restrictions: 1. You are iron deficient. Stomach acid is needed to be able to absorb iron from the GI tract. You are on Protonix which blocks the secretion of acid in the stomach. You have not been absorbing the oral iron supplement you have been taking, even with the ascorbic acid you take with the iron. You may need to have IV iron periodically to keep the iron stores up. you should discuss this with Dr. Nam. She may want to refer you to a assistant administrator for iron supplementation. You have had 600 mg of intravenous iron while in rehab. This may be enough. Dr. Nam will need to check the iron saturation in 1-2 weeks to make sure you do not need additional IV iron. 2. You have a blood clot in the R leg distal to the knee. Blood clots distal to the knee are smaller than the blood clots that originate above the knee. They generally do not cause blood clots to go to the lung. You are on a blood thinner called Eliquis and you will need to take this for 3 months (nuha since you are going to be restricted in your ambulation for several more weeks). The dose of Eliquis has been adjusted for kidney failure. If you have CP and shortness of breath call Dr. Nam or go to an ER.........these are symptoms of a blood clot in the lung.......the risk of this is small in you because you are being discharged on an anticoagulant to prevent the clot in the leg from getting bigger. Blood thinners fo not dissolve the clot......your body will do this. 3. Stick to the weight bearing precautions and to the hip precautions.........don't be tempted to do more than you should. the body needs time to develop scar tissue in the area of the hip replacement so the hip will be less likely to dislocate. 4. I think you should follow up with Dr. Jules in the next 1-2 months. There are 5 stages of chronic renal failure, 5 being the worst, and you are in stage 4. You want to put off dialysis as long as possible and so you must make following up with nephrology a priority. When the kidney fails it is not able to concentrate the urine and decrease urine output if you do not drink enough fluid and get dehydrated. Make sure to drink at least 2 liters of fluids daily. 5. BE VERY CAREFUL with pain medications. Do NOT take any more than what you are prescribed. Pain medication and muscle relaxers are sedating and they can accumulate in your body because your kidney function is impaired. If you find that you are drowsy/sleepy/have trouble thinking you must cut back on meds. You do not want to forget to adhere to your hip precautions and weight bearing l imitations. If your pain is < 5 I would try Tylenol 1,000 mg every 8 hours before I would consider taking Tramadol, except at bedtime. Tramadol can accumulate in patients with kidney failure and you should NEVER take more than 200 mg of Tramadol daily. 6. Good luck to you Lady........I hope your recovery is smooth sailing from here on out. If you have any questions after you leave rehab please do not hesitate to call. Office: [phone] Discharge Orders/Prescriptions Prescriptions: New apixaban 2.5 mg tablet 2.5 mg PO Q12H Qty: 60 0RF cyclobenzaprine 10 mg Tablet 10 mg PO Q8H PRN (Reason: muscle spasm) Qty: 20 0RF polyethylene glycol 3350 17 gram Powder In Packet 17 g PO DAILY Qty: 0 0RF tramadol 50 mg Tablet 50 mg PO Q12H PRN (Reason: PAIN >5) 7 Days Qty: 28 0RF Rx Instructions: Take 1 tab twice a day as needed for pain and take 2 tabs at bedtime. magnesium hydroxide 400 mg/5 mL Suspension 30 ml PO .PRN X 1 PRN (Reason: Constipation) Qty: 0 0RF nystatin [Nyamyc] 100,000 unit/gram Powder 1 applic topical BID@0600,2200 Qty: 1 0RF Protocol: *Topical Application Instructions APPLICATION INSTRUCTIONS: Apply to inner thighs pregabalin 50 mg Capsule 50 mg PO 1999 Qty: 30 0RF Continued ascorbic acid (vitamin C) [Vitamin C] 1,000 MG tablet 100 mg PO DAILY pantoprazole [Protonix] 20 mg Tablet,Delayed Release (Dr/Ec) 20 mg PO DAILY cyanocobalamin (vitamin B-12) 500 mcg Tablet 500 mcg PO DAILY calcium carbonate 500 mg calcium (1,250 mg) Tablet,Chewable 500 mg PO BID PRN (Reason: Heartburn) magnesium 250 mg Tablet 250 mg PO DAILY cholecalciferol (vitamin D3) 25 mcg (1,000 unit) Tablet 25 mcg PO DAILY biotin 1,000 mcg Tablet,Chewable 1,000 mcg PO DAILY ipratropium bromide 42 mcg (0.06 %) Bode,Non-Aerosol 2 spray NASAL BID Qty: 1 0RF ondansetron HCl 4 mg Tablet 4 mg PO Q6H PRN (Reason: Nausea/Vomiting) ascorbic acid (vitamin C) 100 mg Tablet 100 mg PO DAILY docusate sodium [Colace] 100 mg Capsule 100 mg PO BID ferrous sulfate 325 mg (65 mg iron) tablet 325 mg PO QODAY Discontinued tramadol 50 mg Tablet 25 - 50 mg PO Q6H PRN PRN (Reason: Pain Score 4-10) Qty: 28 0RF trazodone 100 mg tablet 100 mg PO QHS PRN (Reason: insomnia) Qty: 30 0RF Rx Instructions: take 1/2 to 1 tab at bedtime for insomnia doxycycline hyclate [Vibramycin] 100 mg Capsule 100 mg PO 0600,1800 baclofen 10 mg Tablet 10 mg PO TID diphenhydramine HCl [Benadryl] 25 mg Capsule 25 mg PO QHS oxycodone 5 mg Tablet 5 - 10 mg PO Q4H PRN (Reason: Pain 1-10) Rx Instructions: PRN for 7 days enoxaparin [Lovenox] 30 mg/0.3 mL Syringe 30 mg SUBCUT DAILY melatonin 10 mg Capsule 10 mg PO QHS naloxone 4 mg/actuation Bode,Non-Aerosol 4 mg INTRANASAL Q3M PRN (Reason: Overdose) Rx Instructions: spray 1 dose into ONE nostril; alternate nostrils w each dose until help arrives enoxaparin 30 mg/0.3 mL syringe 30 mg subcut 0600 Rx Instructions: For 21 days No Action multivitamin [Daily Multiple] 1 EACH tablet 1 ea PO DAILY acetaminophen [Tylenol] 325 mg Tablet 1,000 mg PO Q8H PRN (Reason: Pain) Referrals / Follow Up: Mark Hamilton MD [Other] - 05/19/22 1:15 pm Ollie Nolen MD [Other] - 06/08/22 12:30 pm (06-08-22 12:[address] 06-08-22 1:[address] 06-08-22 2:[address] Nolen ) Kristie Nam MD [Primary Care Provider] - 05/18/22 11:40 am Disposition Disposition (needs filled in before D/C Order can be placed): Home Health Service
[2022-05-11 11:21] VITALS: BP 166/81; PULSE 98; RESP 18; TEMP 36.6; O2SAT 96
--- NOTE | 2022-05-11 11:51 | DS.PCM_ITS ---
Providers Date of Admission: 04/28/22 Date of Discharge: 05/11/22 Primary Care Physician: Dr. Kristie Nam MD Reason For Visit: Debility due to R SONJA Diagnosis Discharge Diagnosis (1) Physical debility: Status: Acute Code(s): R53.81 - Other malaise (2) History of open reduction and internal fixation (ORIF) procedure: Status: Acute Code(s): Z98.890 - Other specified postprocedural states Plan: Revision of prior R SONJA in 2019 due to hardware failure. Custom prosthesis. (3) Acute on chronic anemia: Status: Chronic Code(s): D64.9 - Anemia, unspecified Plan: Acute blood loss on chronic iron deficiency anemia. (4) DVT (deep venous thrombosis): Status: Acute Code(s): I82.409 - Acute embolism and thrombosis of unspecified deep veins of unspecified lower extremity Plan: Right gastrocnemius vein. Discharged on Eliquis 2.5 mg p.o. twice daily, (5) Gastritis: Status: Resolved Code(s): K29.70 - Gastritis, unspecified, without bleeding Plan: Due to Doxycycline with N/V/severe heartburn (6) Iron deficiency: Status: Acute Code(s): E61.1 - Iron deficiency Plan: Received 600 mg of IV iron sucrose while in rehab. (7) Adverse reaction to drug: Status: Resolved Code(s): T50.905A - Adverse effect of unspecified drugs, medicaments and biological substances, initial encounter Plan: Agitation and delirium due to Compazine. Resolved with Ativan 1 mg. (8) Constipation: Status: Acute Code(s): K59.00 - Constipation, unspecified Plan: Resolved with Colace and Miralax. (9) Chronic renal failure, stage 3b: Status: Acute Code(s): N18.32 - Chronic kidney disease, stage 3b Plan: Stage 3b - stage 4. Will follow up with Dr. Lucila Jules. (10) Cancer: Status: Inactive Code(s): C80.1 - Malignant (primary) neoplasm, unspecified Plan: Bladder CA with mets. In remission. (11) History of urostomy: Status: Chronic Code(s): Z98.890 - Other specified postprocedural states Plan 1. DC home with [facility]. PT/OT/SN. 2. Hospital Medications at Discharge Home Medications ascorbic acid (vitamin C) 1,000 mg tablet (Vitamin C) 100 mg PO DAILY vitamin 02/12/18 multivitamin (Daily Multiple tablet) 1 ea PO DAILY vitamin 02/12/18 acetaminophen 325 mg tablet (Tylenol) 1,000 mg PO Q8H PRN Pain 09/17/21 biotin 1,000 mcg chewable tablet 1,000 mcg PO DAILY vitamin 09/17/21 calcium carbonate 500 mg calcium (1,250 mg) chewable tablet 500 mg PO BID PRN Heartburn 09/17/21 cholecalciferol (vitamin D3) 25 mcg (1,000 unit) tablet 25 mcg PO DAILY vitamin 09/17/21 cyanocobalamin (vitamin B-12) 500 mcg tablet 500 mcg PO DAILY vitamin 09/17/21 magnesium 250 mg tablet 250 mg PO DAILY vitamin 09/17/21 pantoprazole 20 mg tablet,delayed release (Protonix) 20 mg PO DAILY acid 09/17/21 ipratropium bromide 42 mcg (0.06 %) nasal spray 2 spray NASAL BID #1 BOTTLE 09/26/21 ascorbic acid (vitamin C) 100 mg tablet 100 mg PO DAILY Supplement 04/28/22 docusate sodium 100 mg capsule (Colace) 100 mg PO BID constipation 04/28/22 ferrous sulfate 325 mg (65 mg iron) tablet 325 mg PO QODAY vitamin 04/28/22 ondansetron HCl 4 mg tablet 4 mg PO Q6H PRN Nausea/Vomiting 04/28/22 apixaban 2.5 mg tablet 2.5 mg PO Q12H #60 tabs 05/11/22 cyclobenzaprine 10 mg tablet 10 mg PO Q8H PRN muscle spasm #20 tabs 05/11/22 magnesium hydroxide 400 mg/5 mL oral suspension 30 ml PO .PRN X 1 PRN Constipation #0 mL 05/11/22 nystatin 100,000 unit/gram topical powder (Nyamyc) 1 applic topical BID@0600,2200 #1 BOTTLE 05/11/22 polyethylene glycol 3350 17 gram oral powder packet 17 g PO DAILY #0 ea 05/11/22 pregabalin 50 mg capsule 50 mg PO 2000 #30 caps 05/11/22 tramadol 50 mg tablet 50 mg PO Q12H PRN PAIN >5 7 days #28 tabs 05/11/22 Hospital Course Operations - (04/24/2022 Revision of previous R THR in 2019 due to acetabular fracture. ) Procedures None Summary of Care Provided Minutes Spent on Discharge: 45 Hospital Course: SERENA PENDLETON, is a 71 YO F with a past medical history of bladder cancer (diagnosed in 2018 and metastatic to the bladder, uterus and the R posterior acetabulum), osteoarthritis of multiple joints , insomnia, allergic rhinitis, hx of cystectomy with ileal conduit, revision of the ileal conduit due to stenosis (Apr 2021), BL cataract extraction, + HLA B-27 (negative RA, CCP and KARLA), periacetabular Reconstruction for a pathologic right posterior column acetabular fracture secondary to metastatic urothelial cancer in August 2018 at [facility]? and a Left hip replacement in September of 2021.? Serena had been having severe R hip pain earlier this year? 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 A custom hip prostesis had to be designed to reconstruct the R hip.? On 04/24/22 she underwent right acetabular fracture open reduction internal fixation with a Tri flange custom acetabular component by Dr. Hamilton at [facility]. She had an unremarkable post-op course and she was transferred to the acute inpt rehab unit at [facility] on 04/29/22 for 3 hours of therapy daily to strengthen and restore function to the RLE.? She is to adhere strictly to posterior dislocation precautions.? She will be TTWB on the RLE for 8 weeks then advance to 50% WB for 8 weeks and then advance to WBAT for 12 weeks.? Shortly after admission to rehab Serena was c/o heartburn, epigastric pain, nausea and vomiting. Protonix is increased to 40 mg p.o. twice daily and doxycycline was placed on hold. She began to eat again and the N/V and hear tburn resolved. The wound was examined daily and there has been no erythema and no DC for the duration of her stay in rehab. The incision is intact and ecchymosis has resolved. She had confusion and behavior disturbance with Oxycodone and Baclofen and both were discontinued. she was started on Tramadol which was effective for her on her last visit to rehab in September of 2021 after a L THR. She continued to c/o severe pain and the pain was located in the R lateral thigh and calf. The pain was worse at night and she was not sleeping well. She was started on Lyrica 50 mg at HS and is sleeping better with less pain prior to DC. An US of the RLE was obtained because of the calf pain and she was diagnosed with acute deep vein thrombosis in the right gastrocnemius vein. She was started on Eliquis 2.5 mg twice daily, adjusted for stage IV chronic renal failure. A loading dose was not given because the DVT is in a vein distal to the knee and she recently had extensive surgery on the right hip and is at risk for bleeding into the hip. Serena had acute on chronic anemia at admission due to expected blood loss with the surgery but, the HGB failed to improve on subsequent blood draws. Iron studies were obtained and the serum iron, TIBC and percent iron saturation were all decreased. The percent iron saturation was only 9.3%. Ferritin was high at 461 but, this is more than lik kierra secondary to acute inflammation. She had been on an iron supplement along with ascorbic acid routinely prior to admission. She is chronically on Protonix which likely impairs the absorption of iron from the GI tract. She received 600 mg of IV iron sucrose while on rehab and may need intravenous supplementation going forward. Serena did well in therapy and at the time of discharge she was able to complete 1 curb step x3 reps with a front wheel walker, hopping backwards onto the curb with her left lower extremity and toe-touch weightbearing on the right lower extremity. She was able to hop off the curb with the left lower extremity and toe-touch weightbearing on the right lower extremity with a front wheeled walker at contact-guard assist. She was able to do 9 sit to stands in 30 seconds with a front wheeled walker using her upper extremities to push up. She had ambulated up to 120 feet with a front wheeled walker at supervision. Serena was discharged home on 05/11/2022 with [facility] home health care. She will have PT/OT in a skilled nurse. A hospital bed was ordered for her and is to be delivered to the house prior to her discharge. An appointment was scheduled with Dr. Hamilton's and with her PCP Dr. Carla Nam. She was able to recite to me the posterior hip precautions and her weight bearing status at the time of DC. I also reminded Serena that it is very important that she follow up with Dr. Lucila Jules from nephrology within the next 1 to 2 months. Since he has stage IIIb to stage IV chronic renal failure and should be under the care of a marketing analytics lead with visits on a regular basis. Physical Exam Const alert, oriented x3, no apparent distress, healthy appearing and well nourished General Appearance: cooperative and comfortable HEENT moist oral mucous membranes Eyes PERRL, EOMs intact bilaterally, conjunctivae normal and no scleral icterus Neck no lymphadenopathy, supple, no JVD and no carotid bruits General: trachea midline Resp normal respiratory effort, normal air movement, no use of accessory muscles and clear to auscultation bilaterally Cardio regular rate, regular rhythm, S1 normal heart sound, S2 normal heart sound, no murmurs, no rub and no gallops GI normal to inspection, nondistended, normoactive bowel sounds, soft to palpation, non-tender and non-distended Palpation: Negative for guarding or rebound tenderness present no CVA tenderness Extremity normal capillary refill, no clubbing, cyanosis or edema and no calf tenderness Extremity Narrative: No significant ankle edema. EZEQUIEL hose are in place. No calf tenderness with palpation. Skin no rashes or lesions noted and no jaundice Skin Narrative: There is no cris-incisional erythema. The incision is intact with no dehiscence. Sutures are in place. Ecchymosis has resolved. There is no discharge from the wound. It appears to be healing well. General Skin Exam: no breakdown Rashes: no rashes Neuro oriented x3, CN's II-XII intact bilaterally and no focal motor deficits Sensorium / Orientation: alert Psych mental status grossly normal, cooperative, affect normal and activity/motor behavior normal Psych Narrative: Seems a little anxious and restless today. She has had Oxycodone 10 mg 3 times today. She looks more stressed than she did yesterday morning.......she was not taking Oxycodone at that time because she was afraid it was causing the N/V. Attitude: calm Activity / Motor Behavior: appropriate eye contact and restless Weight / BMI Weight Weight: 171 lb 4.787 oz Body Mass Index (BMI) 30.7 ABG / Lab / Microbiology Data Result Diagrams: 05/08/22 04:05/08/22 04:22 D/C Instructions Discharge Diet: - (Low-salt, low-fat.) Weight Bearing Status: Toe touch weight bearing (On the right leg.) Keep extremity elevated above heart level: Right Leg Call your doctor if your incision/area has: Continuous Slow Oozing, Sudden Increased Bleeding, Increased Pain/ Swelling, Increased Redness, Foul Smelling Discharge and Swelling at the incision site Call your doctor if you observe: Fever of 101 or Higher, Inability to have a bowel movement, Shortness of breath, Fainting spells, Chest pain, Increased palpitations (irregular heartbeat) and Uncontrolled pain Suture Line Care: Avoid Pulling/Pushing and Avoid Pinching/Bending Cleanse incision/area with: Soap & Water and Keep Dressing Clean & Dry Additional Dressing/Incision Instructions: 1. No flexing of the hip greater than 90 degrees 2. Do not cross your legs 3. No twisting Pending Tests Upon Discharge: none Please Follow Up With: Dr. Bautista When: 05/19/2022 at 1:15 PM Meaningful Use Info Meaningful Use Diagnoses (Choose all that apply): None applicable Discharge Plan Admission Admit Date/Time: 04/28/22 17:00 Primary Reason for Your Visit: Debility due to R hip replacement. Attending Provider: Nat Emerson Primary Care Provider: Kristie Nam Instructions Additional Instructions / Restrictions: 1. You are iron deficient. Stomach acid is needed to be able to absorb iron from the GI tract. You are on Protonix which blocks the secretion of acid in the stomach. You have not been absorbing the oral iron supplement you have been taking, even with the ascorbic acid you take with the iron. You may need to have IV iron periodically to keep the iron stores up. you should discuss this with Dr. Nam. She may want to refer you to a principal accounts clerk for iron supplementation. You have had 600 mg of intravenous iron while in rehab. This may be enough. Dr. Nam will need to check the iron saturation in 1-2 weeks to make sure you do not need additional IV iron. 2. You have a blood clot in the R leg distal to the knee. Blood clots distal to the knee are smaller than the blood clots that originate above the knee. They generally do not cause blood clots to go to the lung. You are on a blood thinner called Eliquis and you will need to take this for 3 months (nuha since you are going to be restricted in your ambulation for several more weeks). The dose of Eliquis has been adjusted for kidney failure. If you have CP and shortness of breath call Dr. Nam or go to an ER.........these are symptoms of a blood clot in the lung.......the risk of this is small in you because you are being discharged on an anticoagulant to prevent the clot in the leg from getting bigger. Blood thinners fo not dissolve the clot......your body will do this. 3. Stick to the weight bearing precautions and to the hip precautions.........don't be tempted to do more than you should. the body needs time to develop scar tissue in the area of the hip replacement so the hip will be less likely to dislocate. 4. I think you should follow up with Dr. Jules in the next 1-2 months. There are 5 stages of chronic renal failure, 5 being the worst, and you are in stage 4. You want to put off dialysis as long as possible and so you must make following up with nephrology a priority. When the kidney fails it is not able to concentrate the urine and decrease urine output if you do not drink enough fluid and get dehydrated. Make sure to drink at least 2 liters of fluids daily. 5. BE VERY CAREFUL with pain medications. Do NOT take any more than what you are prescribed. Pain medication and muscle relaxers are sedating and they can accumulate in your body because your kidney function is impaired. If you find that you are drowsy/sleepy/have trouble thinking you must cut back on meds. You do not want to forget to adhere to your hip precautions and weight bearing limitations. If your pain is < 5 I would try Tylenol 1,000 mg every 8 hours before I would consider taking Tramadol, except at bedtime. Tramadol can accumulate in patients with kidney failure and you should NEVER take more than 200 mg of Tramadol daily. 6. Good luck to you Serena........I hope your recovery is smooth sailing from here on out. If you have any questions after you leave rehab please do not hesitate to call. Office: [phone] Discharge Orders/Prescriptions Prescriptions: New apixaban 2.5 mg tablet 2.5 mg PO Q12H Qty: 60 0RF cyclobenzaprine 10 mg Tablet 10 mg PO Q8H PRN (Reason: muscle spasm) Qty: 20 0RF polyethylene glycol 3350 17 gram Powder In Packet 17 g PO DAILY Qty: 0 0RF tramadol 50 mg Tablet 50 mg PO Q12H PRN (Reason: PAIN >5) 7 Days Qty: 28 0RF Rx Instructions: Take 1 tab twice a day as needed for pain and take 2 tabs at bedtime. magnesium hydroxide 400 mg/5 mL Suspension 30 ml PO .PRN X 1 PRN (Reason: Constipation) Qty: 0 0RF nystatin [Nyamyc] 100,000 unit/gram Powder 1 applic topical BID@0600,2200 Qty: 1 0RF Protocol: *Topical Application Instructions APPLICATION INSTRUCTIONS: Apply to inner thighs pregabalin 50 mg Capsule 50 mg PO 2000 Qty: 30 0RF Continued ascorbic acid (vitamin C) [Vitamin C] 1,000 MG tablet 100 mg PO DAILY pantoprazole [Protonix] 20 mg Tablet,Delayed Release (Dr/Ec) 20 mg PO DAILY cyanocobalamin (vitamin B-12) 500 mcg Tablet 500 mcg PO DAILY calcium carbonate 500 mg calcium (1,250 mg) Tablet,Chewable 500 mg PO BID PRN (Reason: Heartburn) magnesium 250 mg Tablet 250 mg PO DAILY cholecalciferol (vitamin D3) 25 mcg (1,000 unit) Tablet 25 mcg PO DAILY biotin 1,000 mcg Tablet,Chewable 1,000 mcg PO DAILY ipratropium bromide 42 mcg (0.06 %) Franklin,Non-Aerosol 2 spray NASAL BID Qty: 1 0RF ondansetron HCl 4 mg Tablet 4 mg PO Q6H PRN (Reason: Nausea/Vomiting) ascorbic acid (vitamin C) 100 mg Tablet 100 mg PO DAILY docusate sodium [Colace] 100 mg Capsule 100 mg PO BID ferrous sulfate 325 mg (65 mg iron) tablet 325 mg PO QODAY Discontinued tramadol 50 mg Tablet 25 - 50 mg PO Q6H PRN PRN (Reason: Pain Score 4-10) Qty: 28 0RF trazodone 100 mg tablet 100 mg PO QHS PRN (Reason: insomnia) Qty: 30 0RF Rx Instructions: take 1/2 to 1 tab at bedtime for insomnia doxycycline hyclate [Vibramycin] 100 mg Capsule 100 mg PO 0600,1800 baclofen 10 mg Tablet 10 mg PO TID diphenhydramine HCl [Benadryl] 25 mg Capsule 25 mg PO QHS oxycodone 5 mg Tablet 5 - 10 mg PO Q4H PRN (Reason: Pain 1-10) Rx Instructions: PRN for 7 days enoxaparin [Lovenox] 30 mg/0.3 mL Syringe 30 mg SUBCUT DAILY melatonin 10 mg Capsule 10 mg PO QHS naloxone 4 mg/actuation Franklin,Non-Aerosol 4 mg INTRANASAL Q3M PRN (Reason: Overdose) Rx Instructions: spray 1 dose into ONE nostril; alternate nostrils w each dose until help arrives enoxaparin 30 mg/0.3 mL syringe 30 mg subcut 0600 Rx Instructions: For 21 days No Action multivitamin [Daily Multiple] 1 EACH tablet 1 ea PO DAILY acetaminophen [Tylenol] 325 mg Tablet 1,000 mg PO Q8H PRN (Reason: Pain) Referrals / Follow Up: Mark Hamilton MD [Other] - 05/19/22 1:15 pm Ollie Nolen MD [Other] - 06/08/22 12:30 pm (06-08-22 12:[address] 06-08-22 1:[address] 06-08-22 2:[address] Nolen ) Kristie Nam MD [Primary Care Provider] - 05/18/22 11:40 am Disposition Disposition (needs filled in before D/C Order can be placed): Home Health Service Charges/Coding Visit Charges Inpatient E&M: 08851 Disch Hosp
[2022-05-11] MEDS: Multivitamins,Therapeutic Tablet 1 TABLET PO (12:35)
[2022-05-11] MEDS: traMADol 50 MG Tablet PO (12:39)
== END 2022-05-11 14:57 | disposition home health service (06) | DRG 949 ==
PROVIDERS: Admitting Provider Internal Medicine; PCP Internal Medicine; Visit Provider Internal Medicine
DX: T84.090D Other mechanical complication of internal right hip prosthesis, subsequent encounter (principal); N18.4 Chronic kidney disease, stage 4 (severe); D62 Acute posthemorrhagic anemia; I82.461 Acute embolism and thrombosis of right calf muscular vein; K21.9 Gastro-esophageal reflux disease without esophagitis; K29.70 Gastritis, unspecified, without bleeding; E86.0 Dehydration; K59.00 Constipation, unspecified; Z85.51 Personal history of malignant neoplasm of bladder; Z79.01 Long term (current) use of anticoagulants; Z87.891 Personal history of nicotine dependence; F51.05 Insomnia due to other mental disorder; Z79.899 Other long term (current) drug therapy; Z85.830 Personal history of malignant neoplasm of bone; Z85.42 Personal history of malignant neoplasm of other parts of uterus; Y79.2 Prosthetic and other implants, materials and accessory orthopedic devices associated with adverse incidents; T50.905D Adverse effect of unspecified drugs, medicaments and biological substances, subsequent encounter
CPT/HCPCS: 36415; 80048; 80053; 81001; 82570; 82728; 83540; 83550; 83735; 84100; 84300; 85025; 85027; 93971; 97110; 97116; 97162; 97166; 97530; 97535; 97802; 99251; J7050; J7120; A4216; G0463; J2916

== ENCOUNTER → 2022-07-13 | Outpatient (CLI) | payer MEDICARE, BC, SELFPAY ==
[2022-07-13 12:06] LABS: Bacteria 0 SEEN /hpf (None Seen); Mucous, Urine 0 SEEN /hpf (<or=2+); Squamous Epithelial Cells - UA 0 SEEN /hpf (5-10)
[2022-07-13 13:07] LABS: Color, Urine Yellow (Yellow); Glucose, Dipstick Normal (Normal); Hematocrit 33.5 % (37-47); Hemoglobin 10.5 g/dL (12.0-15.0); Ketone-Dipstick Negative (Negative); Leukocyte Esterase-Dipstick 500 /ul (Negative); Mean Corp Hgb Conc 31.3 g/dL (32-36); Mean Corpuscular Hgb 30.4 pg (27.0-32.0); Mean Corpuscular Volume 97.1 fL (81-99); Mean Platelet Vol. 8.8 fl (6.2-12.0); Nitrite-Dipstick Negative (Negative); Occult Blood-Urine 50 /ul (Negative); Platelet Count 318 K/mm3 (150-450); Protein-Dipstick 100 mg/dl (Negative); RBC Distribution Width CV 14.5 % (11.6-14.6); RBC Distribution Width SD 51.6 fl (35.1-43.9); Red Blood Count 3.45 M/mm3 (4.2-5.4); Urine Bilirubin Dipstick Negative (Negative); Urine Clarity Clear (Clear); Urine Urobilinogen Normal (Normal); Urine pH 6.5 (5.0 - 8.0); White Blood Count 5.3 K/mm3 (4.4-11.0)
[2022-07-13 13:53] LABS: Red Blood Cells-Urine 0-5 SEEN /hpf (0-5); White Blood Cells 10-25 SEEN /hpf (0-5)
[2022-07-13 14:00] LABS: Albumin, Serum 3.6 g/dL (3.2-5.0); BUN 38 mg/dL (7-18); BUN/Creat Ratio 18.2 RATIO (10-20); Calcium,Total 9.8 mg/dL (8.5-10.1); Chloride 105 mmol/L (98-107); Creatinine, Serum 2.09 mg/dL (0.55-1.02); EST Glomerular Filtration Rate 25 mL/min (>60); Est Glom Filt Rate - Afr Amer 30 mL/min (>60); Glucose 97 mg/dL (74-106); Phosphorus 4.2 mg/dL (2.5-4.9); Sodium Level 138 mmol/L (136-145)
[2022-07-13 14:03] LABS: PTHIN 22.5 pg/mL (18.4-80.1)
== END | disposition home or self-care (01) ==
LOC: LAB 11:46
PROVIDERS: PCP Internal Medicine; Referring Provider Internal Medicine Nephrology; Visit Provider Internal Medicine Nephrology
DX: N18.32 Chronic kidney disease, stage 3b (principal)
CPT/HCPCS: 36415; 80069; 81001; 83970; 85027

== ENCOUNTER → 2022-08-08 | Outpatient (CLI) | payer MEDICARE, BC, SELFPAY ==
[2022-08-08 14:57] LABS: Albumin, Serum 3.6 g/dL (3.2-5.0); BUN 36 mg/dL (7-18); Calcium,Total 9.9 mg/dL (8.5-10.1); Chloride 107 mmol/L (98-107); EST Glomerular Filtration Rate 26 mL/min (>60); Est Glom Filt Rate - Afr Amer 32 mL/min (>60); Glucose 95 mg/dL (74-106); Phosphorus 4.2 mg/dL (2.5-4.9); Potassium 4.6 mmol/L (3.5-5.1); Sodium Level 139 mmol/L (136-145)
== END | disposition home or self-care (01) ==
LOC: LAB 13:52
PROVIDERS: PCP Internal Medicine; Referring Provider Internal Medicine Nephrology; Visit Provider Internal Medicine Nephrology
DX: N18.32 Chronic kidney disease, stage 3b (principal)
CPT/HCPCS: 36415; 80069

== ENCOUNTER → 2022-10-09 | Outpatient (CLI) | payer MEDICARE, BC, SELFPAY ==
[2022-10-09 10:04] LABS: Protein:Creat Ratio 3665 mg/g CRE (0-200)
[2022-10-09 10:21] LABS: Albumin, Serum 3.5 g/dL (3.2-5.0); BUN 35 mg/dL (7-18); BUN/Creat Ratio 17.9 RATIO (10-20); Calcium,Total 9.8 mg/dL (8.5-10.1); Chloride 107 mmol/L (98-107); Creatinine, Serum 1.95 mg/dL (0.55-1.02); EST Glomerular Filtration Rate 27 mL/min (>60); Est Glom Filt Rate - Afr Amer 33 mL/min (>60); Glucose 95 mg/dL (74-106); Phosphorus 3.8 mg/dL (2.5-4.9); Potassium 4.2 mmol/L (3.5-5.1); Sodium Level 139 mmol/L (136-145)
== END | disposition home or self-care (01) ==
LOC: LAB 09:26
PROVIDERS: PCP Internal Medicine; Referring Provider Internal Medicine Nephrology; Visit Provider Internal Medicine Nephrology
DX: N18.32 Chronic kidney disease, stage 3b (principal); R80.9 Proteinuria, unspecified
CPT/HCPCS: 36415; 80069; 82570; 84156